=== PATIENT | male | born 1945 | race Caucasian/White ===

== ENCOUNTER → 2016-12-22 | Outpatient (CLI) | payer OTHER ==
[~2016-12-22] MED LIST: CIPR1TAB11 PO; CLB100 PO; DRGTP12; ESZO1TAB16 PO; KFLS250100 PO; LISI-725 PO; MBXC PO; MULT-506 PO; ONDA8TAB6 PO; PROC1TAB5 PO; PSEU60TA80 PO; ondansetron
--- NOTE | 2016-12-22 15:11 | DIAGNOSTIC IMAGING REPORT ---
PET/CT HISTORY: HEAD NECK CANCER TECHNIQUE: PET/CT was performed from the base of the skull through the pelvis following the intravenous administration of 14.1 mCi of F18-FDG. Non-contrast CT imaging was performed over the same range without breath-hold for attenuation correction of PET images and anatomic correlation, but not for primary interpretation as it is not of standard diagnostic quality. CT DOSE: COMPARISON: None. FINDINGS: HEAD AND NECK: Within the right supraglottic soft tissues there is a 2.8 x 1.2 cm intensely FDG avid mucosal/submucosal mass with an SUV max of 17.8. This abuts but does not invade into the adjacent right thyroid cartilage. This results in mild effacement of the airway. However, the majority of the airway remains patent. There are 3 enlarged and FDG avid right level 2/3 cervical lymph nodes. Dominant level 3 lymph node measures 2.6 cm and demonstrates an SUV max of 14. No left cervical lymphadenopathy. Visualized brain parenchyma demonstrates symmetric perfusion. CHEST: There is no FDG-avid disease in the chest. There is no axillary or mediastinal lymphadenopathy. There is no pleural or pericardial effusion. There is no air-space disease or suspicious lung nodule. Mild FDG uptake associated with the bilateral karen is likely due to the normal pulmonary vessels. There are no enlarged hilar lymph nodes. ABDOMEN/PELVIS: Below the diaphragm, tracer is distributed physiologically in the gastrointestinal and genitourinary tracts. There is no significant lymphadenopathy and no FDG-avid disease. A 6 mm hyperdense lesion within the upper pole the right kidney is too small to characterize. This may represent a hyperdense cyst. MUSCULOSKELETAL: There is no FDG-avid or destructive bone lesion. IMPRESSION: A 2.8 x 1.2 cm intensely FDG avid right supraglottic mass with associated FDG avid right cervical lymphadenopathy as described above. Electronically signed by: Charanjit Resendiz M.D. 12/22/2016 3:09 PM Dictated Date/Time: 12/22/2016 2:49 PM
== END | disposition home or self-care (01) ==
LOC: C.PET 11:52
PROVIDERS: ATTEND Otolaryngology Otolaryngology/Facial Plastic Surgery
DX: C32.1 Malignant neoplasm of supraglottis (principal); R59.0 Localized enlarged lymph nodes

== ENCOUNTER → 2017-02-03 | Outpatient (CLI) | payer OTHER ==
--- NOTE | 2017-02-03 12:44 | DIAGNOSTIC IMAGING REPORT ---
BILATERAL CAROTID DOPPLER STUDY HISTORY: Dysphagia HEAD/NECK CA COMPARISON: None. TECHNIQUE: Real-time, grayscale, and color Doppler sonography of the carotid arteries was performed. Imaging reviewed in the transverse and longitudinal planes. All measurements were calculated based on NASCET criteria. FINDINGS: Antegrade flow is seen in the bilateral vertebral arteries. The brachial pressures are hemodynamically similar. Moderate plaque bilaterally The peak systolic velocity within the right ICA is 93. The right systolic ratio is 1.3. The peak systolic velocity within the left ICA is 121. The left systolic ratio is 1.8. IMPRESSION: Moderate plaque formation bilaterally. No significant stenosis. Electronically signed by: John Nunez M.D. 02/03/2017 12:42 PM Dictated Date/Time: 02/03/2017 12:38 PM
== END | disposition home or self-care (01) ==
LOC: C.ULTR 12:01
PROVIDERS: ATTEND Radiology Radiation Oncology
DX: C32.1 Malignant neoplasm of supraglottis (principal); I70.8 Atherosclerosis of other arteries; I65.23 Occlusion and stenosis of bilateral carotid arteries

== ENCOUNTER → 2017-03-09 | Outpatient (CLI) | payer OTHER ==
--- NOTE | 2017-03-09 11:57 | DIAGNOSTIC IMAGING REPORT ---
VIDEO SWALLOW STUDY CLINICAL HISTORY: Supraglottic nasopharyngeal carcinoma. COMPARISON STUDY: No priors. Fluoroscopy time: 2.3 minutes. FINDINGS: Fluoroscopic guidance is provided to the department of speech pathology in performing a video swallow study. The patient consumed barium-impregnated pudding, cracker with paste, nectar-thick liquid, as well as thin barium while the swallowing mechanism was observed in real-time. No aspiration was seen with the pudding or cracker with paste texture. There was aspiration seen with the thin barium and nectar-thick liquid textures. IMPRESSION: 1. Aspiration was seen with the nectar-thick liquid and thin barium textures. 2. See dedicated speech pathology report for detailed findings and recommendations. Dictated: 03/09/2017 11:53 AM Transcribed: 03/09/2017 11:56 AM [facility] Electronically signed by: Maxime Zhang M.D. 03/09/2017 12:11 PM Dictated Date/Time: 03/09/2017 11:53 AM
--- NOTE | 2017-03-09 16:03 | SWALLOWING EVALUATION ---
REFERRING SPEECH PATHOLOGIST: Lisa Bach MS, [facility])-MARKETING/SALES PERSON/L HISTORY: This 71 year-old male was referred for a VFSS at [facility] in order to rule out aspiration and identify safe consistencies for optimal oral intake. 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 He underwent (R) supraglottic hemilaryngectomy with bilateral neck dissection on 01/05/2017. He is currently receiving both chemotherapy and XRT (today was XRT #5). He had a trach for ~3 weeks following surgery and PEG-tube for ~6 weeks following surgery; however both are removed. Pt eating diet as tolerated and states he is maintaining his weight. No pneumonia, pneumonitis or bronchitis diagnosed since resuming oral intake. Pt reports increased difficulty swallowing solid foods that he describes as "dense". He eats no thick pieces of meat, cuts crust from sandwiches, etc. He also has complaints of thick saliva impeding his ability to swallow at times. He denies odynophagia. He has been seen by Outpatient MARKETING/SALES PERSON Services at [facility] and demonstrated s/s possible aspiration. This study was ordered as f/u. PROCEDURE: The patient was seen in the Radiology Department of [facility] for the VFSS. Cursory examination of the oral cavity revealed adequate dentition. Movement of the articulators was WNL. The patient was seated on a stool and was viewed in both the Anterior-Posterior (A-P) and Lateral planes. Volitional phonation exercises completed in the A-P plane revealed bilateral vocal fold movement and vocal intensity within functional limits. In the lateral plane, the patient was given the following boluses: 1 tsp. thin liquid barium x 2, single swallow thin liquid barium self-presented from a straw x 2 (once using supraglottic swallowing maneuver), 1 tsp. nectar-thick liquid barium, single swallow nectar-thick liquid barium self-presented from a cup, 1 tsp. barium pudding, and 1 club cracker with barium pudding. The patient was then repositioned into the A-P plane and given one teaspoon thin liquid barium. RESULTS: Oral Stage: Labial seal complete. Cohesive bolus between tongue and palate during oral bolus hold exercise with thin liquid barium. Slow mastication with complete bolus re-collection. Brisk lingual motion for bolus transport. Residue collections on tongue after initial swallow of bolus. Cleared with an independently-produced second swallow. Latent pharyngeal swallow initiation when the bolus head was in the remaining pyriform sinus. The oral-stage of the swallow was generally WFL, but mastication was slightly prolonged and pharyngeal swallow initiation was delayed. Pharyngeal Stage: No bolus between soft palate and pharyngeal wall. Partial superior movement of the thyroid cartilage with partial approximation of the arytenoids to the epiglottic petiole. Partial anterior hyoid excursion. Epiglottis could not be assessed. Incomplete laryngeal vestibular closure. Diminished pharyngeal stripping wave. Partial distention and duration of PES opening with partial obstruction of bolus flow. Wide column of contrast between tongue base and pharyngeal wall. Collections of bolus in the remaining valleculae and pyriform sinus after swallowing. There was trickle SILENT ASPIRATION of thin liquid from a straw and nectar-thick liquid from a cup (large bolus) as the bolus dripped into the airway in between swallows. No aspiration with teaspoon-sized boluses or thin liquid from a cup (smaller amount taken). Use of a supraglottic swallow maneuver was effective in clearing aspirate from the airway; however the patient did not like using the technique. Also effective was having the patient cough and re-swallow x 2 after initial swallows. The solid boluses required multiple swallows to clear the pharynx and pass through the limited UES opening. Esophageal Stage: No obvious bolus retention when esophagus was scanned. SUMMARY/RECOMMENDATIONS: This patient presents with moderate oral-pharyngeal dysphagia. The following is recommended: 1. Moist, soft diet as tolerated 2. Compensatory Strategies/Aspiration precautions: Limit liquid bolus size to ~ 1 teaspoon, avoid straw use, alternate solids and liquids, swallow twice per bolus, use cough/re-swallow in between swallows 3. Stringent oral hygiene protocol: to minimize oral bacteria aspirated in saliva 4. Continue f/u with referring MARKETING/SALES PERSON for dysphagia management and for learning prophylactic exercises to reduce impact of post XRT fibrosis A summary of the results and recommendations was discussed with the patient immediately following the study. He verbalized understanding and is anticipating f/u with referring MARKETING/SALES PERSON. Thank you for referral of this patient. Please contact me at if any additional information is needed.
== END | disposition home or self-care (01) ==
LOC: C.RAD 10:31
PROVIDERS: ATTEND Physician Assistant Medical
DX: Z51.0 Encounter for antineoplastic radiation therapy (principal); C32.1 Malignant neoplasm of supraglottis; R13.12 Dysphagia, oropharyngeal phase

== ENCOUNTER → 2017-03-23 | Day surgery (SDC) | payer OTHER ==
[~2017-03-23] VITALS: Ht 175.3 cm; Wt 64.0 kg
[~2017-03-23] MED LIST changes: +CEFAZOLIN 2000 MG/60 ML D5W IV SCH; +CEFAZOLIN IV 2,000 MG/60 ML D5W IV ONE; +FENTANYL CITRATE INJ 50 MCG/1 ML 2 ML VIAL ONE; +KETAMINE HCL INJ 50 MG/ML 10 ML VIAL ONE; +LIDOCAINE HCL 2% 2 ML VIAL (20MG/ML) ONE; +MIDAZOLAM HCL 1 MG/ML 2ML VIAL ONE; +PROPOFOL IV EMULSION 10 MG/ML 20 ML VIAL IV ONE; +SODIUM CHLORIDE 0.9% 500ML 500 ML IV ONE
[2017-03-23 12:51] VITALS: Ht 175.3 cm; Wt 64.0 kg
--- NOTE | 2017-03-23 13:21 | Endo History and Physical ---
History & Physical Date of Service: Mar 23, 2017. Chief Complaint: HEAD AND NECK CANCER WEIGHT LOSS Referring Physician: DR PRIDE History of Present Illness 71 yo CM who presents for EGD with PEG tube placement secondary to head and neck cancer with radiation and dysphagia. Past Surgical History Hx Cardiac Surgery: No Hx Internal Defibrillator: No Hx Pacemaker: No Hx Abdominal Surgery: No Hx of Implantable Prosthesis: No Hx Post-Op Nausea and Vomiting: No Hx Cancer Surgery: Yes (PARTIAL LARYNGECTOMY AND LYPH NODESW) Hx Thoracic Surgery: No Hx Orthopedic: Yes (BUNION SURGERY) Hx Urinary Tract Surgery: No Family History None Social History Smoking Status: Former Smoker Hx Substance Use: No Hx Alcohol Use: No (None in past 30 years) Allergies Coded Allergies: No Known Allergies (Unverified , 03/23/17) Current Medications Reported Home Medications Medications Dose Route/Sig Max Daily Dose Days Date Category Mucinex D (Pseudoephedrine-Guaifenesin) 1 Tab Tab 1 Tab PO BID 10 03/23/17 Reported [ondansetron ] 1 Tab Q6H 03/21/17 Reported Compazine (Prochlorperazine Maleate) 10 Mg Tab 1 Tab PO Q6 PRN 7 03/15/17 Reported Multivitamin (Multivitamins) Tab 1 Tab PO DAILY 03/07/17 Reported Zestril (Lisinopril) 20 Mg Tab 20 Mg PO DAILY 02/01/17 Reported Lunesta (Eszopiclone) 3 Mg Tab 3 Mg PO HS PRN 02/01/17 Reported Celebrex (Celecoxib) 100 Mg Cap 1 Cap PO DAILY 30 02/01/17 Reported Vital Signs Weight (Kilograms): 64 Height (Feet): 5 Height (Inches): 9 Date Time Temp Pulse Resp B/P (MAP) Pulse Ox O2 Delivery O2 Flow Rate FiO2 03/23/17 13:02 37 63 16 116/64 99 Room Air Physical Exam General Appearance: WD/WN, no apparent distress Respiratory/Chest: Auscultation: breath sounds normal Cardiovascular: Heart Auscultation: RRR Abdomen: Bowel Sounds: normal Inspection & Palpation: soft, non-distended, no tenderness, guarding & rebound Assessment and Plan Assessment: 71 yo CM who presents for EGD with PEG tube placement secondary to head and neck cancer with radiation and dysphagia. Plan: Proceed with EGD.
--- NOTE | 2017-03-23 13:52 | Discharge Instructions ---
Endoscopy Patient Instructions Date / Procedure(s) Performed Mar 23, 2017. Other Allergy Information Coded Allergies: No Known Allergies (Unverified , 03/23/17) Discharge Date / Findings Mar 23, 2017. Radiation esophagitis Successful PEG tube placement Medication Instructions OK to resume all medications today as prescribed Medications Dose Route/Sig Max Daily Dose Days Date Category Mucinex D (Pseudoephedrine-Guaifenesin) 1 Tab Tab 1 Tab PO BID 10 03/23/17 Reported [ondansetron ] 1 Tab Q6H 03/21/17 Reported Compazine (Prochlorperazine Maleate) 10 Mg Tab 1 Tab PO Q6 PRN 7 03/15/17 Reported Multivitamin (Multivitamins) Tab 1 Tab PO DAILY 03/07/17 Reported Zestril (Lisinopril) 20 Mg Tab 20 Mg PO DAILY 02/01/17 Reported Lunesta (Eszopiclone) 3 Mg Tab 3 Mg PO HS PRN 02/01/17 Reported Celebrex (Celecoxib) 100 Mg Cap 1 Cap PO DAILY 30 02/01/17 Reported Provider Instructions Activity Restrictions - No exercising or heavy lifting for 24 hours. - Do not drink alcohol the day of the procedure. - Do not drive a car or operate machinery until the day after the procedure. - Do not make any important decisions or sign important papers in 24 hours after the procedure. Following Day: - Return to full activity which may include returning to work/school. Diet Start your diet with liquids and light foods (jello, soup, juice, toast). Then eat your usual diet if not nauseated. Treatment For Common After Affects For mild abdominal pain, bloating, or excessive gas: - Rest - Eat lightly - Lie on right side Follow-Up Information Follow-up with DR PRIDE as scheduled Anesthesia Information What You Should Know You have had a procedure that required some medicine to reduce anxiety and discomfort. This treatment is called moderate sedation. After receiving the treatment, you may be sleepy, but you will be able to breathe on your own. The effects of the treatment may last for several hours. Follow these instructions along with Activity/Diet recommendations noted above: * Do NOT do anything where dizziness or clumsiness would be dangerous. * Rest quietly at home today, then you can be up and about tomorrow. * Have a responsible person stay with you the rest of today. * You may have had an I.V. today. If so, you may take the dressing off later today. Recommendations Call your doctor if: * Trouble breathing * Continuous vomiting for more than 24 hours * Temperature above 101 degrees * Severe abdominal pain or bloating * Pain not relieved by pain medicine ordered * There is increased drainage or redness from any incision * A large amount of rectal bleeding greater than 2-3 tablespoons. (If you had a polyp/s removed or have hemorrhoids, a small amount of blood - from the rectum is to be expected.) * You have any unanswered questions or concerns. IN THE EVENT OF A SERIOUS EMERGENCY, GO TO THE NEAREST EMERGENCY ROOM Your discharge instructions were prepared by provider Prosper Bro. Patient Instructions Signature Page Katie Wagoner Patient (or Guardian) Signature/Date: I have read and understand the instructions given to me by my caregivers. Caregiver/RN/Doctor Signature/Date: The above-named patient and/or guardian has received patient instructions on this date. + Original Patient Signature Page (only) stays with chart. Please make copy for patient.
--- NOTE | 2017-03-23 13:54 | Discharge Instructions ---
Endoscopy Patient Instructions Date / Procedure Performed Mar 23, 2017. Percutaneous Endoscopic Gastrotomy (P.E.G) Tube Replacement / Removal Allergy Information Coded Allergies: No Known Allergies (Unverified , 03/23/17) Home Medication List Scheduled Celecoxib (Celebrex), 1 CAP PO DAILY Eszopiclone (Lunesta), 3 MG PO HS prn Lisinopril (Zestril), 20 MG PO DAILY Multivitamin (Multivitamin), 1 TAB PO DAILY Pseudoephedrine-Guaifenesin (Mucinex D), 1 TAB PO BID [ondansetron ], 1 TAB Q6H Scheduled PRN Prochlorperazine Maleate (Compazine), 1 TAB PO Q6 PRN for Nausea or Vomiting Discharge Date / Findings Mar 23, 2017. Successful PEG tube placement Radiation esophagitis Medication Instructions OK to resume all medications today as prescribed Medications Dose Route/Sig Max Daily Dose Days Date Category Mucinex D (Pseudoephedrine-Guaifenesin) 1 Tab Tab 1 Tab PO BID 10 03/23/17 Reported [ondansetron ] 1 Tab Q6H 03/21/17 Reported Compazine (Prochlorperazine Maleate) 10 Mg Tab 1 Tab PO Q6 PRN 7 03/15/17 Reported Multivitamin (Multivitamins) Tab 1 Tab PO DAILY 03/07/17 Reported Zestril (Lisinopril) 20 Mg Tab 20 Mg PO DAILY 02/01/17 Reported Lunesta (Eszopiclone) 3 Mg Tab 3 Mg PO HS PRN 02/01/17 Reported Celebrex (Celecoxib) 100 Mg Cap 1 Cap PO DAILY 30 02/01/17 Reported Provider Instructions Activity Recommendations * Resume regular activity . Diet Recommendations * Resume previous diet. * Advance diet as tolerated. * Before each feeding, aspirate the tube for residual gastric contents. Hold feedings for residual of 50 ml or more. * Elevate the head of the bed during and after feedings for 30-60 minutes . Medication Instructions * Resume usual medications. * Always flush the tube with warm water after administration of medication. Follow-Up Information Follow-up with DR PRIDE as scheduled Anesthesia Information What You Should Know You have had a procedure that required some medicine to reduce anxiety and discomfort. This treatment is called moderate sedation. After receiving the treatment, you may be sleepy, but you will be able to breathe on your own. The effects of the treatment may last for several hours. Follow these instructions along with Activity/Diet recommendations noted above: * Do NOT do anything where dizziness or clumsiness would be dangerous. * Rest quietly at home today, then you can be up and about tomorrow. * Have a responsible person stay with you the rest of today. * You may have had an I.V. today. If so, you may take the dressing off later today. Symptoms Additional Instructions If you experience any of the following symptoms after your procedure seek medical attention at your closest Emergency Room and/or call your primary care physician immediately: * Severe abdominal pain or bloating * Fever greater than 101.1 degrees within 24 hours after the procedure * Uncontrolled nausea and vomiting Avoid all tobacco products. If you need help to stop smoking, call [facility] FREE QUIT LINE at [phone]. Your discharge instructions were prepared by provider Prosper Bro. Patient Instructions Signature Page Katie Wagoner Patient (or Guardian) Signature/Date: I have read and understand the instructions given to me by my caregivers. Caregiver/RN/Doctor Signature/Date: The above-named patient and/or guardian has received patient instructions on this date. + Original Patient Signature Page (only) stays with chart. Please make copy for patient.
--- NOTE | 2017-03-23 14:00 | GI REPORT ---
Procedure Date: 03/23/2017 1:27 PM Procedure: Upper GI endoscopy Indications: Dysphagia, Head and Neck Cancer Medicines: Monitored Anesthesia Care Complications: No immediate complications. Estimated Blood Loss: Estimated blood loss: none. Procedure: Pre-Anesthesia Assessment: - Prior to the procedure, a History and Physical was performed, and patient medications and allergies were reviewed. The patient's tolerance of previous anesthesia was also reviewed. The risks and benefits of the procedure and the sedation options and risks were discussed with the patient. All questions were answered, and informed consent was obtained. Prior Anticoagulants: The patient has taken no previous anticoagulant or antiplatelet agents. ASA Grade Assessment: IV - A patient with severe systemic disease that is a constant threat to life. After reviewing the risks and benefits, the patient was deemed in satisfactory condition to undergo the procedure. After obtaining informed consent, the endoscope was passed under direct vision. Throughout the procedure, the patient's blood pressure, pulse, and oxygen saturations were monitored continuously. The On-site loaner was introduced through the mouth, and advanced to the second part of duodenum. The upper GI endoscopy was accomplished without difficulty. The patient tolerated the procedure well. Findings: Mildly severe esophagitis with no bleeding was found. The entire examined stomach was normal. Placement of an externally removable PEG with no T-fasteners was successfully completed. The external bumper was at the 2.0 cm marking on the tube. The examined duodenum was normal. Impression: - Mildly severe radiation esophagitis. - Normal stomach. - Normal examined duodenum. - An externally removable PEG placement was successfully completed. - No specimens collected. Recommendation: - Resume previous diet. - Continue present medications. - Please follow the post-PEG recommendations including: Nutrition consult for formula and volume, clean site with soap and water daily and dry thoroughly and start using PEG today. Prosper Bro, DO 03/23/2017 1:59:38 PM This report has been signed electronically. Note Initiated On: 03/23/2017 1:27 PM I attest to the content of the Intraoperative Record and orders documented therein, exceptions below
[2017-03-23 14:56] VITALS: BP 119/63; PULSE 72; O2SAT 97
--- NOTE | 2017-03-23 15:03 | Anesthesiology Progress Note ---
Anesthesia Post Op Note Date & Time Mar 23, 2017 at 15:03 Vital Signs Pain Intensity: 0 Vital Signs Past 12 Hours Date Time Temp Pulse Resp B/P (MAP) Pulse Ox O2 Delivery O2 Flow Rate FiO2 03/23/17 14:56 72 20 119/63 97 Room Air 03/23/17 14:30 37 68 20 112/58 97 Room Air 03/23/17 14:13 63 20 101/57 97 Room Air 03/23/17 13:57 68 18 104/66 99 Room Air 03/23/17 13:02 37 63 16 116/64 99 Room Air Notes Mental Status: alert / awake / arousable, participated in evaluation Pt Amnestic to Procedure: Yes Nausea / Vomiting: adequately controlled Pain: adequately controlled Airway Patency, RR, SpO2: stable & adequate BP & HR: stable & adequate Hydration State: stable & adequate Anesthetic Complications: no major complications apparent
== END | disposition home or self-care (01) ==
LOC: C.GI 12:32
PROVIDERS: ATTEND Internal Medicine
DX: C32.1 Malignant neoplasm of supraglottis (principal); K20.8 Other esophagitis; R13.10 Dysphagia, unspecified; T50.995A Adverse effect of other drugs, medicaments and biological substances, initial encounter; C76.0 Malignant neoplasm of head, face and neck; Z87.891 Personal history of nicotine dependence; Z92.3 Personal history of irradiation

== ENCOUNTER → 2017-05-03 | Outpatient (CLI) | payer OTHER ==
--- NOTE | 2017-05-02 17:59 | Radiation Onc End of Treatmnt ---
End of Treatment Documentation Date May 02, 2017. 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 Bowers - stage pT3N2c with extranodal extension Status post completion of combined radiation and chemotherapy. Radiation completed 04/21/2017. He received 6600 cGy. Chemotherapy comprised of weekly cisplatin. Last Edited By: Luh Sosa on May 02, 2017 17:48 History Mr. Wagoner is a 71-year-old gentleman with the previous smoking history who presented with a right neck mass in November 2016. The patient underwent ultrasound on 12/01/2016 which revealed a 2.4 cm complex vascular lesion within the right neck consistent with a palpable mass. The patient underwent an ultrasound- guided biopsy of the right neck mass on which confirmed evidence of malignancy but cannot be confirmed to be squamous cell carcinoma. The patient was referred to Dr. Saad Bowers from ENT who did perform an NPL examination which revealed a 2 cm exophytic lesion involving the right aryepiglottic fold that did not appear to involve the vocal cord or false vocal cord. The patient did undergo a PET/CT scan on 12/22/2016 which revealed: "Within the right supraglottic soft tissues there is a 2.8 x 1.2 cm intensely FDG avid mucosal/submucosal mass with an SUV max of 17.8. This abuts but does not invade into the adjacent right thyroid cartilage. This results in mild effacement of the airway. However, the majority of the airway remains patent. There are 3 enlarged and FDG avid right level 2/3 cervical lymph nodes. Dominant level 3 lymph node measures 2.6 cm and demonstrates an SUV max of 14. No left cervical lymphadenopathy. Visualized brain parenchyma demonstrates symmetric perfusion." The PET/CT do not reveal any evidence of distant metastatic disease. Dr. Bowers took the patient to the operating room on 01/05/2017 for a right supraglottic hemilaryngectomy, right modified radical neck dissection, left selective neck dissection and tracheostomy. 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 The margins were positive and both lymphovascular space invasion and perineural invasion were present. The primary tumor is p16 negative. In total, 39 lymph nodes were removed and 12 were positive for metastatic squamous cell carcinoma. Extracapsular extension was also identified. Specifically, 11 lymph nodes were positive involving right levels 2 and 3 and 1 lymph node was positive involving the left neck. We are now seeing the patient in consultation discussed the role of adjuvant radiation therapy. Currently, the patient is doing relatively okay. 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 Additionally, his temporary tracheostomy has been removed and is healing as well. He states he has had some difficulty getting back his original weight and plans to potentially increase his weight by 10-15 pounds. He did have a temporary feeding tube and that was removed due to patient intolerance. He was referred to medical oncology. The final decision was to treat with combined radiation and chemotherapy. Chemotherapy comprised of weekly cisplatin. Radiation was completed on 2016. He received 6600 cGy. Physics Course Treatment Site [employer] Start Date End Date Elapsed Days # TX Daily Dose (cGy) Total Dose (cGy) C1- H&N VMAT, 2 arcs 6X 03/03/2017 04/21/2017 50 33 200 6600 Do documented final doses agree with prescribed doses? Yes If not, explain: Is patients chart complete and accurate? Yes Additional Notes He completed his combined course of radiation and chemotherapy. He did not require any breaks in treatment. The chemotherapy was given on a weekly basis. He did develop dysphagia. He was given MBXC. With the increasing discomfort a fentanyl patch was prescribed. He was seen by speech therapy and also the dietitian. Prior to treatment there is a carotid evaluation. He also had thyroid function study. Ultimately a feeding tube was required. He steadily increased the amount of nutrition. He did have difficulty with a feeling of fullness. At the end of treatment he was using 3 cartons of nutrition per day. He was flushing before and after each carton. Overall approximate weight loss of 10 pounds. He had issues with a mucocutaneous fistula. There was opening with purulent drainage. This was cultured. He was given a prescription for cephalexin. The opening size and amount of drainage did respond to the antibiotic therapy. He is going to continue regular follow-up with Dr. Granados, Dr. Bowers, and Dr. Hunter. We asked her to return to our office in 2 weeks. He may call if she has any questions or concerns in the interim. Pain Management He had no pain at beginning of treatment. 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 He was started first on MBXC. A sentinel patch was then added 12 g per hour changed every 72 hours. This was increased to 24 g per hour changed every 72 hours. This ultimately was then increased to 50 g per hour at the end of treatment. His pain level at that time was 8. Copies To Shen Bowers; Augusto Granados MD; Yimi Hunter D.O.
[~2017-05-03] MED LIST changes: -CEFAZOLIN 2000 MG/60 ML D5W IV SCH; -CEFAZOLIN IV 2,000 MG/60 ML D5W IV ONE; -CLB100 PO; -ESZO1TAB16 PO; -FENTANYL CITRATE INJ 50 MCG/1 ML 2 ML VIAL ONE; -KETAMINE HCL INJ 50 MG/ML 10 ML VIAL ONE; -LIDOCAINE HCL 2% 2 ML VIAL (20MG/ML) ONE; -LISI-725 PO; -MBXC PO; -MIDAZOLAM HCL 1 MG/ML 2ML VIAL ONE; -MULT-506 PO; -PROPOFOL IV EMULSION 10 MG/ML 20 ML VIAL IV ONE; -PSEU60TA80 PO; -SODIUM CHLORIDE 0.9% 500ML 500 ML IV ONE; -ondansetron
[2017-05-03 13:45] VITALS: BP 111/70; PULSE 67; TEMP 37; O2SAT 96
--- NOTE | 2017-05-03 16:54 | Radiation Oncology Follow-Up ---
Radiation Oncology Follow-Up Date of Visit May 03, 2017. (Luh Sosa PA-C) Reason For Visit Two-week follow-up (Luh Sosa PA-C) Radiation Completion Date finished 04-21-2017 (Luh Sosa PA-C) Diagnosis (1) Cancer of supraglottis Status: Acute Onset Date: 12/10/2016 Histology Subtype: squamous cell carcinoma Stage: IV Permanent Comment: -Self palpated right neck mass - November 2016 -Ultrasound-guided FNA of right neck mass - 12/10/2016 - positive for squamous cell carcinoma -PET/CT scan - 12/22/2016 -Supraglottic hemilaryngectomy, bilateral neck dissection - 01/05/2017 - Dr. Bowers - stage pT3N2c with extranodal extension Status post completion of combined radiation and chemotherapy. Radiation completed 04/21/2017. He received 6600 cGy. Chemotherapy comprised of weekly cisplatin. Last Edited By: Luh Sosa on May 02, 2017 17:48 (Luh Sosa PA-C) History of Present Illness Mr. Wagoner is a 71-year-old gentleman with the previous smoking history who presented with a right neck mass in November 2016. The patient underwent ultrasound on 12/01/2016 which revealed a 2.4 cm complex vascular lesion within the right neck consistent with a palpable mass. The patient underwent an ultrasound- guided biopsy of the right neck mass on which confirmed evidence of malignancy but cannot be confirmed to be squamous cell carcinoma. The patient was referred to Dr. Saad Bowers from ENT who did perform an NPL examination which revealed a 2 cm exophytic lesion involving the right aryepiglottic fold that did not appear to involve the vocal cord or false vocal cord. The patient did undergo a PET/CT scan on 12/22/2016 which revealed: "Within the right supraglottic soft tissues there is a 2.8 x 1.2 cm intensely FDG avid mucosal/submucosal mass with an SUV max of 17.8. This abuts but does not invade into the adjacent right thyroid cartilage. This results in mild effacement of the airway. However, the majority of the airway remains patent. There are 3 enlarged and FDG avid right level 2/3 cervical lymph nodes. Dominant level 3 lymph node measures 2.6 cm and demonstrates an SUV max of 14. No left cervical lymphadenopathy. Visualized brain parenchyma demonstrates symmetric perfusion." The PET/CT do not reveal any evidence of distant metastatic disease. Dr. Bowers took the patient to the operating room on 01/05/2017 for a right supraglottic hemilaryngectomy, right modified radical neck dissection, left selective neck dissection and tracheostomy. 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 The margins were positive and both lymphovascular space invasion and perineural invasion were present. The primary tumor is p16 negative. In total, 39 lymph nodes were removed and 12 were positive for metastatic squamous cell carcinoma. Extracapsular extension was also identified. Specifically, 11 lymph nodes were positive involving right levels 2 and 3 and 1 lymph node was positive involving the left neck. We are now seeing the patient in consultation discussed the role of adjuvant radiation therapy. Currently, the patient is doing relatively okay. 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 Additionally, his temporary tracheostomy has been removed and is healing as well. He states he has had some difficulty getting back his original weight and plans to potentially increase his weight by 10-15 pounds. He did have a temporary feeding tube and that was removed due to patient intolerance. He was referred to medical oncology. The final decision was to treat with combined radiation and chemotherapy. Chemotherapy comprised of weekly cisplatin. Radiation was completed on 2016. He received 6600 cGy. (Luh Sosa PA-C) Interim History He is now taking in 4 containers of nutrition daily. He flushes with water before and after each container. His pain level currently is 3. After completing the radiation therapy he stopped using the fentanyl patches. Does not take any pain medication on a regular basis. He does have dryness of the skin on the sides of the neck. He has been using Aquaphor. 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 There is near complete closure and only a scant amount of range that occurs. He had been on cephalexin and this was completed. He is now on Cipro and is completing that prescription. He is continuing follow-up with speech therapy and has asked that he be followed at [facility] for convenience of travel. (Luh Sosa PA-C) Allergies Coded Allergies: No Known Allergies (Unverified , 03/23/17) Home Medications Scheduled Ciprofloxacin Tab (Cipro), 1 TAB PO BID Review of Systems Gastrointestinal: Symptoms: WNL Oral: Symptoms: Saliva amt. Increased Other Oral Symptoms: sore throat and difficulty swallowing Respiratory: Symptoms: WNL Other Respiratory: "occ coughing fits due to increased saliva " Urinary: Symptoms: Nocturia Comments: times 1 Skin: Other Skin Symptoms: "per the patient the skin below the trach is healing " (Luh Sosa PA-C) Physical Exam Vital Signs Date Time Temp Pulse Resp B/P (MAP) Pulse Ox O2 Delivery O2 Flow Rate FiO2 05/03/17 13:45 37.0 67 18 111/70 96 Pain: Pain Onset: since radiation started Side: Bilateral Patient Pain Scale: 0 - 10 Initial Pain Intensity: 3.0 Pain Description: Dull Additional Comments: constant Fatigue: None General Appearance: no apparent distress Eyes: normal inspection, EOMI ENT: hearing grossly normal, + pertinent finding (thickness of saliva noted in the mouth. There are no areas of erythema or mucositis. No pain with opening the mouth. No trismus.) Neck: + pertinent finding (postoperative changes with resolving radiation dermatitis. There is dry desquamation. The fistula areas have closed. There is slight erythema in the submental area with mild edema.) Respiratory/Chest: lungs clear, no respiratory distress, no accessory muscle use Cardiovascular: regular rate, rhythm, no gallop, no murmur Extremities: no pedal edema Neurologic/Psychiatric: no motor/sensory deficits, alert, + depressed affect Skin: warm/dry (Luh Sosa PA-C) Laboratory Studies Test 02/08/17 11:35 03/10/17 09:41 03/17/17 08:16 03/29/17 12:02 Thyroid Stimulating Hormone (TSH) 3.090 uIu/ml (0.300-4.500) Lactate Dehydrogenase 152 U/L (87-241) 180 U/L (87-241) Magnesium Level 2.4 mg/dl (1.8-2.4) 2.5 mg/dl (1.8-2.4) Test 04/05/17 10:53 04/06/17 10:37 04/13/17 11:00 04/13/17 11:05 Dohle Bodies 1+ 2+ Immature Granulocyte % (Auto) 0.0 % White Blood Count 1.37 K/uL (4.8-10.8) 1.75 K/uL (4.8-10.8) Red Blood Count 3.56 M/uL (4.7-6.1) 3.22 M/uL (4.7-6.1) Hemoglobin 9.9 g/dL (14.0-18.0) 9.1 g/dL (14.0-18.0) Hematocrit 29.5 % (42-52) 26.7 % (42-52) Mean Corpuscular Volume 82.9 fL (80-100) 82.9 fL (80-100) Mean Corpuscular Hemoglobin 27.8 pg (25-34) 28.3 pg (25-34) Mean Corpuscular Hemoglobin Concent 33.6 g/dl (32-36) 34.1 g/dl (32-36) Platelet Count 141 K/uL (130-400) 352 K/uL (130-400) Mean Platelet Volume 7.6 fL (7.4-10.4) 7.8 fL (7.4-10.4) Neutrophils (%) (Auto) 63.5 % Lymphocytes (%) (Auto) 19.0 % Monocytes (%) (Auto) 16.8 % Eosinophils (%) (Auto) 0.0 % Basophils (%) (Auto) 0.7 % Neutrophils # (Auto) 0.87 K/uL (1.4-6.5) Lymphocytes # (Auto) 0.26 K/uL (1.2-3.4) Monocytes # (Auto) 0.23 K/uL (0.11-0.59) Eosinophils # (Auto) 0.00 K/uL (0-0.5) Basophils # (Auto) 0.01 K/uL (0-0.2) Immature Granulocyte # (Auto) 0.00 K/uL (0.00-0.02) Sodium Level 126 mmol/L (136-145) Potassium Level 4.1 mmol/L (3.5-5.1) Chloride Level 90 mmol/L (98-107) Carbon Dioxide Level 29 mmol/L (21-32) Anion Gap 7.0 mmol/L (3-11) Blood Urea Nitrogen 16 mg/dl (7-18) Creatinine 0.85 mg/dl (0.60-1.40) Est Creatinine Clear Calc Drug Dose 71.9 ml/min Estimated GFR () 103.0 Estimated GFR (Non- 88.9 BUN/Creatinine Ratio 18.2 (10-20) Random Glucose 95 mg/dl (70-99) Calcium Level 8.6 mg/dl (8.5-10.1) Total Bilirubin 0.3 mg/dl (0.2-1) Aspartate Amino Transferase (AST) 11 U/L (15-37) Alanine Aminotransferase (ALT) 19 U/L (12-78) Alkaline Phosphatase 60 U/L (45-117) Total Protein 6.2 gm/dl (6.4-8.2) Albumin 2.8 gm/dl (3.4-5.0) Globulin 3.4 gm/dl (2.5-4.0) Albumin/Globulin Ratio 0.8 (0.9-2) RDW Standard Deviation 44.6 fL (36.4-46.3) RDW Coefficient of Variation 14.8 % (11.5-14.5) Neutrophils % (Manual) 61.5 % Lymphocytes % (Manual) 16.5 % Monocytes % (Manual) 21.1 % Metamyelocytes % 0.9 % Neutrophils # (Manual) 1.08 K/uL (1.4-6.5) Total Absolute Neutrophils 1.08 K/uL (1.4-6.5) Lymphocytes # (Manual) 0.29 K/uL (1.2-3.4) Total Absolute Lymphocytes 0.29 K/uL (1.2-3.4) Monocytes # (Manual) 0.37 K/uL (0.11-0.59) Metamyelocytes # 0.02 K/uL (0-0) Toxic Granulation 2+ Giant Platelets 1+ Test 04/20/17 10:53 White Blood Count 3.89 K/uL (4.8-10.8) Red Blood Count 3.36 M/uL (4.7-6.1) Hemoglobin 9.8 g/dL (14.0-18.0) Hematocrit 28.6 % (42-52) Mean Corpuscular Volume 85.1 fL (80-100) Mean Corpuscular Hemoglobin 29.2 pg (25-34) Mean Corpuscular Hemoglobin Concent 34.3 g/dl (32-36) Platelet Count 428 K/uL (130-400) Mean Platelet Volume 7.3 fL (7.4-10.4) Neutrophils (%) (Auto) 57.3 % Lymphocytes (%) (Auto) 22.4 % Monocytes (%) (Auto) 12.3 % Eosinophils (%) (Auto) 0.0 % Basophils (%) (Auto) 0.8 % Neutrophils # (Auto) 2.23 K/uL (1.4-6.5) Lymphocytes # (Auto) 0.87 K/uL (1.2-3.4) Monocytes # (Auto) 0.48 K/uL (0.11-0.59) Eosinophils # (Auto) 0.00 K/uL (0-0.5) Basophils # (Auto) 0.03 K/uL (0-0.2) RDW Standard Deviation 45.3 fL (36.4-46.3) RDW Coefficient of Variation 14.8 % (11.5-14.5) Immature Granulocyte % (Auto) 7.2 % Immature Granulocyte # (Auto) 0.28 K/uL (0.00-0.02) Toxic Granulation 2+ Sodium Level 129 mmol/L (136-145) Potassium Level 4.5 mmol/L (3.5-5.1) Chloride Level 90 mmol/L (98-107) Carbon Dioxide Level 33 mmol/L (21-32) Anion Gap 6.0 mmol/L (3-11) Blood Urea Nitrogen 16 mg/dl (7-18) Creatinine 0.89 mg/dl (0.60-1.40) Est Creatinine Clear Calc Drug Dose 68.5 ml/min Estimated GFR () 101.1 Estimated GFR (Non- 87.2 BUN/Creatinine Ratio 17.8 (10-20) Random Glucose 97 mg/dl (70-99) Calcium Level 8.9 mg/dl (8.5-10.1) Total Bilirubin 0.2 mg/dl (0.2-1) Aspartate Amino Transferase (AST) 15 U/L (15-37) Alanine Aminotransferase (ALT) 20 U/L (12-78) Alkaline Phosphatase 74 U/L (45-117) Total Protein 6.2 gm/dl (6.4-8.2) Albumin 2.9 gm/dl (3.4-5.0) Globulin 3.3 gm/dl (2.5-4.0) Albumin/Globulin Ratio 0.9 (0.9-2) (Luh Sosa PA-C) Assessment & Plan Plan: He was also seen and examined by Dr. Thompson. He is instructed to use Aquaphor regularly to the areas of dry desquamation. Continue with the PEG tube feedings. Prescription was given for speech therapy to be done at [facility]. Continue follow-up with ENT and medical oncology. We asked him to return to our office in one month. He may call if he has any questions or concerns in the interim. (Luh Sosa PA-C) I agree with note created by Luh Sosa PA-C. I reviewed the patient's chart and information with her. I have examined and evaluated the patient. I reviewed relevant clinical information and answered the patient's and/or family' s questions. (Veeral. Thompson MD) Total Time In Follow-Up I spent 20 minutes speaking to the patient and performing examination. I spent 15 minutes reviewing information and completing this note. (Luh Sosa PA-C) I spent 15 minutes examining and counseling the patient. (Veeral. Thompson MD) Copy To Shen Bowers; Augusto Granados MD; Yimi Hunter D.O.
== END | disposition home or self-care (01) ==
LOC: C.ONC 13:07
PROVIDERS: ATTEND Physician Assistant Medical
DX: Z08 Encounter for follow-up examination after completed treatment for malignant neoplasm (principal); Z92.3 Personal history of irradiation; Z85.89 Personal history of malignant neoplasm of other organs and systems

== ENCOUNTER → 2017-10-25 | Outpatient (CLI) | payer OTHER ==
[~2017-10-25] MED LIST changes: -DRGTP12; -KFLS250100 PO; -ONDA8TAB6 PO; -PROC1TAB5 PO
--- NOTE | 2017-10-25 14:48 | DIAGNOSTIC IMAGING REPORT ---
BILATERAL LOWER EXTREMITY ARTERIAL DOPPLER ULTRASOUND CLINICAL HISTORY: PAIN IN TOES, BILATERAL COMPARISON STUDY: No previous studies for comparison. TECHNIQUE: Grayscale and color and duplex Doppler sonography of the arterial systems of both lower extremities was performed. FINDINGS: The right ankle to brachial index measured 1.03 when using the posterior tibial artery and 1.14 when using the dorsalis pedis. The left ankle to brachial index measured 1.02 using the posterior tibial artery and 1.09 when using the dorsalis pedis. Note was made of a 1.3 x 1.2 x 1.1 cm round hypoechoic abnormality within the left popliteal fossa. This contained no color flow. This has low level internal echoes. There was moderate plaque within the bilateral common femoral arteries. No elevated velocities were identified within either lower extremity triphasic flow was noted throughout each lower extremity. No vessel occlusion was identified by sonography. IMPRESSION: 1. No evidence of a hemodynamically significant stenosis within either lower extremity. Normal bilateral ankle to brachial indices. 2. Moderate atherosclerotic plaque within the bilateral common femoral arteries without evidence for stenosis. 3. 1.3 cm round hypoechoic abnormality within the left popliteal fossa. No color flow identified within this finding. The appearance is not typical for a popliteal cyst. This could reflect a complex cyst or pathologic lymph node. A follow-up popliteal ultrasound in one month is recommended. Electronically signed by: Kota Sevilla M.D. 10/25/2017 2:46 PM Dictated Date/Time: 10/25/2017 2:41 PM
== END | disposition home or self-care (01) ==
LOC: C.ULTR 13:12
PROVIDERS: ATTEND Family Medicine
DX: I73.00 Raynaud's syndrome without gangrene (principal); M79.674 Pain in right toe(s); M79.675 Pain in left toe(s); L97.501 Non-pressure chronic ulcer of other part of unspecified foot limited to breakdown of skin; I70.203 Unspecified atherosclerosis of native arteries of extremities, bilateral legs

== ENCOUNTER → 2018-02-28 | Outpatient (CLI) | payer OTHER | END | disposition home or self-care (01) | LOC: C.LABBC 10:09 | PROVIDERS: ATTEND Family Medicine | DX: R94.6 Abnormal results of thyroid function studies (principal) ==

== ENCOUNTER 2023-10-21 19:45 | Observation (INO) ==
[2023-10-21] MEDS ORDERED: RACEPINEPHRINE 2.25% NEBU SOLN 0.5 ML VIAL NEB STA ×2 (20:04→22:10)
[2023-10-21] MEDS ORDERED: RACEPINEPHRINE 2.25% NEBU SOLN 0.5 ML VIAL ONE (20:04)
--- NOTE | 2023-10-21 20:06 | Emergency Department Note ---
Impression & Plan Shortness of breath, Non-ST elevation [place] (NSTEMI), Elevated brain natriuretic peptide (BNP) level, Complication of tracheostomy ED Provider Note HISTORY OF PRESENT ILLNESS: Patient is a 78-year-old male presenting with shortness of breath. 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 He also reportedly was just diagnosed with tongue cancer and had a biopsy done at [facility] with ear nose and throat 2 days ago. Daughter reports that the patient has been having increased work of breathing since his biopsy, but significantly worsened this evening. They tried suctioning his trach at home but he has still been very short of breath. His trach secretions were slightly bloody. No chest pain. Denies any abdominal pain. ROS: as above PHYSICAL EXAM: Constitutional: Patient appears in no acute distress. HENT: Head: Normocephalic and atraumatic. Eyes: EOMI, PERRL Mouth/Throat: Mucous membranes moist. Neck: Trachea midline. Neck supple. Tracheostomy in place. Patient has supraclavicular retractions Cardiovascular: RRR, No murmurs, rubs or gallops. Intact distal pulses. Pulmonary/Chest: No respiratory distress. Breath sounds clear and equal bilaterally. Coarse breath sounds bilaterally. Abdominal: Abdomen soft, no tenderness, rebound or guarding. Musculoskeletal: No edema, tenderness or deformity noted. Skin: Warm and dry. No rash, erythema, pallor or cyanosis Psychiatric: Appropriate mood and affect for situation. Neurological: Alert and keenly responsive. CN II-XII grossly intact, moving all extremities equally and fully. MDM: - Vitals signs stable. - History obtained via patient and patient's family. 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 Reportedly was just diagnosed with tongue cancer and had biopsy done at [facility] with ENT 2 days ago. Daughter reports the patient has been having increased work of breathing since his biopsy, but significantly worse this evening. They tried suctioning him at home but did not have much success. His trach secretions were slightly bloody today. Denies any chest pain or abdominal pain. - Chronic conditions affecting care: supraglottic cancer - Differential diagnoses include, but are not limited to: obstruction; pneumonia; ACS - Order placed for continuous cardiac monitoring. At this time, monitor showed rate of 74 bpm with normal sinus rhythm, per my interpretation. - External medical records reviewed. - EKG interpreted by myself showed normal sinus rhythm. Rate 84 bpm. QTc 425. No acute ischemic changes. Poor baseline secondary to artifact. - Laboratory workup interpreted by myself showed normal WBC; stable electrolytes; elevated troponin (47.5); elevated BNP (221) - CXR shows appropriate tracheostomy placement and no evidence of pneumonia, per my read. - Viral respiratory panel negative - VBG showed slight acidosis (pH 7.33; PCO2 55) - ABG WNL - Patient given 2 racemic epi treatments with only slight improvement in his work of breathing. He was given 0.5 mg of Ativan. On reassessment, he still works like he is working to breathe and was given a DuoNeb treatment. He was given further suctioning and a small piece of clotted blood was suctioned out. On reassessment, the patient appears much more comfortable and no significant work of breathing - ENT, Dr. Morales, consulted. She did come to bedside to do a flexible scope which showed the patient's airway was stable and open. - Patient given 10 mg IV decadron. - Saline neb treatments ordered for Q1H. - Discussion was had with care technician about patient's case and need for admission - Hospitalist, Dr. Miner, consulted for admission - [facility]. I have personally spent 43 minutes of critical care time in the direct management of this patient. This includes bedside care, interpretation of diagnostic studies, and testing, discussion with consultants, patient, and family members, and other required patient management activities. This 43 minutes is in excess of all separately billable procedures. 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 Bowers - stage pT3N2c with extranodal extension Status post completion of combined radiation and chemotherapy. Radiation completed 04/21/2017. He received 6600 cGy. Chemotherapy comprised of weekly cisplatin." On 02/01/17 18:09 Gideon Thompson wrote "-Self palpated right neck mass - November 2016 -Ultrasound-guided FNA of right neck mass - 12/10/2016 - positive for squamous cell carcinoma -PET/CT scan - 12/22/2016 -Supraglottic hemilaryngectomy, bilateral neck dissection - 01/05/2017 - Dr. Bowers - stage pT3N2c with extranodal extension" Social History Smoking Status: Former smoker Preferred Language: Turkish Feels Safe at Home: Yes Allergies Allergies Allergy/AdvReac Type Severity Reaction Status Date / Time No Known Allergies Allergy Verified 10/21/23 21:11 Home Meds Home Medications Medication Instructions Recorded Confirmed gabapentin 250 mg/5 mL oral 250 mg feeding tube TID 10/21/23 10/21/23 solution levothyroxine 137 mcg tablet 137 mcg PO QAM 10/21/23 10/21/23 nystatin 100,000 unit/mL oral 5 ml PO BID 10/21/23 10/21/23 suspension oxycodone 5 mg/5 mL oral solution 5 mg PO Q6H PRN Pain 10/21/23 10/21/23 sodium chloride 0.9 % for 3 ml inhalation DIRECTED 10/21/23 10/21/23 nebulization trazodone 50 mg tablet 37.5 mg PO HS 10/21/23 10/21/23 Results & Data (ED) Vital Signs Vital Signs - 24 hr 10/21/23 20:14 10/21/23 20:16 10/21/23 20:16 Temperature 36.8 C Temperature Source Oral Pulse Rate 82 Pulse Rate [Finger] 88 Pulse Rate from SpO2 Sensor Pulse Rhythm Regular Pulse Strength Normal Respiratory Rate 24 25 H Respiratory Effort / Characteristics Spontaneous Labored Short of Breath Short of Breath Non-Labored Spontaneous Respiratory Depth Shallow Normal Respiratory Pattern Rapid/Shallow Regular Blood Pressure 163/102 H Blood Pressure [Right Arm] Blood Pressure Mean 122 Blood Pressure Mean [Right Arm] Blood Pressure Position Semi-fowlers Pulse Oximetry 95 97 Oxygen Delivery Method Nebulizer Room Air Trach Collar Trach Collar Oxygen Flow Rate 8 Sepsis Recent Fever Within 48 Hours No Sepsis New/Unexplained Change in Mental Status N/A Sepsis Action Taken by Nursing No Action Required 10/21/23 20:16 10/21/23 20:24 10/21/23 22:06 Temperature Temperature Source Pulse Rate 81 Pulse Rate [Finger] 81 Pulse Rate from SpO2 Sensor Pulse Rhythm Regular Pulse Strength Respiratory Rate 26 H 18 Respiratory Effort / Characteristics Respiratory Depth Respiratory Pattern Blood Pressure Blood Pressure [Right Arm] 105/65 Blood Pressure Mean Blood Pressure Mean [Right Arm] 78 Blood Pressure Position Pulse Oximetry 96 99 Oxygen Delivery Method Trach Collar Trach Collar Non-rebreather Trach Collar Oxygen Flow Rate 15 Sepsis Recent Fever Within 48 Hours Sepsis New/Unexplained Change in Mental Status Sepsis Action Taken by Nursing 10/21/23 22:12 10/21/23 22:30 Temperature Temperature Source Pulse Rate 80 74 Pulse Rate [Finger] Pulse Rate from SpO2 Sensor 75 Pulse Rhythm Pulse Strength Respiratory Rate 17 Respiratory Effort / Characteristics Respiratory Depth Respiratory Pattern Blood Pressure 99/63 L Blood Pressure [Right Arm] Blood Pressure Mean 75 Blood Pressure Mean [Right Arm] Blood Pressure Position Pulse Oximetry 100 Oxygen Delivery Method Non-rebreather Trach Collar Oxygen Flow Rate Sepsis Recent Fever Within 48 Hours Sepsis New/Unexplained Change in Mental Status Sepsis Action Taken by Nursing Laboratory Data 10/21/23 20:00 10/21/23 20:00 Lab Results 10/21/23 10/21/23 10/21/23 Range/Units 20:00 20:28 20:59 WBC 10.49 (4.8-10.8) K/ul RBC 4.23 L (4.70-6.10) M/uL Hgb 12.7 L (14.0-18.0) g/dl Hct 37.8 L (42.0-52.0) % MCV 89.4 (80.0-100.0) fL MCH 30.0 (25.0-34.0) pg MCHC 33.6 (32.0-36.0) g/dL RDW Std Deviation 40.8 (36.4-46.3) fL RDW Coeff of Margarito 12.5 (11.5-14.5) % Plt Count 201 (130-400) K/uL MPV 10.6 (9.4-12.4) fL Immature Gran % (Auto) 0.4 % Neut % (Auto) 82.8 % Lymph % (Auto) 5.8 % Kaufman % (Auto) 10.3 % Eos % (Auto) 0.4 % Baso % (Auto) 0.3 % Neut # (Auto) 8.69 H (1.40-6.50) K/uL Lymph # (Auto) 0.61 L (1.20-3.40) K/uL Kaufman # (Auto) 1.08 H (0.11-0.59) K/uL Eos # (Auto) 0.04 (0.00-0.50) K/uL Baso # (Auto) 0.03 (0.00-0.20) K/uL Immature Gran # (Auto) 0.04 (0.01-0.20) K/uL PT 11.7 (9.0-12.0) Seconds INR 1.1 (0.9-1.1) ABG pH (7.35-7.45) ABG pCO2 (35-46) mmHg ABG pO2 (80-95) mmHg ABG HCO3 (19-24) mmol/L ABG O2 Saturation (90-95) % ABG Base Excess (-9-1.8) mEq/L Meir Test (Pos) VBG pH 7.33 L (7.36-7.41) VBG pCO2 55 H (38-50) mmHg VBG pO2 79 mmHg VBG HCO3 29 mmol/L VBG O2 Saturation 96.5 % VBG Base Excess 1.9 mEq/L Oxygen Given Sodium 131 L (136-145) mmol/L Potassium 3.9 (3.5-5.1) mmol/L Chloride 96 L (98-107) mmol/L Carbon Dioxide 27 (21-32) mmol/L Anion Gap 8 (3-11) BUN 25 H (6-23) mg/dl Creatinine 0.79 (0.6-1.4) mg/dl Est Cr Clr Drug Dosing 74.4 ml/min Est GFR ( Amer) 101.1 ml/min Est GFR (Non-Af Amer) 87.2 ml/min BUN/Creatinine Ratio 31.6 H (10-20) Glucose 122 H (70-99(Fasting)) mg/dl Calcium 8.9 (8.6-10.3) mg/dl Magnesium 2.1 (1.7-2.4) mg/dl Total Bilirubin 0.5 (0.2-1.0) mg/dl AST 20 (13-39) U/L ALT 12 (7-52) U/L Alkaline Phosphatase 72 (34-104) U/L Troponin I High Sens 47.5 H (0-20) pg/ml B-Natriuretic Peptide 221 H (0-100) pg/ml Total Protein 6.8 (6.0-8.3) gm/dl Albumin 3.8 (3.4-5.0) gm/dl Globulin 3.0 (2.5-4.0) gm/dl Albumin/Globulin Ratio 1.3 (0.9-2) Adenovirus (PCR) Not Detected (NotDetected) B. pertussis DNA (PCR) Not Detected (NotDetected) B.parapertussis DNA PCR Not Detected (NotDetected) C. pneumoniae DNA (PCR) Not Detected (NotDetected) Coronavirus OC43 (PCR) Not Detected (NotDetected) Coronavirus HKU1 (PCR) Not Detected (NotDetected) Coronavirus 229E (PCR) Not Detected (NotDetected) SARS-CoV-2 (PCR) Not Detected (NotDetected) Coronavirus NL63 (PCR) Not Detected (NotDetected) Human Metapneumovir PCR Not Detected (NotDetected) Influenza Type A (PCR) Not Detected (NotDetected) Influenza Type B (PCR) Not Detected (NotDetected) M. pneumoniae (PCR) Not Detected (NotDetected) Parainfluenza 1 (PCR) Not Detected (NotDetected) Parainfluenza 2 (PCR) Not Detected (NotDetected) Parainfluenza 3 (PCR) Not Detected (NotDetected) Parainfluenza 4 (PCR) Not Detected (NotDetected) RSV (PCR) Not Detected (NotDetected) Entero/Rhino (PCR) Not Detected (NotDetected) 10/21/23 Range/Units 21:40 WBC (4.8-10.8) K/ul RBC (4.70-6.10) M/uL Hgb (14.0-18.0) g/dl Hct (42.0-52.0) % MCV (80.0-100.0) fL MCH (25.0-34.0) pg MCHC (32.0-36.0) g/dL RDW Std Deviation (36.4-46.3) fL RDW Coeff of Margarito (11.5-14.5) % Plt Count (130-400) K/uL MPV (9.4-12.4) fL Immature Gran % (Auto) % Neut % (Auto) % Lymph % (Auto) % Kaufman % (Auto) % Eos % (Auto) % Baso % (Auto) % Neut # (Auto) (1.40-6.50) K/uL Lymph # (Auto) (1.20-3.40) K/uL Kaufman # (Auto) (0.11-0.59) K/uL Eos # (Auto) (0.00-0.50) K/uL Baso # (Auto) (0.00-0.20) K/uL Immature Gran # (Auto) (0.01-0.20) K/uL PT (9.0-12.0) Seconds INR (0.9-1.1) ABG pH 7.42 (7.35-7.45) ABG pCO2 42 (35-46) mmHg ABG pO2 93 (80-95) mmHg ABG HCO3 27 H (19-24) mmol/L ABG O2 Saturation 98.1 H (90-95) % ABG Base Excess 2.4 H (-9-1.8) mEq/L Meir Test Pos (Pos) VBG pH (7.36-7.41) VBG pCO2 (38-50) mmHg VBG pO2 mmHg VBG HCO3 mmol/L VBG O2 Saturation % VBG Base Excess mEq/L Oxygen Given 12 LITERS Sodium (136-145) mmol/L Potassium (3.5-5.1) mmol/L Chloride (98-107) mmol/L Carbon Dioxide (21-32) mmol/L Anion Gap (3-11) BUN (6-23) mg/dl Creatinine (0.6-1.4) mg/dl Est Cr Clr Drug Dosing ml/min Est GFR ( Amer) ml/min Est GFR (Non-Af Amer) ml/min BUN/Creatinine Ratio (10-20) Glucose (70-99(Fasting)) mg/dl Calcium (8.6-10.3) mg/dl Magnesium (1.7-2.4) mg/dl Total Bilirubin (0.2-1.0) mg/dl AST (13-39) U/L ALT (7-52) U/L Alkaline Phosphatase (34-104) U/L Troponin I High Sens (0-20) pg/ml B-Natriuretic Peptide (0-100) pg/ml Total Protein (6.0-8.3) gm/dl Albumin (3.4-5.0) gm/dl Globulin (2.5-4.0) gm/dl Albumin/Globulin Ratio (0.9-2) Adenovirus (PCR) (NotDetected) B. pertussis DNA (PCR) (NotDetected) B.parapertussis DNA PCR (NotDetected) C. pneumoniae DNA (PCR) (NotDetected) Coronavirus OC43 (PCR) (NotDetected) Coronavirus HKU1 (PCR) (NotDetected) Coronavirus 229E (PCR) (NotDetected) SARS-CoV-2 (PCR) (NotDetected) Coronavirus NL63 (PCR) (NotDetected) Human Metapneumovir PCR (NotDetected) Influenza Type A (PCR) (NotDetected) Influenza Type B (PCR) (NotDetected) M. pneumoniae (PCR) (NotDetected) Parainfluenza 1 (PCR) (NotDetected) Parainfluenza 2 (PCR) (NotDetected) Parainfluenza 3 (PCR) (NotDetected) Parainfluenza 4 (PCR) (NotDetected) RSV (PCR) (NotDetected) Entero/Rhino (PCR) (NotDetected) Administered Medications Discontinued Medications Dexamethasone Sodium Phosphate (DexamethasonePf 10 Mg/Ml Vial) 10 mg IV NOW ONE Stop: 10/21/23 22:01 Last Admin: 10/21/23 22:23 Dose: 10 mg Documented By: TONY Epinephrine (Racepinephrine 2.25% Nebu Soln 0.5 Ml Vial) 0.5 ml NEB NOW STA Stop: 10/21/23 20:05 Last Admin: 10/21/23 20:12 Dose: 0.5 ml Documented By: JAKY Epinephrine (Racepinephrine 2.25% Nebu Soln 0.5 Ml Vial) Confirm Administered Dose 0.5 ml .ROUTE .STK-MED ONE Stop: 10/21/23 20:05 Last Admin: 10/21/23 20:34 Dose: Not Given Documented By: JAKY Epinephrine (Racepinephrine 2.25% Nebu Soln 0.5 Ml Vial) 0.5 ml NEB NOW STA Stop: 10/21/23 22:11 Last Admin: 10/21/23 21:00 Dose: 0.5 ml Documented By: JAKY Lorazepam (Lorazepam 1 Mg/1 Ml Syr Ed Inj Use) 0.5 mg IV ONE STA Stop: 10/21/23 20:30 Last Admin: 10/21/23 20:34 Dose: 0.5 mg Documented By: JAKY Imaging Data Radiologist's Impression: Chest X-Ray 10/21/23 19:53 SINGLE VIEW CHEST CLINICAL HISTORY: Dyspnea FINDINGS: An AP, portable, upright chest radiograph is correlated with PET/CT dated 12/22/2016. A tracheostomy is in place. The heart is mildly enlarged noting atherosclerotic calcification of the thoracic aorta. The pulmonary vasculature is noncongested. Nonspecific interstitial thickening is likely chronic. There is minimal bibasilar scarring/atelectasis. The lungs and pleural spaces are otherwise clear. No pneumothorax is seen. The skeletal structures are osteopenic. Bony thorax is grossly intact. IMPRESSION: Cardiomegaly with no active disease in the chest. ACT 112: Negative or not required by law. Electronically signed by: Maxime Zhang M.D. 10/21/2023 10:08 PM Discharge Plan Visit Data Chief Complaint: Shortness of Breath/Dyspnea Stated Complaint: SHORTNESS OF BREATH, TRACH ED Provider: Jerri Schaeffer Discharge Problem: Shortness of breath, Non-ST elevation [place] (NSTEMI), Elevated brain natriuretic peptide (BNP) level, Complication of tracheostomy Forms Stand Alone Forms: My OB10 Prescriptions Prescriptions: No Action levothyroxine 137 mcg tablet 137 mcg PO QAM nystatin 100,000 unit/mL suspension 5 ml PO BID trazodone 50 mg tablet 37.5 mg PO HS oxycodone 5 mg/5 mL solution 5 mg PO Q6H PRN (Reason: Pain) gabapentin 250 mg/5 mL solution 250 mg feeding tube TID sodium chloride 0.9 % solution for nebulization 3 ml INHALATION DIRECTED Referrals Referrals: Tyron Keita MD [Primary Care Provider] -
[2023-10-21 20:27] LABS: Basophils # (auto) 0.03 K/uL (0.00-0.20); Basophils % (auto) 0.3 %; Eosinophils # (auto) 0.04 K/uL (0.00-0.50); Eosinophils % (auto) 0.4 %; Hematocrit (blood only) 37.8 % (42.0-52.0); Hemoglobin 12.7 g/dl (14.0-18.0); Immature Granulocytes # (auto) 0.04 K/uL (0.01-0.20); Immature Granulocytes % (auto) 0.4 %; Lymphocytes # (auto) 0.61 K/uL (1.20-3.40); Lymphocytes % (auto) 5.8 %; Mean Corpuscular Hgb Conc 33.6 g/dL (32.0-36.0); Mean Corpuscular Volume 89.4 fL (80.0-100.0); Mean Platelet Volume 10.6 fL (9.4-12.4); Monocytes # (auto) 1.08 K/uL (0.11-0.59); Monocytes % (auto) 10.3 %; Neutrophils # (auto) 8.69 K/uL (1.40-6.50); Neutrophils % (auto) 82.8 %; Platelet Count 201 K/uL (130-400); RDW Coefficient of Variation 12.5 % (11.5-14.5); RDW Standard Deviation 40.8 fL (36.4-46.3); Red Blood Count 4.23 M/uL (4.70-6.10); White Blood Count 10.49 K/ul (4.8-10.8)
[2023-10-21] MEDS ORDERED: LORazepam 1 MG/1 ML SYR ED Inj Use IV STA (20:29)
[2023-10-21 20:51] LABS: Albumin Globulin Ratio 1.3 (0.9-2); Albumin Level 3.8 gm/dl (3.4-5.0); BUN Creatinine Ratio 31.6 (10-20); Bilirubin,Total 0.5 mg/dl (0.2-1.0); Calcium 8.9 mg/dl (8.6-10.3); Creatinine Clr Calc Pharmacy 74.4 ml/min; Est GFR (African American) 101.1 ml/min; Est GFR (Non-African American) 87.2 ml/min; Magnesium 2.1 mg/dl (1.7-2.4); Potassium 3.9 mmol/L (3.5-5.1); Total Protein 6.8 gm/dl (6.0-8.3)
[2023-10-21 20:57] LABS: Troponin I High Sensitivity 47.5 pg/ml (0-20)
[2023-10-21 21:05] LABS: INR 1.1 (0.9-1.1); Prothrombin Time 11.7 Seconds (9.0-12.0)
[2023-10-21 21:09] LABS: Base Excess VBG 1.9 mEq/L; HCO3 VBG 29 mmol/L; Oxygen Saturation VBG 96.5 %; PCO2 VBG 55 mmHg (38-50); PO2 VBG 79 mmHg; pH VBG 7.33 (7.36-7.41)
[2023-10-21 21:36] LABS: Adenovirus PCR Not Detected (NotDetected); Bordetella parapertussis PCR Not Detected (NotDetected); Bordetella pertussis PCR Not Detected (NotDetected); Chlamydia pneumoniae PCR Not Detected (NotDetected); Coronavirus 229E PCR Not Detected (NotDetected); Coronavirus CoV-2 (COVID19)PCR Not Detected (NotDetected); Coronavirus HKU1 PCR Not Detected (NotDetected); Coronavirus NL63 PCR Not Detected (NotDetected); Coronavirus OC43PCR Not Detected (NotDetected); Human Metapneumovirus PCR Not Detected (NotDetected); Influenza A PCR Not Detected (NotDetected); Influenza B PCR Not Detected (NotDetected); Mycoplasma pneumoniae PCR Not Detected (NotDetected); Parainfluenza Virus 1 PCR Not Detected (NotDetected); Parainfluenza Virus 2 PCR Not Detected (NotDetected); Parainfluenza Virus 3 PCR Not Detected (NotDetected); Parainfluenza Virus 4 PCR Not Detected (NotDetected); Respiratory Syncytial VirusPCR Not Detected (NotDetected); Rhinovirus/Enterovirus PCR Not Detected (NotDetected)
[2023-10-21 21:49] LABS: Base Excess ABG 2.4 mEq/L (-9-1.8); HCO3 ABG 27 mmol/L (19-24); Oxygen Saturation ABG 98.1 % (90-95); PCO2 ABG 42 mmHg (35-46); PO2 ABG 93 mmHg (80-95); pH ABG 7.42 (7.35-7.45)
[2023-10-21 21:53] LABS: Allen Test Pos (Pos)
[2023-10-21] MEDS ORDERED: dexAMETHasone**PF** 10 MG/ML VIAL IV ONE (22:00)
--- NOTE | 2023-10-21 22:09 | XRay Report ---
SINGLE VIEW CHEST CLINICAL HISTORY: Dyspnea FINDINGS: An AP, portable, upright chest radiograph is correlated with PET/CT dated 12/22/2016. A trach eostomy is in place. The heart is mildly enlarged noting atherosclerotic calcification of the thoraci c aorta. The pulmonary vasculature is noncongested. Nonspecific interstitial thickening is likely chr onic. There is minimal bibasilar scarring/atelectasis. The lungs and pleural spaces are otherwise varinder ar. No pneumothorax is seen. The skeletal structures are osteopenic. Bony thorax is grossly intact. IMPRESSION: Cardiomegaly with no active disease in the chest. ACT 112: Negative or not required by law. Electronically signed by: Maxime Zhang M.D. 10/21/2023 10:08 PM
--- NOTE | 2023-10-21 22:32 | ENT Consultation ---
Date of Consultation October 21, 2023 Assessment & Plan (1) Cancer of supraglottis: Plan Patient appears to be doing ok now so hopefully will not need positive pressure ventilation. If so, anesthesia can place bougie through tracheostomy tube as stylet and then remove trach and run 4.5 or 5 cuffed ETT over small bougie. Once stable patient should be transferred to [facility] for any further ENT care as Dr. Lanza placed his trach and performed the biopsy of his BOT. Any outpatient follow-up should also be with Dr. Lanza. History of Present Illness Reason for Consultation: s/p BOT biopsy 2 days ago with hx of tracheostomy x6 years placed by Dr. Lanza at [facility] [place] History of Present Illness see above Allergies Allergy/AdvReac Type Severity Reaction Status Date / Time No Known Allergies Allergy Verified 10/21/23 21:11 Home Medications Medication Instructions Recorded Confirmed Type gabapentin 250 mg/5 mL oral 250 mg feeding tube TID 10/21/23 10/21/23 History solution levothyroxine 137 mcg tablet 137 mcg PO QAM 10/21/23 10/21/23 History nystatin 100,000 unit/mL oral 5 ml PO BID 10/21/23 10/21/23 History suspension oxycodone 5 mg/5 mL oral solution 5 mg PO Q6H PRN Pain 10/21/23 10/21/23 History sodium chloride 0.9 % for 3 ml inhalation DIRECTED 10/21/23 10/21/23 History nebulization trazodone 50 mg tablet 37.5 mg PO HS 10/21/23 10/21/23 History Patient History Medical History (Updated 10/21/23 @ 22:32 by Ansley Morales MD) 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 Bowers - stage pT3N2c with extranodal extension Status post completion of combined radiation and chemotherapy. Radiation completed 04/21/2017. He received 6600 cGy. Chemotherapy comprised of weekly cisplatin." On 02/01/17 18:09 Gideon Thompson wrote "-Self palpated right neck mass - November 2016 -Ultrasound-guided FNA of right neck mass - 12/10/2016 - positive for squamous cell carcinoma -PET/CT scan - 12/22/2016 -Supraglottic hemilaryngectomy, bilateral neck dissection - 01/05/2017 - Dr. Bowers - stage pT3N2c with extranodal extension" Social History Smoking Status: Former smoker Preferred Language: Uruguayan Feels Safe at Home: Yes Review of Systems Review of Systems: negative except per HPI Physical Exam Physical Exam: aaox3 breathing through tracheostomy on humidified air. no retractions ENMT: Flexible tracheoscopy was performed which revealed patent tracheostomy that was somewhat backwalled, able to visualize trachea fully with no obstructions, just some bloody secretions. Patient is unable to straighten his neck which may be contributing to trach position Results & Data Vital Signs (Past 12 Hours) Vital Signs Temp Pulse Pulse Resp BP BP Pulse Ox 10/21/23 22:12 80 10/21/23 22:06 81 18 105/65 99 10/21/23 20:24 81 26 H 96 10/21/23 20:16 10/21/23 20:16 36.8 C 82 25 H 163/102 H 97 10/21/23 20:16 10/21/23 20:14 88 24 95 O2 Del Method O2 Flow Rate 10/21/23 22:12 10/21/23 22:06 Non-rebreather, Trach Collar 15 10/21/23 20:24 Trach Collar 10/21/23 20:16 Trach Collar 10/21/23 20:16 Trach Collar 10/21/23 20:16 Room Air, Trach Collar 10/21/23 20:14 Nebulizer 8
[2023-10-21] MEDS: SODIUM CHLORIDE 0.9% NEBU SOLN 3 ML NEB SCH (23:10)
[2023-10-21 23:30] LABS: Appearance Urine Clear (Clear); Bacteria Urine Automated Negative (Negative); Bilirubin Urine Negative (Negative); Blood Urine Negative (Negative); Color Urine Yellow; Epithelial Cell Urine Auto 20-30 /lpf (0-5); Glucose Urine UA Negative (Negative); Ketones Urine Trace (Negative); Leukocyte Esterase Urine Trace (Negative); Nitrite Urine Negative (Negative); Protein Urine 1+ (Negative); RBC Urine Automated 0-4 /hpf (0-4); Specific Gravity Urine 1.019 (1.000-1.030); Urobilinogen Urine Negative (Negative); pH Urine 5.5 (4.5-7.5)
[2023-10-22] MEDS: SODIUM CHLORIDE 0.9% NEBU SOLN 3 ML NEB SCH (03:25)
--- NOTE | 2023-10-22 04:19 | History & Physical Report ---
Date of Service October 22, 2023 Assessment & Plan (1) Shortness of breath: Plan: 78-year-old male with past med history significant for hypothyroidism, history of laryngeal cancer, tracheostomy status, PEG tube status, diastolic dysfunction, history of hypertension, depression who lives with his family was brought in because of shortness of breath. Seems he was recently diagnosed with tongue cancer and had a biopsy done at [facility] with ENT 2 days ago. Since biopsy seems to have increased work of breathing but got significantly worse last evening. Also his secretions where slightly bloody. Family suctioned at home but was not helping. Patient was given 2 racemic epi treatments and nebs and Ativan with only slight improvement in the ER. In the ER with further suctioning a small piece of clotted blood was suctioned out. After that the patient seemed more comfortable. ENT was also consulted and has seen the patient in the ER. ENT did bedside flexible scope which showed patient's airway was stable and open. He was also given a dose of Decadron and saline neb treatment. Currently resting comfortably. Able to ambulate to the bathroom. Patient answers only with nodding the head yes or no. Family currently not in the room. Patient denies any headache. Denies runny nose. Has some soreness in the throat. Denies any chest pain. Currently denies any shortness of breath. No nausea. No abdominal pain. Normal bowel and bladder movements. Afebrile. All his medications are via feeding tube. Shortness of breath Complication of tracheostomy Improved after blood clot suctioned out Was evaluated by ENT and appreciate inputs Will do hypertonic saline nebs And monitor closely Elevated troponin 47 TO 326 Denies any chest pain EKG looks okay We will follow serial enzymes and repeat EKG and echo Consult cardiology History of laryngeal cancer S/p surgery and chemo S/p tracheostomy S/p PEG tube History of hypertension Seems not on medications Monitor Depression On trazodone Hypothyroidism On Synthyroid Nutrition Currently n.p.o. On tube feeds DVT prophylaxis Lovenox Disposition Telemetry Full code History of Present Illness Chief Complaint: Shortness of breath Primary Care Provider: Tyron Keita MD 78-year-old male with past med history significant for hypothyroidism, history of laryngeal cancer, tracheostomy status, PEG tube status, diastolic dysfunction, history of hypertension, depression who lives with his family was brought in because of shortness of breath. Seems he was recently diagnosed with tongue cancer and had a biopsy done at [facility] with ENT 2 days ago. Since biopsy seems to have increased work of breathing but got significantly worse last evening. Also his secretions where slightly bloody. Family suctioned at home but was not helping. Patient was given 2 racemic epi treatments and nebs and Ativan with only slight improvement in the ER. In the ER with further suctioning a small piece of clotted blood was suctioned out. After that the patient seemed more comfortable. ENT was also consulted and has seen the patient in the ER. ENT did bedside flexible scope which showed patient's airway was stable and open. He was also given a dose of Decadron and saline neb treatment. Currently resting comfortably. Able to ambulate to the bathroom. Patient answers only with nodding the head yes or no. Family currently not in the room. Patient denies any headache. Denies runny nose. Has some soreness in the throat. Denies any chest pain. Currently denies any shortness of breath. No nausea. No abdominal pain. Normal bowel and bladder movements. Afebrile. All his medications are via feeding tube. Past medical history. As mentioned above Past surgical history. Right bunion correction. Colonoscopy. Right serial laryngal tumor removed. PEG tube placement. Sigmoidoscopy.right supraglottic hemilaryngectomy, right modified radical neck dissection, left selective neck dissection, tracheostomy (12/2016) , RXT/Chemo with RXT necrosis requiring HBO and wide surgical debridement. (05/2017) Also with slough right hyoid bone intraorally. Family history. . Quit smoking 1995. No alcohol use. No drug use. Social history. Mother had Alzheimer disease. Father had stroke. Allergies Allergy/AdvReac Type Severity Reaction Status Date / Time No Known Allergies Allergy Verified 10/21/23 21:11 Home Medications Medication Instructions Recorded Confirmed Type gabapentin 250 mg/5 mL oral 250 mg feeding tube TID 10/21/23 10/21/23 History solution levothyroxine 137 mcg tablet 137 mcg PO QAM 10/21/23 10/21/23 History nystatin 100,000 unit/mL oral 5 ml PO BID 10/21/23 10/21/23 History suspension oxycodone 5 mg/5 mL oral solution 5 mg PO Q6H PRN Pain 10/21/23 10/21/23 History sodium chloride 0.9 % for 3 ml inhalation DIRECTED 10/21/23 10/21/23 History nebulization trazodone 50 mg tablet 37.5 mg PO HS 10/21/23 10/21/23 History Past Med/Surg History Medical History (Updated 10/21/23 @ 22:57 by Jerri Schaeffer MD) 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 Bowers - stage pT3N2c with extranodal extension Status post completion of combined radiation and chemotherapy. Radiation completed 04/21/2017. He received 6600 cGy. Chemotherapy comprised of weekly cisplatin." On 02/01/17 18:09 Janessaangi Thompson wrote "-Self palpated right neck mass - November 2016 -Ultrasound-guided FNA of right neck mass - 12/10/2016 - positive for squamous cell carcinoma -PET/CT scan - 12/22/2016 -Supraglottic hemilaryngectomy, bilateral neck dissection - 01/05/2017 - Dr. Bowers - stage pT3N2c with extranodal extension" Social History Smoking Status: Former smoker Second Hand Exposure: No; Do You Dip or Chew Tobacco: No; Tobacco Cessation Education Requested by Patient: No Hx Alcohol Use: No Hx Substance Use: No Preferred Language: [place]orese Communication Ability: Impaired Box Toe Maker Required: No Beliefs That Will Affect Care: None Current Living Situation: Spouse Other Information That Helps Us Care for You: No Feels Safe at Home: Yes Safety Concerns: Feels Safe At This Time Assistive Devices: None Review of Systems Review of Systems: All systems reviewed & are unremarkable except as noted in HPI & below Physical Exam Physical Exam: General-Not in distress. Head- atraumatic Eyes- PERRL. Neck- s/p trach Lungs- clear to auscultation no wheezing or crackles. Heart- regular rhythm; no murmur, no gallop. Abdomen- normal bowel sounds, soft, nontender, no distension. Extremities- no pretibial edema, no erythema seen. Neuro- alert, oriented ; PERRL no facial palsy; moves extremities. Skin- warm & dry Results & Data Results & Data Vital Signs (Past 12 Hours) Vital Signs Temp Pulse Pulse Resp BP BP Pulse Ox 10/22/23 00:00 79 19 99/63 L 98 10/21/23 23:30 64 16 100/63 95 10/21/23 23:10 85 20 95 10/21/23 23:00 74 21 103/67 93 10/21/23 22:30 74 17 99/63 L 100 10/21/23 22:12 80 10/21/23 22:06 81 18 105/65 99 10/21/23 20:24 81 26 H 96 10/21/23 20:16 10/21/23 20:16 36.8 C 82 25 H 163/102 H 97 10/21/23 20:16 10/21/23 20:14 88 24 95 O2 Del Method O2 Flow Rate FiO2 10/22/23 00:00 Nebulizer, Trach Collar 10/21/23 23:30 Nebulizer, Trach Collar 10 10/21/23 23:10 Trach Collar 10 40 10/21/23 23:00 Nebulizer, Trach Collar 10 10/21/23 22:30 Non-rebreather, Trach Collar 10/21/23 22:12 10/21/23 22:06 Non-rebreather, Trach Collar 15 10/21/23 20:24 Trach Collar 10/21/23 20:16 Trach Collar 10/21/23 20:16 Trach Collar 10/21/23 20:16 Room Air, Trach Collar 10/21/23 20:14 Nebulizer 8 Diagnostic Findings Laboratory Results WBC 10.49 K/ul (4.8-10.8) 10/21/23 20:00 RBC 4.23 M/uL (4.70-6.10) L 10/21/23 20:00 Hgb 12.7 g/dl (14.0-18.0) L 10/21/23 20:00 Hct 37.8 % (42.0-52.0) L 10/21/23 20:00 MCV 89.4 fL (80.0-100.0) 10/21/23 20:00 MCH 30.0 pg (25.0-34.0) 10/21/23 20:00 MCHC 33.6 g/dL (32.0-36.0) 10/21/23 20:00 RDW Std Deviation 40.8 fL (36.4-46.3) 10/21/23 20:00 RDW Coeff of Margarito 12.5 % (11.5-14.5) 10/21/23 20:00 Plt Count 201 K/uL (130-400) 10/21/23 20:00 MPV 10.6 fL (9.4-12.4) 10/21/23 20:00 Immature Gran % (Auto) 0.4 % 10/21/23 20:00 Neut % (Auto) 82.8 % 10/21/23 20:00 Lymph % (Auto) 5.8 % 10/21/23 20:00 Gibson % (Auto) 10.3 % 10/21/23 20:00 Eos % (Auto) 0.4 % 10/21/23 20:00 Baso % (Auto) 0.3 % 10/21/23 20:00 Neut # (Auto) 8.69 K/uL (1.40-6.50) H 10/21/23 20:00 Lymph # (Auto) 0.61 K/uL (1.20-3.40) L 10/21/23 20:00 Gibson # (Auto) 1.08 K/uL (0.11-0.59) H 10/21/23 20:00 Eos # (Auto) 0.04 K/uL (0.00-0.50) 10/21/23 20:00 Baso # (Auto) 0.03 K/uL (0.00-0.20) 10/21/23 20:00 Immature Gran # (Auto) 0.04 K/uL (0.01-0.20) 10/21/23 20:00 PT 11.7 Seconds (9.0-12.0) 10/21/23 20:00 INR 1.1 (0.9-1.1) 10/21/23 20:00 ABG pH 7.42 (7.35-7.45) 10/21/23 21:40 ABG pCO2 42 mmHg (35-46) 10/21/23 21:40 ABG pO2 93 mmHg (80-95) 10/21/23 21:40 ABG HCO3 27 mmol/L (19-24) H 10/21/23 21:40 ABG O2 Saturation 98.1 % (90-95) H 10/21/23 21:40 ABG Base Excess 2.4 mEq/L (-9-1.8) H 10/21/23 21:40 Meir Test Pos (Pos) 10/21/23 21:40 VBG pH 7.33 (7.36-7.41) L 10/21/23 20:59 VBG pCO2 55 mmHg (38-50) H 10/21/23 20:59 VBG pO2 79 mmHg 10/21/23 20:59 VBG HCO3 29 mmol/L 10/21/23 20:59 VBG O2 Saturation 96.5 % 10/21/23 20:59 VBG Base Excess 1.9 mEq/L 10/21/23 20:59 Oxygen Given 12 LITERS 10/21/23 21:40 Sodium 131 mmol/L (136-145) L 10/21/23 20:00 Potassium 3.9 mmol/L (3.5-5.1) 10/21/23 20:00 Chloride 96 mmol/L (98-107) L 10/21/23 20:00 Carbon Dioxide 27 mmol/L (21-32) 10/21/23 20:00 Anion Gap 8 (3-11) 10/21/23 20:00 BUN 25 mg/dl (6-23) H 10/21/23 20:00 Creatinine 0.79 mg/dl (0.6-1.4) 10/21/23 20:00 Est Cr Clr Drug Dosing 74.4 ml/min 10/21/23 20:00 Est GFR ( Amer) 101.1 ml/min 10/21/23 20:00 Est GFR (Non-Af Amer) 87.2 ml/min 10/21/23 20:00 BUN/Creatinine Ratio 31.6 (10-20) H 10/21/23 20:00 Glucose 122 mg/dl (70-99(Fasting)) H 10/21/23 20:00 Calcium 8.9 mg/dl (8.6-10.3) 10/21/23 20:00 Magnesium 2.1 mg/dl (1.7-2.4) 10/21/23 20:00 Total Bilirubin 0.5 mg/dl (0.2-1.0) 10/21/23 20:00 AST 20 U/L (13-39) 10/21/23 20:00 ALT 12 U/L (7-52) 10/21/23 20:00 Alkaline Phosphatase 72 U/L (34-104) 10/21/23 20:00 Troponin I High Sens 326.6 pg/ml (0-20) H* D 10/21/23 22:23 B-Natriuretic Peptide 221 pg/ml (0-100) H 10/21/23 20:00 Total Protein 6.8 gm/dl (6.0-8.3) 10/21/23 20:00 Albumin 3.8 gm/dl (3.4-5.0) 10/21/23 20:00 Globulin 3.0 gm/dl (2.5-4.0) 10/21/23 20:00 Albumin/Globulin Ratio 1.3 (0.9-2) 10/21/23 20:00 Urine Color Yellow 10/21/23 23:11 Urine Appearance Clear (Clear) 10/21/23 23:11 Urine pH 5.5 (4.5-7.5) 10/21/23 23:11 Ur Specific Adams 1.019 (1.000-1.030) 10/21/23 23:11 Urine Protein 1+ (Negative) H 10/21/23 23:11 Urine Glucose (UA) Negative (Negative) 10/21/23 23:11 Urine Ketones Trace (Negative) H 10/21/23 23:11 Urine Blood Negative (Negative) 10/21/23 23:11 Urine Nitrite Negative (Negative) 10/21/23 23:11 Urine Bilirubin Negative (Negative) 10/21/23 23:11 Urine Urobilinogen Negative (Negative) 10/21/23 23:11 Ur Leukocyte Esterase Trace (Negative) H 10/21/23 23:11 Urine WBC (Auto) 1-5 /hpf (0-5) 10/21/23 23:11 Urine RBC (Auto) 0-4 /hpf (0-4) 10/21/23 23:11 U Hyaline Cast (Auto) 1-5 /lpf (0-5) 10/21/23 23:11 U Epithel Cells (Auto) 20-30 /lpf (0-5) H 10/21/23 23:11 Urine Bacteria (Auto) Negative (Negative) 10/21/23 23:11 Adenovirus (PCR) Not Detected (NotDetected) 10/21/23 20:28 B. pertussis DNA (PCR) Not Detected (NotDetected) 10/21/23 20:28 B.parapertussis DNA PCR Not Detected (NotDetected) 10/21/23 20:28 C. pneumoniae DNA (PCR) Not Detected (NotDetected) 10/21/23 20:28 Coronavirus OC43 (PCR) Not Detected (NotDetected) 10/21/23 20:28 Coronavirus HKU1 (PCR) Not Detected (NotDetected) 10/21/23 20:28 Coronavirus 229E (PCR) Not Detected (NotDetected) 10/21/23 20:28 SARS-CoV-2 (PCR) Not Detected (NotDetected) 10/21/23 20:28 Coronavirus NL63 (PCR) Not Detected (NotDetected) 10/21/23 20:28 Human Metapneumovir PCR Not Detected (NotDetected) 10/21/23 20:28 Influenza Type A (PCR) Not Detected (NotDetected) 10/21/23 20:28 Influenza Type B (PCR) Not Detected (NotDetected) 10/21/23 20:28 M. pneumoniae (PCR) Not Detected (NotDetected) 10/21/23 20:28 Parainfluenza 1 (PCR) Not Detected (NotDetected) 10/21/23 20:28 Parainfluenza 2 (PCR) Not Detected (NotDetected) 10/21/23 20:28 Parainfluenza 3 (PCR) Not Detected (NotDetected) 10/21/23 20:28 Parainfluenza 4 (PCR) Not Detected (NotDetected) 10/21/23 20:28 RSV (PCR) Not Detected (NotDetected) 10/21/23 20:28 Entero/Rhino (PCR) Not Detected (NotDetected) 10/21/23 20:28 Impressions Chest X-Ray 10/21/23 19:53 SINGLE VIEW CHEST CLINICAL HISTORY: Dyspnea FINDINGS: An AP, portable, upright chest radiograph is correlated with PET/CT dated 12/22/2016. A tracheostomy is in place. The heart is mildly enlarged noting atherosclerotic calcification of the thoracic aorta. The pulmonary vasculature is noncongested. Nonspecific interstitial thickening is likely chronic. There is minimal bibasilar scarring/atelectasis. The lungs and pleural spaces are otherwise clear. No pneumothorax is seen. The skeletal structures are osteopenic. Bony thorax is grossly intact. IMPRESSION: Cardiomegaly with no active disease in the chest. ACT 112: Negative or not required by law. Electronically signed by: Maxime Zhang M.D. 10/21/2023 10:08 PM ECG Additional Comments: EKG. Sinus rhythm with PACs with aberrant conduction at a rate of 84. Nonspecific ST wave abnormalities Code Status & VTE Plan VTE Prophylaxis Plan VTE Prophylaxis will be ordered: Yes
[2023-10-22] MEDS ORDERED: ACETAMINOPHEN 325 MG TAB PO PRN (05:25)
[2023-10-22] MEDS ORDERED: SODIUM CHLORIDE 0.9% NEBU SOLN 3 ML NEB PRN (05:25)
[2023-10-22] MEDS ORDERED: NITROGLYCERIN SL 0.4 MG/TAB TAB SL PRN (05:25)
[2023-10-22] MEDS ORDERED: SODIUM CHLORIDE 0.9% 1,000 ML IV SCH (05:25)
[2023-10-22] MEDS: LEVOTHYROXINE SODIUM 137 MCG TABLET PO SCH (06:36)
[2023-10-22] MEDS ORDERED: SODIUM CHLOR 7% 4 ML NEB NEB SCH (07:00)
[2023-10-22] MEDS: ALBUT/IPRATROP 3MG/0.5MG NEB 3 ML VIAL NEB SCH ×4 (07:01→20:22)
[2023-10-22] MEDS: ENOXAPARIN INJ 40 MG/0.4 ML SYR SQ SCH (08:19)
[2023-10-22] MEDS: GABAPENTIN 250 MG/5 ML 470 ML BTL GT SCH ×3 (08:19→20:01)
[2023-10-22] MEDS: NYSTATIN SUSP 500,000 U/5 ML UDC PO SCH ×2 (08:20→20:01)
[2023-10-22 08:52] LABS: Hematocrit (blood only) 37.9 % (42.0-52.0); Hemoglobin 12.6 g/dl (14.0-18.0); Mean Corpuscular Hgb Conc 33.2 g/dL (32.0-36.0); Mean Corpuscular Volume 90.2 fL (80.0-100.0); Mean Platelet Volume 10.1 fL (9.4-12.4); Platelet Count 200 K/uL (130-400); RDW Coefficient of Variation 12.2 % (11.5-14.5); RDW Standard Deviation 40.4 fL (36.4-46.3); White Blood Count 5.63 K/ul (4.8-10.8)
[2023-10-22 09:01] LABS: BUN Creatinine Ratio 26.3 (10-20); Calcium 8.7 mg/dl (8.6-10.3); Creatinine Clr Calc Pharmacy 73.4 ml/min; Est GFR (African American) 100.6 ml/min; Est GFR (Non-African American) 86.8 ml/min; Magnesium 2.3 mg/dl (1.7-2.4); Potassium 4.5 mmol/L (3.5-5.1)
[2023-10-22 09:12] LABS: Troponin I High Sensitivity 237.9 pg/ml (0-20)
[2023-10-22 09:31] LABS: Immature Granulocytes # (auto) 0.01 K/uL (0.01-0.20); Immature Granulocytes % (auto) 0.2 %; Lymphocytes # (auto) 0.26 K/uL (1.20-3.40); Lymphocytes % (auto) 4.6 %; Monocytes % (auto) 1.8 %; Neutrophils # (auto) 5.26 K/uL (1.40-6.50); Neutrophils % (auto) 93.4 %; RBC Morphology Unremarkable
--- OUTSIDE RECORDS SUMMARY | 2023-10-22 10:34 | External Medical Summary | Summary of Care ---
Author Name Unknown Organization [facility] Address [address] [place] [address] Phone [phone] Care Team Providers Care District Manager In Training Name Role Phone Tyron Keita MD Primary Care Provider + Reason for Visit * Reason Comments Outpatient Testing Encounter Details Date Type Department Care Team Description 06/10/2023 Laboratory Laboratory, [facility] [address] [place] [address] [facility] [address] [facility] [place] [address] Acquired hypothyroidism; Pain around PEG tube site Allergies No known active allergiesdocumented as of this encounter (statuses as of 06/10/2023) Medications Medication Sig Dispensed Refills Start Date End Date Status gabapentin (NEURONTIN) 250 MG/5ML solution Administer 5 mL into PEG tube in the morning and 5 mL at noon and 5 mL before bedtime. 1 05/21/2018 Active nystatin 924220 UNIT/ML suspension Take 5 mL by mouth in the morning and 5 mL before bedtime. 0 05/21/2018 Active guaifenesin ER (HUMIBID LA) 600 MG TB12 Administer 1 Tablet into PEG tube 4 times a day as needed for Congestion. Crush into powder and mix with liquid. 0 Active Neosporin 500-53699 UNIT/GM External OintmentIndications :Skin lesion Apply topically to affected area. 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, in full remission 05/02/2020 Chronic neck pain 05/02/2020 Diastolic dysfunction 10/05/2019 Tracheostomy status 06/13/2018 PEG (percutaneous endoscopic gastrostomy ) status 06/13/2018 History of hypertension 06/13/2018 documented as of this encounter (statuses as of 06/10/2023) Resolved Problems Problem Noted Date Resolved Date ZARCO (dyspnea on exertion) 11/03/20202022 Laryngeal cancer 10/17/2015 11/03/2020 documented as of this encounter (statuses as of 06/10/2023) Immunizations Name Administration Dates Next Due COVID-19 mRNA, LNP-s, No Pre serve, 2-Dose Series (Moderna) 01/14/2022,08/11/2021,12/17/2020,11/19 Covid-19, Mrna, Lnp-s, Pf, B ivalent, 50 Mcg, IM, 12 yrs and above (Moderna) 07/21/2022 H1N1 2009 Influenza, IM 10/25/2009 Pneumococcal Conjugate Vacc, 13 Valent (Prevnar) 05/13/2015 Pneumococcal Polysaccharide PPV23 (Pneumovax) 01/04/2013 Seasonal Influenza, Quadriva lent Hd (Fluzone Hd) 08/03/2021 Seasonal Influenza, Quadriva lent Hd, 65+ Yrs 08/27/2020 Seasonal Influenza, Split, I IV3, With Preserve, Inj 08/01/2017,08/06/2016,08/18/2015,07/18,07/31/2013,07/24/2010 Seasonal Influenza, Trivalen t, Adjuvanted, 65+ yrs 07/21/2022,07/24/2019,07/31/2018 TDAP (age 10 and older)(Boostrix) 12/29/2022, Varicella Vaccine (Chicken Pox) 10/17/2006 Zoster Vaccine Recombinant (Shingrix) 07/08/2020 ,04/29/2020,02/22/2018 documented as of this encounter Social History Tobacco Use Types Packs/Day Years Used Date Smoking Tobacco: Former Cigarettes 0 30 Q uit: 10/17/1995 Smokeless Tobacco: Never Alcohol Use Standard Drinks/Week Comments No 0 (1 standard drink = 0.6 oz pur e alcohol) Food Insecurity Answer Date Recorded Within the past 12 months, y ou worried that your food would run out before you got money to buy more. Never true 12/28/2022 Within the past 12 months, t he food you bought just didn't last and you didn't have money to get more. Never true 09/20/2019 Sex Assigned at Date Recorded Male 08/20/2019 1:[address] Job Start Date Occupation Industry Not on file Not on file Not on file documented as of this encounter Plan of Treatment Upcoming Encounters Date Type Specialty Care Team Description 06/15/2023 Imaging Radiology 07/21/2023 Office Visit Internal Medicine Tyron Keita MD [address] [place] [address] Pending Results Name Type Priority Associated Diagnoses Date /Time TSH Lab Routine Acquired hypothyroidism 06/10/2023 12:42 PM EDT CBC WITH WBC DIFFERENTIAL Lab Routine Pain around PEG tube site 06/10/2023 12:42 PM EDT BASIC METABOLIC PANEL Lab Routine Pain around PEG tube site 06/10/2023 12:42 PM EDT CBC Lab Routine Pain around PEG tube site 06/10/2023 12:42 PM EDT DIFFERENTIAL, AUTOMATED Lab Routine Pain around PEG tube site 06/10/2023 12:42 PM EDT Health Maintenance Due Date Last Done Comments Depression Screening, Annual for Pts 12 and Over 05/02/2021 05/02/2020 Influenza Vaccine (FLU shot) (#1) 2023 07/21/2022, 08/03/2021, 08/27/2020, Additional history exists TSH 01/06/2024 01/05/2023, 07/17, 06/28/2022, Additional history exists DTaP,Tdap,and Td Vaccines (3 - Td or Tdap) 12/29/2032 12/29/2022, 06/01/2012 Pneumococcal Vaccine: 65+ Years Completed 05/13/2015, 01/04/2013 Zoster Vaccines Completed 07/08/2020, 04/16, 02/22/2018 Cologuard Discontinued 03/05/2022, 02/25/2022 Colorectal Cancer Screening Discontinued COVID-19 Vaccine Completed 07/21/2022, , 08/11/2021, Additional history exists Colonoscopy Discontinued Fecal Occult Blood Test Discontinued GARDASIL-HPV IMMUNIZATION SERIES Aged Out No longer eligible based on patient's age to complete this topic Hepatitis B Aged Out No longer eligi ble based on patient's age to complete this topic MENINGOCOCCAL (MENACTRA/MENVEO) Aged Out No longer eligible based on patient's age to complete this topic Sigmoidoscopy Discontinued documented as of this encounter Medical Devices Not on filedocumented as of this encounter Visit Diagnoses Diagnosis Acquired hypothyroidism Unspecified hypothyroidism Pain around PEG tube site Other complications due to other internal prosthetic device, implant, and graft documented in this encounter Care Teams District Manager In Training Relationship Specialty Start Date End Date Tyron Keita MD [address] [facility] [place] [address] PCP - General Internal Medicine 06/13/18 documented as of this encounter
--- OUTSIDE RECORDS SUMMARY | 2023-10-22 10:34 | External Medical Summary ---
Author Name Unknown Address Unknown Organization [id number] [address] [place] [id number] Laboratory Report Ordering Provider Test Date Status BHARTI HERNANDEZ 06/10/2023 12:42:43 Final Observation Date Value Abnormality Reference (Units ) Status WBC, Total 06/10/2023 12:42:43 4.93 4.00-10.8 0 (K/uL) Final RBC 06/10/2023 12:42:43 4.60 4.50-5.25 (M/uL) Final Hemoglobin 06/10/2023 12:42:43 14.6 14.0-16.8 (g/dL) Final HCT 06/10/2023 12:42:43 43.0 40.0-48.4 (%) Final MCV 06/10/2023 12:42:43 93.5 82.0-99.5 (fL) Final MCH 06/10/2023 12:42:43 31.7 27.0-34.0 (pg) Final MCHC 06/10/2023 12:42:43 34.0 32.0-36.0 (g/dL) Final RDW 06/10/2023 12:42:43 12.6 11.5-15.5 (%) Final Platelets 06/10/2023 12:42:43 151 140-400 (K /uL) Final MPV 06/10/2023 12:42:43 10.8 6.6-11.1 ( fL) Final Performing Location [facility] [address] [place] [id number]
--- OUTSIDE RECORDS SUMMARY | 2023-10-22 10:34 | External Medical Summary | Summary of Care ---
Author Name Unknown Organization [facility] Address [address] [place] [place] [address] Phone [phone] Care Team Providers Care Attorney Lawyer Name Role Phone Tyron Ruano MD Primary Care Provider + Reason for Visit * Reason Onset Date Comments Medication Refill 07/27/2023 Encounter Details Date Type Department Care Team Description 07/27/2023 Refill General Internal Medicine [facility] [place] [address] [facility] [place] [address] Amber Murillo MD 200 [facility] [place] [address] Allergies No known active allergiesdocumented as of this encounter (statuses as of 07/28/2023) Medications Medication Sig Dispensed Refills Start Date End Date Status gabapentin (NEURONTIN) 250 MG/5ML solution Administer 5 mL into PEG tube in the morning and 5 mL at noon and 5 mL before bedtime. 1 05/21/2018 Active nystatin 162046 UNIT/ML suspension Take 5 mL by mouth in the morning and 5 mL before bedtime. 0 05/21/2018 Active guaifenesin ER (HUMIBID LA) 600 MG TB12 Administer 1 Tablet into PEG tube 4 times a day as needed for Congestion. Crush into powder and mix with liquid. 0 Active Neosporin 500-31042 UNIT/GM External OintmentIndicati ons:Skin lesion Apply topically to affected area. 0 11/03/2020 Active TwoCal HN Oral LiquidIndication s:Laryngeal cancer (HCC),PEG (percutaneous endoscopic gastrostomy) status (HCC),Tracheosto my status (HCC) Take 5 cans via feeding tube daily 73187 mL 6 04/16/2021 Active traZODone HCl 50 MG Oral Tablet (Desyrel)Indicat ions:Chronic insomnia Take 0.5 Tablets by mouth at bedtime. 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, in full remission 05/02/2020 Chronic neck pain 05/02/2020 Diastolic dysfunction 10/05/2019 Tracheostomy status 06/13/2018 PEG (percutaneous endoscopic gastrostomy ) status 06/13/2018 History of hypertension 06/13/2018 documented as of this encounter (statuses as of 07/28/2023) Resolved Problems Problem Noted Date Resolved Date ZARCO (dyspnea on exertion) 11/03/20202022 Laryngeal cancer 10/17/2015 11/03/2020 documented as of this encounter (statuses as of 07/28/2023) Immunizations Name Administration Dates Next Due COVID-19 mRNA, LNP-s, No Pre serve, 2-Dose Series (Moderna) 01/14/2022,08/11/2021,12/17/2020,11/19 COVID-19, MRNA-LNP, 23-24, P F, 30 MCG/0.3 mL, 12 YRS AND ABOVE, IM (PFIZER-Comirnat) 07/14/2023 Covid-19, Mrna, Lnp-s, Pf, B ivalent, 50 Mcg, IM, 12 yrs and above (Moderna) 07/21/2022 H1N1 2009 Influenza, IM 10/25/2009 Pneumococcal Conjugate Vacc, 13 Valent (Prevnar) 05/13/2015 Pneumococcal Polysaccharide PPV23 (Pneumovax) 01/04/2013 Rsv Vac., Recomb, Adjuvant, Pf,0.5 Ml (Arexvy) 07/14/2023 Seasonal Influenza, Quadriva lent Hd (Fluzone Hd) 07/21/2023,08/03/2021 Seasonal Influenza, Quadriva lent Hd, 65+ Yrs [...] on file documented as of this encounter Miscellaneous Notes * Telephone Encounter - Clara Jasmeet [facility] - 07/28/2023 4:21 PM EDTSigned Prescriptions: Disp Refills Levothyroxine Sodium 137 MCG Oral Tablet 90 Tab*2 Sig: take 1 tablet by mouth once daily AT LEAST 30 MINUTES PRIOR TO BREAKFAST/OTHER MEDSAuthorizing Provider: TYRON RUANO User: JASMEET CLARA documented in this encounter Plan of Treatment Upcoming Encounters Date Type Specialty Care Team Description 01/27/2024 Office Visit Internal Medicine Tyron Ruano MD [address] [place] [address] Health Maintenance Due Date Last Done Comments Depression Screening 05/02/2021 05/02/2020 TSH 06/10/2024 06/10/2023, 12/16, 08/04/2022, Additional history exists DTaP,Tdap,and Td Vaccines (3 - Td or Tdap) 12/29/2032 12/29/2022, 06/01/2012 Pneumococcal Vaccine: 65+ Years Completed 05/13/2015, 01/04/2013 Zoster Vaccines Completed 07/08/2020, 04/16, 02/22/2018 Cologuard Discontinued 03/05/2022, 02/25/2022 Colorectal Cancer Screening Discontinued COVID-19 Vaccine Completed 07/14/2023, 02/2022, 01/14/2022, Additional history exists Influenza Vaccine (FLU shot) Completed 07/21/2023, 07/21/2022, 08/03/2021, Additional history exists Colonoscopy Discontinued Fecal Occult [...] Not on filedocumented as of this encounter Care Teams Attorney Lawyer Relationship Specialty Start Date End Date Tyron Ruano MD [address] [place] [address] PCP - General Internal Medicine 06/13/18 documented as of this encounter
--- OUTSIDE RECORDS SUMMARY | 2023-10-22 10:34 | External Medical Summary | Summary of Care ---
Author Name Unknown Organization [facility] Address [address] [place] [address] Phone [phone] Care Team Providers Care Sample Collector Name Role Phone Tyron Keita MD Primary Care Provider + Reason for Referral * Precert (Within 10 days (routine)) - Pending Review Specialty Diagnoses / Procedures Referred By Jj mills Referred To Contact Radiology Diagnoses Pain around PEG tube site Procedures CT ABD/PELVIS W IV CONTRAST - WO ORAL CONTRAST Makenzie Downey PA-C [address] [place] [id number] Referral ID Status Reason Start Date Expiration Date V isits Requested Visits Authorized [id number] Pending Review 06/10/2023 999 999 Encounter Details Date Type Department Care Team Description 06/10/2023 Orders Only Radiology, [address] [id number] Requisition, External Radiology [address] [place] [address] Pain around PEG tube site*; Erythema Allergies No known active allergiesdocumented as of this encounter (statuses as of 06/10/2023) Medications Medication Sig Dispensed Refills Start Date End Date Status gabapentin (NEURONTIN) 250 MG/5ML solution Administer 5 mL into PEG tube in the morning and 5 mL at noon and 5 mL before bedtime. 1 05/21/2018 Active nystatin 460636 UNIT/ML suspension Take 5 mL by mouth in the morning and 5 mL before bedtime. 0 05/21/2018 Active guaifenesin ER (HUMIBID LA) 600 MG TB12 Administer 1 Tablet into PEG tube 4 times a day as needed for Congestion. Crush into powder and mix with liquid. 0 Active Neosporin 500-33706 UNIT/GM External OintmentIndications :Skin lesion Apply topically to affected area. 0 11/03/2020 Active TwoCal HN Oral LiquidIndications:L aryngeal cancer (HCC),PEG (percutaneous endoscopic gastrostomy) status (HCC),Tracheostomy status (HCC) Take 5 cans via feeding tube daily 04628 mL 6 04/16/2021 Active Levothyroxine Sodium 137 [...] Visit Internal Medicine Tyron Keita MD [address] [place] [address] Scheduled Orders Name Type Priority Associated Diagnoses Orde r Schedule CT ABD/PELVIS W IV CONTRAST - WO ORAL CONTRAST Medical Imaging Routine Pain around PEG tube site Expected: 06/10/2023, Expires: 07/11/2024 Health Maintenance Due Date Last Done Comments [...] as of this encounter Visit Diagnoses Diagnosis Pain around PEG tube site- Primary Other complications due to other internal prosthetic device, implant, and graft Erythema Unspecified erythematous condition documented in this encounter Care Teams Sample Collector Relationship Specialty Start Date End Date Tyron Keita MD [address] [place] [address], [place] [address] PCP - General Internal Medicine 06/13/18 documented as of this encounter
--- OUTSIDE RECORDS SUMMARY | 2023-10-22 10:34 | External Medical Summary ---
Author Name Unknown Address Unknown Organization [facility] [address] [place] [address] Laboratory Report Ordering Provider Test Date Status BHARTI HERNANDEZ 06/10/2023 12:42:43 Final Observation Date Value Abnormality Reference (Units ) Status SYNC LEUKOCYTES IN BLOOD BY AUTOMATED COUNT 06/10/2023 12:42:43 4.93 4.00-10.80 (K/uL) Final Segs 06/10/2023 12:42:43 65.9 40.0-75.0 (%) Final Lymphs % 06/10/2023 12:42:43 21.1 18.0-42.0 (%) Final Monos 06/10/2023 12:42:43 11.0 1.0-11.0 (%) Final Eosinophils 06/10/2023 12:42:43 1.6 0.0-6.0 (%) Final Basos 06/10/2023 12:42:43 0.4 0.0-2.0 (%) Final Absolute Segs 06/10/2023 12:42:43 3.25 1.80-7.70 (K/uL) Final Lymphs, absolute 06/10/2023 12:42:43 1.04 1.00-4.80 (K/ul) Final Monos, Abs 06/10/2023 12:42:43 0.54 0.00-1.10 (K/uL) Final Eos, Abs 06/10/2023 12:42:43 0.08 0.00-0.70 (K/uL) Final Basos, Abs 06/10/2023 12:42:43 0.02 0.00-0.20 (K/uL) Final [facility] [place] [address]
--- OUTSIDE RECORDS SUMMARY | 2023-10-22 10:34 | External Medical Summary ---
Author Name Unknown Address Unknown Organization [facility] [address] [place] [address] Laboratory Report Ordering Provider Test Date Status BHARTI HERNANDEZ 06/10/2023 12:42:43 Final Observation Date Value Abnormality Reference (Units ) Status BUN 06/10/2023 12:42:43 28 Above high normal 6-20 (mg/dL) Final Creatinine 06/10/2023 12:42:43 1.0 0.6-1.2 (mg/dL) Final Glomerular filtration rate/1.73 sq M.predicted [Volume Rate/Area] in Serum, Plasma or Blood by Creatinine-based formula (CKD-EPI) 06/10/2023 12:42:43 83 >=60 (mL/min) Final eGFR is calculated based on the CKD-EPI 2020 equation SODIUM 06/10/2023 12:42:43 140 135-146 (m mol/L) Final Potassium 06/10/2023 12:42:43 4.4 3.5-5.1 (m mol/L) Final Cl 06/10/2023 12:42:43 102 98-107 (mm ol/L) Final CO2 06/10/2023 12:42:43 27 22-32 (mmo l/L) Final Anion gap 06/10/2023 12:42:43 11 7-15 (mmol /L) Final Glucose 06/10/2023 12:42:43 85 70-120 (mg /dL) Final Calcium 06/10/2023 12:42:43 9.6 8.4-10.2 ( mg/dL) Final Performing Location [facility] [address] [place] [address]
--- OUTSIDE RECORDS SUMMARY | 2023-10-22 10:34 | External Medical Summary | Summary of Care ---
Author Name Unknown Organization [facility] Address [address] [place] [facility] [place] [place] [address] Phone [phone] Care Team Providers Care Youth Support Worker Name Role Phone Tyron Keita MD Primary Care Provider + Reason for Visit * Reason Onset Date Comments Medication Refill 07/28/2023 Encounter Details Date Type Department Care Team Description 07/28/2023 Refill General Internal Medicine [facility] [place] [address] [facility] [place] [address] Amber Murillo MD [address] [facility] [place] [address] Allergies No known active allergiesdocumented as of this encounter (statuses as of 07/28/2023) Medications Medication Sig Dispensed Refills Start Date End Date Status gabapentin (NEURONTIN) 250 MG/5ML solution Administer 5 mL into PEG tube in the morning and 5 mL at noon and 5 mL before bedtime. 1 05/21/2018 Active nystatin 410362 UNIT/ML suspension Take 5 mL by mouth in the morning and 5 mL before bedtime. 0 05/21/2018 Active guaifenesin ER (HUMIBID LA) 600 MG TB12 Administer 1 Tablet into PEG tube 4 times a day as needed for Congestion. Crush into powder and mix with liquid. 0 Active Neosporin 500-52323 UNIT/GM External OintmentIndicati ons:Skin lesion Apply topically to affected area. 0 11/03/2020 Active TwoCal HN Oral LiquidIndication s:Laryngeal cancer (HCC),PEG (percutaneous endoscopic gastrostomy) status (HCC),Tracheosto my status (HCC) Take 5 cans via feeding tube daily 66133 mL 6 04/16/2021 Active traZODone HCl 50 [...] MCG/0.3 mL, 12 YRS AND ABOVE, IM (PFIZER-Comirnaty) 07/14/2023 Covid-19, Mrna, Lnp-s, Pf, B ivalent, [...] Description 01/27/2024 Office Visit Internal Medicine Tyron Keita MD [address] [place] [address] Health Maintenance Due Date Last Done Comments [...] filedocumented as of this encounter Care Teams Youth Support Worker Relationship Specialty Start Date End Date Tyron Keita MD [address] [place] [address] [phone] PCP - General Internal Medicine 06/13/18 documented as of this encounter
--- OUTSIDE RECORDS SUMMARY | 2023-10-22 10:34 | External Medical Summary | Summary of Care ---
Author Name Unknown Organization [facility] Address [address] [place] [address] Phone [phone] Care Team Providers Care Warehouse And Receiving Supervisor Name Role Phone Tyron Keita MD Primary Care Provider + Reason for Visit * Reason Onset Date Comments Follow Up 6 month follow u p. Patient denied any new concerns. Medication Administration 07/21/2023 Flu an d/or Pneumo Inj Encounter Details Date Type Department Care Team Description 07/21/2023 Office Visit General Internal Medicine [facility] [place] [address] [facility] [place] [id number] Tyron Keita MD [address] [place] [address] Acquired hypothyroidism*; Stress due to illness of family member; Major depressive disorder with single episode, in full remission (HCC); History of hypertension; Chronic insomnia; Need for prophylactic vaccination and inoculation against influenza; PEG (percutaneous endoscopic gastrostomy) status (HCC) Allergies No known active allergiesdocumented as of this encounter (statuses as of 07/21/2023) Medications Medication Sig Dispensed Refills Start Date End Date Status gabapentin (NEURONTIN) 250 MG/5ML solution Administer 5 mL into PEG tube in the morning and 5 mL at noon and 5 mL before bedtime. 1 05/21/2018 Active nystatin 477831 UNIT/ML suspension Take 5 mL by mouth in the morning and 5 mL before bedtime. 0 05/21/2018 Active guaifenesin ER (HUMIBID LA) 600 MG TB12 Administer 1 Tablet into PEG tube 4 times a day as needed for Congestion. Crush into powder and mix with liquid. 0 Active Neosporin [id number] UNIT/GM External OintmentIndications :Skin lesion Apply topically to affected area. 0 11/03/2020 Active TwoCal HN Oral LiquidIndications:L aryngeal cancer (HCC),PEG (percutaneous endoscopic gastrostomy) status (HCC),Tracheostomy status (HCC) Take 5 cans via feeding tube daily 78361 mL 6 04/16/2021 Active Levothyroxine Sodium 137 MCG Oral Tablet take 1 tablet by mouth once daily AT LEAST 30 MINUTES PRIOR TO BREAKFAST/OTHER MEDS 90 Tablet 2 11/15/2022 Active documented as of this encounter (statuses as of 07/21/2023) Active Problems Problem Noted Date History of laryngeal cancer 11/03/2020 Acquired hypothyroidism 06/20/2020 Major depressive disorder with single ep isode, in full remission 05/02/2020 Chronic neck pain 05/02/2020 Diastolic dysfunction 10/05/2019 Tracheostomy status 06/13/2018 PEG (percutaneous endoscopic gastrostomy ) status 06/13/2018 History of hypertension 06/13/2018 documented as of this encounter (statuses as of 07/21/2023) Resolved Problems Problem Noted Date Resolved Date FOX (dyspnea on exertion) 11/03/20202022 Laryngeal cancer 10/17/2015 11/03/2020 documented as of this encounter (statuses as of 07/21/2023) Immunizations Name Administration Dates Next Due COVID-19 mRNA, LNP-s, No Pre serve, 2-Dose Series (Moderna) 01/14/2022,08/11/2021,12/17/2020,11/19 COVID-19, MRNA-LNP, PF, 30 M CG/0.3 mL, 12 yrs and above, IM (Pfizer) 07/14/2023 Covid-19, Mrna, Lnp-s, Pf, B ivalent, [...] 30 Q uit: 10/17/1995 Smokeless Tobacco: Never Tobacco Cessation:Counseling Given: Not Answered Alcohol Use Standard Drinks/Week Comments No 0 [...] on file documented as of this encounter Last Filed Vital Signs Vital Sign Reading Time Taken Comments Blood Pressure 100/60 07/21/2023 10:44 AM EDT Pulse 62 07/21/2023 10:44 AM EDT Temperature 36.3 C (97.3 F) 07/21/2023 1 0:44 AM EDT Respiratory Rate - - Oxygen Saturation 100% 07/21/2023 10: 44 AM EDT Inhaled Oxygen Concentration - - Weight 65.6 kg (144 lb 11.2 oz) 023 10:44 AM EDT Height 172.7 cm (5' 8") 07/21/2023 10:4 4 AM EDT Body Mass Index 22 07/21/2023 10:44 AM EDT documented in this encounter Progress Notes * Tyron Keita MD - 07/21/2023 11:06 AM EDT Chief Complaint Patient presents with Follow Up 6 month follow up. Patient denied any new concerns. Medication Administration Flu and/or Pneumo Inj SUBJECTIVE: Katie Wagoner is a 77 year old male with PMH as below who presents for follow up hypothyroidism, s/p peg, trach. No cp, sob, fox. Tube feeds going ok. Sees ent for trach and h/o cancer. He notes still trouble staying asleep, tried trazodone prior, made him feel off. Melatonin working a little, still awakens after hours. Does watch tv in bed. Mood holding ok with now in memory care. She doeshave covid so can't see her until next week which has been hard. Occasional bruising when bumps arm, no unexplained bruising Patient Active Problem List Diagnosis Code Tracheostomy status ([facility]) Z93.0 PEG (percutaneous endoscopic gastrostomy) status ([facility]) Z93.1 History of hypertension Z86.79 Diastolic dysfunction I51.89 Major depressive disorder with single episode, in full remission ([facility]) F32.5 Chronic neck pain M54.2, G89.29 Acquired hypothyroidism E03.9 History of laryngeal cancer Z85.21 Current Outpatient Medications Medication Sig Dispense Refill gabapentin (NEURONTIN) 250 MG/5ML solution Administer 5 mL into PEG tube in the morning and 5 mL atnoon and 5 mL before bedtime. 1 nystatin [id number] UNIT/ML suspension Take 5 mL by mouth in the morning and 5 mL before bedtime. 0 guaifenesin ER (HUMIBID LA) 600 MG TB12 Administer 1 Tablet into PEG tube 4 times a day as needed for Congestion. Crush into powder and mix with liquid. TwoCal HN Oral Liquid Take 5 cans via feeding tube daily 61001 mL 6 Levothyroxine Sodium 137 MCG Oral Tablet take 1 tablet by mouth once daily AT LEAST 30 MINUTES PRIOR TO BREAKFAST/OTHER MEDS 90 Tablet 2 Neosporin 500-45411 UNIT/GM External Ointment Apply topically to affected area. (Patient not taking: Reported on 07/21/2023) No current facility-administered medications for this visit. Review of patient's allergies indicates: No Known Allergies Health Maintenance Due Topic Date Due Depression Screening 05/02/2021 ROS: CONSTITUTIONAL: No change in weight, No weakness, and No fevers, sweats, or chills EYE: No recent significant change in vision, No eye pain, redness, discharge, and No diplopia EARS: No ear pain, No drainage, No tinnitus or vertigo, and No recent change in hearing PULMONARY: No cough, sputum, or hemoptysis, No wheezing, No rales, No shortness of breath, and No recent change in breathing CARDIOVASCULAR: No chest pain, No shortness of breath, No dyspnea on exertion, No orthopnea, No paroxysmal nocturnal dyspnea, No edema, No palpitations, and No syncope GASTROINTESTINAL: No abdominal pain, No change in bowel habits, No significant heartburn, No significant change in appetite, No nausea, vomiting, diarrhea, or constipation, No hematemesis, No blood in stools or black tarry stools, No abdominal bloating or early satiety, and No dysphagia ALL OTHER SYSTEMS NEGATIVE I reviewed social, PMH, PSH, and family history and updated where needed. Social History Socioeconomic History Marital status: Spouse name: Not on file Number of children: 2 Years of education: Not on file Highest education level: Not on file Occupational History Occupation: retired - corrections Tobacco Use Smoking status: Former Packs/day: 0.00 Years: 30.00 Pack years: 0.00 Types: Cigarettes Quit date: 10/17/1995 Years since quittin.7 Smokeless tobacco: Never Vaping Use Vaping Use: Never used Substance and Sexual Activity Alcohol use: No Drug use: No Sexual activity: Not on file Other Topics Concern Not on file Social History Narrative Not on file Social Determinants of Health Financial Resource Strain: Not on file Food Insecurity: Unknown Worried About Running Out of Food in the Last Year: Never true Ran Out of Food in the Last Year: Not on file Transportation Needs: Not on file Physical Activity: Not on file Stress: Not on file Social Connections: Not on file Intimate Partner Violence: Not on file Housing Stability: Not on file Past Medical History: Diagnosis Date Acquired hypothyroidism 06/20/2020 Arthritis 2003 Cancer (HCC) Diastolic dysfunction 10/05/2019 Esophageal varices (HCC) History of hypertension 06/13/2018 History of laryngeal cancer 11/03/2020 HTN (hypertension) 2015 Hypertension Laryngeal cancer (HCC) 2016 PEG (percutaneous endoscopic gastrostomy) status (HCC) 06/13/2018 Tracheostomy status (HCC) 06/13/2018 Past Surgical History: Procedure Laterality Date BUNION CORRECTED WITH METARSAL OSTEOTOMY Right 2005 COLONOSCOPY NECK/CHEST SURGERY PROCEDURE NEC Right 2016 right sided laryngeal tumor removed PEG TUBE EDU 2017 aspiration SIGMOIDOSCOPY, DIAGNOSTIC TRACHEOTOMY TUBE CHANGE 2016 for air edema after surgery Family History Problem Relation Age of Onset Alzheimer's disease Mother Stroke Father 78 OBJECTIVE: PHYSICAL EXAM: BP 100/60 | Pulse 62 | Temp 36.3 C (97.3 F) | Ht 1.727 m (5' 8") | Wt 65.6 kg (144 lb 11.2 oz) | SpO2 100% | BMI 22.00 kg/m | BSA 1.77 m General: alert, healthy, and no distress Head: Normocephalic, No masses, lesions, or abnormalities Eye Exam: conjunctiva are pink and non-injected, sclera clear Ears: External ears normal, Canals clear, TM's Normal Neck: supple, trach seems clean Heart: regular rate & rhythm, no murmur, no gallops, PMI non-displaced, S-1 normal, and S-2 normal Lungs: normal respiratory rate and rhythm, lungs clear to auscultation Abdomen: abdomen soft, peg in place Psych: normal affect, no flight of ideas or tangential thought, good eye contact, no pressured speech I reviewed last tsh, cbc, gfr, lft ASSESSMENT: E03.9 Acquired hypothyroidism (primary encounter diagnosis) Z63.79 Stress due to illness of family member F32.5 Major depressive disorder with single episode, in full remission (HCC) Z86.79 History of hypertension F51.04 Chronic insomnia Z23 Need for prophylactic vaccination and inoculation against influenza Z93.1 PEG (percutaneous endoscopic gastrostomy) status ([facility]) PLAN: Acquired hypothyroidism (Primary) - TSH; Future; Expected date: 01/20/2024 Cont levothyroxine Stress due to illness of family member Discussed, he feels handling ok Will reach to me if wants counseling or other treatment Major depressive disorder with single episode, in full remission (HCC) Stable History of hypertension - COMPREHENSIVE METABOLIC PANEL; Future; Expected date: 01/20/2024 - LIPID PANEL WITH DIRECT LDL IF TG IS HIGH; Future; Expected date: 01/20/2024 Controlled Chronic insomnia Discussed good sleep hygiene, melatonin another 1-2 weeks Will let me know how it goes Need for prophylactic vaccination and inoculation against influenza - INFLUENZA VACC, QUAD, HIGH DOSE (FLUZONE HD) PEG (percutaneous endoscopic gastrostomy) status (HCC) Cont tube feeds Follow Up: Return in about 6 months (around 01/20/2024), or if symptoms worsen or fail to improve, for Fasting Labs 2-5 Days Before Next Visit. | For: Fasting Labs 2-5 Days Before Next Visit Tyron Keita MD * Zahra Whitfield CMA - 07/21/2023 10:47 AM EDT PRE - ADMINISTRATION DOCUMENTATION Are you experiencing any cold symptoms or fever? No Have you had Guillain-[place] Syndrome (an illness that causes paralysis) within the last 6 weeks? No Have you had the flu shot in the past? YES Have you ever had a reaction to the flu shot? No Zahra Whitfield CMA, 07/21/2023 10:47 AM Immunization Administration Documentation Time Out Procedure Performed: Yes Patient Identified (Ask Name/Date of ): Yes Does the patient have a fever greater than 101 degrees today? No Patient allergic to latex? No VFC Stock: Yes, Does this patient qualify for immunization through the VF program because he/she (check only one): No-this child does not qualify for [facility] program; refer patient to a [facility] Immunization(s) verified: Yes, Immunization Name: Flu, VIS Sheet(s) given: Yes Verified Side and Site: Yes Verified Shot(s) with Parent(s)/Patient: Yes documented in this encounter Nursing Notes * Zahra Whitfield CMA - 07/21/2023 10:42 AM EDT Chief Complaint Patient presents with Follow Up 6 month follow up. Patient denied any new concerns. documented in this encounter Plan of Treatment Upcoming Encounters Date Type Specialty Care Team Description 01/27/2024 Office Visit Internal Medicine Tyron Keita MD [address] [place] [address], [place] [id number] Scheduled Orders Name Type Priority Associated Diagnoses Orde r Schedule COMPREHENSIVE METABOLIC PANEL Lab Routine History of hypertension Expected: 01/20/2024 (Approximate), Expires: 07/20/2024 LIPID PANEL WITH DIRECT LDL IF TG IS HIGH Lab Routine History of hypertension Expected: 01/20/2024, Expires: 07/21/2024 TSH Lab Routine Acquired hypothyroidism Expected: 01/20/2024 (Approximate), Expires: 07/20/2024 Health Maintenance Due Date Last Done Comments [...] of this encounter Visit Diagnoses Diagnosis Acquired hypothyroidism- Primary Unspecified hypothyroidism Stress due to illness of family member Other health problem within the family Major depressive disorder with single episode, in full remission (HCC) History of hypertension Personal history of other diseases of circulatory system Chronic insomnia Insomnia, unspecified Need for prophylactic vaccination and inoculation against influenza PEG (percutaneous endoscopic gastrostomy) status (HCC) documented in this encounter Care Teams Warehouse And Receiving Supervisor Relationship Specialty Start Date End Date Tyron Keita MD [address] [place] [address] PCP - General Internal Medicine 06/13/18 documented as of this encounter
[2023-10-22] MEDS: oxyCODONE HCL SOLN 5 MG/5 ML UDC PO PRN ×2 (13:03→20:01)
--- NOTE | 2023-10-22 13:39 | Cardiology Consultation ---
Date of Consultation October 22, 2023 Assessment & Plan (1) Shortness of breath: (2) Complication of tracheostomy: Plan Patient with noted difficulty with shortness of breath since recent tongue biopsy. Patient denies any recent chest discomfort. He states he is feeling much better compared to when he initially presented to the hospital. His initial troponin was mildly elevated at 47.5 and did up to 326 and then back down to 237.9 PG per mL. EKG without acute ischemic change. Echocardiogram reassuring with no regional wall motion abnormalities. Patient with very minimal elevation in his proBNP screen. Clinically he does not appear to be volume overloaded. Question if the troponin is reflective of myocardial strain in the setting of noncardiac illness. The symptoms that prompted him come to the emergency room have resolved. Recommend ongoing observation from a cardiac perspective. A repeat troponin is currently pending. History of Present Illness Attending Physician: Paige Bradford MD History of Present Illness Katie Wagoner is a 78-year-old male seen in cardiology consultation per the request of Dr. Marcos for evaluation of shortness of breath and mild elevation in troponin. The patient is accompanied by his son and [id number]. Patient has a longstanding history of carcinoma diagnosed initially treated in 2017 with tracheostomy and PEG tube placement. The majority of his care has been at [facility]. 3 days ago the patient had undergone a biopsy for tongue carcinoma at [facility] and her since he has been having increased work of breathing and has felt generalized illness. He came to the emergency room for further assessment. He had been seen by ENT and his airway status has been deemed to be stable. At the time of my assessment in emergency room bay C5 he was comfortable and stated that his breathing was without difficulty and denied chest pain or shortness of breath per my questioning. Allergies Allergy/AdvReac Type Severity Reaction Status Date / Time No Known Allergies Allergy Verified 10/21/23 21:11 Home Medications Medication Instructions Recorded Confirmed Type gabapentin 250 mg/5 mL oral 250 mg feeding tube TID 10/21/23 10/21/23 History solution levothyroxine 137 mcg tablet 137 mcg PO QAM 10/21/23 10/21/23 History nystatin 100,000 unit/mL oral 5 ml PO BID 10/21/23 10/21/23 History suspension oxycodone 5 mg/5 mL oral solution 5 mg PO Q6H PRN Pain 10/21/23 10/21/23 History sodium chloride 0.9 % for 3 ml inhalation DIRECTED 10/21/23 10/21/23 History nebulization trazodone 50 mg tablet 37.5 mg PO HS 10/21/23 10/21/23 History Patient History Medical History 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 Bowers - stage pT3N2c with extranodal extension Status post completion of combined radiation and chemotherapy. Radiation completed 04/21/2017. He received 6600 cGy. Chemotherapy comprised of weekly cisplatin." On 02/01/17 18:09 Janessaangi Thompson wrote "-Self palpated right neck mass - November 2016 -Ultrasound-guided FNA of right neck mass - 12/10/2016 - positive for squamous cell carcinoma -PET/CT scan - 12/22/2016 -Supraglottic hemilaryngectomy, bilateral neck dissection - 01/05/2017 - Dr. Bowers - stage pT3N2c with extranodal extension" Social History Smoking Status: Former smoker Second Hand Exposure: No; Do You Dip or Chew Tobacco: No; Tobacco Cessation Education Requested by Patient: No Hx Alcohol Use: No Hx Substance Use: No Preferred Language: Citizen Of [place] Communication Ability: Impaired Fiber Artist Required: No Beliefs That Will Affect Care: None Current Living Situation: Spouse Other Information That Helps Us Care for You: No Feels Safe at Home: Yes Safety Concerns: Feels Safe At This Time Assistive Devices: None Review of Systems Review of Systems: Other (due to tracheostomy ) Physical Exam Constitutional: WD/WN, vitals as above + thin Neck: tracheostomy in place Respiratory: normal respiratory effort, lungs clear to auscultation Cardiovascular: RRR, no murmur, no edema Gastrointestinal (Abdomen): normal bowel sounds, soft, nontender, no hepatosplenomegaly PEG tube in place without erythema around site Neurologic: PERRL, EOMI, accommodation nl, no face palsy, no dysarthria Results & Data Vital Signs (Past 12 Hours) Vital Signs Temp Pulse Pulse Resp BP BP Pulse Ox 10/22/23 12:45 67 17 123/80 95 10/22/23 11:47 68 20 93 10/22/23 08:43 65 10/22/23 08:32 10/22/23 08:32 10/22/23 08:32 10/22/23 08:31 56 L 17 107/64 96 10/22/23 07:29 36.6 C 61 18 94/63 L 95 10/22/23 07:04 62 18 96 10/22/23 05:30 59 L 18 95 10/22/23 05:00 55 L 20 97 10/22/23 04:30 55 L 17 98 10/22/23 04:08 55 L 17 97 10/22/23 04:08 94/63 L 10/22/23 04:00 60 15 98 10/22/23 03:30 99 H 26 H 88 L 10/22/23 03:00 56 L 20 97 10/22/23 02:30 58 L 17 97 10/22/23 02:25 98/61 L 10/22/23 02:25 58 L 18 97 10/22/23 02:00 56 L 15 97 10/22/23 02:00 57 L 10/22/23 01:52 56 L 16 98 Pulse Ox O2 Del Method O2 Del Method 10/22/23 12:45 Room Air 10/22/23 11:47 Room Air 10/22/23 08:43 10/22/23 08:32 Room Air 10/22/23 08:32 Room Air 10/22/23 08:32 97 Room Air 10/22/23 08:31 Room Air 10/22/23 07:29 Room Air 10/22/23 07:04 Room Air 10/22/23 05:30 10/22/23 05:00 10/22/23 04:30 10/22/23 04:08 10/22/23 04:08 10/22/23 04:00 10/22/23 03:30 10/22/23 03:00 10/22/23 02:30 10/22/23 02:25 10/22/23 02:25 10/22/23 02:00 10/22/23 02:00 10/22/23 01:52 Laboratory Results Cardiac Enzymes 10/21/23 10/21/23 10/22/23 Range/Units 20:00 22:23 08:31 AST 20 (13-39) U/L Troponin I High Sens 47.5 H 326.6 H* D 237.9 H* D (0-20) pg/ml B-Natriuretic Peptide 221 H (0-100) pg/ml Coagulation 10/21/23 Range/Units 20:00 PT 11.7 (9.0-12.0) Seconds B-Natriuretic Peptide 221 H (0-100) pg/ml CBC 10/21/23 10/22/23 Range/Units 20:00 08:31 WBC 10.49 5.63 (4.8-10.8) K/ul RBC 4.23 L 4.20 L (4.70-6.10) M/uL Hgb 12.7 L 12.6 L (14.0-18.0) g/dl Hct 37.8 L 37.9 L (42.0-52.0) % Plt Count 201 200 (130-400) K/uL Neut # (Auto) 8.69 H 5.26 (1.40-6.50) K/uL Lymph # (Auto) 0.61 L 0.26 L (1.20-3.40) K/uL Brooks # (Auto) 1.08 H 0.10 L (0.11-0.59) K/uL Eos # (Auto) 0.04 0.00 (0.00-0.50) K/uL Baso # (Auto) 0.03 0.00 (0.00-0.20) K/uL Comprehensive Metabolic Panel 10/21/23 10/22/23 Range/Units 20:00 08:31 Sodium 131 L 135 L (136-145) mmol/L Potassium 3.9 4.5 (3.5-5.1) mmol/L Chloride 96 L 100 (98-107) mmol/L Carbon Dioxide 27 29 (21-32) mmol/L BUN 25 H 21 (6-23) mg/dl Creatinine 0.79 0.80 (0.6-1.4) mg/dl Glucose 122 H 127 H (70-99(Fasting)) mg/dl Calcium 8.9 8.7 (8.6-10.3) mg/dl AST 20 (13-39) U/L ALT 12 (7-52) U/L Alkaline Phosphatase 72 (34-104) U/L Total Protein 6.8 (6.0-8.3) gm/dl Albumin 3.8 (3.4-5.0) gm/dl Intake and Output 10/21/23 10/22/23 10/22/23 22:59 06:59 14:59 Other: Weight 69 kg 69 kg Weight Measurement Method Built in Bedscale Standing Scale Patient Weight 10/23/23 06:59 Weight 69 kg Diagnostic Findings Chest x-ray without active disease EKG performed 10/21/2023 at 1955 and interpret independently: Baseline artifact noted, sinus rhythm 84 bpm, with occasional PACs, limited tracing due to artifact, but no definite repolarization abnormalities. Repeat tracing performed 10/22/2023 8040 a.m.: This tracing was of excellent technical quality. Sinus bradycardia 58 bpm, QT interval noted to be prolonged at 449 ms, otherwise normal EKG. Cardiogram performed 10/22/2023 and interpreted independently: Ventricular ventricular hypertrophy No regional wall motion abnormalities LVEF in the range of 55 to 60% Trace aortic regurgitation Grade 1 diastolic dysfunction Findings do not suggest pulmonary hypertension
--- NOTE | 2023-10-22 16:54 | Hospitalist Progress Note ---
Date of Service October 22, 2023 Assessment & Plan (1) Shortness of breath: Plan: 78-year-old male with past med history significant for hypothyroidism, history of laryngeal cancer, tracheostomy status, PEG tube status, diastolic dysfunction, history of hypertension, depression who lives with his family was brought in because of shortness of breath. Seems he was recently diagnosed with tongue cancer and had a biopsy done at [facility] with ENT 2 days ago. Since biopsy seems to have increased work of breathing but got significantly worse last evening. Also his secretions where slightly bloody. Family suctioned at home but was not helping. Patient was given 2 racemic epi treatments and nebs and Ativan with only slight improvement in the ER. In the ER with further suctioning a small piece of clotted blood was suctioned out. After that the patient seemed more comfortable. ENT was also consulted and has seen the patient in the ER. ENT did bedside flexible scope which showed patient's airway was stable and open. He was also given a dose of Decadron and saline neb treatment. Currently resting comfortably. Able to ambulate to the bathroom. Patient answers only with nodding the head yes or no. Family currently not in the room. Patient denies any headache. Denies runny nose. Has some soreness in the throat. Denies any chest pain. Currently denies any shortness of breath. No nausea. No abdominal pain. Normal bowel and bladder movements. Afebrile. All his medications are via feeding tube. Shortness of breath Likely secondary to bloody secretions with partial obstruction of the tracheostomy tube Appreciate ENT input and recommendation Status post flexible tracheoscopy and noted to have patent tracheostomy tube with some bloody secretions may be the cause for shortness of breath Improved after blood clot suctioned out No immediate need for mechanical ventilation Will need to be monitored closely And saturating normally on room air and no more episodes of shortness of breath Tracheostomy to be checked periodically and no signs and or symptoms of obstruction Discussed with the ENT physician and was advised to have dressed the site of tracheostomy as advised by his ENT specialist as an outpatient History of laryngeal cancer Status post tracheostomy [address] Lantigua at [facility] If any further complication and required intubation he will likely be transferred to [facility]/advised from Dr. Lanza Will discuss with Dr. Lanza tomorrow Likely discharge tomorrow Elevated troponin 47 TO 326 Denies any chest pain EKG looks okay We will follow serial enzymes and repeat EKG and echo Consult cardiology-appreciate input and recommendation Doubt any ACS Discussed with the project surveyor and is not having any ACS and the patient can be discharged History of laryngeal cancer S/p surgery and chemo S/p tracheostomy S/p PEG tube-will start PEG tube feeding from today Will start PEG tube feeding from today History of hypertension Seems not on medications Monitor Depression On trazodone Hypothyroidism On Synthyroid Nutrition Currently n.p.o. On tube feeds DVT prophylaxis Lovenox Disposition Telemetry Full code Admission and Anticipated Discharge Date Admission Date: October 22, 2023 Subjective 10/22/2023 The patient was seen and examined in emergency room He has been feeling much better and denies any increasing shortness of breath or pain Denies any chest pain, palpitation or shortness of breath Wants to have PEG feeding started 10/23/2023 The patient was seen and examined in emergency room in presence of the significant other He has been complaining of tracheostomy dressing but denies any shortness of breath at rest He has not had any feeding yet Denies any chest pain or palpitation, no abdominal pain nausea and or vomiting Review of Systems Review of Systems: All systems reviewed and are unremarkable except as noted below Physical Exam Physical Exam: Lying in bed without any acute distress Constitutional: + ill appearing and average body habitus Eyes: PERRL, conjunctivae normal, anicteric sclerae ENMT: Status post tracheostomy tube placement following BOT procedure about 2 days ago Neck: Has tracheostomy tube in place Respiratory: + respiratory distress (Minimal distress ) Auscultation: + dimi nished lung sounds and + crackles (Occasional crackles at the bases) Cardiovascular: Rate/Rhythm: regular rate and regular rhythm; not tachycardic Heart Sounds: normal S1 and normal S2; no murmur Gastrointestinal (Abdomen): Inspection/Auscultation: normal bowel sounds; abdomen not distended Percussion/Palpation: abdomen soft; abdomen nontender PEG tube in place without any infection Musculoskeletal: No acute arthritis involving any of the joint Neurologic: normal touch/pain/proprioception and moves all extremities; no focal motor deficits Lymphatic: no cervical or axillary lymphadenopathy Results & Data Results & Data Vital Signs (Past 12 Hours) Vital Signs Temp Pulse Pulse Resp BP Pulse Ox Pulse Ox 10/22/23 16:37 70 18 106/68 97 10/22/23 15:36 92 H 18 95 10/22/23 12:45 67 17 123/80 95 10/22/23 11:47 68 20 93 10/22/23 08:43 65 10/22/23 08:32 10/22/23 08:32 10/22/23 08:32 97 10/22/23 08:31 56 L 17 107/64 96 10/22/23 07:29 36.6 C 61 18 94/63 L 95 10/22/23 07:04 62 18 96 10/22/23 05:30 59 L 18 95 10/22/23 05:00 55 L 20 97 O2 Del Method O2 Del Method 10/22/23 16:37 Room Air 10/22/23 15:36 Room Air 10/22/23 12:45 Room Air 10/22/23 11:47 Room Air 10/22/23 08:43 10/22/23 08:32 Room Air 10/22/23 08:32 Room Air 10/22/23 08:32 Room Air 10/22/23 08:31 Room Air 10/22/23 07:29 Room Air 10/22/23 07:04 Room Air 10/22/23 05:30 10/22/23 05:00 Laboratory Results Short CBC 10/21/23 10/22/23 Range/Units 20:00 08:31 WBC 10.49 5.63 (4.8-10.8) K/ul Hgb 12.7 L 12.6 L (14.0-18.0) g/dl Hct 37.8 L 37.9 L (42.0-52.0) % Plt Count 201 200 (130-400) K/uL BMP 10/21/23 10/22/23 20:00 08:31 Sodium 131 L 135 L Potassium 3.9 4.5 Chloride 96 L 100 Carbon Dioxide 27 29 BUN 25 H 21 Creatinine 0.79 0.80 Glucose 122 H 127 H Calcium 8.9 8.7 Liver Function 10/21/23 Range/Units 20:00 Total Bilirubin 0.5 (0.2-1.0) mg/dl AST 20 (13-39) U/L ALT 12 (7-52) U/L Alkaline Phosphatase 72 (34-104) U/L Albumin 3.8 (3.4-5.0) gm/dl Urine 10/21/23 Range/Units 23:11 Urine Color Yellow Urine Appearance Clear (Clear) Urine pH 5.5 (4.5-7.5) Ur Specific [place] 1.019 (1.000-1.030) Urine Protein 1+ H (Negative) Urine Glucose (UA) Negative (Negative) Short CBC 10/23/23 Range/Units 03:41 WBC 8.47 (4.8-10.8) K/ul Hgb 11.5 L (14.0-18.0) g/dl Hct 35.8 L (42.0-52.0) % Plt Count 192 (130-400) K/uL BMP 10/23/23 03:41 Sodium 137 Potassium 3.8 Chloride 103 Carbon Dioxide 28 BUN 20 Creatinine 0.84 Glucose 92 Calcium 8.6 Medications Administered Current Inpatient Medications Acetaminophen (Acetaminophen 325 Mg Tab) 650 mg PO Q4H PRN PRN Reason: Pain or Fever Stop: 11/21/23 05:24 Albuterol (Albut/Ipratrop 3mg/0.5mg Neb 3 Ml Vial) 3 ml NEB QIDR [facility]; Protocol Stop: 11/21/23 06:59 Last Admin: 10/22/23 15:36 Dose: 3 ml Enoxaparin Sodium (Enoxaparin Inj 40 Mg/0.4 Ml Syr) 40 mg SQ Q24H [facility] Stop: 11/21/23 07:59 Last Admin: 10/22/23 08:19 Dose: 40 mg Gabapentin (Gabapentin 250 Mg/5 Ml 470 Ml Btl) 250 mg GT TID [facility] Stop: 11/21/23 08:59 Last Admin: 10/22/23 13:03 Dose: 250 mg Sodium Chloride (Nss) 1,000 mls @ 80 mls/hr IV .[id number] [facility] Stop: 10/22/23 17:54 Last Admin: 10/22/23 06:37 Dose: 80 mls/hr Levothyroxine Sodium (Levothyroxine Sodium 137 Mcg Tablet) 137 mcg PO DAILYBB [facility] Stop: 11/21/23 06:29 Last Admin: 10/22/23 06:36 Dose: 137 mcg Nitroglycerin (Nitroglycerin Sl 0.4 Mg/Tab Tab) 0.4 mg SL Q5M PRN PRN Reason: Chest Pain Stop: 11/21/23 05:24 Nystatin (Nystatin Susp 500,000 U/5 Ml Udc) 5 ml PO BID [facility] Stop: 11/01/23 08:59 Last Admin: 10/22/23 08:20 Dose: 5 ml Oxycodone HCl (Oxycodone Hcl Soln 5 Mg/5 Ml Udc) 5 mg PO Q6H PRN PRN Reason: Pain Stop: 11/05/23 05:24 Last Admin: 10/22/23 13:03 Dose: 5 mg Sodium Chloride (Sodium Chloride 0.9% Nebu Soln 3 Ml) 3 ml NEB UD PRN PRN Reason: PRN Stop: 11/21/23 05:24 Trazodone HCl (Trazodone Hcl 50 Mg Tab) 37.5 mg PO HS [facility] Stop: 11/21/23 20:59 Current Inpatient Medications Acetaminophen (Acetaminophen 325 Mg Tab) 650 mg PO Q4H PRN PRN Reason: Pain or Fever Stop: 11/21/23 05:24 Albuterol (Albut/Ipratrop 3mg/0.5mg Neb 3 Ml Vial) 3 ml NEB QIDR [facility]; Protocol Stop: 11/21/23 06:59 Last Admin: 10/23/23 11:00 Dose: 3 ml Enoxaparin Sodium (Enoxaparin Inj 40 Mg/0.4 Ml Syr) 40 mg SQ Q24H [facility] Stop: 11/21/23 07:59 Last Admin: 10/23/23 08:09 Dose: 40 mg Gabapentin (Gabapentin 250 Mg/5 Ml 470 Ml Btl) 250 mg GT TID [facility] Stop: 11/21/23 08:59 Last Admin: 10/23/23 08:09 Dose: 250 mg Levothyroxine Sodium (Levothyroxine Sodium 137 Mcg Tablet) 137 mcg PO DAILYBB [facility] Stop: 11/21/23 06:29 Last Admin: 10/23/23 06:00 Dose: 137 mcg Nitroglycerin (Nitroglycerin Sl 0.4 Mg/Tab Tab) 0.4 mg SL Q5M PRN PRN Reason: Chest Pain Stop: 11/21/23 05:24 Nutritional Formula (Nutren Liqd 2.0 1,000 Ml Bag) 240 ml PEG 0700,1000,1300,1600 [facility]; Protocol Stop: 11/22/23 11:59 Last Admin: 10/23/23 12:22 Dose: 240 ml Nystatin (Nystatin Susp 500,000 U/5 Ml Udc) 5 ml PO BID [facility] Stop: 11/01/23 08:59 Last Admin: 10/23/23 08:09 Dose: 5 ml Oxycodone HCl (Oxycodone Hcl Soln 5 Mg/5 Ml Udc) 5 mg PO Q6H PRN PRN Reason: Pain Stop: 11/05/23 05:24 Last Admin: 10/22/23 20:01 Dose: 5 mg Sodium Chloride (Sodium Chloride 0.9% Nebu Soln 3 Ml) 3 ml NEB UD PRN PRN Reason: PRN Stop: 11/21/23 05:24 Sterile Water (Tube Feeding Water Flush) 100 ml GT 0700,1000,1300,1600 [facility] Stop: 11/22/23 11:59 Last Admin: 10/23/23 12:22 Dose: 100 ml
[2023-10-22] MEDS ORDERED: DEXTROSE 5% 1,000 ML IV SCH (18:45)
[2023-10-22] MEDS ORDERED: traZODone HCL 50 MG TAB PO SCH (21:00)
[2023-10-23 04:29] LABS: Eosinophils # (auto) 0.04 K/uL (0.00-0.50); Eosinophils % (auto) 0.5 %; Hematocrit (blood only) 35.8 % (42.0-52.0); Hemoglobin 11.5 g/dl (14.0-18.0); Immature Granulocytes # (auto) 0.04 K/uL (0.01-0.20); Immature Granulocytes % (auto) 0.5 %; Lymphocytes # (auto) 0.87 K/uL (1.20-3.40); Lymphocytes % (auto) 10.3 %; Mean Corpuscular Hemoglobin 29.2 pg (25.0-34.0); Mean Corpuscular Hgb Conc 32.1 g/dL (32.0-36.0); Mean Corpuscular Volume 90.9 fL (80.0-100.0); Mean Platelet Volume 10.7 fL (9.4-12.4); Monocytes # (auto) 0.84 K/uL (0.11-0.59); Monocytes % (auto) 9.9 %; Neutrophils # (auto) 6.68 K/uL (1.40-6.50); Neutrophils % (auto) 78.8 %; Platelet Count 192 K/uL (130-400); RDW Coefficient of Variation 12.1 % (11.5-14.5); RDW Standard Deviation 40.8 fL (36.4-46.3); Red Blood Count 3.94 M/uL (4.70-6.10); White Blood Count 8.47 K/ul (4.8-10.8)
[2023-10-23 04:40] LABS: BUN Creatinine Ratio 23.8 (10-20); Calcium 8.6 mg/dl (8.6-10.3); Creatinine Clr Calc Pharmacy 69.9 ml/min; Est GFR (African American) 98.6 ml/min; Est GFR (Non-African American) 85.1 ml/min; Magnesium 2.3 mg/dl (1.7-2.4); Phosphorus 3.7 mg/dl (2.5-4.9); Potassium 3.8 mmol/L (3.5-5.1)
[2023-10-23] MEDS: LEVOTHYROXINE SODIUM 137 MCG TABLET PO SCH (06:00)
[2023-10-23] MEDS: ALBUT/IPRATROP 3MG/0.5MG NEB 3 ML VIAL NEB SCH ×4 (07:35→19:57)
[2023-10-23] MEDS: GABAPENTIN 250 MG/5 ML 470 ML BTL GT SCH ×3 (08:09→20:19)
[2023-10-23] MEDS: ENOXAPARIN INJ 40 MG/0.4 ML SYR SQ SCH (08:09)
[2023-10-23] MEDS: NYSTATIN SUSP 500,000 U/5 ML UDC PO SCH (08:09)
--- NOTE | 2023-10-23 10:11 | Cardiology Progress Note ---
Date of Service October 23, 2023 Assessment & Plan (1) Shortness of breath: (2) Complication of tracheostomy: (3) QT prolongation: Plan More troponin elevation likely due to myocardial strain in the setting of non cardiac illness. EKG without changes to suggest ischemia. Echo with normal LV function and no wall motion abnormalities. Pt's presenting symptoms improved after scope / suctioning by ENT on hospital day 1. Recommend stopping outpatient medication trazodone due to findings of QT interval prolongation. Pt states it does not help him sleep much . Perhaps an alternative such as melatonin could be considered. No further cardiac testing recommended at this point. Admission and Anticipated Discharge Date Admission Date: October 22, 2023 Subjective Mr Wagoner is seen in follow up. He remains in the ED, room C5 as a telemetry overflow patient. Denies chest pain or shortness of breath. Telemetry reveals SR with rates ranging from 50-60s. Physical Exam Constitutional: WD/WN, vitals as above + thin Respiratory: normal respiratory effort, lungs clear to auscultation Cardiovascular: RRR, no murmur, no edema Gastrointestinal (Abdomen): normal bowel sounds, soft, nontender, no hepatosplenomegaly Neurologic: PERRL, EOMI, accommodation nl, no face palsy, no dysarthria Results & Data Vital Signs (Past 12 Hours) Vital Signs Pulse Pulse Resp BP Pulse Ox Pulse Ox O2 Del Method 10/23/23 08:14 62 22 140/81 97 Room Air 10/23/23 08:00 97 10/23/23 07:50 56 L 10/23/23 07:36 56 L 18 96 Room Air 10/23/23 03:11 92 H 20 113/73 93 Room Air 10/22/23 23:40 53 L 10/22/23 23:13 56 L 20 113/67 96 Room Air 10/22/23 23:10 Room Air O2 Del Method 10/23/23 08:14 10/23/23 08:00 Room Air 10/23/23 07:50 10/23/23 07:36 10/23/23 03:11 10/22/23 23:40 10/22/23 23:13 10/22/23 23:10 Laboratory Results Cardiac Enzymes 10/22/23 10/22/23 Range/Units 13:09 19:17 Troponin I High Sens 269.6 H* 305.1 H* (0-20) pg/ml CBC 10/23/23 Range/Units 03:41 WBC 8.47 (4.8-10.8) K/ul RBC 3.94 L (4.70-6.10) M/uL Hgb 11.5 L (14.0-18.0) g/dl Hct 35.8 L (42.0-52.0) % Plt Count 192 (130-400) K/uL Neut # (Auto) 6.68 H (1.40-6.50) K/uL Lymph # (Auto) 0.87 L (1.20-3.40) K/uL [place] # (Auto) 0.84 H (0.11-0.59) K/uL Eos # (Auto) 0.04 (0.00-0.50) K/uL Baso # (Auto) 0.00 (0.00-0.20) K/uL Comprehensive Metabolic Panel 10/23/23 Range/Units 03:41 Sodium 137 (136-145) mmol/L Potassium 3.8 (3.5-5.1) mmol/L Chloride 103 (98-107) mmol/L Carbon Dioxide 28 (21-32) mmol/L BUN 20 (6-23) mg/dl Creatinine 0.84 (0.6-1.4) mg/dl Glucose 92 (70-99(Fasting)) mg/dl Calcium 8.6 (8.6-10.3) mg/dl Diagnostic Findings EKG performed 10/23/23: SR with PACs. QTc remains prolonged at 599 ms.
[2023-10-23] MEDS: NUTREN LIQD 2.0 1,000 ML BAG PEG SCH ×2 (12:22→15:58)
[2023-10-23] MEDS: TUBE FEEDING WATER FLUSH GT SCH ×2 (12:22→15:58)
[2023-10-23] MEDS ORDERED: oxyCODONE HCL SOLN 5 MG/5 ML UDC GT PRN (19:09)
[2023-10-23] MEDS: NYSTATIN SUSP 500,000 U/5 ML UDC PEG SCH (20:19)
--- NOTE | 2023-10-23 21:31 | Electrocardiogram Report ---
Test Reason : Blood Pressure : / mmHG Vent. Rate : 084 BPM Atrial Rate : 084 BPM P-R Int : 154 ms QRS Dur : 078 ms QT Int : 360 ms P-R-T Axes : 081 019 083 degrees QTc Int : 425 ms Poor data quality, interpretation may be adversely affected Sinus rhythm Nonspecific T wave abnormality Abnormal ECG No previous ECGs available Confirmed by Roel Cornell ([id number]) on 10/23/2023 9:30:55 PM Referred By: REFERRED SELF Confirmed By:Roel Cornell
--- NOTE | 2023-10-23 22:33 | Electrocardiogram Report ---
Test Reason : Blood Pressure : / mmHG Vent. Rate : 058 BPM Atrial Rate : 058 BPM P-R Int : 144 ms QRS Dur : 078 ms QT Int : 560 ms P-R-T Axes : 075 013 070 degrees QTc Int : 549 ms Sinus bradycardia Prolonged QT Abnormal ECG When compared with ECG of 21-OCT-2023 19:55, QT has lengthened Confirmed by Roel Cornell ([id number]) on 10/23/2023 10:33:04 PM Referred By: REFERRED SELF Confirmed By:Roel Cornell
--- NOTE | 2023-10-24 00:22 | Electrocardiogram Report ---
Test Reason : Blood Pressure : / mmHG Vent. Rate : 061 BPM Atrial Rate : 061 BPM P-R Int : 142 ms QRS Dur : 084 ms QT Int : 596 ms P-R-T Axes : 077 025 064 degrees QTc Int : 599 ms Sinus rhythm with Premature atrial complexes Prolonged QT Abnormal ECG When compared with ECG of 22-OCT-2023 08:40, Premature atrial complexes are now Present QT has lengthened Confirmed by Roel Cornell ([id number]) on 10/24/2023 12:22:15 AM Referred By: REFERRED SELF Confirmed By:Roel Cornell
[2023-10-24 04:49] LABS: Eosinophils # (auto) 0.01 K/uL (0.00-0.50); Eosinophils % (auto) 0.1 %; Hematocrit (blood only) 36.7 % (42.0-52.0); Hemoglobin 12.6 g/dl (14.0-18.0); Immature Granulocytes # (auto) 0.02 K/uL (0.01-0.20); Immature Granulocytes % (auto) 0.3 %; Lymphocytes % (auto) 7.9 %; Mean Corpuscular Hemoglobin 30.1 pg (25.0-34.0); Mean Corpuscular Hgb Conc 34.3 g/dL (32.0-36.0); Mean Corpuscular Volume 87.8 fL (80.0-100.0); Mean Platelet Volume 10.5 fL (9.4-12.4); Monocytes # (auto) 0.97 K/uL (0.11-0.59); Monocytes % (auto) 12.8 %; Neutrophils # (auto) 5.99 K/uL (1.40-6.50); Neutrophils % (auto) 78.9 %; Platelet Count 212 K/uL (130-400); RDW Coefficient of Variation 12.2 % (11.5-14.5); RDW Standard Deviation 39.8 fL (36.4-46.3); Red Blood Count 4.18 M/uL (4.70-6.10); White Blood Count 7.59 K/ul (4.8-10.8)
[2023-10-24 05:25] LABS: BUN Creatinine Ratio 23.8 (10-20); Calcium 8.8 mg/dl (8.6-10.3); Creatinine Clr Calc Pharmacy 73.4 ml/min; Est GFR (African American) 100.6 ml/min; Est GFR (Non-African American) 86.8 ml/min; Magnesium 2.2 mg/dl (1.7-2.4); Phosphorus 2.7 mg/dl (2.5-4.9); Potassium 3.6 mmol/L (3.5-5.1)
[2023-10-24] MEDS: LEVOTHYROXINE SODIUM 137 MCG TABLET PO SCH (05:45)
[2023-10-24] MEDS: ALBUT/IPRATROP 3MG/0.5MG NEB 3 ML VIAL NEB SCH ×2 (07:31→11:58)
[2023-10-24] MEDS: NYSTATIN SUSP 500,000 U/5 ML UDC PEG SCH (08:46)
[2023-10-24] MEDS: ENOXAPARIN INJ 40 MG/0.4 ML SYR SQ SCH (08:46)
[2023-10-24] MEDS: TUBE FEEDING WATER FLUSH GT SCH ×3 (08:52→12:03)
[2023-10-24] MEDS: NUTREN LIQD 2.0 1,000 ML BAG PEG SCH ×3 (08:52→12:01)
[2023-10-24] MEDS: GABAPENTIN 250 MG/5 ML 470 ML BTL GT SCH (09:56)
--- NOTE | 2023-10-24 12:51 | Hospitalist Progress Note ---
Date of Service October 24, 2023 Assessment & Plan (1) Shortness of breath: Plan: 78-year-old male with past med history significant for hypothyroidism, history of laryngeal cancer, tracheostomy status, PEG tube status, diastolic dysfunction, history of hypertension, depression who lives with his family was brought in because of shortness of breath. Seems he was recently diagnosed with tongue cancer and had a biopsy done at [facility] with ENT 2 days ago. Since biopsy seems to have increased work of breathing but got significantly worse last evening. Also his secretions where slightly bloody. Family suctioned at home but was not helping. Patient was given 2 racemic epi treatments and nebs and Ativan with only slight improvement in the ER. In the ER with further suctioning a small piece of clotted blood was suctioned out. After that the patient seemed more comfortable. ENT was also consulted and has seen the patient in the ER. ENT did bedside flexible scope which showed patient's airway was stable and open. He was also given a dose of Decadron and saline neb treatment. Currently resting comfortably. Able to ambulate to the bathroom. Patient answers only with nodding the head yes or no. Family currently not in the room. Patient denies any headache. Denies runny nose. Has some soreness in the throat. Denies any chest pain. Currently denies any shortness of breath. No nausea. No abdominal pain. Normal bowel and bladder movements. Afebrile. All his medications are via feeding tube. Shortness of breath Likely secondary to bloody secretions with partial obstruction of the tracheostomy tube Appreciate ENT input and recommendation Status post flexible tracheoscopy and noted to have patent tracheostomy tube with some bloody secretions may be the cause for shortness of breath Improved after blood clot suctioned out No immediate need for mechanical ventilation Will need to be monitored closely And saturating normally on room air and no more episodes of shortness of breath Tracheostomy to be checked periodically and no signs and or symptoms of obstruction Discussed with the ENT physician and was advised to have dressed the site of tracheostomy as advised by his ENT specialist as an outpatient Case discussed with the PA of Dr. Velazquez and his office will make arrangement to see the patient as soon as possible given tomorrow In fact they have been calling the patient daily since hospitalization and trying to make the appointment to see him as an outpatient Discussed with the patient in detail that it is important for him to keep the appointment sooner and not wait for 1 week or so He is agreeable and will be discharged home this afternoon History of laryngeal cancer Status post tracheostomy [address] Lantigua at [facility] If any further complication and required intubation he will likely be transferred to [facility]/advised from Dr. Lanza Will discuss with Dr. Lanza tomorrow Likely discharge today Elevated troponin 47 TO 326 Denies any chest pain EKG looks okay We will follow serial enzymes and repeat EKG and echo Consult cardiology-appreciate input and recommendation Doubt any ACS Discussed with the faculty member and is not having any ACS and the patient can be discharged No chest pain or any cardiac symptoms and EKG remains unremarkable History of laryngeal cancer S/p surgery and chemo S/p tracheostomy S/p PEG tube-will start PEG tube feeding from today Will start PEG tube feeding from today Has been having PEG tube feeding in the hospital and to resume his PEG tube feeding at home as he was doing it before History of hypertension Seems not on medications Monitor Depression On trazodone Hypothyroidism On Synthyroid Nutrition Currently n.p.o. On tube feeds DVT prophylaxis Lovenox Disposition Telemetry Full code Discussed about making appointment with the primary care doctor He will take care of that Admission and Anticipated Discharge Date Admission Date: October 22, 2023 Subjective 10/22/2023 The patient was seen and examined in emergency room He has been feeling much better and denies any increasing shortness of breath or pain Denies any chest pain, palpitation or shortness of breath Wants to have PEG feeding started 10/23/2023 The patient was seen and examined in emergency room in presence of the significant other He has been complaining of tracheostomy dressing but denies any shortness of breath at rest He has not had any feeding yet Denies any chest pain or palpitation, no abdominal pain nausea and or vomiting 10/24/2023 The patient was seen and examined in emergency room in presence of the He has been feeling a lot better and does not have any symptoms No more shortness of breath and denies any chest pain, no fever and or chills Has been getting PEG tube feeding without any symptom He was strongly advised to keep appointment with the ENT specialist tomorrow or day after as advised Review of Systems Review of Systems: All systems reviewed and are unremarkable except as noted below Physical Exam Physical Exam: Lying in bed without any acute distress Constitutional: + ill appearing and average body habitus Eyes: PERRL, conjunctivae normal, anicteric sclerae ENMT: Tracheostomy tube in situ without any surrounding inflammation Neck: As above Respiratory: + respiratory distress (Minimal distress ) Auscultation: + diminished lung sounds and + crackles (Occasional crackles at the bases) Cardiovascular: Rate/Rhythm: regular rate and regular rhythm; not tachycardic Heart Sounds: normal S1 and normal S2; no murmur Gastrointestinal (Abdomen): Inspection/Auscultation: normal bowel sounds; abdomen not distended Percussion/Palpation: abdomen soft; abdomen nontender Neurologic: normal touch/pain/proprioception and moves all extremities; no focal motor deficits Lymphatic: no cervical or axillary lymphadenopathy Results & Data Results & Data Vital Signs (Past 12 Hours) Vital Signs Pulse Pulse Resp BP Pulse Ox Pulse Ox O2 Del Method 10/24/23 11:59 77 17 94 Room Air 10/24/23 10:01 88 24 115/69 98 Trach Collar 10/24/23 08:30 99 H 10/24/23 07:58 99 10/24/23 07:44 68 22 99 Room Air 10/24/23 06:00 68 20 144/88 H 97 Room Air 10/24/23 05:15 64 20 127/70 95 Room Air 10/24/23 03:30 74 20 129/79 94 Room Air 10/24/23 01:00 69 18 116/75 94 Room Air O2 Del Method FiO2 10/24/23 11:59 21 10/24/23 10:01 10/24/23 08:30 10/24/23 07:58 Room Air 10/24/23 07:44 21 10/24/23 06:00 10/24/23 05:15 10/24/23 03:30 10/24/23 01:00 Laboratory Results Short CBC 10/24/23 Range/Units 03:55 WBC 7.59 (4.8-10.8) K/ul Hgb 12.6 L (14.0-18.0) g/dl Hct 36.7 L (42.0-52.0) % Plt Count 212 (130-400) K/uL BMP 10/24/23 03:55 Sodium 137 Potassium 3.6 Chloride 103 Carbon Dioxide 26 BUN 19 Creatinine 0.80 Glucose 93 Calcium 8.8 Medications Administered Current Inpatient Medications Acetaminophen (Acetaminophen 325 Mg Tab) 650 mg PO Q4H PRN PRN Reason: Pain or Fever Stop: 11/21/23 05:24 Albuterol (Albut/Ipratrop 3mg/0.5mg Neb 3 Ml Vial) 3 ml NEB QIDR [facility]; Protocol Stop: 11/21/23 06:59 Last Admin: 10/24/23 11:58 Dose: 3 ml Enoxaparin Sodium (Enoxaparin Inj 40 Mg/0.4 Ml Syr) 40 mg SQ Q24H [facility] Stop: 11/21/23 07:59 Last Admin: 10/24/23 08:46 Dose: 40 mg Gabapentin (Gabapentin 250 Mg/5 Ml 470 Ml Btl) 250 mg GT TID [facility] Stop: 11/21/23 08:59 Last Admin: 10/24/23 09:56 Dose: 250 mg Levothyroxine Sodium (Levothyroxine Sodium 137 Mcg Tablet) 137 mcg PO DAILYBB [facility] Stop: 11/21/23 06:29 Last Admin: 10/24/23 05:45 Dose: 137 mcg Nitroglycerin (Nitroglycerin Sl 0.4 Mg/Tab Tab) 0.4 mg SL Q5M PRN PRN Reason: Chest Pain Stop: 11/21/23 05:24 Nutritional Formula (Nutren Liqd 2.0 1,000 Ml Bag) 240 ml PEG 0700,1000,1300,1600 [facility]; Protocol Stop: 11/22/23 11:59 Last Admin: 10/24/23 12:01 Dose: 240 ml Nystatin (Nystatin Susp 500,000 U/5 Ml Udc) 5 ml PEG BID [facility] Stop: 11/01/23 08:59 Last Admin: 10/24/23 08:46 Dose: 5 ml Oxycodone HCl (Oxycodone Hcl Soln 5 Mg/5 Ml Udc) 5 mg GT Q6H PRN PRN Reason: Pain Stop: 11/05/23 05:24 Last Admin: 10/23/23 19:11 Dose: 5 mg Sodium Chloride (Sodium Chloride 0.9% Nebu Soln 3 Ml) 3 ml NEB UD PRN PRN Reason: PRN Stop: 11/21/23 05:24 Sterile Water (Tube Feeding Water Flush) 100 ml GT 0700,1000,1300,1600 [facility] Stop: 11/22/23 11:59 Last Admin: 10/24/23 12:03 Dose: 100 ml
--- NOTE | 2023-10-24 13:55 | Electrocardiogram Report ---
Test Reason : Blood Pressure : / mmHG Vent. Rate : 076 BPM Atrial Rate : 076 BPM P-R Int : 132 ms QRS Dur : 082 ms QT Int : 386 ms P-R-T Axes : 079 039 076 degrees QTc Int : 434 ms Normal sinus rhythm Incomplete right bundle branch block Normal ECG When compared with ECG of 23-OCT-2023 08:07, Premature atrial complexes are no longer Present Confirmed by Jose Enrique Benavidez ([id number]) on 10/24/2023 1:55:16 PM Referred By: REFERRED SELF Confirmed By:Jose Enrique Benavidez
--- NOTE | 2023-10-25 10:15 | Discharge Summary ---
Date of Service October 24, 2023 Admission HPI Per Admitting Provider 78-year-old male with past med history significant for hypothyroidism, history of laryngeal cancer, tracheostomy status, PEG tube status, diastolic dysfunction, history of hypertension, depression who lives with his family was brought in because of shortness of breath. Seems he was recently diagnosed with tongue cancer and had a biopsy done at [facility] with ENT 2 days ago. Since biopsy seems to have increased work of breathing but got significantly worse last evening. Also his secretions where slightly bloody. Family suctioned at home but was not helping. Patient was given 2 racemic epi treatments and nebs and Ativan with only slight improvement in the ER. In the ER with further suctioning a small piece of clotted blood was suctioned out. After that the patient seemed more comfortable. ENT was also consulted and has seen the patient in the ER. ENT did bedside flexible scope which showed patient's airway was stable and open. He was also given a dose of Decadron and saline neb treatment. Currently resting comfortably. Able to ambulate to the bathroom. Patient answers only with nodding the head yes or no. Family currently not in the room. Patient denies any headache. Denies runny nose. Has some soreness in the throat. Denies any chest pain. Currently denies any shortness of breath. No nausea. No abdominal pain. Normal bowel and bladder movements. Afebrile. All his medications are via feeding tube. Past medical history. As mentioned above Past surgical history. Right bunion correction. Colonoscopy. Right serial laryngal tumor removed. PEG tube placement. Sigmoidoscopy.right supraglottic hemilaryngectomy, right modified radical neck dissection, left selective neck dissection, tracheostomy (12/2016) , RXT/Chemo with RXT necrosis requiring HBO and wide surgical debridement. (05/2017) Also with slough right hyoid bone intraorally. Family history. . Quit smoking 1995. No alcohol use. No drug use. Social history. Mother had Alzheimer disease. Father had stroke. Admission Exam Per Admitting Provider Physical Exam: General-Not in distress. Head- atraumatic Eyes- PERRL. Neck- s/p trach Lungs- clear to auscultation no wheezing or crackles. Heart- regular rhythm; no murmur, no gallop. Abdomen- normal bowel sounds, soft, nontender, no distension. Extremities- no pretibial edema, no erythema seen. Neuro- alert, oriented ; PERRL no facial palsy; moves extremities. Skin- warm & dry Principal Diagnosis Shortness of breath-resolved following tracheoscopy, recent tongue biopsy, tracheostomy status, PEG tube status Discharge Exam Lying in bed without any acute distress Constitutional + ill appearing and average body habitus Eyes PERRL, conjunctivae normal, anicteric sclerae Respiratory + respiratory distress (Minimal distress) Auscultation: + diminished lung sounds and + crackles (Occasional crackles at the bases) Cardiovascular Rate/Rhythm: regular rate and regular rhythm; not tachycardic Heart Sounds: normal S1 and normal S2; no murmur Gastrointestinal (Abdomen) Inspection/Auscultation: normal bowel sounds; abdomen not distended Percussion/Palpation: abdomen soft; abdomen nontender Neurologic normal touch/pain/proprioception and moves all extremities; no focal motor deficits Lymphatic no cervical or axillary lymphadenopathy Discharge Data Allergies Allergy/AdvReac Type Severity Reaction Status Date / Time No Known Allergies Allergy Verified 10/21/23 21:11 Consultations 10/21/23 22:25 Consult Otolaryngology (Head and Neck) Stat 10/21/23 22:34 ED Decision to Admit Stat 10/22/23 08:00 Consult Cardiology Routine Hospital Course (1) Shortness of breath: 78-year-old male with past med history significant for hypothyroidism, history of laryngeal cancer, tracheostomy status, PEG tube status, diastolic dysfunction, history of hypertension, depression who lives with his family was brought in because of shortness of breath. Seems he was recently diagnosed with tongue cancer and had a biopsy done at [facility] with ENT 2 days ago. Since biopsy seems to have increased work of breathing but got significantly worse last evening. Also his secretions where slightly bloody. Family suctioned at home but was not helping. Patient was given 2 racemic epi treatments and nebs and Ativan with only slight improvement in the ER. In the ER with further suctioning a small piece of clotted blood was suctioned out. After that the patient seemed more comfortable. ENT was also consulted and has seen the p atient in the ER. ENT did bedside flexible scope which showed patient's airway was stable and open. He was also given a dose of Decadron and saline neb treatment. Currently resting comfortably. Able to ambulate to the bathroom. Patient answers only with nodding the head yes or no. Family currently not in the room. Patient denies any headache. Denies runny nose. Has some soreness in the throat. Denies any chest pain. Currently denies any shortness of breath. No nausea. No abdominal pain. Normal bowel and bladder movements. Afebrile. All his medications are via feeding tube. Shortness of breath Likely secondary to bloody secretions with partial obstruction of the tracheostomy tube Appreciate ENT input and recommendation Status post flexible tracheoscopy and noted to have patent tracheostomy tube with some bloody secretions may be the cause for shortness of breath Improved after blood clot suctioned out No immediate need for mechanical ventilation Will need to be monitored closely And saturating normally on room air and no more episodes of shortness of breath Tracheostomy to be checked periodically and no signs and or symptoms of obstruction Discussed with the ENT physician and was advised to have dressed the site of tracheostomy as advised by his ENT specialist as an outpatient Case discussed with the PA of Dr. Velazquez and his office will make arrangement to see the patient as soon as possible given tomorrow In fact they have been calling the patient daily since hospitalization and trying to make the appointment to see him as an outpatient Discussed with the patient in detail that it is important for him to keep the appointment sooner and not wait for 1 week or so He is agreeable and will be discharged home this afternoon History of laryngeal cancer Status post tracheostomy [address] Lantigua at [facility] If any further complication and required intubation he will likely be transferred to [facility]/advised from Dr. Lanza Will discuss with Dr. Lanza tomorrow Likely discharge today Elevated troponin 47 TO 326 Denies any chest pain EKG looks okay We will follow serial enzymes and repeat EKG and echo Consult cardiology-appreciate input and recommendation Doubt any ACS Discussed with the locator and is not having any ACS and the patient can be discharged No chest pain or any cardiac symptoms and EKG remains unremarkable History of laryngeal cancer S/p surgery and chemo S/p tracheostomy S/p PEG tube-will start PEG tube feeding from today Will start PEG tube feeding from today Has been having PEG tube feeding in the hospital and to resume his PEG tube feeding at home as he was doing it before History of hypertension Seems not on medications Monitor Depression On trazodone Hypothyroidism On Synthyroid Nutrition Currently n.p.o. On tube feeds DVT prophylaxis Lovenox Disposition Telemetry Full code Discussed about making appointment with the primary care doctor He will take care of that Total Time Total Time Spent Total Time Spent (In Minutes): 40 minutes Discharge Plan Discharge Items Patient Disposition: Home - Self-Care Reason For Visit: SOB, ELEVATED TROPONIN Discharge Diagnosis: Shortness of breath-resolved following tracheoscopy, recent tongue biopsy, tracheostomy status, PEG tube status Condition on Discharge: Good Activity: Resume your previous activity Non-emergency contact: Primary Care Provider Call non-emergency contact if: you have any medication questions and your symptoms worsen Follow-up/Referrals: Tyron Keita MD [Primary Care Provider] - (Date & Time 10/28/2023 12:00 PM Provider Tyron Keita MD Department General Internal Medicine [facility] ) Diet: Other - See Diet Comment Diet Comment: Continue PEG tube feeding Addtl Attending Provider Instructions: Please take precautions to avoid falls No change in your current medications No change in your current PEG feeding Please keep appointment with your ENT specialist as advised Pending Studies at Discharge: No Stand-Alone Forms: My [employer], Smoking Cessation Medications and DC Order Prescriptions: Continued levothyroxine 137 mcg tablet 137 mcg PO QAM nystatin 100,000 unit/mL suspension 5 ml PO BID trazodone 50 mg tablet 37.5 mg PO HS oxycodone 5 mg/5 mL solution 5 mg PO Q6H PRN (Reason: Pain) gabapentin 250 mg/5 mL solution 250 mg feeding tube TID sodium chloride 0.9 % solution for nebulization 3 ml INHALATION DIRECTED guaifenesin 1,200 mg Tablet Extended Release 12 Hr 1,200 mg PO BID Discharge Orders: Discharge Order (Routine); Ordered 10/24/23 Ordered By: Paige Bradford Admission Data Admit Date/Time: 10/22/23 04:11 Attending Provider: Paige Bradford Admit Provider: Constantin Miner Primary Care Provider: Tyron Keita Other Providers: Ansley Morales; Constantin Miner; Giuseppe Lomeli Other Interventions: Discharge Summary Assessment (RN) Last Done: 10/24/23 13:22
== END 2023-10-24 13:23 | disposition home or self-care (01) ==
LOC: ED 19:45 → EDINP 10-22 04:11 → INTOOBSV 10-22 04:11 → EDINP 10-22 05:25

== ENCOUNTER 2023-11-04 21:11 | Inpatient (IN) ==
[2023-11-04] MEDS ORDERED: ALBUT/IPRATROP 3MG/0.5MG NEB 3 ML VIAL NEB STA (21:35)
[2023-11-04] MEDS ORDERED: PIPERACILLIN/TAZOBACTAM 4.5 GM/120 ML BAG IV ONE (21:35)
[2023-11-04] MEDS ORDERED: SODIUM CHLORIDE 0.9% 1,000 ML IV ONE (21:43)
[2023-11-04 21:45] LABS: Hematocrit (blood only) 35.7 % (42.0-52.0); Hemoglobin 11.7 g/dl (14.0-18.0); Mean Corpuscular Hemoglobin 28.9 pg (25.0-34.0); Mean Corpuscular Hgb Conc 32.8 g/dL (32.0-36.0); Mean Corpuscular Volume 88.1 fL (80.0-100.0); Mean Platelet Volume 9.7 fL (9.4-12.4); Platelet Count 371 K/uL (130-400); RDW Coefficient of Variation 12.4 % (11.5-14.5); RDW Standard Deviation 39.8 fL (36.4-46.3); Red Blood Count 4.05 M/uL (4.70-6.10); White Blood Count 15.33 K/ul (4.8-10.8)
[2023-11-04 21:59] LABS: INR 1.1 (0.9-1.1); Partial Thromboplastin Ratio 0.9; Partial Thromboplastin Time 24 Seconds (21-31); Prothrombin Time 11.9 Seconds (9.0-12.0)
[2023-11-04 22:03] LABS: Albumin Level 3.6 gm/dl (3.4-5.0); Bilirubin,Total 0.5 mg/dl (0.2-1.0); Calcium 8.9 mg/dl (8.6-10.3); Magnesium 2.1 mg/dl (1.7-2.4); Potassium 4.3 mmol/L (3.5-5.1)
[2023-11-04 22:09] LABS: BUN Creatinine Ratio 25.3 (10-20); Creatinine Clr Calc Pharmacy 54.3 ml/min; Est GFR (African American) 89.8 ml/min; Est GFR (Non-African American) 77.4 ml/min; Globulin 3.7 gm/dl (2.5-4.0); Total Protein 7.3 gm/dl (6.0-8.3)
[2023-11-04 22:14] LABS: Troponin I High Sensitivity 65.2 pg/ml (0-20)
[2023-11-04 22:19] LABS: Basophils # (auto) 0.03 K/uL (0.00-0.20); Basophils % (auto) 0.2 %; Immature Granulocytes # (auto) 0.08 K/uL (0.01-0.20); Immature Granulocytes % (auto) 0.5 %; Lymphocytes # (auto) 0.32 K/uL (1.20-3.40); Lymphocytes % (auto) 2.1 %; Monocytes # (auto) 0.97 K/uL (0.11-0.59); Monocytes % (auto) 6.3 %; Neutrophils # (auto) 13.93 K/uL (1.40-6.50); Neutrophils % (auto) 90.9 %; Polychromasia 1+
--- NOTE | 2023-11-04 22:28 | Emergency Department Note ---
Impression & Plan Dyspnea, Hypoxia, Wheezing, Tachypnea, Leukocytosis, Vomiting ED Provider Note NAME: KOREY CAMPA AGE: 78 SEX: M : 1945 ARRIVES VIA: Walk-In INFORMANT: [Patient][family. ems] ED PROVIDER(S): [Maxime Aguilera MD] CHIEF COMPLAINT: Shortness of breath HISTORY OF PRESENT ILLNESS: The patient is a 78-year-old male with a tracheostomy. He was recently diagnosed with a lesion on the back of his tongue. This was found to be bleeding and was giving him difficulty with his tracheostomy. The patient was in our hospital and discharged about 10 days ago for issues with the tracheostomy. The patient presents today with a low oxygen saturation and some struggling to breathe. The patient was suctioned today by family and afterwards vomited. Since the vomiting spell, he has had a hard time breathing and just has not been himself. There is concern for aspiration. There has been no fever, no real increased cough. Family is concerned about debilitation as well as dehydration though as the patient seems quite weak lately. PMHx/PSHx/Social Hx: See Below PHYSICAL EXAM: GENERAL: Patient is in mild respiratory distress. HEENT: No acute trauma, normocephalic atraumatic, mucous membranes moist, no nasal congestion. NECK: No stridor, no adenopathy, no meningismus, tracheostomy noted. LUNGS: Decreased breath sounds with wheezing bilaterally, breath sounds are equal bilaterally. HEART: Mildly tachycardic, no obvious murmur, regular rhythm. ABDOMEN: Soft, nontender, no peritonitis. EXTREMITIES: No cyanosis, full range of motion of all the joints without pain or difficulty. NEUROLOGIC: Awake and alert, no acute motor or sensory deficits, no focal weakness. SKIN: No jaundice, no diaphoresis. DIFFERENTIAL DIAGNOSIS: Mucous plugging, aspiration, bronchitis or pneumonia, viral illness, cardiac ischemia, anemia, dehydration, among others. EMERGENCY DEPARTMENT PROCEDURES: MEDICAL DECISION MAKING: There is a moderate leukocytosis which could be consistent with infection. A mild anemia was noted. The anemia is baseline looking back at previous testing. There was a normal platelet count. No coagulopathy. VBG did not show significant acidosis or CO2 retention. Renal panel testing shows a lower sodium at 131, no renal failure. Lactic acid level was not elevated making severe sepsis less likely. No concerning liver enzyme elevation. ECG showed a sinus tachycardia, no obvious ST elevation. Cardiac enzyme testing x 1 was slightly elevated. This troponin elevation could be secondary to cardiac injury or potentially mismatch given his hypoxia/dyspnea. Chest film did not show pneumonia, pneumothorax or CHF. Respiratory bio fire was completely negative. On exam, the patient was tachypneic and initially hypoxic. He was wheezing. The patient was suctioned and this did seem to improve his O2 saturation. He then received a DuoNeb. Patient has done better since administration of the DuoNeb. Patient was given a 1 L IV saline bolus, he was given 4.5 g of IV Zosyn for presumed aspiration. The patient presented hypoxic and in some mild respiratory distress. He has done well with suctioning and a DuoNeb and O2 supplementation while here in the ED. I am concerned for aspiration as the cause for his respiratory difficulty. I spoke with the patient and family, the on-call hospitalist has been consulted. I did speak with case management. Prior/Outside records/notes reviewed: Discharge note from 10/25/2023 discussing his admission for issues with the tracheostomy. ECG per my interpretation: Indication was shortness of breath. The ECG shows a sinus tachycardia with a rate of 108. There is some subtle ST depression in the anterior lateral leads. No ST elevation, no PVCs. The QTc is 506. Continuous Cardiac Monitoring per my interpretation: An order was placed for continuous cardiac monitoring. The monitor shows a rate of 90 with sinus tachycardia. Imaging/x-ray results per my interpretation: Chest x-ray does not show mediastinal widening, pneumonia or pneumothorax. Chronic Medical/Social conditions affecting care: Tracheostomy, advanced age. Care/Management discussed with: Case management, the on-call hospitalist Level of care consideration(s): After review of the information above and other included data: --I believe the patient requires escalation of care to admission Critical Care Note: I have personally spent 43 minutes of critical care time in the direct management of this patient. This includes bedside care, interpretation of diagnostic studies, and testing, discussion with consultants, patient, and family members, and other required patient management activities. This 43 minutes is in excess of all separately billable procedures. 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 Bowers - stage pT3N2c with extranodal extension Status post completion of combined radiation and chemotherapy. Radiation completed 04/21/2017. He received 6600 cGy. Chemotherapy comprised of weekly cisplatin." On 02/01/17 18:09 Gideon Thompson wrote "-Self palpated right neck mass - November 2016 -Ultrasound-guided FNA of right neck mass - 12/10/2016 - positive for squamous cell carcinoma -PET/CT scan - 12/22/2016 -Supraglottic hemilaryngectomy, bilateral neck dissection - 01/05/2017 - Dr. Bowers - stage pT3N2c with extranodal extension" Social History Smoking Status: Former smoker Second Hand Exposure: No; Do You Dip or Chew Tobacco: No; Hx Alcohol Use: No Hx Substance Use: No Preferred Language: Serbian Communication Ability: Impaired Scientific Informatics Analyst Required: No Beliefs That Will Affect Care: None Current Living Situation: Spouse Feels Safe at Home: Yes Assistive Devices: None Allergies Allergies Allergy/AdvReac Type Severity Reaction Status Date / Time No Known Allergies Allergy Verified 11/04/23 22:31 Home Meds Home Medications Medication Instructions Recorded Confirmed gabapentin 250 mg/5 mL oral 250 mg feeding tube TID 10/21/23 11/04/23 solution levothyroxine 137 mcg tablet 137 mcg PO QAM 10/21/23 11/04/23 nystatin 100,000 unit/mL oral 5 ml PO BID 10/21/23 11/04/23 suspension sodium chloride 0.9 % for 3 ml inhalation DIRECTED 10/21/23 11/04/23 nebulization atropine 1 % eye drops 2 drp PO BID 11/04/23 11/04/23 guaifenesin 1,200 mg tablet, 1,200 mg PO BID 11/04/23 11/04/23 extended release 12 hr (Mucinex) ipratropium 0.5 mg-albuterol 3 mg 3 ml inhalation QID 11/04/23 11/04/23 (2.5 mg base)/3 mL nebulization soln oxycodone-acetaminophen 7.5 mg-325 1 tab feeding tube Q4H PRN Pain 11/04/23 11/04/23 mg tablet Results & Data (ED) Vital Signs Vital Signs - 24 hr 11/04/23 21:13 11/04/23 21:19 11/04/23 21:26 Temperature 37 C Temperature Source Temporal Artery Scan Pulse Rate 121 H 111 H Pulse Rate [Apical] 104 H Pulse Rhythm [Apical] Regular Pulse Strength [Apical] Normal Respiratory Rate 40 H 22 Respiratory Effort / Characteristics Short of Breath Respiratory Depth Normal Blood Pressure 112/66 Blood Pressure [Right Arm] 128/75 Blood Pressure Mean 81 Blood Pressure Mean [Right Arm] 92 Pulse Oximetry 82 L 90 Oxygen Delivery Method Room Air Oxymask Trach Collar Oxygen Flow Rate Fraction of Inspired Oxygen SaO2/FiO2 Ratio Sepsis Recent Fever Within 48 Hours No Sepsis New/Unexplained Change in Mental Status Yes Sepsis Action Taken by Nursing Physician Notified Oxygen Flow Rate - Titration Pulse Oximetry Post Tiitration 11/04/23 21:43 11/04/23 21:44 11/04/23 21:46 Temperature Temperature Source Pulse Rate Pulse Rate [Apical] Pulse Rhythm [Apical] Pulse Strength [Apical] Respiratory Rate Respiratory Effort / Characteristics Respiratory Depth Blood Pressure Blood Pressure [Right Arm] Blood Pressure Mean Blood Pressure Mean [Right Arm] Pulse Oximetry 88 L Oxygen Delivery Method Oxymask Trach Collar Oxymask Trach Collar Oxymask Trach Collar Oxygen Flow Rate 10 Fraction of Inspired Oxygen SaO2/FiO2 Ratio Sepsis Recent Fever Within 48 Hours Sepsis New/Unexplained Change in Mental Status Sepsis Action Taken by Nursing Oxygen Flow Rate - Titration 10 Pulse Oximetry Post Tiitration 92 11/04/23 22:00 11/04/23 22:16 11/05/23 00:00 Temperature Temperature Source Pulse Rate Pulse Rate [Apical] 80 90 95 H Pulse Rhythm [Apical] Regular Pulse Strength [Apical] Normal Respiratory Rate 22 19 18 Respiratory Effort / Characteristics Spontaneous Respiratory Depth Blood Pressure Blood Pressure [Right Arm] 130/75 99/67 L Blood Pressure Mean Blood Pressure Mean [Right Arm] 93 77 Pulse Oximetry 92 92 95 Oxygen Delivery Method Trach Collar Oxymask Trach Collar Oxymask Trach Collar Oxygen Flow Rate 8 8 Fraction of Inspired Oxygen 50 50 SaO2/FiO2 Ratio 190 Sepsis Recent Fever Within 48 Hours Sepsis New/Unexplained Change in Mental Status Sepsis Action Taken by Nursing Oxygen Flow Rate - Titration Pulse Oximetry Post Tiitration Home Medications Current Medication List: was personally reviewed by me Laboratory Data Attestation: I reviewed the patient's lab results. 11/04/23 21:19 11/04/23 21:19 Lab Results 11/04/23 11/04/23 11/04/23 Range/Units 21:19 22:53 23:22 WBC 15.33 H (4.8-10.8) K/ul RBC 4.05 L (4.70-6.10) M/uL Hgb 11.7 L (14.0-18.0) g/dl Hct 35.7 L (42.0-52.0) % MCV 88.1 (80.0-100.0) fL MCH 28.9 (25.0-34.0) pg MCHC 32.8 (32.0-36.0) g/dL RDW Std Deviation 39.8 (36.4-46.3) fL RDW Coeff of Margarito 12.4 (11.5-14.5) % Plt Count 371 (130-400) K/uL MPV 9.7 (9.4-12.4) fL Immature Gran % (Auto) 0.5 % Neut % (Auto) 90.9 % Lymph % (Auto) 2.1 % Hitchcock % (Auto) 6.3 % Eos % (Auto) 0.0 % Baso % (Auto) 0.2 % Neut # (Auto) 13.93 H (1.40-6.50) K/uL Lymph # (Auto) 0.32 L (1.20-3.40) K/uL Hitchcock # (Auto) 0.97 H (0.11-0.59) K/uL Eos # (Auto) 0.00 (0.00-0.50) K/uL Baso # (Auto) 0.03 (0.00-0.20) K/uL Immature Gran # (Auto) 0.08 (0.01-0.20) K/uL Polychromasia 1+ PT 11.9 (9.0-12.0) Seconds INR 1.1 (0.9-1.1) APTT 24 (21-31) Seconds PTT Ratio 0.9 VBG pH 7.34 L (7.36-7.41) VBG pCO2 47 (38-50) mmHg VBG pO2 32 mmHg VBG HCO3 25 mmol/L VBG O2 Saturation < 60.0 % VBG Base Excess -0.8 mEq/L Sodium 131 L (136-145) mmol/L Potassium 4.3 (3.5-5.1) mmol/L Chloride 96 L (98-107) mmol/L Carbon Dioxide 26 (21-32) mmol/L Anion Gap 9 (3-11) BUN 24 H (6-23) mg/dl Creatinine 0.95 (0.6-1.4) mg/dl Est Cr Clr Drug Dosing 54.3 ml/min Est GFR ( Amer) 89.8 ml/min Est GFR (Non-Af Amer) 77.4 ml/min BUN/Creatinine Ratio 25.3 H (10-20) Glucose 154 H (70-99(Fasting)) mg/dl Lactate (0.4-2.0) mmol/L Calcium 8.9 (8.6-10.3) mg/dl Magnesium 2.1 (1.7-2.4) mg/dl Total Bilirubin 0.5 (0.2-1.0) mg/dl AST 24 (13-39) U/L ALT 23 (7-52) U/L Alkaline Phosphatase 76 (34-104) U/L Troponin I High Sens 65.2 H* 68.0 H* (0-20) pg/ml B-Natriuretic Peptide 197 H (0-100) pg/ml Total Protein 7.3 (6.0-8.3) gm/dl Albumin 3.6 (3.4-5.0) gm/dl Globulin 3.7 (2.5-4.0) gm/dl Albumin/Globulin Ratio 1.0 (0.9-2) Procalcitonin 0.94 H (0-0.5) ng/ml Adenovirus (PCR) Not Detected (NotDetected) B. pertussis DNA (PCR) Not Detected (NotDetected) B.parapertussis DNA PCR Not Detected (NotDetected) C. pneumoniae DNA (PCR) Not Detected (NotDetected) Coronavirus OC43 (PCR) Not Detected (NotDetected) Coronavirus HKU1 (PCR) Not Detected (NotDetected) Coronavirus 229E (PCR) Not Detected (NotDetected) SARS-CoV-2 (PCR) Not Detected (NotDetected) Coronavirus NL63 (PCR) Not Detected (NotDetected) Human Metapneumovir PCR Not Detected (NotDetected) Influenza Type A (PCR) Not Detected (NotDetected) Influenza Type B (PCR) Not Detected (NotDetected) M. pneumoniae (PCR) Not Detected (NotDetected) Parainfluenza 1 (PCR) Not Detected (NotDetected) Parainfluenza 2 (PCR) Not Detected (NotDetected) Parainfluenza 3 (PCR) Not Detected (NotDetected) Parainfluenza 4 (PCR) Not Detected (NotDetected) RSV (PCR) Not Detected (NotDetected) Entero/Rhino (PCR) Not Detected (NotDetected) 11/04/23 Range/Units Unknown WBC (4.8-10.8) K/ul RBC (4.70-6.10) M/uL Hgb (14.0-18.0) g/dl Hct (42.0-52.0) % MCV (80.0-100.0) fL MCH (25.0-34.0) pg MCHC (32.0-36.0) g/dL RDW Std Deviation (36.4-46.3) fL RDW Coeff of Margarito (11.5-14.5) % Plt Count (130-400) K/uL MPV (9.4-12.4) fL Immature Gran % (Auto) % Neut % (Auto) % Lymph % (Auto) % Hitchcock % (Auto) % Eos % (Auto) % Baso % (Auto) % Neut # (Auto) (1.40-6.50) K/uL Lymph # (Auto) (1.20-3.40) K/uL Hitchcock # (Auto) (0.11-0.59) K/uL Eos # (Auto) (0.00-0.50) K/uL Baso # (Auto) (0.00-0.20) K/uL Immature Gran # (Auto) (0.01-0.20) K/uL Polychromasia PT (9.0-12.0) Seconds INR (0.9-1.1) APTT (21-31) Seconds PTT Ratio VBG pH (7.36-7.41) VBG pCO2 (38-50) mmHg VBG pO2 mmHg VBG HCO3 mmol/L VBG O2 Saturation % VBG Base Excess mEq/L Sodium (136-145) mmol/L Potassium (3.5-5.1) mmol/L Chloride (98-107) mmol/L Carbon Dioxide (21-32) mmol/L Anion Gap (3-11) BUN (6-23) mg/dl Creatinine (0.6-1.4) mg/dl Est Cr Clr Drug Dosing ml/min Est GFR ( Amer) ml/min Est GFR (Non-Af Amer) ml/min BUN/Creatinine Ratio (10-20) Glucose (70-99(Fasting)) mg/dl Lactate 1.8 (0.4-2.0) mmol/L Calcium (8.6-10.3) mg/dl Magnesium (1.7-2.4) mg/dl Total Bilirubin (0.2-1.0) mg/dl AST (13-39) U/L ALT (7-52) U/L Alkaline Phosphatase (34-104) U/L Troponin I High Sens (0-20) pg/ml B-Natriuretic Peptide (0-100) pg/ml Total Protein (6.0-8.3) gm/dl Albumin (3.4-5.0) gm/dl Globulin (2.5-4.0) gm/dl Albumin/Globulin Ratio (0.9-2) Procalcitonin (0-0.5) ng/ml Adenovirus (PCR) (NotDetected) B. pertussis DNA (PCR) (NotDetected) B.parapertussis DNA PCR (NotDetected) C. pneumoniae DNA (PCR) (NotDetected) Coronavirus OC43 (PCR) (NotDetected) Coronavirus HKU1 (PCR) (NotDetected) Coronavirus 229E (PCR) (NotDetected) SARS-CoV-2 (PCR) (NotDetected) Coronavirus NL63 (PCR) (NotDetected) Human Metapneumovir PCR (NotDetected) Influenza Type A (PCR) (NotDetected) Influenza Type B (PCR) (NotDetected) M. pneumoniae (PCR) (NotDetected) Parainfluenza 1 (PCR) (NotDetected) Parainfluenza 2 (PCR) (NotDetected) Parainfluenza 3 (PCR) (NotDetected) Parainfluenza 4 (PCR) (NotDetected) RSV (PCR) (NotDetected) Entero/Rhino (PCR) (NotDetected) Administered Medications Discontinued Medications Albuterol (Albut/Ipratrop 3mg/0.5mg Neb 3 Ml Vial) 3 ml NEB NOW STA; Protocol Stop: 11/04/23 21:36 Last Admin: 11/04/23 21:58 Dose: 3 ml Documented By: LYN Hydromorphone HCl (Hydromorphone Inj 0.5 Mg/0.5 Ml Syr) 0.25 mg IV NOW STA Stop: 11/04/23 22:57 Last Admin: 11/04/23 23:16 Dose: 0.25 mg Documented By: CLAUDIA Piperacillin Sod/Tazobactam Sod (Zosyn) 4.5 gm in 120 mls @ 240 mls/hr IV NOW ONE Stop: 11/04/23 22:04 Last Infusion: 11/05/23 00:02 Dose: Infused Documented By: Admin: 11/04/23 22:54 Dose: 240 mls/hr Documented By: LYN Sodium Chloride (Nss) 1,000 mls @ 999 mls/hr IV .Q1H1M ONE Stop: 11/04/23 22:43 Last Infusion: 11/04/23 22:55 Dose: Infused Documented By: Admin: 11/04/23 22:03 Dose: 999 mls/hr Documented By: LYN Discharge Plan Visit Data Chief Complaint: Shortness of Breath/Dyspnea Stated Complaint: LABORED BREATHING, FEVER, SHAKES, LOW OX ED Provider: Maxime Aguilera Discharge Problem: Dyspnea, Hypoxia, Wheezing, Tachypnea, Leukocytosis, Vomiting Patient Disposition: Admitted As Inpatient Condition: Fair Forms Stand Alone Forms: My [facility] [employer] Prescriptions Prescriptions: No Action levothyroxine 137 mcg tablet 137 mcg PO QAM nystatin 100,000 unit/mL suspension 5 ml PO BID gabapentin 250 mg/5 mL solution 250 mg feeding tube TID sodium chloride 0.9 % solution for nebulization 3 ml INHALATION DIRECTED ipratropium-albuterol 0.5 mg-3 mg(2.5 mg base)/3 mL solution for nebulization 3 ml INHALATION QID oxycodone-acetaminophen 7.5-325 mg tablet 1 tab feeding tube Q4H PRN (Reason: Pain) atropine 1 % drops 2 drp PO BID guaifenesin [Mucinex] 1,200 mg Tablet Extended Release 12hr 1,200 mg PO BID Referrals Referrals: Tyron Keita MD [Primary Care Provider] - Discharge Problem: Dyspnea Qualifiers: Dyspnea type: shortness of breath Qualified Code(s): R06.02 - Shortness of breath Leukocytosis Qualifiers: Leukocytosis type: unspecified Qualified Code(s): D72.829 - Elevated white blood cell count, unspecified Vomiting Qualifiers: Vomiting type: unspecified Nausea presence: unspecified Qualified Code(s): R 11.10 - Vomiting, unspecified
[2023-11-04] MEDS ORDERED: HYDROmorphone INJ 0.5 MG/0.5 ML SYR IV STA (22:56)
[2023-11-04 23:02] LABS: Base Excess VBG -0.8 mEq/L; HCO3 VBG 25 mmol/L; Oxygen Saturation VBG < 60.0 %; PCO2 VBG 47 mmHg (38-50); PO2 VBG 32 mmHg; pH VBG 7.34 (7.36-7.41)
--- NOTE | 2023-11-04 23:21 | History & Physical Report ---
Date of Service November 04, 2023 Assessment & Plan (1) Shortness of breath: Plan: 78-year-old male with past med history significant for hypothyroidism, history of laryngeal cancer, tracheostomy status, PEG tube status, diastolic dysfunction, history of hypertension, depression who lives with his daughter was brought in because of shortness of breath. Patient had an episode of vomiting today after that he was short of breath. Family tried to suction him but he was not improving. When EMS arrived he was saturating low 80s. Currently with oxygen supplementation saturating okay. Resting comfortably. Patient only nods his head yes or no. Denies headache. Has some throat pain. Denies chest pain , says breathing is okay. No nausea. No abdominal pain. Using stool softeners. General ambulates without support. But today was weak and not ambulating as per daughter. Patient was recently in the [facility] after Biopsy done of tongue at [facility] [place] with ENT. At that time in the ER a small piece of clotted blood was suctioned out and he felt better. As per daughter after he got discharged last admitted he followed with ENT at [facility] and was s/p cauterization procedure done to throat. Biopsy came back as throat cancer. He has appointment in November with heme-onc at [facility]. Shortness of breath Hypoxia S/p vomiting Leukocytosis, elevated procalcitonin Possible aspiration pneumonitis Continue oxygen supplementation through trach Continue home nebs Continue home hypertonic saline nebs Continue Zosyn and IV fluids Pulmonary consult in a.m. Close monitor History of laryngeal cancer S/p trach S/p PEG Will hold tube feeds for now as he vomited and aspirated Recent diagnosis of throat cancer Follow-up with ENT and heme-onc Hypothyroidism Continue home Synthroid Prolonged QTc Avoid QT prolonging drugs Follow repeat EKG Elevated troponin Was elevated last recent admission too Will follow serial enzymes Diastolic dysfunction Monitor for volume overload Nutrition On tube feeds via PEG tube Currently on hold Dietitian consult DVT prophylaxis Lovenox Disposition Telemetry floor Full code History of Present Illness Chief Complaint: Shortness of breath Primary Care Provider: Tyron Keita MD 78-year-old male with past med history significant for hypothyroidism, history of laryngeal cancer, tracheostomy status, PEG tube status, diastolic dysfunction, history of hypertension, depression who lives with his daughter was brought in because of shortness of breath. Patient had an episode of vomiting today after that he was short of breath. Family tried to suction him but he was not improving. When EMS arrived he was saturating low 80s. Currently with oxygen supplementation saturating okay. Resting comfortably. Patient only nods his head yes or no. Denies headache. Has some throat pain. Denies chest pain , says breathing is okay. No nausea. No abdominal pain. Using stool softeners. General ambulates without support. But today was weak and not ambulating as per daughter. Patient was recently in the [facility] after Biopsy done of tongue at [facility] with ENT. At that time in the ER a small piece of clotted blood was suctioned out and he felt better. As per daughter after he got discharged last admitted he followed with ENT at [facility] and was s/p cauterization procedure done to throat. Biopsy came back as throat cancer. He has appointment in November with heme-onc at [facility]. Allergies Allergy/AdvReac Type Severity Reaction Status Date / Time No Known Allergies Allergy Verified 11/04/23 22:31 Home Medications Medication Instructions Recorded Confirmed Type gabapentin 250 mg/5 mL oral 250 mg feeding tube TID 10/21/23 11/04/23 History solution levothyroxine 137 mcg tablet 137 mcg PO QAM 10/21/23 11/04/23 History nystatin 100,000 unit/mL oral 5 ml PO BID 10/21/23 11/04/23 History suspension sodium chloride 0.9 % for 3 ml inhalation DIRECTED 10/21/23 11/04/23 History nebulization atropine 1 % eye drops 2 drp PO BID 11/04/23 11/04/23 History guaifenesin 1,200 mg tablet, 1,200 mg PO BID 11/04/23 11/04/23 History extended release 12 hr (Mucinex) ipratropium 0.5 mg-albuterol 3 mg 3 ml inhalation QID 11/04/23 11/04/23 History (2.5 mg base)/3 mL nebulization soln oxycodone-acetaminophen 7.5 mg-325 1 tab feeding tube Q4H PRN Pain 11/04/23 11/04/23 History mg tablet Past Med/Surg History Medical History 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 Bowers - stage pT3N2c with extranodal extension Status post completion of combined radiation and chemotherapy. Radiation completed 04/21/2017. He received 6600 cGy. Chemotherapy comprised of weekly cisplatin." On 02/01/17 18:09 Gideon Thompson wrote "-Self palpated right neck mass - November 2016 -Ultrasound-guided FNA of right neck mass - 12/10/2016 - positive for squamous cell carcinoma -PET/CT scan - 12/22/2016 -Supraglottic hemilaryngectomy, bilateral neck dissection - 01/05/2017 - Dr. Bowers - stage pT3N2c with extranodal extension" Social History Smoking Status: Former smoker Tobacco Type: Cigarettes Smoking End Date: 1995; Second Hand Exposure: No; Do You Dip or Chew Tobacco: No; Hx Alcohol Use: No Hx Substance Use: No Preferred Language: Malian Communication Ability: Effective Pool Hall Inspector Required: No Beliefs That Will Affect Care: None Current Living Situation: Family Current Living Situation Comment: Lives with daughter Other Information That Helps Us Care for You: No Feels Safe at Home: Yes Safety Concerns: Feels Safe At This Time Assistive Devices: None Review of Systems Review of Systems: All systems reviewed & are unremarkable except as noted in HPI & below Physical Exam Physical Exam: General-Not in distress. Head- atraumatic Eyes- PERRL. Neck- s/p trach Lungs- clear to auscultation mild b/l ronchi. Heart- regular rhythm; no murmur, no gallop. Abdomen- normal bowel sounds, soft, nontender, no distension.s/p peg tube. no erythema seen at peg tube site Extremities- no pretibial edema, no erythema seen. Neuro- alert, and awake PERRL no facial palsy; moves extremities. Skin- warm & dry Results & Data Results & Data Vital Signs (Past 12 Hours) Vital Signs Temp Pulse Pulse Resp BP BP Pulse Ox 11/04/23 22:16 90 19 130/75 92 11/04/23 22:00 80 22 92 11/04/23 21:46 11/04/23 21:44 11/04/23 21:43 88 L 11/04/23 21:26 104 H 22 128/75 90 11/04/23 21:19 111 H 11/04/23 21:13 37 C 121 H 40 H 112/66 82 L O2 Del Method O2 Flow Rate FiO2 11/04/23 22:16 Oxymask, Trach Collar 11/04/23 22:00 Trach Collar 8 50 11/04/23 21:46 Oxymask, Trach Collar 10 11/04/23 21:44 Oxymask, Trach Collar 11/04/23 21:43 Oxymask, Trach Collar 11/04/23 21:26 Oxymask, Trach Collar 11/04/23 21:19 11/04/23 21:13 Room Air Diagnostic Findings Laboratory Results WBC 15.33 K/ul (4.8-10.8) H 11/04/23 21:19 RBC 4.05 M/uL (4.70-6.10) L 11/04/23 21:19 Hgb 11.7 g/dl (14.0-18.0) L 11/04/23 21:19 Hct 35.7 % (42.0-52.0) L 11/04/23 21:19 MCV 88.1 fL (80.0-100.0) 11/04/23 21:19 MCH 28.9 pg (25.0-34.0) 11/04/23 21:19 MCHC 32.8 g/dL (32.0-36.0) 11/04/23 21:19 RDW Std Deviation 39.8 fL (36.4-46.3) 11/04/23 21:19 RDW Coeff of Margarito 12.4 % (11.5-14.5) 11/04/23 21:19 Plt Count 371 K/uL (130-400) 11/04/23 21:19 MPV 9.7 fL (9.4-12.4) 11/04/23 21:19 Immature Gran % (Auto) 0.5 % 11/04/23 21:19 Neut % (Auto) 90.9 % 11/04/23 21:19 Lymph % (Auto) 2.1 % 11/04/23 21:19 [place] % (Auto) 6.3 % 11/04/23 21:19 Eos % (Auto) 0.0 % 11/04/23 21:19 Baso % (Auto) 0.2 % 11/04/23 21:19 Neut # (Auto) 13.93 K/uL (1.40-6.50) H 11/04/23 21:19 Lymph # (Auto) 0.32 K/uL (1.20-3.40) L 11/04/23 21:19 [place] # (Auto) 0.97 K/uL (0.11-0.59) H 11/04/23 21:19 Eos # (Auto) 0.00 K/uL (0.00-0.50) 11/04/23 21:19 Baso # (Auto) 0.03 K/uL (0.00-0.20) 11/04/23 21:19 Immature Gran # (Auto) 0.08 K/uL (0.01-0.20) 11/04/23 21:19 Polychromasia 1+ 11/04/23 21:19 PT 11.9 Seconds (9.0-12.0) 11/04/23 21:19 INR 1.1 (0.9-1.1) 11/04/23 21:19 APTT 24 Seconds (21-31) 11/04/23 21:19 PTT Ratio 0.9 11/04/23 21:19 VBG pH 7.34 (7.36-7.41) L 11/04/23 22:53 VBG pCO2 47 mmHg (38-50) 11/04/23 22:53 VBG pO2 32 mmHg 11/04/23 22:53 VBG HCO3 25 mmol/L 11/04/23 22:53 VBG O2 Saturation < 60.0 % 11/04/23 22:53 VBG Base Excess -0.8 mEq/L 11/04/23 22:53 Sodium 131 mmol/L (136-145) L 11/04/23 21:19 Potassium 4.3 mmol/L (3.5-5.1) 11/04/23 21:19 Chloride 96 mmol/L (98-107) L 11/04/23 21:19 Carbon Dioxide 26 mmol/L (21-32) 11/04/23 21:19 Anion Gap 9 (3-11) 11/04/23 21:19 BUN 24 mg/dl (6-23) H 11/04/23 21:19 Creatinine 0.95 mg/dl (0.6-1.4) 11/04/23 21:19 Est Cr Clr Drug Dosing 54.3 ml/min 11/04/23 21:19 Est GFR ( Amer) 89.8 ml/min 11/04/23 21:19 Est GFR (Non-Af Amer) 77.4 ml/min 11/04/23 21:19 BUN/Creatinine Ratio 25.3 (10-20) H 11/04/23 21:19 Glucose 154 mg/dl (70-99(Fasting)) H 11/04/23 21:19 Lactate 1.8 mmol/L (0.4-2.0) 11/04/23 Unknown Calcium 8.9 mg/dl (8.6-10.3) 11/04/23 21:19 Magnesium 2.1 mg/dl (1.7-2.4) 11/04/23 21:19 Total Bilirubin 0.5 mg/dl (0.2-1.0) 11/04/23 21:19 AST 24 U/L (13-39) 11/04/23 21:19 ALT 23 U/L (7-52) 11/04/23 21:19 Alkaline Phosphatase 76 U/L (34-104) 11/04/23 21:19 Troponin I High Sens 65.2 pg/ml (0-20) H* 11/04/23 21:19 B-Natriuretic Peptide 197 pg/ml (0-100) H 11/04/23 21:19 Total Protein 7.3 gm/dl (6.0-8.3) 11/04/23 21:19 Albumin 3.6 gm/dl (3.4-5.0) 11/04/23 21:19 Globulin 3.7 gm/dl (2.5-4.0) 11/04/23 21:19 Albumin/Globulin Ratio 1.0 (0.9-2) 11/04/23 21:19 Procalcitonin 0.94 ng/ml (0-0.5) H 11/04/23 21:19 ECG Additional Comments: ECG. Sinus tachycardia rate 108. Right atrial enlargement. QTc 506 Code Status & VTE Plan VTE Prophylaxis Plan VTE Prophylaxis will be ordered: Yes
[2023-11-05 00:25] LABS: Adenovirus PCR Not Detected (NotDetected); Bordetella parapertussis PCR Not Detected (NotDetected); Bordetella pertussis PCR Not Detected (NotDetected); Chlamydia pneumoniae PCR Not Detected (NotDetected); Coronavirus 229E PCR Not Detected (NotDetected); Coronavirus CoV-2 (COVID19)PCR Not Detected (NotDetected); Coronavirus HKU1 PCR Not Detected (NotDetected); Coronavirus NL63 PCR Not Detected (NotDetected); Coronavirus OC43PCR Not Detected (NotDetected); Human Metapneumovirus PCR Not Detected (NotDetected); Influenza A PCR Not Detected (NotDetected); Influenza B PCR Not Detected (NotDetected); Mycoplasma pneumoniae PCR Not Detected (NotDetected); Parainfluenza Virus 1 PCR Not Detected (NotDetected); Parainfluenza Virus 2 PCR Not Detected (NotDetected); Parainfluenza Virus 3 PCR Not Detected (NotDetected); Parainfluenza Virus 4 PCR Not Detected (NotDetected); Respiratory Syncytial VirusPCR Not Detected (NotDetected); Rhinovirus/Enterovirus PCR Not Detected (NotDetected)
[2023-11-05] MEDS ORDERED: HYDROmorphone INJ 0.5 MG/0.5 ML SYR IV PRN (03:20)
[2023-11-05] MEDS ORDERED: NITROGLYCERIN SL 0.4 MG/TAB TAB SL PRN (03:20)
[2023-11-05] MEDS ORDERED: PROMETHAZINE HCL 12.5 MG in SODIUM CHLORIDE 0.9% 50 ML IV PRN (03:20)
[2023-11-05] MEDS ORDERED: methylPREDNISolone 125 MG/2 ML VIAL IV STA (03:20)
[2023-11-05] MEDS: D5W AND NSS 1,000 ML IV SCH ×2 (03:36→15:00)
[2023-11-05] MEDS: oxyCODONE/APAP 7.5/325MG TAB PO PRN ×3 (04:09→19:45)
[2023-11-05] MEDS: LEVOTHYROXINE SODIUM 137 MCG TABLET PO SCH (06:16)
[2023-11-05] MEDS: PIPERACILLIN/TAZOBACTAM 4.5 GM in DEXTROSE 5% MINI-B 100 ML IV SCH ×3 (06:16→22:37)
[2023-11-05 06:21] LABS: Hematocrit (blood only) 31.8 % (42.0-52.0); Hemoglobin 10.6 g/dl (14.0-18.0); Mean Corpuscular Hemoglobin 29.3 pg (25.0-34.0); Mean Corpuscular Hgb Conc 33.3 g/dL (32.0-36.0); Mean Corpuscular Volume 87.8 fL (80.0-100.0); Mean Platelet Volume 9.7 fL (9.4-12.4); Platelet Count 295 K/uL (130-400); RDW Coefficient of Variation 12.5 % (11.5-14.5); RDW Standard Deviation 40.2 fL (36.4-46.3); Red Blood Count 3.62 M/uL (4.70-6.10); White Blood Count 9.55 K/ul (4.8-10.8)
[2023-11-05 06:28] LABS: BUN Creatinine Ratio 21.8 (10-20); Calcium 8.9 mg/dl (8.6-10.3); Creatinine Clr Calc Pharmacy 67.3 ml/min; Est GFR (African American) 97.2 ml/min; Est GFR (Non-African American) 83.8 ml/min; Magnesium 2.3 mg/dl (1.7-2.4); Potassium 4.5 mmol/L (3.5-5.1)
[2023-11-05 06:37] LABS: Troponin I High Sensitivity 61.7 pg/ml (0-20)
[2023-11-05 06:44] LABS: Basophils # (auto) 0.02 K/uL (0.00-0.20); Basophils % (auto) 0.2 %; Immature Granulocytes # (auto) 0.05 K/uL (0.01-0.20); Immature Granulocytes % (auto) 0.5 %; Lymphocytes % (auto) 3.1 %; Monocytes # (auto) 0.35 K/uL (0.11-0.59); Monocytes % (auto) 3.7 %; Neutrophils # (auto) 8.83 K/uL (1.40-6.50); Neutrophils % (auto) 92.5 %; RBC Morphology Unremarkable
[2023-11-05 06:59] LABS: Appearance Urine Clear (Clear); Bacteria Urine Automated Negative (Negative); Bilirubin Urine Negative (Negative); Blood Urine Negative (Negative); Color Urine Yellow; Epithelial Cell Urine Auto 20-30 /lpf (0-5); Glucose Urine UA Negative (Negative); Ketones Urine Negative (Negative); Leukocyte Esterase Urine 1+ (Negative); Nitrite Urine Negative (Negative); Protein Urine Negative (Negative); RBC Urine Automated 0-4 /hpf (0-4); Specific Gravity Urine 1.018 (1.000-1.030); Urobilinogen Urine Negative (Negative); pH Urine 5.5 (4.5-7.5)
--- NOTE | 2023-11-05 07:09 | Electrocardiogram Report ---
Test Reason : Blood Pressure : / mmHG Vent. Rate : 108 BPM Atrial Rate : 108 BPM P-R Int : 126 ms QRS Dur : 072 ms QT Int : 378 ms P-R-T Axes : 085 043 071 degrees QTc Int : 506 ms Sinus tachycardia Right atrial enlargement Borderline ECG When compared with ECG of 24-OCT-2023 10:58, Nonspecific T wave abnormality no longer evident in Anterior leads QT has lengthened Confirmed by Leonid Saini ([id number]) on 11/05/2023 7:08:56 AM Referred By: REFERRED SELF Confirmed By:Flavio Saini
--- NOTE | 2023-11-05 07:14 | Electrocardiogram Report ---
Test Reason : Blood Pressure : / mmHG Vent. Rate : 078 BPM Atrial Rate : 078 BPM P-R Int : 128 ms QRS Dur : 076 ms QT Int : 472 ms P-R-T Axes : 031 050 089 degrees QTc Int : 538 ms Normal sinus rhythm Prolonged QT Abnormal ECG When compared with ECG of 04-NOV-2023 21:40, (unconfirmed) No significant change was found Confirmed by Leonid Saini ([id number]) on 11/05/2023 7:13:53 AM Referred By: REFERRED SELF Confirmed By:Flavio Saini
[2023-11-05] MEDS: SODIUM CHLORIDE 0.9% NEBU SOLN 3 ML NEB SCH ×2 (07:33→20:27)
[2023-11-05] MEDS: ALBUT/IPRATROP 3MG/0.5MG NEB 3 ML VIAL INH SCH ×4 (07:33→20:08)
--- NOTE | 2023-11-05 08:10 | XRay Report ---
XR chest 1V portable HISTORY: Sepsis COMPARISON: Chest 10/21/2023. FINDINGS: The tracheostomy tube appears in good position. No pneumothorax. No pleural effusions. No n ew focal lung consolidations to suggest a pneumonia. No evidence for pulmonary edema. The heart is no rmal in size. There are calcifications within the aortic knob. No acute fractures. IMPRESSION: No significant change compared to the prior study. No acute process. ACT 112: Negative or not required by law. Electronically signed by: Charanjit Resendiz M.D. 11/05/2023 8:08 AM
--- NOTE | 2023-11-05 11:48 | Hospitalist Progress Note ---
Date of Service November 05, 2023 Assessment & Plan (1) Shortness of breath: Plan: 78-year-old male with past med history significant for hypothyroidism, history of laryngeal cancer, tracheostomy status, PEG tube status, diastolic dysfunction, history of hypertension, depression who lives with his daughter was brought in because of shortness of breath. Patient had an episode of vomiting today after that he was short of breath. Family tried to suction him but he was not improving. When EMS arrived he was saturating low 80s. Currently with oxygen supplementation saturating okay. Resting comfortably. Patient only nods his head yes or no. Denies headache. Has some throat pain. Denies chest pain , says breathing is okay. No nausea. No abdominal pain. Using stool softeners. General ambulates without support. But today was weak and not ambulating as per daughter. Patient was recently in the [facility] after Biopsy done of tongue at [facility] with ENT. At that time in the ER a small piece of clotted blood was suctioned out and he felt better. As per daughter after he got discharged last admitted he followed with ENT at [facility] and was s/p cauterization procedure done to throat. Biopsy came back as throat cancer. He has appointment in November with heme-onc at [facility]. Shortness of breath Noted to be hypoxic hypoxic Likely secondary to aspiration pneumonitis Presented with vomiting too without any abdominal distention and or pain Leukocytosis, elevated procalcitonin Intravenous Zosyn has been started and will continue for now Chest x-ray remains unremarkable without any consolidation Continue oxygen supplementation through trach Continue home nebs Continue home hypertonic saline nebs Pulmonary consult in a.m.-awaiting input and recommendation Clinically not any better but remains stable PEG tube placement status Dietitian consult & Will continue with his PEG tube feeding as he has been getting at home Has been complaining of constipation Will give laxatives through the PEG History of laryngeal cancer Status post tracheostomy [address] Lantigua at [facility] Status post PEG tube placement Has had issues with tracheostomy site with bleeding during his recent admission Following discharge he was advised to follow-up with his outpatient ENT physician This was communicated with Dr. Lanza No significant issues now Recent diagnosis of throat cancer Follow-up with ENT and heme-onc Hypothyroidism Continue home Synthroid Prolonged QTc Avoid QT prolonging drugs Follow repeat EKG Elevated troponin Was elevated last recent admission too Will follow serial enzymes Troponin has been elevated chronically but minimal Has had elevation during last admission and was evaluated by scribing machine operator Diastolic dysfunction Monitor for volume overload DVT prophylaxis Lovenox Disposition Telemetry floor Full code Admission and Anticipated Discharge Date Admission Date: November 04, 2023 Subjective 11/05/2023 Patient was seen and examined in telemetry unit He was admitted with increasing shortness of breath likely secondary to aspiration pneumonitis Has not been feeling any better since admission Denies any chest pain and her palpitation Denies any abdominal pain, nausea or vomiting Review of Systems Review of Systems: All systems reviewed and are unremarkable except as noted below Physical Exam Physical Exam: Lying in bed with minimal respiratory distress Constitutional: + ill appearing and average body habitus Eyes: PERRL, conjunctivae normal, anicteric sclerae ENMT: external ear and nose normal, oropharynx normal Neck: trachea midline, no thyromegaly Tracheostomy site does not show any infection with the tracheostomy tube inside Respiratory: + respiratory distress (Minimal respirat ory distress at rest) Auscultation: + diminished lung sounds and + crackles (Minimal crackles bilaterally) Cardiovascular: Rate/Rhythm: regular rate and regular rhythm; not tachycardic Heart Sounds: normal S1 and normal S2; no murmur Extremities: no edema Gastrointestinal (Abdomen): Inspection/Auscultation: normal bowel sounds; abdomen not distended Percussion/Palpation: + abdomen tender and abdomen soft BX site remains intact without any infection and/or inflammation Musculoskeletal: No acute arthritis involving any of the joint Neurologic: normal touch/pain/proprioception and moves all extremities; no focal motor deficits Lymphatic: no cervical or axillary lymphadenopathy Results & Data Results & Data Vital Signs (Past 12 Hours) Vital Signs Temp Pulse Pulse Resp BP Pulse Ox Pulse Ox 11/05/23 08:29 36.5 C 80 20 118/67 98 11/05/23 07:33 67 20 94 11/05/23 03:20 96 11/05/23 03:20 37.2 C 78 21 129/71 100 11/05/23 03:00 11/05/23 03:00 37.2 C 78 21 129/71 100 11/05/23 02:30 81 11/05/23 01:29 73 11/05/23 00:00 95 H 18 99/67 L 95 O2 Del Method O2 Del Method O2 Flow Rate FiO2 11/05/23 08:29 Trach Collar 11/05/23 07:33 Trach Collar 8 40 11/05/23 03:20 Trach Collar 11/05/23 03:20 Trach Collar 11/05/23 03:00 Trach Collar 11/05/23 03:00 Trach Collar 11/05/23 02:30 11/05/23 01:29 11/05/23 00:00 Oxymask, Trach Collar 8 50 Laboratory Results Short CBC 11/04/23 11/05/23 Range/Units 21:19 05:59 WBC 15.33 H 9.55 (4.8-10.8) K/ul Hgb 11.7 L 10.6 L (14.0-18.0) g/dl Hct 35.7 L 31.8 L (42.0-52.0) % Plt Count 371 295 (130-400) K/uL BMP 11/04/23 11/05/23 21:19 05:59 Sodium 131 L 133 L Potassium 4.3 4.5 Chloride 96 L 99 Carbon Dioxide 26 26 BUN 24 H 19 Creatinine 0.95 0.87 Glucose 154 H 131 H Calcium 8.9 8.9 Liver Function 11/04/23 Range/Units 21:19 Total Bilirubin 0.5 (0.2-1.0) mg/dl AST 24 (13-39) U/L ALT 23 (7-52) U/L Alkaline Phosphatase 76 (34-104) U/L Albumin 3.6 (3.4-5.0) gm/dl Urine 11/05/23 Range/Units 05:30 Urine Color Yellow Urine Appearance Clear (Clear) Urine pH 5.5 (4.5-7.5) Ur Specific [place] 1.018 (1.000-1.030) Urine Protein Negative (Negative) Urine Glucose (UA) Negative (Negative) Medications Administered Current Inpatient Medications Albuterol (Albut/Ipratrop 3mg/0.5mg Neb 3 Ml Vial) 3 ml INH QIDR [facility]UR[facility]INDER; Protocol Stop: 12/05/23 06:59 Last Admin: 11/05/23 07:33 Dose: 3 ml Atropine Sulfate (Atropine Sulfate 1% Op Soln 5 Ml Btl) 2 drops PO BID [facility] Stop: 12/05/23 08:59 Enoxaparin Sodium (Enoxaparin Inj 40 Mg/0.4 Ml Syr) 40 mg SQ Q24H [facility] Stop: 12/05/23 08:59 Gabapentin (Gabapentin 250 Mg/5 Ml 470 Ml Btl) 250 mg GT TID [facility] Stop: 12/05/23 08:59 Guaifenesin (Guaifenesin 600 Mg Tabcr) 1,200 mg PO BID [facility] Stop: 12/05/23 08:59 Hydromorphone HCl (Hydromorphone Inj 0.5 Mg/0.5 Ml Syr) 0.5 mg IV Q4H PRN PRN Reason: Severe Pain (Scale 7, 8, 9,10) Stop: 11/19/23 03:19 Piperacillin Sod/Tazobactam (Sod 4.5 gm/ Dextrose) 100 mls @ 25 mls/hr IV Q8H [facility]; Protocol Stop: 11/12/23 05:59 Last Admin: 11/05/23 06:16 Dose: 25 mls/hr Dextrose/Sodium Chloride (D5w And Nss) 1,000 mls @ 100 mls/hr IV .Q10H [facility] Stop: 11/05/23 23:19 Last Admin: 11/05/23 03:36 Dose: 100 mls/hr Promethazine HCl 12.5 mg/ (Sodium Chloride) 50.5 mls @ 202 mls/hr IV Q6H PRN PRN Reason: Nausea And Vomiting Stop: 12/05/23 03:19 Levothyroxine Sodium (Levothyroxine Sodium 137 Mcg Tablet) 137 mcg PO DAILYBB [facility] Stop: 12/05/23 06:29 Last Admin: 11/05/23 06:16 Dose: 137 mcg Nitroglycerin (Nitroglycerin Sl 0.4 Mg/Tab Tab) 0.4 mg SL Q5M PRN PRN Reason: Chest Pain Stop: 12/05/23 03:19 Nystatin (Nystatin Susp 500,000 U/5 Ml Udc) 5 ml PO BID [facility] Stop: 11/15/23 08:59 Oxycodone/Acetaminophen (Oxycodone/Apap 7.5/325mg Tab) 1 tab PO Q4H PRN PRN Reason: Pain Stop: 11/19/23 03:19 Last Admin: 11/05/23 04:09 Dose: 1 tab Sodium Chloride (Sodium Chloride 0.9% Nebu Soln 3 Ml) 3 ml NEB BIDR [facility] Stop: 12/05/23 06:59 Last Admin: 11/05/23 07:33 Dose: 3 ml
[2023-11-05] MEDS: POLYETHYLENE (MIRALAX) 17 GM PACK PEG SCH (12:23)
[2023-11-05] MEDS: guaiFENesin 600 MG TABCR PO SCH ×2 (12:23→20:29)
[2023-11-05] MEDS: ENOXAPARIN INJ 40 MG/0.4 ML SYR SQ SCH (12:24)
[2023-11-05] MEDS: GABAPENTIN 250 MG/5 ML 470 ML BTL GT SCH ×3 (12:29→20:31)
[2023-11-05] MEDS: ATROPINE SULFATE 1% OP SOLN 5 ML BTL PO SCH ×2 (13:16→20:27)
--- NOTE | 2023-11-05 14:38 | Pulmonary Consultation ---
Date of Consultation November 05, 2023 Assessment & Plan (1) Aspiration pneumonia: His symptoms are back to baseline. His procalcitonin is mildly elevated. His chest x-ray was largely unremarkable. Unclear whether this was a true aspiration pneumonia versus mild aspiration pneumonitis. Would recommend a james rt course of Augmentin for 5 days. His hypoxemia has resolved. Patient stable for discharge home at this time. Pulmonary to sign off. 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 At that time he had a tracheostomy and PEG tube placement. 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 His care is mostly at [facility].. He does not take anything orally. He notes that he gets feeds through his PEG tube. Yesterday he had an event where he began coughing and choking. His oxygen saturations dropped to the low 80s and he became dizzy. His family brought him to the ER. He was started on broad-spectrum antibiotics and supplemental oxygen. His saturations improved. Chest x-ray was obtained. There was no evidence of pneumonia on the chest x-ray. His procalcitonin was mildly elevated. Today he is feeling fine and denies any significant shortness of breath or cough. There is oxygen flowing via trach collar, but it is not over his tracheostomy site. He is saturating at 100%. Allergies Allergy/AdvReac Type Severity Reaction Status Date / Time No Known Allergies Allergy Verified 11/04/23 22:31 Home Medications Medication Instructions Recorded Confirmed Type gabapentin 250 mg/5 mL oral 250 mg feeding tube TID 10/21/23 11/04/23 History solution levothyroxine 137 mcg tablet 137 mcg PO QAM 10/21/23 11/04/23 History nystatin 100,000 unit/mL oral 5 ml PO BID 10/21/23 11/04/23 History suspension sodium chloride 0.9 % for 3 ml inhalation DIRECTED 10/21/23 11/04/23 History nebulization atropine 1 % eye drops 2 drp PO BID 11/04/23 11/04/23 History guaifenesin 1,200 mg tablet, 1,200 mg PO BID 11/04/23 11/04/23 History extended release 12 hr (Mucinex) ipratropium 0.5 mg-albuterol 3 mg 3 ml inhalation QID 11/04/23 11/04/23 History (2.5 mg base)/3 mL nebulization soln oxycodone-acetaminophen 7.5 mg-325 1 tab feeding tube Q4H PRN Pain 11/04/23 11/04/23 History mg tablet Patient History Medical History (Updated 11/05/23 @ 14:36 by Channing Rascon MD) Aspiration pneumonia 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 Bowers - stage pT3N2c with extranodal extension Status post completion of combined radiation and chemotherapy. Radiation completed 04/21/2017. He received 6600 cGy. Chemotherapy comprised of weekly cisplatin." On 02/01/17 18:09 Gideon Thompson wrote "-Self palpated right neck mass - November 2016 -Ultrasound-guided FNA of right neck mass - 12/10/2016 - positive for squamous cell carcinoma -PET/CT scan - 12/22/2016 -Supraglottic hemilaryngectomy, bilateral neck dissection - 01/05/2017 - Dr. Bowers - stage pT3N2c with extranodal extension" Social History Smoking Status: Former smoker Tobacco Type: Cigarettes Smoking End Date: 1995; Second Hand Exposure: No; Do You Dip or Chew Tobacco: No; Hx Alcohol Use: No Hx Substance Use: No Preferred Language: Azeri Communication Ability: Impaired Validation Leader Required: No Beliefs That Will Affect Care: None Current Living Situation: Family Current Living Situation Comment: Lives with daughter Other Information That Helps Us Care for You: No Feels Safe at Home: Yes Safety Concerns: Feels Safe At This Time Assistive Devices: Other Review of Systems Review of Systems: All systems reviewed & are unremarkable except as noted in HPI & below Physical Exam Physical Exam: Constitutional: Patient appears to be of their stated age. Patient is in no apparent distress. Patient is well-developed. Eyes: Pupils are equal round and reactive to light. Conjunctivae are normal. Anicteric sclera. Ears nose, mouth and throat: Tracheostomy noted Neck: Trachea is midline. Visual inspection is normal. Respiratory: Clear to auscultation bilaterally. No use of accessory muscles. No significant clubbing noted. Cardiovascular: Regular rate and rhythm. No murmurs. No edema. Gastrointestinal: Normal bowel sounds, soft, nontender and nondistended. No hepatosplenomegaly noted. Musculoskeletal: No cyanosis. Patient is able to move all extremities. Strength is 5 out of 5 in the upper and lower extremities. Skin: No rashes, warm dry and intact. Neurologic: No obvious focal neurological deficits seen. Psychiatric: Alert and oriented x3 with a euthymic affect. Results & Data Results & Data Vital Signs (Past 12 Hours) Vital Signs Temp Pulse Resp BP Pulse Ox Pulse Ox O2 Del Method 11/05/23 12:49 36.7 C 73 21 137/72 100 Trach Collar 11/05/23 11:45 78 20 96 Trach Collar 11/05/23 08:29 36.5 C 80 20 118/67 98 Trach Collar 11/05/23 07:33 67 20 94 Trach Collar 11/05/23 03:20 96 11/05/23 03:20 37.2 C 78 21 129/71 100 Trach Collar 11/05/23 03:00 Trach Collar 11/05/23 03:00 37.2 C 78 21 129/71 100 Trach Collar O2 Del Method O2 Flow Rate FiO2 11/05/23 12:49 11/05/23 11:45 12 40 11/05/23 08:29 11/05/23 07:33 8 40 11/05/23 03:20 Trach Collar 11/05/23 03:20 11/05/23 03:00 11/05/23 03:00 PG Care Time/CCT Total # of Minutes Spent Total Time Spent with Patient: Total time spent is greater than 50% in coordination of care (as documented) at patient's floor/unit and/or counseling patient: Coding Level of Care Code 87795 INT INP/OBS CARE 1/40MIN Diagnoses Aspiration pneumonia J69.0
[2023-11-05] MEDS: NYSTATIN SUSP 500,000 U/5 ML UDC PO SCH ×2 (15:42→20:29)
[2023-11-05] MEDS: FAMOTIDINE 20 MG TAB JT SCH (15:43)
[2023-11-05] MEDS: NUTREN LIQD 2.0 1,000 ML BAG PEG SCH (15:43)
[2023-11-05] MEDS: TUBE FEEDING WATER FLUSH PEG SCH ×3 (15:51→20:40)
[2023-11-06] MEDS: TUBE FEEDING WATER FLUSH PEG SCH ×6 (01:21→19:59)
[2023-11-06] MEDS: PIPERACILLIN/TAZOBACTAM 4.5 GM in DEXTROSE 5% MINI-B 100 ML IV SCH (05:09)
[2023-11-06] MEDS: LEVOTHYROXINE SODIUM 137 MCG TABLET PO SCH (05:54)
[2023-11-06 06:25] LABS: Basophils # (auto) 0.01 K/uL (0.00-0.20); Basophils % (auto) 0.1 %; Eosinophils # (auto) 0.01 K/uL (0.00-0.50); Eosinophils % (auto) 0.1 %; Hematocrit (blood only) 31.2 % (42.0-52.0); Hemoglobin 10.4 g/dl (14.0-18.0); Immature Granulocytes # (auto) 0.03 K/uL (0.01-0.20); Immature Granulocytes % (auto) 0.4 %; Lymphocytes % (auto) 9.7 %; Mean Corpuscular Hemoglobin 29.5 pg (25.0-34.0); Mean Corpuscular Hgb Conc 33.3 g/dL (32.0-36.0); Mean Corpuscular Volume 88.4 fL (80.0-100.0); Monocytes # (auto) 0.53 K/uL (0.11-0.59); Monocytes % (auto) 7.4 %; Neutrophils # (auto) 5.91 K/uL (1.40-6.50); Neutrophils % (auto) 82.3 %; Platelet Count 257 K/uL (130-400); RDW Coefficient of Variation 12.5 % (11.5-14.5); RDW Standard Deviation 40.2 fL (36.4-46.3); Red Blood Count 3.53 M/uL (4.70-6.10); White Blood Count 7.19 K/ul (4.8-10.8)
[2023-11-06 06:44] LABS: Calcium 9.1 mg/dl (8.6-10.3); Magnesium 2.4 mg/dl (1.7-2.4)
[2023-11-06 06:49] LABS: BUN Creatinine Ratio 23.5 (10-20); Creatinine Clr Calc Pharmacy 69.1 ml/min; Est GFR (African American) 98.1 ml/min; Est GFR (Non-African American) 84.6 ml/min
[2023-11-06] MEDS: SODIUM CHLORIDE 0.9% NEBU SOLN 3 ML NEB SCH ×2 (07:16→19:44)
[2023-11-06] MEDS: ALBUT/IPRATROP 3MG/0.5MG NEB 3 ML VIAL INH SCH ×4 (07:16→19:56)
[2023-11-06] MEDS: NUTREN LIQD 2.0 1,000 ML BAG PEG SCH ×2 (10:00→17:59)
[2023-11-06] MEDS: oxyCODONE/APAP 7.5/325MG TAB PO PRN ×3 (11:02→20:06)
[2023-11-06] MEDS: POLYETHYLENE (MIRALAX) 17 GM PACK PEG SCH (11:04)
[2023-11-06] MEDS: FAMOTIDINE 20 MG TAB JT SCH (11:05)
[2023-11-06] MEDS: ENOXAPARIN INJ 40 MG/0.4 ML SYR SQ SCH (11:05)
[2023-11-06] MEDS: NYSTATIN SUSP 500,000 U/5 ML UDC PO SCH ×2 (11:05→19:44)
[2023-11-06] MEDS: guaiFENesin 600 MG TABCR PO SCH (11:05)
[2023-11-06] MEDS: GABAPENTIN 250 MG/5 ML 470 ML BTL GT SCH ×3 (11:08→19:53)
--- NOTE | 2023-11-06 11:12 | Hospitalist Progress Note ---
Date of Service November 06, 2023 Assessment & Plan (1) Shortness of breath: Plan: 78-year-old male with past med history significant for hypothyroidism, history of laryngeal cancer, tracheostomy status, PEG tube status, diastolic dysfunction, history of hypertension, depression who lives with his daughter was brought in because of shortness of breath. Patient had an episode of vomiting today after that he was short of breath. Family tried to suction him but he was not improving. When EMS arrived he was saturating low 80s. Currently with oxygen supplementation saturating okay. Resting comfortably. Patient only nods his head yes or no. Denies headache. Has some throat pain. Denies chest pain , says breathing is okay. No nausea. No abdominal pain. Using stool softeners. General ambulates without support. But today was weak and not ambulating as per daughter. Patient was recently in the [facility] after Biopsy done of tongue at [facility] with ENT. At that time in the ER a small piece of clotted blood was suctioned out and he felt better. As per daughter after he got discharged last admitted he followed with ENT at [facility] and was s/p cauterization procedure done to throat. Biopsy came back as throat cancer. He has appointment in November with heme-onc at [facility]. Shortness of breath Noted to be hypoxic hypoxic Likely secondary to aspiration pneumonitis Presented with vomiting too without any abdominal distention and or pain Leukocytosis, elevated procalcitonin Intravenous Zosyn has been started and will continue for now Chest x-ray remains unremarkable without any consolidation Continue oxygen supplementation through trach Continue home nebs Continue home hypertonic saline nebs Pulmonary consult in a.m.-awaiting input and recommendation Appreciate pulmonary input and recommendation-Will need of Augmentin for a total of 5 days Clinically much better today and denies any shortness of breath at rest Seems to be at his baseline Likely discharge tomorrow PEG tube placement status Dietitian consult & Will continue with his PEG tube feeding as he has been getting at home Has been complaining of constipation Will give laxatives through the PEG Bowel more History of laryngeal cancer Status post tracheostomy [address] Lantigua at [facility] Status post PEG tube placement Has had issues with tracheostomy site with bleeding during his recent admission Following discharge he was advised to follow-up with his outpatient ENT physician This was communicated with Dr. Lanza No significant issues now Strongly advised to keep appointment with his ENT as an outpatient following jerry choi Recent diagnosis of throat cancer Follow-up with ENT and heme-onc Hypothyroidism Continue home Synthroid Prolonged QTc Avoid QT prolonging drugs Follow repeat EKG Elevated troponin Was elevated last recent admission too Will follow serial enzymes Troponin has been elevated chronically but minimal Has had elevation during last admission and was evaluated by paper reeler Diastolic dysfunction Monitor for volume overload DVT prophylaxis Lovenox Disposition Telemetry floor Full code Admission and Anticipated Discharge Date Admission Date: November 04, 2023 Subjective 11/05/2023 Patient was seen and examined in telemetry unit He was admitted with increasing shortness of breath likely secondary to aspiration pneumonitis Has not been feeling any better since admission Denies any chest pain and her palpitation Denies any abdominal pain, nausea or vomiting 11/06/2023 The patient was seen and examined in telemetry unit He has been feeling much better and denies any significant symptoms No chest pain, palpitation or shortness of breath at rest Seems to be at his baseline Review of Systems Review of Systems: All systems reviewed and are unremarkable except as noted below Physical Exam Physical Exam: Lying in bed with minimal respiratory distress Constitutional: + ill appearing and average body habitus Eyes: PERRL, conjunctivae normal, anicteric sclerae ENMT: external ear and nose normal, oropharynx normal Neck: trachea midline, no thyromegaly Respiratory: + respiratory distress (Minimal respirat ory distress at rest) Auscultation: + diminished lung sounds and + crackles (Minimal crackles bilaterally) Cardiovascular: Rate/Rhythm: regular rate and regular rhythm; not tachycardic Heart Sounds: normal S1 and normal S2; no murmur Extremities: no edema Gastrointestinal (Abdomen): Inspection/Auscultation: normal bowel sounds; abdomen not distended Percussion/Palpation: + abdomen tender and abdomen soft Musculoskeletal: No acute arthritis involving any of the joint Neurologic: normal touch/pain/proprioception and moves all extremities; no focal motor deficits Lymphatic: no cervical or axillary lymphadenopathy Results & Data Results & Data Vital Signs (Past 12 Hours) Vital Signs Temp Pulse Resp BP Pulse Ox Pulse Ox O2 Del Method 11/06/23 11:02 69 21 92 Room Air 11/06/23 08:30 36.8 C 84 18 115/64 94 Trach Collar 11/06/23 07:16 61 17 100 Trach Collar 11/06/23 03:47 36.6 C 64 134/67 100 Trach Collar 11/06/23 03:18 99 11/05/23 23:37 36.9 C 63 20 121/68 99 Trach Collar O2 Del Method O2 Flow Rate FiO2 11/06/23 11:02 11/06/23 08:30 11/06/23 07:16 8 40 11/06/23 03:47 11/06/23 03:18 Trach Collar 11/05/23 23:37 Laboratory Results Short CBC 11/06/23 Range/Units 06:04 WBC 7.19 (4.8-10.8) K/ul Hgb 10.4 L (14.0-18.0) g/dl Hct 31.2 L (42.0-52.0) % Plt Count 257 (130-400) K/uL BMP 11/06/23 06:04 Sodium 138 Potassium 4.0 Chloride 105 Carbon Dioxide 27 BUN 20 Creatinine 0.85 Glucose 94 Calcium 9.1 Medications Administered Current Inpatient Medications Albuterol (Albut/Ipratrop 3mg/0.5mg Neb 3 Ml Vial) 3 ml INH QIDR [facility]; Protocol Stop: 12/05/23 06:59 Last Admin: 11/06/23 11:00 Dose: 3 ml Atropine Sulfate (Atropine Sulfate 1% Op Soln 5 Ml Btl) 2 drops PO BID [facility] Stop: 12/05/23 08:59 Last Admin: 11/05/23 20:27 Dose: 2 drops Enoxaparin Sodium (Enoxaparin Inj 40 Mg/0.4 Ml Syr) 40 mg SQ Q24H [facility] Stop: 12/05/23 08:59 Last Admin: 11/06/23 11:05 Dose: 40 mg Famotidine (Famotidine 20 Mg Tab) 20 mg JT QAM [facility] Stop: 12/05/23 12:29 Last Admin: 11/06/23 11:05 Dose: 20 mg Gabapentin (Gabapentin 250 Mg/5 Ml 470 Ml Btl) 250 mg GT TID [facility] Stop: 12/05/23 08:59 Last Admin: 11/06/23 11:08 Dose: 250 mg Guaifenesin (Guaifenesin 600 Mg Tabcr) 1,200 mg PO BID [facility] Stop: 12/05/23 08:59 Last Admin: 11/06/23 11:05 Dose: 1,200 mg Hydromorphone HCl (Hydromorphone Inj 0.5 Mg/0.5 Ml Syr) 0.5 mg IV Q4H PRN PRN Reason: Severe Pain (Scale 7, 8, 9,10) Stop: 11/19/23 03:19 Piperacillin Sod/Tazobactam (Sod 4.5 gm/ Dextrose) 100 mls @ 25 mls/hr IV Q8H [facility]; Protocol Stop: 11/12/23 05:59 Last Infusion: 11/06/23 09:15 Dose: Infused Promethazine HCl 12.5 mg/ (Sodium Chloride) 50.5 mls @ 202 mls/hr IV Q6H PRN PRN Reason: Nausea And Vomiting Stop: 12/05/23 03:19 Levothyroxine Sodium (Levothyroxine Sodium 137 Mcg Tablet) 137 mcg PO DAILYBB [facility] Stop: 12/05/23 06:29 Last Admin: 11/06/23 05:54 Dose: 137 mcg Nitroglycerin (Nitroglycerin Sl 0.4 Mg/Tab Tab) 0.4 mg SL Q5M PRN PRN Reason: Chest Pain Stop: 12/05/23 03:19 Nutritional Formula (Nutren Liqd 2.0 1,000 Ml Bag) 1,000 ml PEG .See Protocol [facility]; Protocol Stop: 12/05/23 13:44 Last Admin: 11/06/23 10:00 Dose: 240 ml Nystatin (Nystatin Susp 500,000 U/5 Ml Udc) 5 ml PO BID [facility] Stop: 11/15/23 08:59 Last Admin: 11/06/23 11:05 Dose: 5 ml Oxycodone/Acetaminophen (Oxycodone/Apap 7.5/325mg Tab) 1 tab PO Q4H PRN PRN Reason: Pain Stop: 11/19/23 03:19 Last Admin: 11/06/23 11:02 Dose: 1 tab Polyethylene Glycol (Polyethylene (Miralax) 17 Gm Pack) 17 gm PEG DAILY [facility] Stop: 12/05/23 11:59 Last Admin: 11/06/23 11:04 Dose: Not Given Sodium Chloride (Sodium Chloride 0.9% Nebu Soln 3 Ml) 3 ml NEB BIDR [facility] Stop: 12/05/23 06:59 Last Admin: 11/06/23 07:16 Dose: 3 ml Sterile Water (Tube Feeding Water Flush) 100 ml PEG Q4H [facility] Stop: 12/05/23 13:44 Last Admin: 11/06/23 11:00 Dose: 100 ml
[2023-11-06] MEDS: ATROPINE SULFATE 1% OP SOLN 5 ML BTL PO SCH ×2 (15:11→19:44)
[2023-11-06] MEDS ORDERED: guaiFENesin SUGAR FREE 100 MG/5 ML UDC GT PRN (15:48)
[2023-11-06] MEDS: AMOXICILLIN/CLAVULANATE SUSP 400/57 MG 5 ML BTL PO SCH (18:09)
[2023-11-07] MEDS: TUBE FEEDING WATER FLUSH PEG SCH ×3 (03:13→08:37)
[2023-11-07] MEDS: LEVOTHYROXINE SODIUM 137 MCG TABLET PO SCH (06:08)
[2023-11-07] MEDS: ALBUT/IPRATROP 3MG/0.5MG NEB 3 ML VIAL INH SCH ×2 (06:22→11:30)
[2023-11-07] MEDS: ATROPINE SULFATE 1% OP SOLN 5 ML BTL PO SCH (06:25)
[2023-11-07] MEDS: SODIUM CHLORIDE 0.9% NEBU SOLN 3 ML NEB SCH (06:25)
[2023-11-07] MEDS: POLYETHYLENE (MIRALAX) 17 GM PACK PEG SCH (08:35)
[2023-11-07] MEDS: AMOXICILLIN/CLAVULANATE SUSP 400/57 MG 5 ML BTL PO SCH (08:37)
[2023-11-07] MEDS: FAMOTIDINE 20 MG TAB JT SCH (08:37)
[2023-11-07] MEDS: ENOXAPARIN INJ 40 MG/0.4 ML SYR SQ SCH (08:37)
[2023-11-07] MEDS: GABAPENTIN 250 MG/5 ML 470 ML BTL GT SCH (08:37)
[2023-11-07] MEDS: NYSTATIN SUSP 500,000 U/5 ML UDC PO SCH (08:37)
--- NOTE | 2023-11-07 10:50 | Hospitalist Progress Note ---
Date of Service November 07, 2023 Assessment & Plan (1) Shortness of breath: Plan: 78-year-old male with past med history significant for hypothyroidism, history of laryngeal cancer, tracheostomy status, PEG tube status, diastolic dysfunction, history of hypertension, depression who lives with his daughter was brought in because of shortness of breath. Patient had an episode of vomiting today after that he was short of breath. Family tried to suction him but he was not improving. When EMS arrived he was saturating low 80s. Currently with oxygen supplementation saturating okay. Resting comfortably. Patient only nods his head yes or no. Denies headache. Has some throat pain. Denies chest pain , says breathing is okay. No nausea. No abdominal pain. Using stool softeners. General ambulates without support. But today was weak and not ambulating as per daughter. Patient was recently in the [facility] after Biopsy done of tongue at [facility] with ENT. At that time in the ER a small piece of clotted blood was suctioned out and he felt better. As per daughter after he got discharged last admitted he followed with ENT at [facility] and was s/p cauterization procedure done to throat. Biopsy came back as throat cancer. He has appointment in November with heme-onc at [facility]. Acute hypoxic respiratory failure due to aspiration pneumonitis Presented with shortness of breath Presented with vomiting too without any abdominal distention and or pain Leukocytosis, elevated procalcitonin Intravenous Zosyn has been started and will continue for now Chest x-ray remains unremarkable without any consolidation Continue oxygen supplementation through trach Continue home nebs Continue home hypertonic saline nebs Pulmonary consult in a.m.-awaiting input and recommendation Appreciate pulmonary input and recommendation-Will need of Augmentin for a total of 5 days Clinically much better today and denies any shortness of breath at rest Seems to be at his baseline Remains stable and will be discharged home this afternoon PEG tube placement status Dietitian consult & Will continue with his PEG tube feeding as he has been getting at home Has been complaining of constipation Will give laxatives through the PEG Bowel moved Will resume tube feeding as he was getting it before following discharge History of laryngeal cancer Status post tracheostomy [address] Lantigua at [facility] Status post PEG tube placement Has had issues with tracheostomy site with bleeding during his recent admission Following discharge he was advised to follow-up with his outpatient ENT physician This was communicated with Dr. Lanza No significant issues now Strongly advised to keep appointment with his ENT as an outpatient following discharge Recent diagnosis of throat cancer Follow-up with ENT and heme-onc Hypothyroidism Continue home Synthroid Prolonged QTc Avoid QT prolonging drugs Follow repeat EKG Elevated troponin Was elevated last recent admission too Will follow serial enzymes Troponin has been elevated chronically but minimal Has had elevation during last admission and was evaluated by slab stripper Diastolic dysfunction Monitor for volume overload DVT prophylaxis Lovenox Disposition Telemetry floor Full code Discussed with the patient and the family member He will be discharged home this afternoon He does have appointment with PCP and is strongly advised to get appointment with the ENT specialist Admission and Anticipated Discharge Date Admission Date: November 04, 2023 Subjective 11/05/2023 Patient was seen and examined in telemetry unit He was admitted with increasing shortness of breath likely secondary to aspiration pneumonitis Has not been feeling any better since admission Denies any chest pain and her palpitation Denies any abdominal pain, nausea or vomiting 11/06/2023 The patient was seen and examined in telemetry unit He has been feeling much better and denies any significant symptoms No chest pain, palpitation or shortness of breath at rest Seems to be at his baseline 11/07/2023 The patient was seen and examined in telemetry unit He has been feeling much better and denies any symptoms whatsoever He seems to back to his baseline and will be discharged home this afternoon Review of Systems Review of Systems: All systems reviewed and are unremarkable except as noted below Physical Exam Physical Exam: Lying in bed with minimal respiratory distress Constitutional: + ill appearing and average body habitus Eyes: PERRL, conjunctivae normal, anicteric sclerae ENMT: external ear and nose normal, oropharynx normal Neck: trachea midline, no thyromegaly (Tracheostomy site remains intact without any infection and no drainage) Respiratory: + respiratory distress (Minimal respirat ory distress at rest) Auscultation: + diminished lung sounds and + crackles (Minimal crackles bilaterally) Cardiovascular: Rate/Rhythm: regular rate and regular rhythm; not tachycardic Heart Sounds: normal S1 and normal S2; no murmur Extremities: no edema Gastrointestinal (Abdomen): Inspection/Auscultation: normal bowel sounds; abdomen not distended Percussion/Palpation: + abdomen tender and abdomen soft Musculoskeletal: No acute arthritis involving any of the joint Neurologic: normal touch/pain/proprioception and moves all extremities; no focal motor deficits Lymphatic: no cervical or axillary lymphadenopathy Results & Data Results & Data Vital Signs (Past 12 Hours) Vital Signs Temp Pulse Pulse Resp BP Pulse Ox Pulse Ox 11/07/23 09:15 11/07/23 08:00 37.2 C 80 21 145/84 H 96 11/07/23 07:46 79 11/07/23 06:28 71 20 96 11/07/23 03:09 37.3 C 84 20 128/79 92 11/07/23 03:00 92 11/06/23 23:59 37.0 C 77 20 127/79 91 O2 Del Method O2 Del Method O2 Flow Rate FiO2 11/07/23 09:15 Trach Collar 11/07/23 08:00 Room Air 11/07/23 07:46 11/07/23 06:28 Trach Collar 8 40 11/07/23 03:09 Trach Collar 11/07/23 03:00 Trach Collar 11/06/23 23:59 Trach Collar Medications Administered Current Inpatient Medications Albuterol (Albut/Ipratrop 3mg/0.5mg Neb 3 Ml Vial) 3 ml INH QIDR [facility]; Protocol Stop: 12/05/23 06:59 Last Admin: 11/07/23 06:22 Dose: 3 ml Amoxicillin/Clavulanate Potassium (Amoxicillin/Clavulanate Susp 400/57 Mg 5 Ml Btl) 880 mg PO BIDM [facility] Stop: 11/09/23 16:59 Last Admin: 11/07/23 08:37 Dose: 880 mg Atropine Sulfate (Atropine Sulfate 1% Op Soln 5 Ml Btl) 2 drops PO BID [facility] Stop: 12/05/23 08:59 Last Admin: 11/07/23 06:25 Dose: 2 drops Enoxaparin Sodium (Enoxaparin Inj 40 Mg/0.4 Ml Syr) 40 mg SQ Q24H [facility] Stop: 12/05/23 08:59 Last Admin: 11/07/23 08:37 Dose: 40 mg Famotidine (Famotidine 20 Mg Tab) 20 mg JT QAM [facility] Stop: 12/05/23 12:29 Last Admin: 11/07/23 08:37 Dose: 20 mg Gabapentin (Gabapentin 250 Mg/5 Ml 470 Ml Btl) 250 mg GT TID [facility] Stop: 12/05/23 08:59 Last Admin: 11/07/23 08:37 Dose: 250 mg Guaifenesin (Guaifenesin Sugar Free 100 Mg/5 Ml Udc) 100 mg GT Q6H PRN PRN Reason: Cough Stop: 12/06/23 15:47 Hydromorphone HCl (Hydromorphone Inj 0.5 Mg/0.5 Ml Syr) 0.5 mg IV Q4H PRN PRN Reason: Severe Pain (Scale 7, 8, 9,10) Stop: 11/19/23 03:19 Promethazine HCl 12.5 mg/ (Sodium Chloride) 50.5 mls @ 202 mls/hr IV Q6H PRN PRN Reason: Nausea And Vomiting Stop: 12/05/23 03:19 Levothyroxine Sodium (Levothyroxine Sodium 137 Mcg Tablet) 137 mcg PO DAILYBB [facility] Stop: 12/05/23 06:29 Last Admin: 11/07/23 06:08 Dose: 137 mcg Nitroglycerin (Nitroglycerin Sl 0.4 Mg/Tab Tab) 0.4 mg SL Q5M PRN PRN Reason: Chest Pain Stop: 12/05/23 03:19 Nutritional Formula (Nutren Liqd 2.0 1,000 Ml Bag) 1,000 ml PEG .See Protocol [facility]; Protocol Stop: 12/05/23 13:44 Last Admin: 11/06/23 17:59 Dose: 1,000 ml Nystatin (Nystatin Susp 500,000 U/5 Ml Udc) 5 ml PO BID [facility] Stop: 11/15/23 08:59 Last Admin: 11/07/23 08:37 Dose: 5 ml Oxycodone/Acetaminophen (Oxycodone/Apap 7.5/325mg Tab) 1 tab PO Q4H PRN PRN Reason: Pain Stop: 11/19/23 03:19 Last Admin: 11/06/23 20:06 Dose: 1 tab Polyethylene Glycol (Polyethylene (Miralax) 17 Gm Pack) 17 gm PEG DAILY [facility] Stop: 12/05/23 11:59 Last Admin: 11/07/23 08:35 Dose: Not Given Sodium Chloride (Sodium Chloride 0.9% Nebu Soln 3 Ml) 3 ml NEB BIDR [facility] Stop: 12/05/23 06:59 Last Admin: 11/07/23 06:25 Dose: 3 ml Sterile Water (Tube Feeding Water Flush) 100 ml PEG Q4H [facility] Stop: 12/05/23 13:44 Last Admin: 11/07/23 08:37 Dose: 100 ml
--- NOTE | 2023-11-08 08:50 | Discharge Summary ---
Date of Service November 07, 2023 Admission HPI Per Admitting Provider 78-year-old male with past med history significant for hypothyroidism, history of laryngeal cancer, tracheostomy status, PEG tube status, diastolic dysfunction, history of hypertension, depression who lives with his daughter was brought in because of shortness of breath. Patient had an episode of vomiting today after that he was short of breath. Family tried to suction him but he was not improving. When EMS arrived he was saturating low 80s. Currently with oxygen supplementation saturating okay. Resting comfortably. Patient only nods his head yes or no. Denies headache. Has some throat pain. Denies chest pain , says breathing is okay. No nausea. No abdominal pain. Using stool softeners. General ambulates without support. But today was weak and not ambulating as per daughter. Patient was recently in the [facility] after [facility]. At that time in the ER a small piece of clotted blood was suctioned out and he felt better. As per daughter after he got discharged last admitted he followed with ENT at [facility] and was s/p cauterization procedure done to throat. Biopsy came back as throat cancer. He has appointment in November with heme-onc at [facility]. Admission Exam Per Admitting Provider Physical Exam: General-Not in distress. Head- atraumatic Eyes- PERRL. Neck- s/p trach Lungs- clear to auscultation mild b/l ronchi. Heart- regular rhythm; no murmur, no gallop. Abdomen- normal bowel sounds, soft, nontender, no distension.s/p peg tube. no erythema seen at peg tube site Extremities- no pretibial edema, no erythema seen. Neuro- alert, and awake PERRL no facial palsy; moves extremities. Skin- warm & dry Principal Diagnosis Acute hypoxic respiratory failure, aspiration pneumonitis, tracheostomy status with history of laryngeal cancer Discharge Exam Lying in bed with minimal respiratory distress Constitutional + ill appearing and average body habitus Eyes PERRL, conjunctivae normal, anicteric sclerae ENMT external ear and nose normal, oropharynx normal Neck trachea midline, no thyromegaly (Tracheostomy site remains intact without any infection and no drainage) Respiratory + respiratory distress (Minimal respiratory distress at rest) Auscultation: + diminished lung sounds and + crackles (Minimal crackles bilaterally) Cardiovascular Rate/Rhythm: regular rate and regular rhythm; not tachycardic Heart Sounds: normal S1 and normal S2; no murmur Extremities: no edema Gastrointestinal (Abdomen) Inspection/Auscultation: normal bowel sounds; abdomen not distended Percussion/Palpation: + abdomen tender and abdomen soft Neurologic normal touch/pain/proprioception and moves all extremities; no focal motor deficits Lymphatic no cervical or axillary lymphadenopathy Discharge Data Allergies Allergy/AdvReac Type Severity Reaction Status Date / Time No Known Allergies Allergy Verified 11/04/23 22:31 Consultations 11/04/23 22:30 ED Decision to Admit Stat 11/05/23 08:00 Consult Pulmonology Routine Hospital Course (1) Shortness of breath: 78-year-old male with past med history significant for hypothyroidism, history of laryngeal cancer, tracheostomy status, PEG tube status, diastolic dysfunction, history of hypertension, depression who lives with his daughter was brought in because of shortness of breath. Patient had an episode of vomiting today after that he was short of breath. Family tried to suction him but he was not improving. When EMS arrived he was saturating low 80s. Currently with oxygen supplementation saturating okay. Resting comfortably. Patient only nods his head yes or no. Denies headache. Has some throat pain. Denies chest pain , says breathing is okay. No nausea. No abdominal pain. Using stool softeners. General ambulates without support. But today was weak and not ambulating as per daughter. Patient was recently in the [facility] after Biopsy done of tongue at [facility] with ENT. At that time in the ER a small piece of clotted blood was suctioned out and he felt better. As per daughter after he got discharged last admitted he followed with ENT at [facility] and was s/p cauterization procedure done to throat. Biopsy came back as throat cancer. He has appointment in November with heme-onc at [facility]. Acute hypoxic respiratory failure due to aspiration pneumonitis Presented with shortness of breath Presented with vomiting too without any abdominal distention and or pain Leukocytosis, elevated procalcitonin Intravenous Zosyn has been started and will continue for now Chest x-ray remains unremarkable without any consolidation Continue oxygen supplementation through trach Continue home nebs Continue home hypertonic saline nebs Pulmonary consult in a.m.-awaiting input and recommendation Appreciate pulmonary input and recommendation-Will need of Augmentin for a total of 5 days Clinically much better today and denies any shortness of breath at rest Seems to be at his baseline Remains stable and will be discharged home this afternoon PEG tube placement status Dietitian consult & Will continue with his PEG tube feeding as he has been getting at home Has been complaining of constipation Will give laxatives through the PEG Bowel moved Will resume tube feeding as he was getting it before following discharge History of laryngeal cancer Status post tracheostomy [address] Lantigua at [facility] Status post PEG tube placement Has had issues with tracheostomy site with bleeding during his recent admission Following discharge he was advised to follow-up with his outpatient ENT physician This was communicated with Dr. Lanza No significant issues now Strongly advised to keep appointment with his ENT as an outpatient following discharge Recent diagnosis of throat cancer Follow-up with ENT and heme-onc Hypothyroidism Continue home Synthroid Prolonged QTc Avoid QT prolonging drugs Follow repeat EKG Elevated troponin Was elevated last recent admission too Will follow serial enzymes Troponin has been elevated chronically but minimal Has had elevation during last admission and was evaluated by container maker Diastolic dysfunction Monitor for volume overload DVT prophylaxis Lovenox Disposition Telemetry floor Full code Discussed with the patient and the family member He will be discharged home this afternoon He does have appointment with PCP and is strongly advised to get appointment with the ENT specialist Total Time Total Time Spent Total Time Spent (In Minutes): 40 minutes Discharge Plan Discharge Items Patient Disposition: Home - Self-Care Reason For Visit: SOB, ASPIRATION Discharge Diagnosis: Acute hypoxic respiratory failure, aspiration pneumonitis, tracheostomy status with history of laryngeal cancer Condition on Discharge: Fair Activity: Resume your previous activity Non-emergency contact: Primary Care Provider Call non-emergency contact if: you have any medication questions and your symptoms worsen Follow-up/Referrals: Tyron Keita MD [Primary Care Provider] - (Please keep appointment with your PCP) Diet: Other - See Diet Comment Diet Comment: Continue with the PEG feeding as before Addtl Attending Provider Instructions: Please take precautions to avoid falls Finish the course of an antibiotic as advised Please keep appointments with the healthcare providers Pending Studies at Discharge: No Stand-Alone Forms: My [employer], Smoking Cessation Medications and DC Order Prescriptions: New amoxicillin-pot clavulanate 400-57 mg/5 mL Suspension For Reconstitution 10 ml PO BIDM Qty: 60 0RF Continued levothyroxine 137 mcg tablet 137 mcg PO QAM nystatin 100,000 unit/mL suspension 5 ml PO BID gabapentin 250 mg/5 mL solution 250 mg feeding tube TID sodium chloride 0.9 % solution for nebulization 3 ml INHALATION DIRECTED ipratropium-albuterol 0.5 mg-3 mg(2.5 mg base)/3 mL solution for nebulization 3 ml INHALATION QID oxycodone-acetaminophen 7.5-325 mg tablet 1 tab feeding tube Q4H PRN (Reason: Pain) atropine 1 % drops 2 drp PO BID guaifenesin [Mucinex] 1,200 mg Tablet Extended Release 12hr 1,200 mg PO BID Discharge Orders: Discharge Order (Routine); Ordered 11/07/23 Ordered By: Paige Bradford Admission Data Admit Date/Time: 11/04/23 23:11 Attending Provider: Paige Bradford Admit Provider: Constantin Miner Primary Care Provider: Tyron Keita Other Providers: Constantin Miner; Channing Rascon; Roshan,Fax Other Interventions: Discharge Summary Assessment (RN) Last Done: 11/07/23 12:50
== END 2023-11-07 13:14 | disposition home or self-care (01) | DRG 177 ==
LOC: ED 21:11 → 2E 23:11

== ENCOUNTER 2023-11-18 12:00 | Observation (INO) ==
[2023-11-18] MEDS: TXA 10% Non-IV Routes 100 MG/ML VIAL NEB ONE (12:24)
[2023-11-18] MEDS: TXA 10% Non-IV Routes 100 MG/ML VIAL ONE (12:24)
[2023-11-18 12:55] LABS: Basophils # (auto) 0.04 K/uL (0.00-0.20); Basophils % (auto) 0.5 %; Eosinophils # (auto) 0.03 K/uL (0.00-0.50); Eosinophils % (auto) 0.4 %; Hematocrit (blood only) 37.2 % (42.0-52.0); Hemoglobin 12.1 g/dl (14.0-18.0); Immature Granulocytes # (auto) 0.07 K/uL (0.01-0.20); Immature Granulocytes % (auto) 0.9 %; Lymphocytes # (auto) 0.74 K/uL (1.20-3.40); Lymphocytes % (auto) 9.2 %; Mean Corpuscular Hemoglobin 28.4 pg (25.0-34.0); Mean Corpuscular Hgb Conc 32.5 g/dL (32.0-36.0); Mean Corpuscular Volume 87.3 fL (80.0-100.0); Mean Platelet Volume 9.1 fL (9.4-12.4); Monocytes # (auto) 0.87 K/uL (0.11-0.59); Monocytes % (auto) 10.8 %; Neutrophils # (auto) 6.28 K/uL (1.40-6.50); Neutrophils % (auto) 78.2 %; Platelet Count 327 K/uL (130-400); RDW Coefficient of Variation 13.2 % (11.5-14.5); RDW Standard Deviation 41.7 fL (36.4-46.3); Red Blood Count 4.26 M/uL (4.70-6.10); White Blood Count 8.03 K/ul (4.8-10.8)
--- NOTE | 2023-11-18 13:05 | XRay Report ---
XR chest 1V portable HISTORY: Dyspnea COMPARISON: Chest 11/04/2023. FINDINGS: No pneumothorax. No pleural effusions. The heart is normal in size. There are calcification s within the aortic knob. A tracheostomy tube is in good position. The left lung is clear. There are few linear densities within the right medial lung base. No evidence for pulmonary edema. IMPRESSION: 1. Small linear densities within the right medial lung base. This is nonspecific and could represent subsegmental atelectasis or a pneumonitis. 2. The tracheostomy tube is in good position. ACT 112: Negative or not required by law. Electronically signed by: Charanjit Resendiz M.D. 11/18/2023 1:03 PM
[2023-11-18 13:10] LABS: Albumin Level 3.5 gm/dl (3.4-5.0); BUN Creatinine Ratio 31.2 (10-20); Bilirubin,Total 0.4 mg/dl (0.2-1.0); Creatinine Clr Calc Pharmacy 76.3 ml/min; Est GFR (African American) 102.2 ml/min; Est GFR (Non-African American) 88.1 ml/min; Globulin 3.4 gm/dl (2.5-4.0); Magnesium 2.3 mg/dl (1.7-2.4); Potassium 4.3 mmol/L (3.5-5.1); Total Protein 6.9 gm/dl (6.0-8.3)
[2023-11-18 13:17] LABS: Adenovirus PCR Not Detected (NotDetected); Bordetella parapertussis PCR Not Detected (NotDetected); Bordetella pertussis PCR Not Detected (NotDetected); Chlamydia pneumoniae PCR Not Detected (NotDetected); Coronavirus 229E PCR Not Detected (NotDetected); Coronavirus CoV-2 (COVID19)PCR Not Detected (NotDetected); Coronavirus HKU1 PCR Not Detected (NotDetected); Coronavirus NL63 PCR Not Detected (NotDetected); Coronavirus OC43PCR Not Detected (NotDetected); Human Metapneumovirus PCR Not Detected (NotDetected); Influenza A PCR Not Detected (NotDetected); Influenza B PCR Not Detected (NotDetected); Mycoplasma pneumoniae PCR Not Detected (NotDetected); Parainfluenza Virus 1 PCR Not Detected (NotDetected); Parainfluenza Virus 2 PCR Not Detected (NotDetected); Parainfluenza Virus 3 PCR Not Detected (NotDetected); Parainfluenza Virus 4 PCR Not Detected (NotDetected); Respiratory Syncytial VirusPCR Not Detected (NotDetected); Rhinovirus/Enterovirus PCR Not Detected (NotDetected)
[2023-11-18 13:23] LABS: Partial Thromboplastin Time 27 Seconds (21-31); Prothrombin Time 11.2 Seconds (9.0-12.0)
[2023-11-18] MEDS: DEXAMETHASONE SOD INJ 4 MG/ML VIAL IV STA (14:10)
[2023-11-18] MEDS: levETIRAcetam 500 MG/5 ML VIAL IV STA (15:54)
[2023-11-18] MEDS: LORazepam 1 MG/1 ML SYR ED Inj Use IV STA (16:05)
--- NOTE | 2023-11-18 16:39 | CT Scan Report ---
CT SCAN OF THE BRAIN WITHOUT IV CONTRAST CLINICAL HISTORY: Seizure. COMPARISON STUDY: CT of the neck dated 05/28/2020. PET/CT dated 11/09/2023. TECHNIQUE: Unenhanced axial CT scan of the brain is performed from the vertex to the skull base. A do se lowering technique was utilized adhering to the principles of ALARA. CT DOSE: 625.8 mGy.cm FINDINGS: Brain parenchyma: There is age-related involutional change noting mild subcortical and periventricula r microangiopathic disease. There is no hemorrhage, mass effect, or evidence of acute territorial isc hemia by CT criteria. Graff-white matter differentiation is preserved. No extra-axial fluid collection is seen. Ventricles, sulci, cisterns: Hydrocephalus is again noted. Intracranial vasculature: There is atherosclerotic calcification of the cavernous carotid arteries. Calvarium: Sclerotic change in the clivus is again noted. The calvarium appears intact. Sinuses and mastoids: The visualized paranasal sinuses are clear. There is a large left mastoid effus ion. The right mastoid air cells are well pneumatized. Orbits: The bony orbits are grossly intact. IMPRESSION: 1. There is no hemorrhage, mass effect, or evidence of acute territorial ischemia by CT criteria. 2. Hydrocephalus is unchanged. ACT 112: Negative or not required by law. Electronically signed by: Maxime Zhang M.D. 11/18/2023 4:37 PM
--- NOTE | 2023-11-18 16:58 | Emergency Department Note ---
Impression & Plan Acute tracheostomy management, Cancer of supraglottis, Seizure ED Provider Note CHIEF COMPLAINT: Trach issues, feels like he cannot breathe HISTORY OF PRESENT ILLNESS: This 78-year-old male patient with past medical history of active oropharyngeal cancer, non-STEMI, presents to the emergency department with complaints of difficulty breathing. The patient has supraglottic cancer and a new trach in place. He follows with ENT and Stephanie. Patient's daughter states the tumor was bleeding a bit, ENT increased the cuff pressure to keep the patient from aspirating. Patient has not had significant blood by mouth. He does have a small amount of blood around the trach site. Daughter has not change the inner cannula but did suction. REVIEW OF SYSTEMS: A review of systems was performed with positives and pertinent negatives listed in the history of present illness. 10 systems were reviewed and are otherwise negative. ALLERGIES: see below MEDICATIONS: see below PMH: see below SOCIAL HISTORY: see below DDx: Mucous plugging, hemorrhagic tumor,infectious etiology, aspiration, among others. PHYSICAL EXAM: Vital signs reviewed. General: Chronically ill-appearing 78-year-old male, tracheostomy in place, increased work of breathing. HEENT: No scleral icterus, PERRLA, neck supple. Atraumatic. Cardiovascular: Regular rate and rhythm, no extra sounds. Pulmonary: Clear to auscultation bilaterally, using accessory muscles, increased work of breathing. Upper airway increase sounds. Abdomen: Soft, nontender, nondistended, positive bowel sounds. Musculoskeletal: Atraumatic, no peripheral edema. Neurologic: Patient awake alert, nonverbal due to tracheostomy but expressing himself appropriately. Skin: Warm, dry, no rash EMERGENCY DEPARTMENT COURSE/MDM: This patient was evaluated and appeared to be in no significant distress. IV access was obtained and laboratory work was drawn. Patient was placed on the fringe knotter and noted to be in a normal sinus rhythm. Patient did have significant work of breathing initially. Respiratory therapy was called to the bedside and replaced the patient's inner trach cannula and suctioned the airway. Patient had improvement immediately. He was given TXA neb for any active bleeding that may be occurring on the tumor. I did discuss the possibility of discharge with the patient. He was given IV dexamethasone in case of any airway swelling that may be giving him difficulty at this time. A ABEL FABIAN was called to the patient's room by nursing staff however it seems as though the patient had a seizure witnessed by family and staff. There was no cardiac arrest. They describe it as a tonic-clonic event. Per patient's daughter, she had suctioned his airway just prior to the event. Patient was loaded with 2 g of IV Keppra given 1 mg of Ativan, but the seizure activity was short-lived, stopping prior to any medication. CT imaging of the head was performed and is negative for acute intracranial process. Patient will be evaluated by the hospitalist service to observe the patient for stability prior to discharge. Patient and family are aware of the plan and agreed. MONITORING: An order for cardiac monitoring was placed and the patient is noted to be in a normal sinus rhythm at 68 beats per minute. RADIOLOGY: Chest x-ray to my interpretation reveals no evidence of acute intracranial abnormality, acute process. Per radiology there are linear densities consistent with atelectasis or less likely pneumonia. Please see final read below. Head CT per radiology reveals stable hydrocephalus, no evidence of acute process otherwise. EKG: To my interpretation reveals a sinus rhythm with PACs at [address] segments are normal. No PVC, no PAC. 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 Bowers - stage pT3N2c with extranodal extension Status post completion of combined radiation and chemotherapy. Radiation completed 04/21/2017. He received 6600 cGy. Chemotherapy comprised of weekly cisplatin." On 02/01/17 18:09 Janessaangi Thompson wrote "-Self palpated right neck mass - November 2016 -Ultrasound-guided FNA of right neck mass - 12/10/2016 - positive for squamous cell carcinoma -PET/CT scan - 12/22/2016 -Supraglottic hemilaryngectomy, bilateral neck dissection - 01/05/2017 - Dr. Bowers - stage pT3N2c with extranodal extension" Social History Smoking Status: Former smoker Tobacco Type: Cigarettes Smoking End Date: 1993; Second Hand Exposure: No; Do You Dip or Chew Tobacco: No; Tobacco Cessation Education Requested by Patient: No Hx Alcohol Use: Yes Hx Substance Use: No Preferred Language: Swedish Communication Ability: Effective [place] Required: No Beliefs That Will Affect Care: None Current Living Situation: Family Current Living Situation Comment: home with daughter Other Information That Helps Us Care for You: No Feels Safe at Home: Yes Safety Concerns: Feels Safe At This Time Assistive Devices: Other Allergies Allergies Allergy/AdvReac Type Severity Reaction Status Date / Time No Known Allergies Allergy Verified 11/04/23 22:31 Home Meds Home Medications Medication Instructions Recorded Confirmed gabapentin 250 mg/5 mL oral 250 mg feeding tube TID 10/21/23 11/18/23 solution levothyroxine 137 mcg tablet 137 mcg PO QAM 10/21/23 11/18/23 nystatin 100,000 unit/mL oral 5 ml PO BID 10/21/23 11/18/23 suspension sodium chloride 0.9 % for 3 ml inhalation DIRECTED 10/21/23 11/18/23 nebulization atropine 1 % eye drops 2 drp PO BID 11/04/23 11/18/23 guaifenesin 1,200 mg tablet, 1,200 mg PO BID 11/04/23 11/18/23 extended release 12 hr (Mucinex) ipratropium 0.5 mg-albuterol 3 mg 3 ml inhalation QID 11/04/23 11/18/23 (2.5 mg base)/3 mL nebulization soln oxycodone-acetaminophen 7.5 mg-325 1 tab feeding tube Q4H PRN Pain 11/04/23 11/18/23 mg tablet dexamethasone 4 mg tablet 4 mg PO UD 11/18/23 11/18/23 olanzapine 2.5 mg tablet 2.5 mg PO UD 11/18/23 11/18/23 ondansetron 8 mg disintegrating 8 mg PO UD PRN n/v 11/18/23 11/18/23 tablet prochlorperazine maleate 10 mg 10 mg PO UD 11/18/23 11/18/23 tablet trazodone 50 mg tablet 50 mg PO UD 11/18/23 11/18/23 Results & Data (ED) Vital Signs Vital Signs - 24 hr 11/18/23 12:02 11/18/23 12:13 11/18/23 12:25 Temperature 36.9 C Temperature Source Temporal Artery Scan Pulse Rate 94 H 89 Pulse Rate [Apical] Pulse Rate from SpO2 Sensor Respiratory Rate 42 H Respiratory Effort / Characteristics Non-Labored Respiratory Depth Normal Blood Pressure 193/97 H Blood Pressure [Left Arm] Blood Pressure Mean 129 Blood Pressure Mean [Left Arm] Blood Pressure Position Sitting Pulse Oximetry 91 90 Oxygen Delivery Method Room Air Room Air Oxygen Flow Rate Sepsis Recent Fever Within 48 Hours No Sepsis New/Unexplained Change in Mental Status No Sepsis Action Taken by Nursing No Action Required 11/18/23 12:26 11/18/23 12:30 11/18/23 13:00 Temperature Temperature Source Pulse Rate 92 H 101 H Pulse Rate [Apical] Pulse Rate from SpO2 Sensor 92 H 93 H Respiratory Rate 23 24 Respiratory Effort / Characteristics Respiratory Depth Blood Pressure 124/79 145/97 H Blood Pressure [Left Arm] Blood Pressure Mean 94 113 Blood Pressure Mean [Left Arm] Blood Pressure Position Pulse Oximetry 94 93 Oxygen Delivery Method Room Air Room Air Room Air Oxygen Flow Rate Sepsis Recent Fever Within 48 Hours Sepsis New/Unexplained Change in Mental Status Sepsis Action Taken by Nursing 11/18/23 13:30 11/18/23 14:00 11/18/23 16:00 Temperature Temperature Source Pulse Rate 79 83 Pulse Rate [Apical] 66 Pulse Rate from SpO2 Sensor 80 83 Respiratory Rate 23 24 22 Respiratory Effort / Characteristics Respiratory Depth Blood Pressure 121/83 133/72 Blood Pressure [Left Arm] 120/77 Blood Pressure Mean 95 92 Blood Pressure Mean [Left Arm] 91 Blood Pressure Position Pulse Oximetry 92 92 91 Oxygen Delivery Method Room Air Room Air Trach Collar Oxygen Flow Rate 6 Sepsis Recent Fever Within 48 Hours Sepsis New/Unexplained Change in Mental Status Sepsis Action Taken by Nursing 11/18/23 16:38 Temperature Temperature Source Pulse Rate 68 Pulse Rate [Apical] Pulse Rate from SpO2 Sensor Respiratory Rate Respiratory Effort / Characteristics Respiratory Depth Blood Pressure Blood Pressure [Left Arm] Blood Pressure Mean Blood Pressure Mean [Left Arm] Blood Pressure Position Pulse Oximetry Oxygen Delivery Method Oxygen Flow Rate Sepsis Recent Fever Within 48 Hours Sepsis New/Unexplained Change in Mental Status Sepsis Action Taken by Shelter Medications Current Medication List: was personally reviewed by me Laboratory Data Attestation: I reviewed the patient's lab results. 11/19/23 07:11 11/19/23 07:11 Lab Results 11/18/23 11/18/23 Range/Units 12:14 12:32 WBC 8.03 (4.8-10.8) K/ul RBC 4.26 L (4.70-6.10) M/uL Hgb 12.1 L (14.0-18.0) g/dl Hct 37.2 L (42.0-52.0) % MCV 87.3 (80.0-100.0) fL MCH 28.4 (25.0-34.0) pg MCHC 32.5 (32.0-36.0) g/dL RDW Std Deviation 41.7 (36.4-46.3) fL RDW Coeff of Margarito 13.2 (11.5-14.5) % Plt Count 327 (130-400) K/uL MPV 9.1 L (9.4-12.4) fL Immature Gran % (Auto) 0.9 % Neut % (Auto) 78.2 % Lymph % (Auto) 9.2 % Bartholomew % (Auto) 10.8 % Eos % (Auto) 0.4 % Baso % (Auto) 0.5 % Neut # (Auto) 6.28 (1.40-6.50) K/uL Lymph # (Auto) 0.74 L (1.20-3.40) K/uL Bartholomew # (Auto) 0.87 H (0.11-0.59) K/uL Eos # (Auto) 0.03 (0.00-0.50) K/uL Baso # (Auto) 0.04 (0.00-0.20) K/uL Immature Gran # (Auto) 0.07 (0.01-0.20) K/uL PT 11.2 (9.0-12.0) Seconds INR 1.0 (0.9-1.1) APTT 27 (21-31) Seconds PTT Ratio 1.0 Sodium 131 L (136-145) mmol/L Potassium 4.3 (3.5-5.1) mmol/L Chloride 94 L (98-107) mmol/L Carbon Dioxide 30 (21-32) mmol/L Anion Gap 7 (3-11) BUN 24 H (6-23) mg/dl Creatinine 0.77 (0.6-1.4) mg/dl Est Cr Clr Drug Dosing 76.3 ml/min Est GFR ( Amer) 102.2 ml/min Est GFR (Non-Af Amer) 88.1 ml/min BUN/Creatinine Ratio 31.2 H (10-20) Glucose 156 H (70-99(Fasting)) mg/dl Calcium 9.0 (8.6-10.3) mg/dl Magnesium 2.3 (1.7-2.4) mg/dl Total Bilirubin 0.4 (0.2-1.0) mg/dl AST 25 (13-39) U/L ALT 26 (7-52) U/L Alkaline Phosphatase 77 (34-104) U/L Total Protein 6.9 (6.0-8.3) gm/dl Albumin 3.5 (3.4-5.0) gm/dl Globulin 3.4 (2.5-4.0) gm/dl Albumin/Globulin Ratio 1.0 (0.9-2) Adenovirus (PCR) Not Detected (NotDetected) B. pertussis DNA (PCR) Not Detected (NotDetected) B.parapertussis DNA PCR Not Detected (NotDetected) C. pneumoniae DNA (PCR) Not Detected (NotDetected) Coronavirus OC43 (PCR) Not Detected (NotDetected) Coronavirus HKU1 (PCR) Not Detected (NotDetected) Coronavirus 229E (PCR) Not Detected (NotDetected) SARS-CoV-2 (PCR) Not Detected (NotDetected) Coronavirus NL63 (PCR) Not Detected (NotDetected) Human Metapneumovir PCR Not Detected (NotDetected) Influenza Type A (PCR) Not Detected (NotDetected) Influenza Type B (PCR) Not Detected (NotDetected) M. pneumoniae (PCR) Not Detected (NotDetected) Parainfluenza 1 (PCR) Not Detected (NotDetected) Parainfluenza 2 (PCR) Not Detected (NotDetected) Parainfluenza 3 (PCR) Not Detected (NotDetected) Parainfluenza 4 (PCR) Not Detected (NotDetected) RSV (PCR) Not Detected (NotDetected) Entero/Rhino (PCR) Not Detected (NotDetected) Administered Medications Albuterol (Albut/Ipratrop 3mg/0.5mg Neb 3 Ml Vial) 3 ml INH QIDR [facility]; Protocol Stop: 12/20/23 10:59 Last Admin: 11/20/23 11:28 Dose: 3 ml Documented By: TAYLOR Atropine Sulfate (Atropine Sulfate 1% Op Soln 5 Ml Btl) 2 drops PO BID [facility] Stop: 12/19/23 10:44 Last Admin: 11/19/23 21:08 Dose: 2 drops Documented By: Admin: 11/19/23 12:00 Dose: 2 drops Documented By: ALEJANDRINA Enoxaparin Sodium (Enoxaparin Inj 40 Mg/0.4 Ml Syr) 40 mg SQ Q24H [facility] Stop: 12/18/23 19:29 Last Admin: 11/19/23 22:38 Dose: 40 mg Documented By: Admin: 11/18/23 20:49 Dose: 40 mg Documented By: CHEN Gabapentin (Gabapentin 250 Mg/5 Ml 470 Ml Btl) 250 mg GT TID [facility] Stop: 12/18/23 20:59 Last Admin: 11/20/23 13:30 Dose: 250 mg Documented By: Admin: 11/20/23 09:05 Dose: 250 mg Documented By: Admin: 11/19/23 21:09 Dose: 250 mg Documented By: Admin: 11/19/23 15:30 Dose: 250 mg Documented By: Admin: 11/19/23 10:43 Dose: 250 mg Documented By: Admin: 11/18/23 20:50 Dose: 250 mg Documented By: CHEN Guaifenesin (Guaifenesin Sugar Free 200 Mg/10 Ml Udc) 200 mg PO BID [facility] Stop: 12/18/23 20:59 Last Admin: 11/20/23 09:05 Dose: 200 mg Documented By: Admin: 11/19/23 21:08 Dose: 200 mg Documented By: Admin: 11/19/23 08:46 Dose: 200 mg Documented By: Admin: 11/18/23 20:49 Dose: 200 mg Documented By: CHEN Hydromorphone HCl (Hydromorphone Inj 0.5 Mg/0.5 Ml Syr) 0.25 mg IV Q6H PRN PRN Reason: Pain Stop: 12/03/23 11:09 Last Admin: 11/20/23 09:02 Dose: 0.25 mg Documented By: Admin: 11/19/23 11:47 Dose: 0.25 mg Documented By: ALEJANDRINA Levetiracetam (Levetiracetam Soln 500 Mg/5 Ml Udp) 500 mg PEG Q12H [facility] Stop: 12/19/23 08:59 Last Admin: 11/20/23 09:05 Dose: 500 mg Documented By: Admin: 11/19/23 21:08 Dose: 500 mg Documented By: Admin: 11/19/23 08:46 Dose: 500 mg Documented By: ALEJANDRINA Levothyroxine Sodium (Levothyroxine Sodium 137 Mcg Tablet) 137 mcg PO DAILYBB [facility] Stop: 12/19/23 06:29 Last Admin: 11/20/23 09:05 Dose: 137 mcg Documented By: Admin: 11/19/23 05:35 Dose: 137 mcg Documented By: CHEN Nutritional Formula (Nutren Liqd 2.0 1,000 Ml Bag) 240 ml PEG 0700,1000,1300,1600 [facility]; Protocol Stop: 12/18/23 19:59 Last Admin: 11/20/23 13:00 Dose: 240 ml Documented By: Admin: 11/20/23 10:07 Dose: 240 ml Documented By: Admin: 11/20/23 06:21 Dose: 240 ml Documented By: Admin: 11/19/23 15:31 Dose: 240 ml Documented By: Admin: 11/19/23 14:10 Dose: 240 ml Documented By: Admin: 11/19/23 10:44 Dose: 240 ml Documented By: Admin: 11/19/23 06:49 Dose: 240 ml Documented By: Admin: 11/18/23 20:49 Dose: 240 ml Documented By: CHEN Oxycodone/Acetaminophen (Oxycodone/Apap 7.5/325mg Tab) 1 tab PO Q4H PRN PRN Reason: Pain Stop: 12/02/23 20:07 Last Admin: 11/20/23 13:30 Dose: 1 tab Documented By: Admin: 11/19/23 20:14 Dose: 1 tab Documented By: Admin: 11/19/23 08:46 Dose: 1 tab Documented By: ALEJANDRINA Trazodone HCl (Trazodone Hcl 50 Mg Tab) 37.5 mg PO HS [facility] Stop: 12/19/23 20:59 Last Admin: 11/19/23 21:09 Dose: 37.5 mg Documented By: CHEN Discontinued Medications Albuterol (Albuterol 0.083% Nebu Soln 3 Ml Vial) 2.5 mg NEB Q6H PRN; Protocol PRN Reason: Shortness Of Breath Or Wheezing Stop: 12/19/23 18:09 Last Admin: 11/20/23 02:07 Dose: 2.5 mg Documented By: Admin: 11/19/23 18:30 Dose: 2.5 mg Documented By: TAYLOR Dexamethasone (Dexamethasone Sod Inj 4 Mg/Ml Vial) 10 mg IV NOW STA Stop: 11/18/23 13:43 Last Admin: 11/18/23 14:10 Dose: 10 mg Documented By: STEPHEN Gadobutrol (Gadobutrol 65ml Vial) 6.4 ml IV ONCE ONE Stop: 11/19/23 15:11 Last Admin: 11/19/23 15:10 Dose: 6.4 ml Documented By: ROLAND Iron Sucrose 200 mg/ Sodium (Chloride) 110 mls @ 220 mls/hr IV TODAY@2029 ONE Stop: 11/18/23 20:59 Last Infusion: 11/18/23 21:20 Dose: Infused Documented By: Admin: 11/18/23 20:50 Dose: 220 mls/hr Documented By: CHEN Ioversol (Optiray 320 125ml) 116 ml IV ONCE ONE Stop: 11/18/23 23:07 Last Admin: 11/18/23 23:07 Dose: 116 ml Documented By: JUDITH Levetiracetam (Levetiracetam 500 Mg/5 Ml Vial) 2,000 mg IV NOW STA Stop: 11/18/23 15:47 Last Admin: 11/18/23 15:54 Dose: 2,000 mg Documented By: QASIM Lorazepam (Lorazepam 1 Mg/1 Ml Syr Ed Inj Use) 1 mg IV ONE STA Stop: 11/18/23 15:47 Last Admin: 11/18/23 16:05 Dose: 1 mg Documented By: CEK Tranexamic Acid (Txa 10% Non-Iv Routes 100 Mg/Ml Vial) 250 mg NEB ONE ONE Stop: 11/18/23 12:22 Last Admin: 11/18/23 12:24 Dose: 250 mg Documented By: STEPHEN Tranexamic Acid (Txa 10% Non-Iv Routes 100 Mg/Ml Vial) Confirm Administered Dose 1,000 mg .ROUTE .STK-MED ONE Stop: 11/18/23 12:23 Last Admin: 11/18/23 12:24 Dose: Not Given Documented By: STEPHEN Imaging Data Radiologist's Impression: Chest X-Ray 11/18/23 12:17 XR chest 1V portable HISTORY: Dyspnea COMPARISON: Chest 11/04/2023. FINDINGS: No pneumothorax. No pleural effusions. The heart is normal in size. There are calcifications within the aortic knob. A tracheostomy tube is in good position. The left lung is clear. There are few linear densities within the right medial lung base. No evidence for pulmonary edema. IMPRESSION: 1. Small linear densities within the right medial lung base. This is nonspecific and could represent subsegmental atelectasis or a pneumonitis. 2. The tracheostomy tube is in good position. ACT 112: Negative or not required by law. Electronically signed by: Charanjit Resendiz M.D. 11/18/2023 1:[address] 11/18/23 15:46 CT SCAN OF THE BRAIN WITHOUT IV CONTRAST CLINICAL HISTORY: Seizure. COMPARISON STUDY: CT of the neck dated 05/28/2020. PET/CT dated 11/09/2023. TECHNIQUE: Unenhanced axial CT scan of the brain is performed from the vertex to the skull base. A dose lowering technique was utilized adhering to the principles of ALARA. CT DOSE: 625.8 mGy.cm FINDINGS: Brain parenchyma: There is age-related involutional change noting mild subcortical and periventricular microangiopathic disease. There is no hemorrhage, mass effect, or evidence of acute territorial ischemia by CT criteria. Graff-white matter differentiation is preserved. No extra-axial fluid collection is seen. Ventricles, sulci, cisterns: Hydrocephalus is again noted. Intracranial vasculature: There is atherosclerotic calcification of the cavernous carotid arteries. Calvarium: Sclerotic change in the clivus is again noted. The calvarium appears intact. Sinuses and mastoids: The visualized paranasal sinuses are clear. There is a large left mastoid effusion. The right mastoid air cells are well pneumatized. Orbits: The bony orbits are grossly intact. IMPRESSION: 1. There is no hemorrhage, mass effect, or evidence of acute territorial ischemia by CT criteria. 2. Hydrocephalus is unchanged. ACT 112: Negative or not required by law. Electronically signed by: Maxime Zhang M.D. 11/18/2023 4:37 PM Discharge Plan Visit Data Chief Complaint: Respiratory Problems Stated Complaint: DIFFICULTY BREATHING/HAS A TRACH ED Provider: Jill Sauer Discharge Problem: Acute tracheostomy management, Cancer of supraglottis, Seizure Patient Disposition: Admitted As Inpatient Discharge Instructions Interventions: ED Discharge Assessment Last Done: 11/18/23 17:56
--- NOTE | 2023-11-18 19:48 | History & Physical Report ---
Date of Service November 18, 2023 Assessment & Plan (1) S/P percutaneous endoscopic gastrostomy (PEG) tube placement: (2) Complication of tracheostomy: (3) New onset seizure: (4) Laryngeal cancer: (5) Cancer of supraglottis: Plan Pt is a 78yoM with PMHx significant for history of laryngeal cancer s/p tracheostomy placement, s/p PEG tube placement, diastolic dysfunction, history of hypertension, depression who presented for difficulty breathing at home in the setting of a recently adjusted trach. Pt was admitted after having a new onset seizure in the ED as he was about to be discharged home. Seizure New onset, occurring in the ED Received Keppra 2000mg IV load in the ED Continue with Keppra 500mg BID via PEG Head CT unremarkable, no noted metastatic lesions as a possible cause MRI brain pending EEG Neurology consult- appreciate recs Hx of laryngeal cancer s/p trach placement, follows with ENT in [place], Dr Bowers per daughter Trach collar recently adjusted/changed, concern for bleeding supraglottic mass Daughter usually suctions as she has experience with trachs Per daughter, pt with extreme anxiety about the trach and not being able to breathe at times Feels like he might have had a panic attack before the seizure while she was suctioning him in the ED Due to start chemotherapy next week Daughter states he is not happy with quality of life, no longer finding pleasure in interests Family agreeable to Palliative Care consult, consult placed, appreciate recs Continue other home meds as ordered Diet: Pt with PEG tube, takes TwoCal at home. Was on Nutren 2.0 QID, 240ml run over 1 hour during last admission. Will continue. CODE STATUS: DNR/DNI DVT prophylaxis: Lovenox SQ Dispo: PCU/tele History of Present Illness Primary Care Provider: Tyron Keita MD Allergies Allergy/AdvReac Type Severity Reaction Status Date / Time No Known Allergies Allergy Verified 11/04/23 22:31 Home Medications Medication Instructions Recorded Confirmed Type gabapentin 250 mg/5 mL oral 250 mg feeding tube TID 10/21/23 11/18/23 History solution levothyroxine 137 mcg tablet 137 mcg PO QAM 10/21/23 11/18/23 History nystatin 100,000 unit/mL oral 5 ml PO BID 10/21/23 11/18/23 History suspension sodium chloride 0.9 % for 3 ml inhalation DIRECTED 10/21/23 11/18/23 History nebulization atropine 1 % eye drops 2 drp PO BID 11/04/23 11/18/23 History guaifenesin 1,200 mg tablet, 1,200 mg PO BID 11/04/23 11/18/23 History extended release 12 hr (Mucinex) ipratropium 0.5 mg-albuterol 3 mg 3 ml inhalation QID 11/04/23 11/18/23 History (2.5 mg base)/3 mL nebulization soln oxycodone-acetaminophen 7.5 mg-325 1 tab feeding tube Q4H PRN Pain 11/04/23 11/18/23 History mg tablet amoxicillin 400 mg-potassium 10 ml PO BIDM #60 mL 11/07/23 11/18/23 Rx clavulanate 57 mg/5 mL oral suspension dexamethasone 4 mg tablet 4 mg PO UD 11/18/23 11/18/23 History olanzapine 2.5 mg tablet 2.5 mg PO UD 11/18/23 11/18/23 History ondansetron 8 mg disintegrating 8 mg PO UD PRN n/v 11/18/23 11/18/23 History tablet prochlorperazine maleate 10 mg 10 mg PO UD 11/18/23 11/18/23 History tablet trazodone 50 mg tablet 50 mg PO UD 11/18/23 11/18/23 History Past Med/Surg History Medical History (Updated 11/18/23 @ 20:30 by Tanisha Hankins MD) Aspiration pneumonia 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 Bowers - stage pT3N2c with extranodal extension Status post completion of combined radiation and chemotherapy. Radiation completed 04/21/2017. He received 6600 cGy. Chemotherapy comprised of weekly cisplatin." On 02/01/17 18:09 Gideon Thompson wrote "-Self palpated right neck mass - November 2016 -Ultrasound-guided FNA of right neck mass - 12/10/2016 - positive for squamous cell carcinoma -PET/CT scan - 12/22/2016 -Supraglottic hemilaryngectomy, bilateral neck dissection - 01/05/2017 - Dr. 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 Beliefs That Will Affect Care: None Current Living Situation: Family Current Living Situation Comment: home with daughter Other Information That Helps Us Care for You: No Feels Safe at Home: Yes Safety Concerns: Feels Safe At This Time Assistive Devices: Glasses Results & Data Results & Data Vital Signs (Past 12 Hours) Vital Signs Temp Pulse Pulse Resp BP BP Pulse Ox 11/18/23 17:00 68 22 112/73 94 11/18/23 16:38 68 11/18/23 16:00 66 22 120/77 91 11/18/23 14:00 83 24 133/72 92 11/18/23 13:30 79 23 121/83 92 11/18/23 13:00 101 H 24 145/97 H 93 11/18/23 12:30 92 H 23 124/79 94 11/18/23 12:26 11/18/23 12:25 90 11/18/23 12:13 89 11/18/23 12:02 36.9 C 94 H 42 H 193/97 H 91 O2 Del Method O2 Flow Rate 11/18/23 17:00 Trach Collar 6 11/18/23 16:38 11/18/23 16:00 Trach Collar 6 11/18/23 14:00 Room Air 11/18/23 13:30 Room Air 11/18/23 13:00 Room Air 11/18/23 12:30 Room Air 11/18/23 12:26 Room Air 11/18/23 12:25 Room Air 11/18/23 12:13 11/18/23 12:02 Room Air Code Status & VTE Plan VTE Prophylaxis Plan VTE Prophylaxis will be ordered: Yes
[2023-11-18] MEDS ORDERED: LORazepam 2 MG/1 ML VIAL IV PRN (20:02)
[2023-11-18] MEDS ORDERED: PROCHLORPERAZINE 10 MG in SYRINGE 8 ML IV PRN (20:12)
[2023-11-18] MEDS: guaiFENesin SUGAR FREE 200 MG/10 ML UDC PO SCH (20:49)
[2023-11-18] MEDS: NUTREN LIQD 2.0 1,000 ML BAG PEG SCH (20:49)
[2023-11-18] MEDS: ENOXAPARIN INJ 40 MG/0.4 ML SYR SQ SCH (20:49)
[2023-11-18] MEDS: IRON SUCROSE 200 MG in 0.9 % SODIUM CHLORIDE 100 ML IV ONE (20:50)
[2023-11-18] MEDS: GABAPENTIN 250 MG/5 ML 470 ML BTL GT SCH (20:50)
[2023-11-18] MEDS ORDERED: guaiFENesin 600 MG TABCR PO SCH (21:00)
[2023-11-18] MEDS: OPTIRAY 320 125ml IV ONE (23:07)
--- NOTE | 2023-11-19 00:50 | CT Scan Report ---
Exam(s): CTA CHEST With Contrast IV Amt: 116 cc's optiray 320 EXAM: CT Angiography Chest With Intravenous Contrast CLINICAL HISTORY: Reason for exam: bleeding from trach. TECHNIQUE: Axial computed tomographic angiography images of the chest with intravenous contrast. CTDI is 27.07 mGy and DLP is 677.1 mGy-cm. Automated exposure control was utilized for the study. A dose lowering technique was utilized adhering to the principles of ALARA. MIP reconstructed images were created and reviewed. CONTRAST: Patient received 116 cc's optiray 320 of IV contrast COMPARISON: None FINDINGS: Pulmonary arteries: Unremarkable. No definite pulmonary embolus identified, but evaluation of the distal pulmonary arterial branches is limited by motion artifact. Aorta: Mild atherosclerotic changes of the aorta. No aortic aneurysm or dissection. Lungs: Mucous impactions in some of the lower lobe bronchi. No mass. No consolidation. Pleural space: Unremarkable. No significant effusion. No pneumothorax. Heart: Unremarkable. No cardiomegaly. No significant pericardial effusion. No evidence of RV dysfunction. Mediastinum: Mild prominence of the wall of the esophagus may represent esophagitis. Bones/joints: Mild degenerative changes of the spine. No acute fracture. No dislocation. Soft tissues: Unremarkable. Lymph nodes: Unremarkable. No enlarged lymph nodes. Spleen: Small splenule. Adrenals: Nonspecific mild thickening of the adrenal glands. Tubes, lines and devices: Tracheostomy tube terminates in the mid thoracic trachea. The trachea appears to be mildly thick walled. Question tracheitis. G-tube in place. Other findings: Scattered reticulonodular densities, concerning for infectious/inflammatory process. IMPRESSION: 1. No definite pulmonary embolus identified, but evaluation of the distal pulmonary arterial branches is limited by motion artifact. 2. Tracheostomy tube terminates in the mid thoracic trachea. The trachea appears to be mildly thick walled. Question tracheitis. 3. Mild prominence of the wall of the esophagus may represent esophagitis. 4. Mild atherosclerotic changes of the aorta. No aortic aneurysm or dissection. 5. Scattered reticulonodular densities, concerning for infectious/inflammatory process. Electronically signed by: Bijan Denney M.D. 11/19/23 00:49 AM
--- NOTE | 2023-11-19 00:53 | CT Scan Report ---
Exam(s): CTA NECK With Contrast IV Amt: 116 cc's optiray 320 EXAM: CT Angiography Neck With Intravenous Contrast CLINICAL HISTORY: Reason for exam: bleeding from trach. TECHNIQUE: Routine carotid CT angiography protocol was performed with intravenous contrast. NASCET criteria using the distal ICAs for comparison were used for evaluation of stenoses. CTDI is 13.46 mGy and DLP is 677.1 mGy-cm. Automated exposure control was utilized for the study. A dose lowering technique was utilized adhering to the principles of ALARA. MIP reconstructed images were created and reviewed. CONTRAST: Patient received 116 cc's optiray 320 of IV contrast COMPARISON: CT neck on 05/28/2020 FINDINGS: VASCULATURE: Right common carotid artery: Unremarkable. No occlusion or significant stenosis. No dissection. Right internal carotid artery: Mild atherosclerotic calcification in the right carotid bulb and proximal right ICA. No significant stenosis. Mild atherosclerotic calcifications in the distal right ICA. No dissection. Right external carotid artery: Unremarkable. No occlusion. Right vertebral artery: Unremarkable. No occlusion or significant stenosis. No dissection. Left common carotid artery: Unremarkable. No occlusion or significant stenosis. No dissection. Left internal carotid artery: Atherosclerotic calcifications in the left carotid bulb and proximal left ICA. No significant stenosis. Mild atherosclerotic calcifications in the distal left ICA. No dissection. Left external carotid artery: Unremarkable. No occlusion. Left vertebral artery: Unremarkable. No occlusion or significant stenosis. No dissection. NECK: Bones/joints: Degenerative changes of the spine. Mild reversal of the normal cervical lordosis. No acute fracture. Soft tissues: Unremarkable. Trachea: Secretions in the upper trachea above the thoracic inlet. Prominence of the wall of the trachea is concerning for tracheitis. Lung apices: Clear. Tubes, lines and devices: Tracheostomy tube terminates in the mid thoracic trachea. Other findings: No evidence of active bleeding. Please see accompanying CT chest for further details. CAROTID STENOSIS REFERENCE USING NASCET CRITERIA: % ICA stenosis = (1 - narrowest ICA diameter/diameter of distal cervical ICA) x 100. Mild - <50% stenosis. Moderate - 50-69% stenosis. Severe - 70-94% stenosis. Near occlusion - 95-99% stenosis. Occluded - 100% stenosis. IMPRESSION: 1. Secretions in the upper trachea above the thoracic inlet. Prominence of the wall of the trachea is concerning for tracheitis. 2. No evidence of active bleeding. Electronically signed by: Bijan Denney M.D. 11/19/23 00:52 AM
--- NOTE | 2023-11-19 01:08 | Magnetic Resonance Report ---
Exam(s): MRI HEAD Without Contrast EXAM: MR Head Without Intravenous Contrast CLINICAL HISTORY: Reason for exam: new onset seizure. TECHNIQUE: Magnetic resonance images of the head/brain without intravenous contrast in multiple planes. COMPARISON: Comparison made to prior noncontrast head CT from September 17, 2024. FINDINGS: Brain: Mild nonspecific white matter changes. No mass. No hemorrhage. No acute infarct. Ventricles: Motor function lately. Bones/joints: Unremarkable. No acute fracture. Sinuses: Unremarkable as visualized. No acute sinusitis. Mastoid air cells: Unremarkable as visualized. No mastoid effusion. Orbits: Unremarkable as visualized. IMPRESSION: No evidence of acute intracranial pathology. Electronically signed by: Coni Christine MD 11/19/23 01:08 AM
--- OUTSIDE RECORDS SUMMARY | 2023-11-19 01:56 | External Medical Summary | Summary of Care ---
Author Name Unknown Organization [facility] Address [address] [facility] [place] [address] Phone [phone] Care Team Providers Care Meter Readers Supervisor Name Role Phone Tyron Keita MD Primary Care Provider + Reason for Visit * Reason Onset Date Comments Hospital Follow-Up 11/08/2023 NELLY Encounter Details Date Type Department Care Team (Late st Contact Info) Description 11/08/2023 Telephone General Internal Medicine [facility]randa [place] [address] [facility] [place] [id number] Ginger Giron, JAMARI Hospital Follow-Up (NELLY) Allergies No known active allergiesdocumented as of this encounter (statuses as of 11/09/2023) Medications Medication Sig Dispensed Refills Start Date End Date Status gabapentin (NEURONTIN) 250 MG/5ML solution Administer 5 mL into PEG tube in the morning and 5 mL at noon and 5 mL before bedtime. 1 05/21/2018 Active nystatin 444230 UNIT/ML suspension Take 5 mL by mouth in the morning and 5 mL before bedtime. 0 05/21/2018 Active guaifenesin ER (HUMIBID LA) 600 MG TB12 Administer 1 Tablet into PEG tube 4 times a day as needed for Congestion. Crush into powder and mix with liquid. 0 Active Neosporin 500-56285 UNIT/GM External OintmentIndications :Skin lesion Apply topically to affected area. 0 11/03/2020 Active TwoCal HN Oral LiquidIndications:L aryngeal cancer (HCC),PEG (percutaneous endoscopic gastrostomy) status (HCC),Tracheostomy status (HCC) Take 5 cans via feeding tube daily 83067 mL 6 04/16/2021 Active Levothyroxine Sodium 137 MCG Oral Tablet take 1 tablet by mouth once daily AT LEAST 30 MINUTES PRIOR TO BREAKFAST/OTHER MEDS 90 Tablet 2 07/28/2023 Active traZODone HCl 50 MG Oral Tablet (Desyrel)Indication s:Chronic insomnia Take 1 Tablet by mouth at bedtime. 0 10/06/2023 Active documented as of this encounter (statuses as of 11/09/2023) Active Problems Problem Noted Date Diagnosed Date History of laryngeal cancer 11/03/2020 Acquired hypothyroidism 06/20/2020 Major depressive disorder wi th single episode, in full remission 05/02/2020 Chronic neck pain 05/02/2020 Diastolic dysfunction 10/05/2019 Tracheostomy status 06/13/2018 PEG (percutaneous endoscopic gastrostomy) status 06/13/2018 History of hypertension 06/13/2018 documented as of this encounter (statuses as of 11/09/2023) Resolved Problems Problem Noted Date Diagnosed Date Resolved Date ZARCO (dyspnea on exertion) 11/03/2020 Laryngeal cancer 10/17/2015 11/03/2020 documented as of this encounter (statuses as of 11/09/2023) Immunizations Name Administration Dates Next Due COVID-19 mRNA, LNP-s, No Pre serve, 2-Dose Series (Moderna) 01/14/2022,08/11/2021,12/17/2020,11/19 COVID-19, MRNA-LNP, 23-24, P F, 30 MCG/0.3 mL, 12 YRS AND ABOVE, IM (PFIZER-Comirnaty) 07/14/2023 Covid-19, Mrna, Lnp-s, Pf, B ivalent, 50 Mcg, IM, 12 yrs and above (Moderna) 07/21/2022 H1N1 2009 Influenza, IM 10/25/2009 Pneumococcal Conjugate Vacc, 13 Valent (Prevnar) 05/13/2015 Pneumococcal Polysaccharide PPV23 (Pneumovax) 01/04/2013 RSV Vac., Recomb, Adjuvant, PF,0.5 Ml (Arexvy) 07/14/2023 Seasonal Influenza, Quadriva lent [...] drink = 0.6 oz pur e alcohol) PHQ-2 Answer Date Recorded PHQ-2 Score 2 05/02/2020 Hunger Vital Sign Answer Date Recorded Within the past 12 months, y ou worried that your food would run out before you got the money to buy more. Never true 12/29/19 23 Ran Out of Food in the Last Year Not on file 12/28/2022 Sex and Gender Information Value Date Recorded Sex Assigned at Male 08/20/2019 1:08 PM EST Gender Identity Male 08/20/2019 1:08 PM EST Sexual Orientation Straight 08/20/2019 1: 08 PM EST Job Start Date Occupation Industry Not on file Not on file Not on file documented as of this encounter Miscellaneous Notes * Telephone Encounter - Ginger Giron RN - 11/09/2023 12:12 PM EST Transitions of Care Note Reason for Referral:Recent Admission Phone visit for follow up: NELLY # 2 Left message asking patients to call back to discuss recenthospitalization, medications and follow up appointments. Admitted to: [facility], Date: 11/04/2023 Discharged to: Home with self care, Date: 11/07/23 Diagnosis driving hospitalization: Acute hypoxic respiratory failure, aspiration pneumonitis, tracheostomy status with history of laryngeal cancer S * Telephone Encounter - Ginger Giron RN - 11/08/2023 8:58 AM EST Transitions of Care Note Reason for Referral:Recent Admission Phone visit for follow up: NELLY # 1 left message asking for a call back to discuss hospitalization, medications and to set up follow up appointment with Dr. Keita. Will attempt to call again tomorrow 11/08 Admitted to: [facility], Date: 11/04 Discharged to: Home with Self Care, Date: 11/07 Diagnosis driving hospitalization: Acute hypoxic respiratory failure, aspiration pneumonitis, tracheostomy status with history of laryngeal cancer documented in this encounter Plan of Treatment Upcoming Encounters Date Type Department Care Team (Late st Contact Info) Description 01/27/2024 9:20 AM EDT Office Visit General Internal Medicine [facility] [address] [place] [address] Tyron [facility] MD [address] [facility] [address] Health Maintenance Due Date Last Done Comments Depression Screening 05/02/2021 05/02/2020 TSH 06/10/2024 06/10/2023, 12/16, 08/04/2022, Additional history exists DTaP,Tdap,and Td Vaccines (3 - Td or Tdap) 12/29/2032 12/29/2022, 06/01/2012 Zoster Vaccines Completed 07/08/2020, 04/16, 02/22/2018 Cologuard Discontinued 03/05/2022, 02/14, 02/25/2022, Additional history exists Colorectal Cancer Screening Discontinued COVID-19 Vaccine Completed 07/14/2023, 02/2022, 01/14/2022, Additional history exists Influenza Vaccine (FLU shot) Completed 07/21/2023, 07/21/2022, 08/03/2021, Additional history exists Pneumococcal Vaccine: 65+ Years Completed 08/04/2023, 05/13/2015, 01/04/2013 Colonoscopy Discontinued Fecal Occult Blood Test Discontinued [...] filedocumented as of this encounter Care Teams Meter Readers Supervisor Relationship Specialty Start Date End Date Tyron Keita MD [address] [place] [address] PCP - General Internal Medicine 06/13/18 documented as of this encounter
--- OUTSIDE RECORDS SUMMARY | 2023-11-19 01:56 | External Medical Summary | Summary of Care ---
Author Name Unknown Organization [facility] Address [address] [facility] [place] [address] Phone [phone] Care Team Providers Care Phlebotomist Medical Lab Assistant Name Role Phone Tyron Keita MD Primary Care Provider + Reason for Visit * Reason Onset Date Comments Hospital Follow-Up 10/25/2023 NELLY Encounter Details Date Type Department Care Team (Late st Contact Info) Description 10/25/2023 Telephone Ancillary [facility] Damien Kaplan [address] [place], [place] [phone] Ginger Giron RN Hospital Follow-Up (NELLY) Allergies No known active allergiesdocumented as of this encounter (statuses as of 11/15/2023) Medications Medication Sig Dispensed Refills Start Date End Date Status gabapentin (NEURONTIN) 250 MG/5ML solution Administer 5 mL into PEG tube in the morning and 5 mL at noon and 5 mL before bedtime. 1 05/21/2018 Active nystatin 494941 UNIT/ML suspension Take 5 mL by mouth in the morning and 5 mL before bedtime. 0 05/21/2018 Active guaifenesin ER (HUMIBID LA) 600 MG TB12 Administer 1 Tablet into PEG tube 4 times a day as needed for Congestion. Crush into powder and mix with liquid. 0 Active Neosporin 500-51536 UNIT/GM External OintmentIndications :Skin lesion Apply topically to affected area. 0 11/03/2020 Active TwoCal HN Oral LiquidIndications:L aryngeal cancer (HCC),PEG (percutaneous endoscopic gastrostomy) status (HCC),Tracheostomy status (HCC) Take 5 cans via feeding tube daily 92440 mL 6 04/16/2021 Active Levothyroxine Sodium 137 MCG Oral Tablet take 1 tablet by mouth once daily AT LEAST 30 MINUTES PRIOR TO BREAKFAST/OTHER MEDS 90 Tablet 2 07/28/2023 Active traZODone HCl 50 MG Oral Tablet (Desyrel)Indication s:Chronic insomnia Take 1 Tablet by mouth at bedtime. 0 10/06/2023 Active documented as of this encounter (statuses as of 11/15/2023) Active Problems Problem Noted Date Diagnosed Date History of laryngeal cancer 11/03/2020 Acquired hypothyroidism 06/20/2020 Major depressive disorder wi th single episode, in full remission 05/02/2020 Chronic neck pain 05/02/2020 Diastolic dysfunction 10/05/2019 Tracheostomy status 06/13/2018 PEG (percutaneous endoscopic gastrostomy) status 06/13/2018 History of hypertension 06/13/2018 documented as of this encounter (statuses as of 11/15/2023) Resolved Problems Problem Noted Date Diagnosed Date Resolved Date ZARCO (dyspnea on exertion) 11/03/2020 Laryngeal cancer 10/17/2015 11/03/2020 documented as of this encounter (statuses as of 11/15/2023) Immunizations Name Administration Dates Next Due COVID-19 [...] Telephone Encounter - Ginger Giron RN - 10/25/2023 9:45 AM EST Transitions of Care Note Reason for Referral:Recent Admission Phone visit for follow up: NELLY #1 Left message asking patient to call me back to discuss recent hospitalization, medications and follow up appointments. Said if I did not hear from them today I wouldtry again tomorrow. 10/26. Admitted to: [facility], Date: 10/22/2023 Discharged to: Home with self care, Date: 10/24/2023 Diagnosis driving hospitalization: Shortness of breath-resolved following tracheoscopy, recent tony biopsy, tracheostomy status, PEG tube status documented in this encounter Plan of Treatment Upcoming Encounters Date Type Department Care Team (Late st Contact Info) Description 11/23/2023 11:20 AM EST Office Visit General Internal Medicine [facility] [place] [address] [facility] [place] [address] Tyron Keita MD [address] [facility] [address] [facility] [id number] 01/27/2024 9:20 AM EDT Office Visit General Internal Medicine [facility] [place] [address] [facility] [place] [address] Tyron Keita MD [address] [facility] [place] [address] Health Maintenance Due Date Last Done Comments [...] filedocumented as of this encounter Care Teams Phlebotomist Medical Lab Assistant Relationship Specialty Start Date End Date Tyron Keita MD [address] [place] [address] PCP - General Internal Medicine 06/13/18 documented as of this encounter
[2023-11-19] MEDS: LEVOTHYROXINE SODIUM 137 MCG TABLET PO SCH (05:35)
--- NOTE | 2023-11-19 07:38 | Communication Note ---
Date of Service: November 19, 2023 Last night code viviana was called as patient became unresponsive. Seems after MRI patient complained of sob coughing dark secretions/blood. Saturations d ropped into 40% despite multiple attempts to suction, patient was bagged via tracheostomy. Then patient became unresponsive with Heart rates dropping into 40's. Inner cannula was changed and large mucous plug noted obstructing tip.Patient soon became responsive and HR changed to SVT.Oxygen sats increased to 99% and then all vitals stabilized. Patient became alert and communicative. Daughter at that time called to see how her dad was doing and notified the episode to her. CTA chest and neck ordered which mostly showing secretions in upper trachea and possible tracheitis. Will consult pulmonary/ent.
[2023-11-19 07:43] LABS: Hematocrit (blood only) 34.8 % (42.0-52.0); Hemoglobin 11.2 g/dl (14.0-18.0); Mean Corpuscular Hemoglobin 28.1 pg (25.0-34.0); Mean Corpuscular Hgb Conc 32.2 g/dL (32.0-36.0); Mean Corpuscular Volume 87.2 fL (80.0-100.0); Mean Platelet Volume 9.1 fL (9.4-12.4); Platelet Count 308 K/uL (130-400); Red Blood Count 3.99 M/uL (4.70-6.10); White Blood Count 9.74 K/ul (4.8-10.8)
[2023-11-19 08:04] LABS: BUN Creatinine Ratio 28.9 (10-20); Calcium 8.9 mg/dl (8.6-10.3); Creatinine Clr Calc Pharmacy 74.7 ml/min; Est GFR (African American) 102.7 ml/min; Est GFR (Non-African American) 88.6 ml/min; Magnesium 2.2 mg/dl (1.7-2.4); Phosphorus 3.6 mg/dl (2.5-4.9); Potassium 4.3 mmol/L (3.5-5.1)
--- NOTE | 2023-11-19 08:16 | Pulmonary Consultation ---
Date of Consultation November 19, 2023 Assessment & Plan (1) Mucus plug in respiratory tract: Plan Impression: 78-year-old male with recent head and neck cancer and tracheostomy and PEG tube now with 2 events of what sounds like mucous plugging of his inner cannula. ENT has been consulted as well. He is currently doing fine. Recommendations: 1. Mucous plugging: Continue routine trach care. If there is difficulty oxygenating or ventilating the patient, would recommend initially removing the inner cannula to ensure that it is not clogged. Recommend using humidified oxygen to thin secretions. A trial of hypertonic saline nebs may also be beneficial if mucus production continues to be problematic. Would defer any changes to his trach to the otolaryngology team who placed the trach. Unclear if upsizing it might be beneficial. Continue humidified trach collar. Routine trach care per respiratory therapy 2. Questionable seizure: Management per primary service and neurology. Patient appears to be back at his baseline. Pulmonary will sign off at this point in time. Feel free to contact us with pulmonary questions or concerns History of Present Illness Attending Physician: Paige Bradford MD History of Present Illness Asked by hospitalist to assist in evaluation and management of tracheostomy issues. History is obtained from review of electronic medical record, discussion with the bedside nurse, and interviewed the patient. 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 He is followed in [place] by ENT. There apparently been some recent manipulation of the tracheostomy by the ENT although we do not have those notes available to review. The patient has had some shortness of breath issues since the change was made. Unclear if it was downsized. Patient was brought to the emergency room yesterday with shortness of breath. He apparently had some sort of an event in the emergency room resulting in what appeared to be tonic-clonic seizures. He was administered antiepileptic medications and admitted to the hospital. Earlier this morning the patient had another respiratory event which resolved with removing of the inner cannula. There was a plug attached to the inner cannula which was removed and the patient returned back to normal. He states he is breathing okay currently. He does report increasing shortness of breath since his prior trach manipulation. He is not wheezing or coughing. No fevers chills or night sweats. Palliative care consultation has been entered. He did complete CT scan with results noted below Allergies Allergy/AdvReac Type Severity Reaction Status Date / Time No Known Allergies Allergy Verified 11/04/23 22:31 Home Medications Medication Instructions Recorded Confirmed Type gabapentin 250 mg/5 mL oral 250 mg feeding tube TID 10/21/23 11/18/23 History solution levothyroxine 137 mcg tablet 137 mcg PO QAM 10/21/23 11/18/23 History nystatin 100,000 unit/mL oral 5 ml PO BID 10/21/23 11/18/23 History suspension sodium chloride 0.9 % for 3 ml inhalation DIRECTED 10/21/23 11/18/23 History nebulization atropine 1 % eye drops 2 drp PO BID 11/04/23 11/18/23 History guaifenesin 1,200 mg tablet, 1,200 mg PO BID 11/04/23 11/18/23 History extended release 12 hr (Mucinex) ipratropium 0.5 mg-albuterol 3 mg 3 ml inhalation QID 11/04/23 11/18/23 History (2.5 mg base)/3 mL nebulization soln oxycodone-acetaminophen 7.5 mg-325 1 tab feeding tube Q4H PRN Pain 11/04/23 11/18/23 History mg tablet dexamethasone 4 mg tablet 4 mg PO UD 11/18/23 11/18/23 History olanzapine 2.5 mg tablet 2.5 mg PO UD 11/18/23 11/18/23 History ondansetron 8 mg disintegrating 8 mg PO UD PRN n/v 11/18/23 11/18/23 History tablet prochlorperazine maleate 10 mg 10 mg PO UD 11/18/23 11/18/23 History tablet trazodone 50 mg tablet 50 mg PO UD 11/18/23 11/18/23 History Patient History Medical History (Updated 11/19/23 @ 08:33 by Shant Sexton MD) Aspiration pneumonia 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 Bowers - stage pT3N2c with extranodal extension Status post completion of combined radiation and chemotherapy. Radiation completed 04/21/2017. He received 6600 cGy. Chemotherapy comprised of weekly cisplatin." On 02/01/17 18:09 Gideon Thompson wrote "-Self palpated right neck mass - November 2016 -Ultrasound-guided FNA of right neck mass - 12/10/2016 - positive for squamous cell carcinoma -PET/CT scan - 12/22/2016 -Supraglottic hemilaryngectomy, bilateral neck dissection - 01/05/2017 - Dr. Bowers - stage pT3N2c with extranodal extension" Social History Smoking Status: Former smoker Tobacco Type: Cigarettes Smoking End Date: 1993; Second Hand Exposure: No; Do You Dip or Chew Tobacco: No; Tobacco Cessation Education Requested by Patient: No Hx Alcohol Use: Yes Hx Substance Use: No Preferred Language: Latvian Communication Ability: Effective Field Care Manager Required: No Beliefs That Will Affect Care: None Current Living Situation: Family Current Living Situation Comment: home with daughter Other Information That Helps Us Care for You: No Feels Safe at Home: Yes Safety Concerns: Feels Safe At This Time Assistive Devices: Glasses Review of Systems Review of Systems: Please refer to admission H&P. No additions or deletions Physical Exam Physical Exam: Lying in bed with minimal respiratory distress Constitutional: average body habitus Eyes: PERRL, conjunctivae normal, anicteric sclerae ENMT: external ear and nose normal, oropharynx normal Neck: trachea midline, no thyromegaly (Tracheostomy site remains intact without any infection and no drainage) Respiratory: no respiratory distress (Minimal respiratory distress at rest), no labored breathing, no cough and not tachypneic Auscultation: + diminished lung sounds and + crackles (Minimal crackles bilaterally) Cardiovascular: Rate/Rhythm: regular rate and regular rhythm; not tachycardic Heart Sounds: normal S1 and normal S2; no murmur Extremities: no edema Gastrointestinal (Abdomen): Inspection/Auscultation: normal bowel sounds; abdomen not distended Percussion/Palpation: + abdomen tender and abdomen soft Musculoskeletal: No acute arthritis involving any of the joint Neurologic: normal touch/pain/proprioception and moves all extremities; no focal motor deficits Lymphatic: no cervical or axillary lymphadenopathy Results & Data Results & Data Vital Signs (Past 12 Hours) Vital Signs Temp Pulse Pulse Resp BP BP Pulse Ox 11/19/23 07:25 36.1 C L 70 15 115/75 97 11/19/23 03:36 36.4 C L 76 18 110/66 93 11/19/23 01:21 107/66 94 11/19/23 00:18 97/65 L 11/18/23 23:33 36.4 C L 80 17 90/62 L 94 11/18/23 22:20 101 H O2 Del Method O2 Flow Rate 11/19/23 07:25 Trach Collar 8 11/19/23 03:36 Trach Collar 6 11/19/23 01:21 Trach Collar 6 11/19/23 00:18 11/18/23 23:33 Trach Collar 6 11/18/23 22:20 Critical Care Results & Data Vital Signs (Past 12 Hours) Vital Signs Temp Pulse Pulse Resp BP BP Pulse Ox 11/19/23 07:25 36.1 C L 70 15 115/75 97 11/19/23 03:36 36.4 C L 76 18 110/66 93 11/19/23 01:21 107/66 94 11/19/23 00:18 97/65 L 11/18/23 23:33 36.4 C L 80 17 90/62 L 94 11/18/23 22:20 101 H O2 Del Method O2 Flow Rate 11/19/23 07:25 Trach Collar 8 11/19/23 03:36 Trach Collar 6 11/19/23 01:21 Trach Collar 6 11/19/23 00:18 11/18/23 23:33 Trach Collar 6 11/18/23 22:20 Lab & Micro Results (Past 24 Hours) RBC 3.99 M/uL (4.70-6.10) L 11/19/23 WBC 9.74 K/ul (4.8-10.8) 11/19/23 Hgb 11.2 g/dl (14.0-18.0) L 11/19/23 Hct 34.8 % (42.0-52.0) L 11/19/23 MCV 87.2 fL (80.0-100.0) 11/19/23 MCH 28.1 pg (25.0-34.0) 11/19/23 MCHC 32.2 g/dL (32.0-36.0) 11/19/23 RDW Standard Deviation 41.0 fL (36.4-46.3) 11/19/23 RDW Coefficient of Variation 13.0 % (11.5-14.5) 11/19/23 Plt Count 308 K/uL (130-400) 11/19/23 MPV 9.1 fL (9.4-12.4) L 11/19/23 Neutrophils (%) (Auto) 78.2 % 11/18/23 Lymphocytes (%) (Auto) 9.2 % 11/18/23 Monocytes # (Auto) 0.87 K/uL (0.11-0.59) H 11/18/23 Eosinophils # (Auto) 0.03 K/uL (0.00-0.50) 11/18/23 Immature Granulocyte % (Auto) 0.9 % 11/18/23 Neutrophils # (Auto) 6.28 K/uL (1.40-6.50) 11/18/23 Lymphocytes # (Auto) 0.74 K/uL (1.20-3.40) L 11/18/23 Monocytes # (Auto) 0.87 K/uL (0.11-0.59) H 11/18/23 Eosinophils # (Auto) 0.03 K/uL (0.00-0.50) 11/18/23 Basophils # (Auto) 0.04 K/uL (0.00-0.20) 11/18/23 Immature Granulocyte # (Auto) 0.07 K/uL (0.01-0.20) 4 Na 134 mmol/L (136-145) L 11/19/23 K 4.3 mmol/L (3.5-5.1) 11/19/23 Cl 96 mmol/L (98-107) L 11/19/23 CO2 30 mmol/L (21-32) 11/19/23 Anion Gap 8 (3-11) 11/19/23 BUN 22 mg/dl (6-23) 11/19/23 Creatinine 0.76 mg/dl (0.6-1.4) 11/19/23 Estimated GFR ( Amer) 102.7 ml/min 11/19/23 Estimated GFR (Non-Af Amer) 88.6 ml/min 11/19/23 BUN/Creatinine Ratio 28.9 (10-20) H 11/19/23 Glu 100 mg/dl (70-99(Fasting)) H 11/19/23 Ca 8.9 mg/dl (8.6-10.3) 11/19/23 Phosphorus Level 3.6 mg/dl (2.5-4.9) 11/19/23 Total Bilirubin 0.4 mg/dl (0.2-1.0) 11/18/23 AST 25 U/L (13-39) 11/18/23 ALT 26 U/L (7-52) 11/18/23 Alkaline Phosphatase 77 U/L (34-104) 11/18/23 TP 6.9 gm/dl (6.0-8.3) 11/18/23 Albumin 3.5 gm/dl (3.4-5.0) 11/18/23 Globulin 3.4 gm/dl (2.5-4.0) 11/18/23 Albumin/Globulin Ratio 1.0 (0.9-2) 11/18/23 Mg 2.2 mg/dl (1.7-2.4) 11/19/23 07:11 Calcium Level 8.9 mg/dl (8.6-10.3) 11/19/23 07:11 Prothromb Time International Ratio 1.0 (0.9-1.1) 11/18/23 12:3 2 Diagnostic Findings (Past 24 Hours) Chest X-Ray 11/18/23 12:17 XR chest 1V portable HISTORY: Dyspnea COMPARISON: Chest 11/04/2023. FINDINGS: No pneumothorax. No pleural effusions. The heart is normal in size. There are calcifications within the aortic knob. A tracheostomy tube is in good position. The left lung is clear. There are few linear densities within the right medial lung base. No evidence for pulmonary edema. IMPRESSION: 1. Small linear densities within the right medial lung base. This is nonspecific and could represent subsegmental atelectasis or a pneumonitis. 2. The tracheostomy tube is in good position. ACT 112: Negative or not required by law. Electronically signed by: Chaarnjit Resendiz M.D. 11/18/2023 1:[address] 11/18/23 15:46 CT SCAN OF THE BRAIN WITHOUT IV CONTRAST CLINICAL HISTORY: Seizure. COMPARISON STUDY: CT of the neck dated 05/28/2020. PET/CT dated 11/09/2023. TECHNIQUE: Unenhanced axial CT scan of the brain is performed from the vertex to the skull base. A dose lowering technique was utilized adhering to the principles of ALARA. CT DOSE: 625.8 mGy.cm FINDINGS: Brain parenchyma: There is age-related involutional change noting mild subcortical and periventricular microangiopathic disease. There is no hemorrhage, mass effect, or evidence of acute territorial ischemia by CT criteria. Graff-white matter differentiation is preserved. No extra-axial fluid collection is seen. Ventricles, sulci, cisterns: Hydrocephalus is again noted. Intracranial vasculature: There is atherosclerotic calcification of the cavernous carotid arteries. Calvarium: Sclerotic change in the clivus is again noted. The calvarium appears intact. Sinuses and mastoids: The visualized paranasal sinuses are clear. There is a large left mastoid effusion. The right mastoid air cells are well pneumatized. Orbits: The bony orbits are grossly intact. IMPRESSION: 1. There is no hemorrhage, mass effect, or evidence of acute territorial ischemia by CT criteria. 2. Hydrocephalus is unchanged. ACT 112: Negative or not required by law. Electronically signed by: Maxime Zhang M.D. 11/18/2023 4:37 PM Brain MRI 11/18/23 19:04 Exam(s): MRI HEAD Without Contrast EXAM: MR Head Without Intravenous Contrast CLINICAL HISTORY: Reason for exam: new onset seizure. TECHNIQUE: Magnetic resonance images of the head/brain without intravenous contrast in multiple planes. COMPARISON: Comparison made to prior noncontrast head CT from September 17, 2024. FINDINGS: Brain: Mild nonspecific white matter changes. No mass. No hemorrhage. No acute infarct. Ventricles: Motor function lately. Bones/joints: Unremarkable. No acute fracture. Sinuses: Unremarkable as visualized. No acute sinusitis. Mastoid air cells: Unremarkable as visualized. No mastoid effusion. Orbits: Unremarkable as visualized. IMPRESSION: No evidence of acute intracranial pathology. Electronically signed by: Coni Christine MD 11/19/23 01:08 AM Neck CTA 11/18/23 22:36 Exam(s): CTA NECK With Contrast IV Amt: 116 cc's optiray 320 EXAM: CT Angiography Neck With Intravenous Contrast CLINICAL HISTORY: Reason for exam: bleeding from trach. TECHNIQUE: Routine carotid CT angiography protocol was performed with intravenous contrast. NASCET criteria using the distal ICAs for comparison were used for evaluation of stenoses. CTDI is 13.46 mGy and DLP is 677.1 mGy-cm. Automated exposure control was utilized for the study. A dose lowering technique was utilized adhering to the principles of ALARA. MIP reconstructed images were created and reviewed. CONTRAST: Patient received 116 cc's optiray 320 of IV contrast COMPARISON: CT neck on 05/28/2020 FINDINGS: VASCULATURE: Right common carotid artery: Unremarkable. No occlusion or significant stenosis. No dissection. Right internal carotid artery: Mild atherosclerotic calcification in the right carotid bulb and proximal right ICA. No significant stenosis. Mild atherosclerotic calcifications in the distal right ICA. No dissection. Right external carotid artery: Unremarkable. No occlusion. Right vertebral artery: Unremarkable. No occlusion or significant stenosis. No dissection. Left common carotid artery: Unremarkable. No occlusion or significant stenosis. No dissection. Left internal carotid artery: Atherosclerotic calcifications in the left carotid bulb and proximal left ICA. No significant stenosis. Mild atherosclerotic calcifications in the distal left ICA. No dissection. Left external carotid artery: Unremarkable. No occlusion. Left vertebral artery: Unremarkable. No occlusion or significant stenosis. No dissection. NECK: Bones/joints: Degenerative changes of the spine. Mild reversal of the normal cervical lordosis. No acute fracture. Soft tissues: Unremarkable. Trachea: Secretions in the upper trachea above the thoracic inlet. Prominence of the wall of the trachea is concerning for tracheitis. Lung apices: Clear. Tubes, lines and devices: Tracheostomy tube terminates in the mid thoracic trachea. Other findings: No evidence of active bleeding. Please see accompanying CT chest for further details. CAROTID STENOSIS REFERENCE USING NASCET CRITERIA: % ICA stenosis = (1 - narrowest ICA diameter/diameter of distal cervical ICA) x 100. Mild - <50% stenosis. Moderate - 50-69% stenosis. Severe - 70-94% stenosis. Near occlusion - 95-99% stenosis. Occluded - 100% stenosis. IMPRESSION: 1. Secretions in the upper trachea above the thoracic inlet. Prominence of the wall of the trachea is concerning for tracheitis. 2. No evidence of active bleeding. Electronically signed by: Bijan Denney M.D. 11/19/23 00:52 AM Chest CTA 11/18/23 22:38 Exam(s): CTA CHEST With Contrast IV Amt: 116 cc's optiray 320 EXAM: CT Angiography Chest With Intravenous Contrast CLINICAL HISTORY: Reason for exam: bleeding from trach. TECHNIQUE: Axial computed tomographic angiography images of the chest with intravenous contrast. CTDI is 27.07 mGy and DLP is 677.1 mGy-cm. Automated exposure control was utilized for the study. A dose lowering technique was utilized adhering to the principles of ALARA. MIP reconstructed images were created and reviewed. CONTRAST: Patient received 116 cc's optiray 320 of IV contrast COMPARISON: None FINDINGS: Pulmonary arteries: Unremarkable. No definite pulmonary embolus identified, but evaluation of the distal pulmonary arterial branches is limited by motion artifact. Aorta: Mild atherosclerotic changes of the aorta. No aortic aneurysm or dissection. Lungs: Mucous impactions in some of the lower lobe bronchi. No mass. No consolidation. Pleural space: Unremarkable. No significant effusion. No pneumothorax. Heart: Unremarkable. No cardiomegaly. No significant pericardial effusion. No evidence of RV dysfunction. Mediastinum: Mild prominence of the wall of the esophagus may represent esophagitis. Bones/joints: Mild degenerative changes of the spine. No acute fracture. No dislocation. Soft tissues: Unremarkable. Lymph nodes: Unremarkable. No enlarged lymph nodes. Spleen: Small splenule. Adrenals: Nonspecific mild thickening of the adrenal glands. Tubes, lines and devices: Tracheostomy tube terminates in the mid thoracic trachea. The trachea appears to be mildly thick walled. Question tracheitis. G-tube in place. Other findings: Scattered reticulonodular densities, concerning for infectious/inflammatory process. IMPRESSION: 1. No definite pulmonary embolus identified, but evaluation of the distal pulmonary arterial branches is limited by motion artifact. 2. Tracheostomy tube terminates in the mid thoracic trachea. The trachea appears to be mildly thick walled. Question tracheitis. 3. Mild prominence of the wall of the esophagus may represent esophagitis. 4. Mild atherosclerotic changes of the aorta. No aortic aneurysm or dissection. 5. Scattered reticulonodular densities, concerning for infectious/inflammatory process. Electronically signed by: Bijan Denney M.D. 11/19/23 00:49 AM I & O Totals 24 Hours 11/18/23 11/19/23 11/20/23 06:59 06:59 06:59 Intake Total 110 / 110 Output Total 400 / 400 Balance -290 / -290 Cumulative 11/18/23 12:00 thru 11/19/23 03:37 Intake Total 110 Output Total 400 Balance -290 RT Ventilator Mngmt (Last Documented) Ventilator Ordered Settings Respiratory Rate 15 11/19/23 07:25 Fraction of Inspired Oxygen 28 11/18/23 18:38 Ventilator - PT Measurements Respiratory Rate 15 PG Care Time/CCT Total # of Minutes Spent Total Time Spent with Patient: Total time spent is greater than 50% in coordination of care (as documented) at patient's floor/unit and/or counseling patient: Coding Level of Care Code 70585 INT INP/OBS CARE 2/55MIN Diagnoses Mucus plug in respiratory tract T17.998A
[2023-11-19] MEDS: oxyCODONE/APAP 7.5/325MG TAB PO PRN (08:46)
[2023-11-19] MEDS ORDERED: TUBE FEEDING WATER FLUSH GT SCH (11:45)
[2023-11-19] MEDS: HYDROmorphone INJ 0.5 MG/0.5 ML SYR IV PRN (11:47)
[2023-11-19] MEDS: ATROPINE SULFATE 1% OP SOLN 5 ML BTL PO SCH (12:00)
--- NOTE | 2023-11-19 12:25 | Neurology Consultation ---
Date of Consultation November 19, 2023 Assessment & Plan (1) New onset seizure: Reported new onset seizure possibly secondary to hypoxia from mucus plug in setting of hx of neoplasm Recommend continue levetiracetam 500mg Q12 Continue seizure precautions Utilize benzodiazepines emergently for breakthrough clinical seizure like activity Recommend obtain EEG Recommend obtain MRI brain with contrast to evaluate for metastatic lesions Continue metabolic workup Continue to monitor renal and hepatic function Monitor electrolytes closely and keep euvolemic VTE prophylaxis during hospitalization Telehealth Consultation Telehealth Information Telehealth Information: I performed this visit using a real-time telehealth connection between my location and the patients location ([facility]). After connecting through interactive tele-video, patient was identified by name and date of and/or wristband check.Patient (or authorized healthcare life assurance representative) was informed that this was a telemedicine visit and it was being conducted confidentially over secure lines. My office door was closed and no one else was present in the room with me.Patient (or authorized healthcare life assurance representative) provided consent to proceed with the visit, expressed an understanding of privacy and security of the telemedicine visit, and gave permission to have a hospital life assurance representative in the room in order to assist with the visit and to conduct portions of the visit, as needed. I informed the patient (or authorized healthcare life assurance representative) that I reviewed their record and presented the opportunity for them to ask any questions regarding the visit today. The patient agreed to participate. History of Present Illness Reason for Consultation: Seizure Requesting Physician: Dr. Bradford Attending Physician: Paige Bradford MD History of Present Illness 78yo male presented to the ER due to difficulty breathing but reportedly suffered seizure while in the ER. 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 He was reportedly stabilized while in the ER and was planned for DC. unfortunately became acutely SOB/hypoxic and family at bedside reportedly witness him in acute distress begin to flail extremities and they state his eyes "rolled to back of his head". I have confirmed reportedly witness to have gazed superiorly and without tongue biting or loss of bowels or bladder. No reported stiffness of extremities. He was given levetiracetam. He remains on 500mg Q12 and family at bedside now report he is back to baseline. he is able to shake head yes/no, give me thumbs up and thumbs down. Affect appears apprpriate without evidence of acute distress or discomfort. He is able to move all extremities spontaneously and antigravity without evidence of asymmetry. He has undergone MRI brain without contrast revealing no evidence of acute intracranial abnormality. He is pending pulmonary consultation and continue workup in regard to concern of seizure. Family at bedside- Son and Daughter- helpful as historian; all questions answered. Allergies Allergy/AdvReac Type Severity Reaction Status Date / Time No Known Allergies Allergy Verified 11/04/23 22:31 Home Medications Medication Instructions Recorded Confirmed Type gabapentin 250 mg/5 mL oral 250 mg feeding tube TID 10/21/23 11/18/23 History solution levothyroxine 137 mcg tablet 137 mcg PO QAM 10/21/23 11/18/23 History nystatin 100,000 unit/mL oral 5 ml PO BID 10/21/23 11/18/23 History suspension sodium chloride 0.9 % for 3 ml inhalation DIRECTED 10/21/23 11/18/23 History nebulization atropine 1 % eye drops 2 drp PO BID 11/04/23 11/18/23 History guaifenesin 1,200 mg tablet, 1,200 mg PO BID 11/04/23 11/18/23 History extended release 12 hr (Mucinex) ipratropium 0.5 mg-albuterol 3 mg 3 ml inhalation QID 11/04/23 11/18/23 History (2.5 mg base)/3 mL nebulization soln oxycodone-acetaminophen 7.5 mg-325 1 tab feeding tube Q4H PRN Pain 11/04/23 11/18/23 History mg tablet dexamethasone 4 mg tablet 4 mg PO UD 11/18/23 11/18/23 History olanzapine 2.5 mg tablet 2.5 mg PO UD 11/18/23 11/18/23 History ondansetron 8 mg disintegrating 8 mg PO UD PRN n/v 11/18/23 11/18/23 History tablet prochlorperazine maleate 10 mg 10 mg PO UD 11/18/23 11/18/23 History tablet trazodone 50 mg tablet 50 mg PO UD 11/18/23 11/18/23 History Patient History Medical History (Updated 11/19/23 @ 08:33 by Shant Sexton MD) Aspiration pneumonia 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 Bowers - stage pT3N2c with extranodal extension Status post completion of combined radiation and chemotherapy. Radiation completed 04/21/2017. He received 6600 cGy. Chemotherapy comprised of weekly cisplatin." On 02/01/17 18:09 Gideon Thompson wrote "-Self palpated right neck mass - November 2016 -Ultrasound-guided FNA of right neck mass - 12/10/2016 - positive for squamous cell carcinoma -PET/CT scan - 12/22/2016 -Supraglottic hemilaryngectomy, bilateral neck dissection - 01/05/2017 - Dr. Bowers - stage pT3N2c with extranodal extension" Social History Smoking Status: Former smoker Tobacco Type: Cigarettes Smoking End Date: 1993; Second Hand Exposure: No; Do You Dip or Chew Tobacco: No; Tobacco Cessation Education Requested by Patient: No Hx Alcohol Use: Yes Hx Substance Use: No Preferred Language: Estonian Communication Ability: Effective Return To Factory Clerk Required: No Beliefs That Will Affect Care: None Current Living Situation: Family Current Living Situation Comment: home with daughter Other Information That Helps Us Care for You: No Feels Safe at Home: Yes Safety Concerns: Feels Safe At This Time Assistive Devices: Other Physical Exam Neurological Examination: Mental Status: Awake and alert. Able to communicate shaking head yes no and thumbs up thumbs down Affect appears appropriate. No apparent distress or discomfort CN testing: I: Difficult to reliably assess II:Reports no changes in visual acuity III/IV/: No evidence of gaze preference, hippus, nystagmus or roving eye movements V: Facial sensation is difficult to reliably assess VII: Facial movements appear without evidence of asymmetry VIII: Hearing appears grossly intact to loud voice bilaterally IX/X: Unable to accurately assess XI: Shoulder shrug appears symmetric/ grossly intact bilaterally XII: Tongue protrudes midline without evidence of biting Motor exam: Strength appears grossly intact/symmetric in all extremities Sensory: Difficult to reliably assess Coordination: Deferred Reflexes: Deferred Gait: Deferred Results & Data Vital Signs (Past 12 Hours) Vital Signs Temp Pulse Pulse Resp BP BP Pulse Ox 11/19/23 11:32 36.5 C 76 17 112/67 89 L 11/19/23 07:25 36.1 C L 70 15 115/75 97 11/19/23 03:36 36.4 C L 76 18 110/66 93 11/19/23 01:21 107/66 94 O2 Del Method O2 Flow Rate 11/19/23 11:32 Room Air 11/19/23 07:25 Trach Collar 8 11/19/23 03:36 Trach Collar 6 11/19/23 01:21 Trach Collar 6 Laboratory Results Abnormal lab results 11/18/23 11/19/23 Range/Units 12:32 07:11 RBC 4.26 L 3.99 L (4.70-6.10) M/uL Hgb 12.1 L 11.2 L (14.0-18.0) g/dl Hct 37.2 L 34.8 L (42.0-52.0) % MPV 9.1 L 9.1 L (9.4-12.4) fL Lymph # (Auto) 0.74 L (1.20-3.40) K/uL Callahan # (Auto) 0.87 H (0.11-0.59) K/uL Sodium 131 L 134 L (136-145) mmol/L Chloride 94 L 96 L (98-107) mmol/L BUN 24 H (6-23) mg/dl BUN/Creatinine Ratio 31.2 H 28.9 H (10-20) Glucose 156 H 100 H (70-99(Fasting)) mg/dl Iron 241 H (35-175) mcg/dl Diagnostic Findings Chest X-Ray 11/18/23 12:17 XR chest 1V portable HISTORY: Dyspnea COMPARISON: Chest 11/04/2023. FINDINGS: No pneumothorax. No pleural effusions. The heart is normal in size. There are calcifications within the aortic knob. A tracheostomy tube is in good position. The left lung is clear. There are few linear densities within the right medial lung base. No evidence for pulmonary edema. IMPRESSION: 1. Small linear densities within the right medial lung base. This is nonspecific and could represent subsegmental atelectasis or a pneumonitis. 2. The tracheostomy tube is in good position. ACT 112: Negative or not required by law. Electronically signed by: Charanjit Resendiz M.D. 11/18/2023 1:[address] 11/18/23 15:46 CT SCAN OF THE BRAIN WITHOUT IV CONTRAST CLINICAL HISTORY: Seizure. COMPARISON STUDY: CT of the neck dated 05/28/2020. PET/CT dated 11/09/2023. TECHNIQUE: Unenhanced axial CT scan of the brain is performed from the vertex to the skull base. A dose lowering technique was utilized adhering to the princip les of HORTENSIA. CT DOSE: 625.8 mGy.cm FINDINGS: Brain parenchyma: There is age-related involutional change noting mild subcortical and periventricular microangiopathic disease. There is no hemorr anabel, mass effect, or evidence of acute territorial ischemia by CT criteria. Graff-white matter differentiation is preserved. No extra-axial fluid collection is seen. Ventricles, sulci, cisterns: Hydrocephalus is again noted. Intracranial vasculature: There is atherosclerotic calcification of the cavernous carotid arteries. Calvarium: Sclerotic change in the clivus is again noted. The calvarium appears intact. Sinuses and mastoids: The visualized paranasal sinuses are clear. There is a large left mastoid effusion. The right mastoid air cells are well pneumatized. Orbits: The bony orbits are grossly intact. IMPRESSION: 1. There is no hemorrhage, mass effect, or evidence of acute territorial ischemia by CT criteria. 2. Hydrocephalus is unchanged. ACT 112: Negative or not required by law. Electronically signed by: Maxime Zhang M.D. 11/18/2023 4:37 PM Brain MRI 11/18/23 19:04 Exam(s): MRI HEAD Without Contrast EXAM: MR Head Without Intravenous Contrast CLINICAL HISTORY: Reason for exam: new onset seizure. TECHNIQUE: Magnetic resonance images of the head/brain without intravenous contrast in multiple planes. COMPARISON: Comparison made to prior noncontrast head CT from September 17, 2024. FINDINGS: Brain: Mild nonspecific white matter changes. No mass. No hemorrhage. No acute infarct. Ventricles: Motor function lately. Bones/joints: Unremarkable. No acute fracture. Sinuses: Unremarkable as visualized. No acute sinusitis. Mastoid air cells: Unremarkable as visualized. No mastoid effusion. Orbits: Unremarkable as visualized. IMPRESSION: No evidence of acute intracranial pathology. Electronically signed by: Coni Christine MD 11/19/23 01:08 AM Neck CTA 11/18/23 22:36 Exam(s): CTA NECK With Contrast IV Amt: 116 cc's optiray 320 EXAM: CT Angiography Neck With Intravenous Contrast CLINICAL HISTORY: Reason for exam: bleeding from trach. TECHNIQUE: Routine carotid CT angiography protocol was performed with intravenous contrast. NASCET criteria using the distal ICAs for comparison were used for evaluation of stenoses. CTDI is 13.46 mGy and DLP is 677.1 mGy-cm. Automated exposure control was utilized for the study. A dose lowering technique was utilized adhering to the principles of ALARA. MIP reconstructed images were created and reviewed. CONTRAST: Patient received 116 cc's optiray 320 of IV contrast COMPARISON: CT neck on 05/28/2020 FINDINGS: VASCULATURE: Right common carotid artery: Unremarkable. No occlusion or significant stenosis. No dissection. Right internal carotid artery: Mild atherosclerotic calcification in the right carotid bulb and proximal right ICA. No significant stenosis. Mild atherosclerotic calcifications in the distal right ICA. No dissection. Right external carotid artery: Unremarkable. No occlusion. Right vertebral artery: Unremarkable. No occlusion or significant stenosis. No dissection. Left common carotid artery: Unremarkable. No occlusion or significant stenosis. No dissection. Left internal carotid artery: Atherosclerotic calcifications in the left carotid bulb and proximal left ICA. No significant stenosis. Mild atherosclerotic calcifications in the distal left ICA. No dissection. Left external carotid artery: Unremarkable. No occlusion. Left vertebral artery: Unremarkable. No occlusion or significant stenosis. No dissection. NECK: Bones/joints: Degenerative changes of the spine. Mild reversal of the normal cervical lordosis. No acute fracture. Soft tissues: Unremarkable. Trachea: Secretions in the upper trachea above the thoracic inlet. Prominence of the wall of the trachea is concerning for tracheitis. Lung apices: Clear. Tubes, lines and devices: Tracheostomy tube terminates in the mid thoracic trachea. Other findings: No evidence of active bleeding. Please see accompanying CT chest for further details. CAROTID STENOSIS REFERENCE USING NASCET CRITERIA: % ICA stenosis = (1 - narrowest ICA diameter/diameter of distal cervical ICA) x 100. Mild - <50% stenosis. Moderate - 50-69% stenosis. Severe - 70-94% stenosis. Near occlusion - 95-99% stenosis. Occluded - 100% stenosis. IMPRESSION: 1. Secretions in the upper trachea above the thoracic inlet. Prominence of the wall of the trachea is concerning for tracheitis. 2. No evidence of active bleeding. Electronically signed by: Bijan Denney M.D. 11/19/23 00:52 AM Chest CTA 11/18/23 22:38 Exam(s): CTA CHEST With Contrast IV Amt: 116 cc's optiray 320 EXAM: CT Angiography Chest With Intravenous Contrast CLINICAL HISTORY: Reason for exam: bleeding from trach. TECHNIQUE: Axial computed tomographic angiography images of the chest with intravenous contrast. CTDI is 27.07 mGy and DLP is 677.1 mGy-cm. Automated exposure control was utilized for the study. A dose lowering technique was utilized adhering to the principles of ALARA. MIP reconstructed images were created and reviewed. CONTRAST: Patient received 116 cc's optiray 320 of IV contrast COMPARISON: None FINDINGS: Pulmonary arteries: Unremarkable. No definite pulmonary embolus identified, but evaluation of the distal pulmonary arterial branches is limited by motion artifact. Aorta: Mild atherosclerotic changes of the aorta. No aortic aneurysm or dissection. Lungs: Mucous impactions in some of the lower lobe bronchi. No mass. No consolidation. Pleural space: Unremarkable. No significant effusion. No pneumothorax. Heart: Unremarkable. No cardiomegaly. No significant pericardial effusion. No evidence of RV dysfunction. Mediastinum: Mild prominence of the wall of the esophagus may represent esophagitis. Bones/joints: Mild degenerative changes of the spine. No acute fracture. No dislocation. Soft tissues: Unremarkable. Lymph nodes: Unremarkable. No enlarged lymph nodes. Spleen: Small splenule. Adrenals: Nonspecific mild thickening of the adrenal glands. Tubes, lines and devices: Tracheostomy tube terminates in the mid thoracic trachea. The trachea appears to be mildly thick walled. Question tracheitis. G-tube in place. Other findings: Scattered reticulonodular densities, concerning for infectious/inflammatory process. IMPRESSION: 1. No definite pulmonary embolus identified, but evaluation of the distal pulmonary arterial branches is limited by motion artifact. 2. Tracheostomy tube terminates in the mid thoracic trachea. The trachea appears to be mildly thick walled. Question tracheitis. 3. Mild prominence of the wall of the esophagus may represent esophagitis. 4. Mild atherosclerotic changes of the aorta. No aortic aneurysm or dissection. 5. Scattered reticulonodular densities, concerning for infectious/inflammatory process. Electronically signed by: Bijan Denney M.D. 11/19/23 00:49 AM Medications Administered Home Medications Medication Instructions Recorded Confirmed Last Taken gabapentin 250 mg/5 mL oral 250 mg feeding tube TID 10/21/23 11/18/23 11/04/23 solution levothyroxine 137 mcg tablet 137 mcg PO QAM 10/21/23 11/18/23 11/04/23 nystatin 100,000 unit/mL oral 5 ml PO BID 10/21/23 11/18/23 11/04/23 suspension sodium chloride 0.9 % for 3 ml inhalation DIRECTED 10/21/23 11/18/23 11/04/23 nebulization atropine 1 % eye drops 2 drp PO BID 11/04/23 11/18/23 11/04/23 guaifenesin 1,200 mg tablet, 1,200 mg PO BID 11/04/23 11/18/23 11/04/23 extended release 12 hr (Mucinex) ipratropium 0.5 mg-albuterol 3 mg 3 ml inhalation QID 11/04/23 11/18/23 11/04/23 (2.5 mg base)/3 mL nebulization soln oxycodone-acetaminophen 7.5 mg-325 1 tab feeding tube Q4H PRN Pain 11/04/23 11/18/23 Unknown mg tablet dexamethasone 4 mg tablet 4 mg PO UD 11/18/23 11/18/23 Unknown olanzapine 2.5 mg tablet 2.5 mg PO UD 11/18/23 11/18/23 Unknown ondansetron 8 mg disintegrating 8 mg PO UD PRN n/v 11/18/23 11/18/23 Unknown tablet prochlorperazine maleate 10 mg 10 mg PO UD 11/18/23 11/18/23 Unknown tablet trazodone 50 mg tablet 50 mg PO UD 11/18/23 11/18/23 Unknown Active Medications Generic Name Dose Route Start Last Admin Trade Name Freq PRN Reason Stop Dose Admin Atropine Sulfate 2 drops 11/19/23 10:45 11/19/23 12:00 Atropine Sulfate 1% Op Soln 5 Ml Btl PO 12/19/23 10:44 2 drops BID GURVINDER Administration Enoxaparin Sodium 40 mg 11/18/23 19:30 11/18/23 20:49 Enoxaparin Inj 40 Mg/0.4 Ml Syr SQ 12/18/23 19:29 40 mg Q24H GURVINDER Administration Gabapentin 250 mg 11/18/23 21:00 11/19/23 10:43 Gabapentin 250 Mg/5 Ml 470 Ml Btl GT 12/18/23 20:59 250 mg TID GURVINDER Administration Guaifenesin 200 mg 11/18/23 21:00 11/19/23 08:46 Guaifenesin Sugar Free 200 Mg/10 Ml Udc PO 12/18/23 20:59 200 mg BID GURVINDER Administration Hydromorphone HCl 0.25 mg 11/19/23 11:10 11/19/23 11:47 Hydromorphone Inj 0.5 Mg/0.5 Ml Syr IV 12/03/23 11:09 0.25 mg Q6H PRN Administration Pain Levetiracetam 500 mg 11/19/23 09:00 11/19/23 08:46 Levetiracetam Soln 500 Mg/5 Ml Udp PEG 12/19/23 08:59 500 mg Q12H GURVINDER Administration Levothyroxine Sodium 137 mcg 11/19/23 06:30 11/19/23 05:35 Levothyroxine Sodium 137 Mcg Tablet PO 12/19/23 06:29 137 mcg DAILYBB GURVINDER Administration Nutritional Formula 240 ml 11/18/23 20:00 11/19/23 10:44 Nutren Liqd 2.0 1,000 Ml Bag PEG 12/18/23 19:59 240 ml 0700,1000,1300,1600 GURVINDER Administration Protocol Oxycodone/Acetaminophen 1 tab 11/18/23 20:08 11/19/23 08:46 Oxycodone/Apap 7.5/325mg Tab PO 12/02/23 20:07 1 tab Q4H PRN Administration Pain
[2023-11-19] MEDS: GADOBUTROL 65ML VIAL IV ONE (15:10)
--- NOTE | 2023-11-19 15:33 | Magnetic Resonance Report ---
MR brain wo/w con HISTORY: 78 years-old Male R/O Mets acute headache. Screening study in a patient with possible intra cranial metastasis COMPARISON: Brain MRI November 18, 2023, PET/CT 11/09/2023 TECHNIQUE: Multiplanar multisequence MRI of the brain was obtained both with and without the use of I V contrast. FINDINGS: Midline structures appear unremarkable. Partially empty sella. No restricted diffusion to suggest acu te or subacute infarct. Study is motion degraded. No acute intracranial hemorrhage, midline shift, ac eek extra-axial collection or intra-axial mass. Involutional changes with moderate dilation of the ve ntricles. Moderate scattered T2/FLAIR hyperintense foci throughout the white matter. Unchanged focus which follows CSF signal on all sequences is noted on the left posterior aspect of the falx cerebri o n image 18 series 9 measuring approximately 4.1 x 2.6 x 4.7 cm, possibly an arachnoid cyst. No abnorm al enhancement. The cerebral venous sinuses and major arterial flow voids appear patent. The skull, orbits and soft tissues are unremarkable. Trace right and large left mastoid effusions. Moderate mucosal thickening o f the right maxillary sinus. IMPRESSION: 1. No acute intracranial abnormality. 2. No abnormal enhancement to suggest intracranial metastasis. 3. Additional findings as above. ACT 112: Negative or not required by law. The above report was generated using voice recognition software. It may contain grammatical, syntax o r spelling errors. Electronically signed by: Costa Womack M.D. 11/19/2023 3:30 PM
[2023-11-19] MEDS: ALBUTEROL 0.083% NEBU SOLN 3 ML VIAL NEB PRN (18:30)
[2023-11-19] MEDS: traZODone HCL 50 MG TAB PO SCH (21:09)
--- NOTE | 2023-11-19 21:49 | Electrocardiogram Report ---
Test Reason : Blood Pressure : / mmHG Vent. Rate : 095 BPM Atrial Rate : 095 BPM P-R Int : 130 ms QRS Dur : 072 ms QT Int : 378 ms P-R-T Axes : 088 061 076 degrees QTc Int : 475 ms Sinus rhythm with Premature atrial complexes Otherwise normal ECG When compared with ECG of 05-NOV-2023 03:39, Premature atrial complexes are now Present QT has shortened Confirmed by Roel Cornell ([id number]) on 11/19/2023 9:48:38 PM Referred By: Confirmed By:Roel Cornell
[2023-11-20] MEDS: ALBUT/IPRATROP 3MG/0.5MG NEB 3 ML VIAL INH SCH (11:28)
--- NOTE | 2023-11-20 12:51 | Hospitalist Progress Note ---
Date of Service November 20, 2023 Assessment & Plan (1) S/P percutaneous endoscopic gastrostomy (PEG) tube placement: (2) Complication of tracheostomy: (3) New onset seizure: (4) Laryngeal cancer: (5) Cancer of supraglottis: Plan Pt is a 78yoM with PMHx significant for history of laryngeal cancer s/p tracheostomy placement, s/p PEG tube placement, diastolic dysfunction, history of hypertension, depression who presented for difficulty breathing at home in the setting of a recently adjusted trach. Pt was admitted after having a new onset seizure in the ED as he was about to be discharged home. Seizure New onset, occurring in the ED Received Keppra 2000mg IV load in the ED Continue with Keppra 500mg BID via PEG Head CT unremarkable, no noted metastatic lesions as a possible cause MRI of the brain with and without contrast-did not show any abnormality EEG-pending Neurology consult- appreciate recs If EEG is negative we will take off Keppra Hx of laryngeal cancer s/p trach placement, follows with ENT in [place], Dr Bowers per daughter Trach collar recently adjusted/changed, concern for bleeding supraglottic mass Daughter usually suctions as she has experience with trachs Per daughter, pt with extreme anxiety about the trach and not being able to breathe at times Feels like he might have had a panic attack before the seizure while she was suctioning him in the ED Due to start chemotherapy next week Daughter states he is not happy with quality of life, no longer finding pleasure in interests Family agreeable to Palliative Care consult, consult placed, appreciate recs Discussed with his ENT physician in [place]-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 If the condition is worse and needed to be urgent ENT care he can be transferred to [facility] Will asked Dr. Parrish tomorrow for the recommendation of chemotherapy which is supposed to be on Tuesday Will get nocturnal pulse oximetry and also 2 steps prior to discharge from the hospital this time Continue other home meds as ordered Diet: Pt with PEG tube, takes TwoCal at home. Was on Nutren 2.0 QID, 240ml run over 1 hour during last admission. Will continue. CODE STATUS: DNR/DNI DVT prophylaxis: Lovenox SQ Dispo: PCU/tele Admission and Anticipated Discharge Date Admission Date: November 18, 2023 Subjective 11/20/2023 The patient was seen and examined in telemetry unit in presence of the son He has been stable without any shortness of breath at rest Does not have any cough as well His neck pain is reasonably controlled with current medications Physical Exam Physical Exam: Lying in bed comfortably Constitutional: + ill appearing and average body habitus Eyes: PERRL, conjunctivae normal, anicteric sclerae Neck: Has tracheostomy tube in site to. No evidence of bleeding. Pain is controlled with medications Respiratory: no respiratory distress Auscultation: + diminished lung sounds and + crackles (Minimal crackles at the bases) Cardiovascular: Rate/Rhythm: regular rate, regular rhythm and + tachycardic Heart Sounds: normal S1 and normal S2; no murmur Extremities: no edema Gastrointestinal (Abdomen): Inspection/Auscultation: normal bowel sounds; abdomen not distended Percussion/Palpation: abdomen soft; abdomen nontender Musculoskeletal: No acute arthritis involving any of the joint Neurologic: Alert, awake and oriented x 3 Lymphatic: no cervical or axillary lymphadenopathy Results & Data Results & Data Vital Signs (Past 12 Hours) Vital Signs Temp Pulse Pulse Resp BP BP Pulse Ox 11/20/23 11:53 36.8 C 112 H 132/87 95 11/20/23 11:34 94 H 18 91 11/20/23 08:32 37 C 97 H 123/73 90 11/20/23 03:39 36.5 C 66 16 145/81 H 98 11/20/23 02:07 65 14 94 O2 Del Method O2 Flow Rate FiO2 11/20/23 11:53 Room Air 11/20/23 11:34 Room Air 11/20/23 08:32 Room Air 11/20/23 03:39 Trach Collar 6 11/20/23 02:07 Trach Collar 6 35 Medications Administered Current Inpatient Medications Albuterol (Albut/Ipratrop 3mg/0.5mg Neb 3 Ml Vial) 3 ml INH QIDR [facility]; Protocol Stop: 12/20/23 10:59 Last Admin: 11/20/23 11:28 Dose: 3 ml Atropine Sulfate (Atropine Sulfate 1% Op Soln 5 Ml Btl) 2 drops PO BID [facility] Stop: 12/19/23 10:44 Last Admin: 11/19/23 21:08 Dose: 2 drops Enoxaparin Sodium (Enoxaparin Inj 40 Mg/0.4 Ml Syr) 40 mg SQ Q24H [facility] Stop: 12/18/23 19:29 Last Admin: 11/19/23 22:38 Dose: 40 mg Gabapentin (Gabapentin 250 Mg/5 Ml 470 Ml Btl) 250 mg GT TID [facility] Stop: 12/18/23 20:59 Last Admin: 11/20/23 09:05 Dose: 250 mg Guaifenesin (Guaifenesin Sugar Free 200 Mg/10 Ml Udc) 200 mg PO BID [facility] Stop: 12/18/23 20:59 Last Admin: 11/20/23 09:05 Dose: 200 mg Hydromorphone HCl (Hydromorphone Inj 0.5 Mg/0.5 Ml Syr) 0.25 mg IV Q6H PRN PRN Reason: Pain Stop: 12/03/23 11:09 Last Admin: 11/20/23 09:02 Dose: 0.25 mg Prochlorperazine 10 mg/ (Syringe) 10 mls @ 5 mls/min IV Q6H PRN PRN Reason: Nausea And Vomiting Stop: 12/18/23 20:11 Levetiracetam (Levetiracetam Soln 500 Mg/5 Ml Udp) 500 mg PEG Q12H [facility] Stop: 12/19/23 08:59 Last Admin: 11/20/23 09:05 Dose: 500 mg Levothyroxine Sodium (Levothyroxine Sodium 137 Mcg Tablet) 137 mcg PO DAILYBB [facility] Stop: 12/19/23 06:29 Last Admin: 11/20/23 09:05 Dose: 137 mcg Lorazepam (Lorazepam 2 Mg/1 Ml Vial) 4 mg IV PRN PRN PRN Reason: seizure Stop: 12/18/23 20:01 Nutritional Formula (Nutren Liqd 2.0 1,000 Ml Bag) 240 ml PEG 0700,1000,1300,1600 [facility]; Protocol Stop: 12/18/23 19:59 Last Admin: 11/20/23 13:00 Dose: 240 ml Oxycodone/Acetaminophen (Oxycodone/Apap 7.5/325mg Tab) 1 tab PO Q4H PRN PRN Reason: Pain Stop: 12/02/23 20:07 Last Admin: 11/19/23 20:14 Dose: 1 tab Sterile Water (Tube Feeding Water Flush) 0 ml GT UD [facility] Stop: 12/19/23 11:44 Trazodone HCl (Trazodone Hcl 50 Mg Tab) 37.5 mg PO HS [facility] Stop: 12/19/23 20:59 Last Admin: 11/19/23 21:09 Dose: 37.5 mg
--- NOTE | 2023-11-20 13:15 | Hospitalist Progress Note ---
Date of Service November 19, 2023 Assessment & Plan (1) S/P percutaneous endoscopic gastrostomy (PEG) tube placement: (2) Complication of tracheostomy: (3) New onset seizure: (4) Laryngeal cancer: (5) Cancer of supraglottis: Plan Pt is a 78yoM with PMHx significant for history of laryngeal cancer s/p tracheostomy placement, s/p PEG tube placement, diastolic dysfunction, history of hypertension, depression who presented for difficulty breathing at home in the setting of a recently adjusted trach. Pt was admitted after having a new onset seizure in the ED as he was about to be discharged home. Seizure New onset, occurring in the ED Received Keppra 2000mg IV load in the ED Continue with Keppra 500mg BID via PEG Head CT unremarkable, no noted metastatic lesions as a possible cause MRI of the brain-unremarkable EEG-pending Neurology consult- appreciate recs Hx of laryngeal cancer s/p trach placement, follows with ENT in [place], Dr Bowers per daughter Trach collar recently adjusted/changed, concern for bleeding supraglottic mass Daughter usually suctions as she has experience with trachs Per daughter, pt with extreme anxiety about the trach and not being able to breathe at times Feels like he might have had a panic attack before the seizure while she was suctioning him in the ED Due to start chemotherapy next week Daughter states he is not happy with quality of life, no longer finding pleasure in interests Family agreeable to Palliative Care consult, consult placed, appreciate recs Remains stable Will discuss with his ENT physician in [place] Continue other home meds as ordered Diet: Pt with PEG tube, takes TwoCal at home. Was on Nutren 2.0 QID, 240ml run over 1 hour during last admission. Will continue. CODE STATUS: DNR/DNI DVT prophylaxis: Lovenox SQ Dispo: PCU/tele Discussed with the family members Admission and Anticipated Discharge Date Admission Date: November 18, 2023 Subjective 11/20/2023 This is a delayed progress note for 11/19/2023 The patient was seen and examined in telemetry unit in presence of the daughter and the son He was admitted with increasing shortness of breath due to obstruction of the inner tracheostomy tube which was cleaned subsequently He has been feeling little better today Physical Exam Physical Exam: Lying in bed comfortably Constitutional: + ill appearing and average body habitus Eyes: PERRL, conjunctivae normal, anicteric sclerae ENMT: external ear and nose normal, oropharynx normal Neck: Has tracheostomy tube in situ. Some pain in the neck Respiratory: no respiratory distress Auscultation: + diminished lung sounds and + crackles (Minimal crackles at the bases) Cardiovascular: Rate/Rhythm: regular rate, regular rhythm and + tachycardic Heart Sounds: normal S1 and normal S2; no murmur Extremities: no edema Gastrointestinal (Abdomen): Inspection/Auscultation: normal bowel sounds; abdomen not distended Percussion/Palpation: abdomen soft; abdomen nontender Musculoskeletal: No acute arthritis involving any of the joint Neurologic: Alert, awake and oriented Lymphatic: no cervical or axillary lymphadenopathy Results & Data Results & Data Vital Signs (Past 12 Hours) Vital Signs Temp Pulse Pulse Resp BP BP Pulse Ox 11/20/23 11:53 36.8 C 112 H 132/87 95 11/20/23 11:34 94 H 18 91 11/20/23 08:32 37 C 97 H 123/73 90 11/20/23 03:39 36.5 C 66 16 145/81 H 98 11/20/23 02:07 65 14 94 O2 Del Method O2 Flow Rate FiO2 11/20/23 11:53 Room Air 11/20/23 11:34 Room Air 11/20/23 08:32 Room Air 11/20/23 03:39 Trach Collar 6 11/20/23 02:07 Trach Collar 6 35
--- NOTE | 2023-11-21 11:07 | Palliative Care Consultation ---
Date of Consultation November 21, 2023 Assessment & Plan (1) Cancer related pain: He has been given IV Dilaudid this admission with relief but not using oral oxy from home regimen we spoke about moving back to oral oxy to find best dose has pain generally most of the time averging 8/10 offered option of scheduled dose + btp and he was agreeable, also spoke about TDF trial for longer acting relief though he wanted to hold off on this option for now therefore begin: Oxy IR 5mg crushed or liquid via PEG QID on schedule and then use Oxy IR 2.5 to 5mg crushed or liquid via PEG q4h prn BTP or air hunger/HOLD for somnolence or resp rate below 14/min Bowel regimen at home RTC with me OP within 2-3 weeks of dc (2) Dyspnea and respiratory abnormalities: see above (3) Weakness generalized: VNS referral, encouraged to engage HOme PT (4) Tachypnea: (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 he misses his and his freedom. he is worried about dying from his cancer without being able to have a chance to get better. knows chemo is not a guarantee but also aware it is best chance vs less intense option such a immunetherapy. tells me he is keeping his fingers crossed for a cure admits to signif pain and suffering, anxiety d/t dyspnea and suffocation fears with thick secretions we spoke about ways to keep secretions thinner, add cool mist humidity to his rooms at home, extra hydration via peg with meds and flushes, swish and spit oral liquids for pleasure and moistening MM dtr overwhelmed - her home is 2 story with beds and bath upstairs which has now become problem for pt frustrated by lack of support, asking why a visiting nurse was never offered after OSH admission. i reviewed plan for VNS referral today and ongoing med mgt and clinical oversight doreen with plans for chemo start this week (planned for 11/23/23) he does not want to on machines he is worried about tolerating tx, we spoke about those concerns and he was reassured the decision to continue, stop or modify always lies with him, our obligation as medical teams is to assure we deliver care that aligns with his wishes, desires and preferences for himself. we spoke about why these ongoing ACP discussions are vital to assuring that proper care is given each step of the way,. (7) Palliative care by specialist: Met with pt/family. Provided overview of Palliative Medicine, a subspecialty that provides specialized medical care for people living with a serious illness by offering a focus on quality of life. Palliative Medicine is often conflated with hospice: I advised patient/family that Palliative and hospice can be partners but we are not the same. It is important to understand the difference so that we may be informed, and not afraid. Palliative Medicine works to improve QOL through reduction of symptom burden/more control over their illness, for both the patient and family. Palliative medicine clinicians are board certified, specially-trained and another member of the patient's medical care team. We often provide an extra layer of support because our care is based on the needs of the patient, not the prognosis; as such, it's appropriate at any age/advancing stage of a serious illness and can be provided along with curative treatment. Palliative Medicine clinicians are also trained in advanced communication methodologies, to facilitate complex discussions about advanced illness planning, which are needed to help assure that the treatment choices match the patient's goals, aka delivering Goal Concordant care. Finally, we di scussed that hospice is a visiting nurse service that focuses on care delivered at the very end of life for patients with terminal illness, with life expectancy less than 6 month. (8) Non-ST elevation CA (NSTEMI): (9) Cancer of supraglottis: Plan * Overwhelmed by cancer pain, weakness and prognosis. Med changes as noted above * Hoping pain improvement will lift mood. We spoke about options for mood mgt, prn anxiolytic but for now he wants focus on pain * He misses his , her dementia is worsening and he cannot visit her like he used to. Feels he is losing her and also letting her down. extensive support provided.encouraged to consider tech based support with iPad video visits coordinated with SNF teams * FU with me in OP clinic - my team has already scheduled this appt for pt and his daughter is aware/in agreement * caregiver support for dtr reinforced, encouraged her to connect with navigator in clinic during his chemo appt for more resource support * VNS referral ordered by primary team - i encouraged them to ask for home PT * improve free water flushes for hydration, swish and spit for oral mucosal relief, chair based exercises and stretching daily encouraged Thank you for allowing us to participate in the ongoing care of this patient. Please don't hesitate to call or page with any additional concerns. Dr. Goldie Rojas DNP Director, Palliative Care History of Present Illness Reason for Consultation: pt and fam concerned about quality of life Attending Physician: Paige Bradford MD History of Present Illness oropharyngeal ca: laryngeal cancer s/p tracheostomy placement, s/p PEG tube placement; follows with ENT in [place], Dr Bowers PMH: diastolic dysfunction, history of hypertension, depression starting chemo this week trach in place large tumor burden, these are bleeding, trach care with bloody secretions +PEG pt seen bedside with dtr he is non verbal d/t trach but can speak /relies on mouth reading or will answer yes/no with a thumbs up or down he is awake and alert dtr at bedside he admits to cancer related pain in neck/throat/upper mid chest oif 8/ feels oxyIR helps but does not last tells me he takes 2-4 doses of the 5mg tabs OxyIR daily, dtr states is more like 4 tabs a day for total 20mg oral oxycodone daily denies n/v/d bloody secretions by trach dtr is managing they do not have home health nursing support, she states this was never offered while at [facility]. she has spoken with CM here and will be dc likely today with chemo appt Weds, seeing Dr Parrish. has plans for dose reduced chemo, aware this may not curative but may help buy years dtr shares pt recently moved in with her early last fall, after he had to place [facility]. He was until recent dx very IADLS, visiting daily, driving etc Has now become very weak, anhedonic, frustrated with limited communications but does not like to write things out and did not tolerate a tech interface such as cell phone or tablet. she tells me he spends >90% of all days in motorized recliner. cannot take stairs to upper level of home where bedrooms and bath is located without signif distress and dyspnea so now bathes once a week Allergies Allergy/AdvReac Type Severity Reaction Status Date / Time No Known Allergies Allergy Verified 11/04/23 22:31 Home Medications Medication Instructions Recorded Confirmed Type gabapentin 250 mg/5 mL oral 250 mg feeding tube TID 10/21/23 11/18/23 History solution levothyroxine 137 mcg tablet 137 mcg PO QAM 10/21/23 11/18/23 History nystatin 100,000 unit/mL oral 5 ml PO BID 10/21/23 11/18/23 History suspension sodium chloride 0.9 % for 3 ml inhalation DIRECTED 10/21/23 11/18/23 History nebulization atropine 1 % eye drops 2 drp PO BID 11/04/23 11/18/23 History guaifenesin 1,200 mg tablet, 1,200 mg PO BID 11/04/23 11/18/23 History extended release 12 hr (Mucinex) ipratropium 0.5 mg-albuterol 3 mg 3 ml inhalation QID 11/04/23 11/18/23 History (2.5 mg base)/3 mL nebulization soln oxycodone-acetaminophen 7.5 mg-325 1 tab feeding tube Q4H PRN Pain 11/04/23 11/18/23 History mg tablet dexamethasone 4 mg tablet 4 mg PO UD 11/18/23 11/18/23 History olanzapine 2.5 mg tablet 2.5 mg PO UD 11/18/23 11/18/23 History ondansetron 8 mg disintegrating 8 mg PO UD PRN n/v 11/18/23 11/18/23 History tablet prochlorperazine maleate 10 mg 10 mg PO UD 11/18/23 11/18/23 History tablet trazodone 50 mg tablet 50 mg PO UD 11/18/23 11/18/23 History Patient History Medical History (Updated 11/21/23 @ 23:31 by Goldie Rojas DNP) Palliative care by specialist Advanced care planning/counseling discussion Depression due to physical illness Weakness generalized Dyspnea and respiratory abnormalities Cancer related pain Aspiration pneumonia 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 Bowers - stage pT3N2c with extranodal extension Status post completion of combined radiation and chemotherapy. Radiation completed 04/21/2017. He received 6600 cGy. Chemotherapy comprised of weekly cisplatin." On 02/01/17 18:09 Gideon Thompson wrote "-Self palpated right neck mass - November 2016 -Ultrasound-guided FNA of right neck mass - 12/10/2016 - positive for squamous cell carcinoma -PET/CT scan - 12/22/2016 -Supraglottic hemilaryngectomy, bilateral neck dissection - 01/05/2017 - Dr. Bowers - stage pT3N2c with extranodal extension" Social History Smoking Status: Former smoker Tobacco Type: Cigarettes Second Hand Exposure: No; Do You Dip or Chew Tobacco: No; Hx Alcohol Use: Yes Hx Substance Use: No Preferred Language: Martiniquais Communication Ability: Effective Joint Cutter Required: No Beliefs That Will Affect Care: None Current Living Situation: Family Current Living Situation Comment: home with daughter Feels Safe at Home: Yes Assistive Devices: Other Review of Systems Review of Systems: All systems reviewed & are unremarkable except as noted in Subjective Physical Exam Physical Exam: elderly male lying in bed semi reclined AAOx3 trach in place, + dark red bloody secretions/thick at times occ cough/wet sounding bimtep wasting, perrla+, eomi's + anterior chest wall TTP subdued mood color pale,slightly ashen to me, cool to touch, no gross clubbing abd softly distended, +peg, BS+ CAAL weakly Results & Data Vital Signs (Past 12 Hours) Vital Signs Temp Pulse Pulse Pulse Resp BP Pulse Ox 11/21/23 07:19 80 16 96 11/21/23 07:18 36.6 C 81 16 116/76 96 11/21/23 05:14 64 11/21/23 03:05 36.8 C 79 18 128/71 94 11/21/23 02:34 64 11/20/23 23:56 78 Pulse Ox O2 Del Method O2 Del Method 11/21/23 07:19 Room Air 11/21/23 07:18 Room Air 11/21/23 05:14 95 Room Air 11/21/23 03:05 Trach Collar 11/21/23 02:34 95 Room Air 11/20/23 23:56 Laboratory Results data reviewed Diagnostic Findings data reviewed PG Care Time/CCT Total # of Minutes Spent Total Time Spent: 95 Total Time Spent with Patient: Total time spent is greater than 50% in coordination of care (as documented) at patient's floor/unit and/or counseling patient: I spent 95 minutes overall addressing this case: 15 min in medical data review/discussion with referring provider(s) and/or preparation for the visit 20 min in direct interaction with the patient/exam 30 min in Advance Care Planning/Goals of Care discussions as detailed above in note (must be >16min) 15 min in subsequent review and synthesis of assessment and plan 15 min communicating with other providers regarding the patient's case: Advanced Care Planning 95625 Advanced Care Planning 30 [place] [address] IN/OBS CONSULT LVL 4,60M Patient Type New History Comprehensive Exam Comprehensive Medical Decision Making High Complexity Diagnoses Cancer related pain G89.3 Dyspnea and respiratory abnormalities R06.00; R06.89 Weakness generalized R53.1 Tachypnea R06.82 Depression due to physical illness F06.31 Advanced care planning/counseling discussion Z71.89 Palliative care by specialist Z51.5 Non-ST elevation CA (NSTEMI) I21.4 Cancer of supraglottis C32.1 Additional Codes Advanced Care Planning - 21120 Advanced Care Planning 30 Min: 57417 Advanced Care Planning 30 Min ([id number])
--- NOTE | 2023-11-21 13:42 | Hospitalist Progress Note ---
Date of Service November 21, 2023 Assessment & Plan (1) S/P percutaneous endoscopic gastrostomy (PEG) tube placement: (2) Complication of tracheostomy: (3) New onset seizure: (4) Laryngeal cancer: (5) Cancer of supraglottis: Plan Pt is a 78yoM with PMHx significant for history of laryngeal cancer s/p tracheostomy placement, s/p PEG tube placement, diastolic dysfunction, history of hypertension, depression who presented for difficulty breathing at home in the setting of a recently adjusted trach. Pt was admitted after having a new onset seizure in the ED as he was about to be discharged home. Seizure New onset, occurring in the ED Received Keppra 2000mg IV load in the ED Continue with Keppra 500mg BID via PEG Head CT unremarkable, no noted metastatic lesions as a possible cause MRI of the brain-unremarkable EEG-pending Neurology consult- appreciate recs If EEG is negative we can discontinue antiseizure medications Hx of laryngeal cancer s/p trach placement, follows with ENT in [place], Dr Bowers per daughter Trach collar recently adjusted/changed, concern for bleeding supraglottic mass Daughter usually suctions as she has experience with trachs Per daughter, pt with extreme anxiety about the trach and not being able to breathe at times Feels like he might have had a panic attack before the seizure while she was suctioning him in the ED Due to start chemotherapy next week Daughter states he is not happy with quality of life, no longer finding pleasure in interests Family agreeable to Palliative Care consult, consult placed, appreciate recs Remains stable Will discuss with his ENT physician in [place] Appreciate palliative care input and recommendation Discussed with the oncologist-will have cancer therapy education today and chemotherapy starting Tuesday morning as an outpatient His nocturnal pulse oximetry did not show any requirement of oxygen 2 steps O2 saturation test documented to have 4 L of 28% oxygen via trach collar to maintain saturation Will be discharged home this afternoon Continue other home meds as ordered Diet: Pt with PEG tube, takes TwoCal at home. Was on Nutren 2.0 QID, 240ml run over 1 hour during last admission. Will continue. CODE STATUS: DNR/DNI DVT prophylaxis: Lovenox SQ Dispo: PCU/tele Discussed with the family members Admission and Anticipated Discharge Date Admission Date: November 18, 2023 Subjective 11/20/2023 This is a delayed progress note for 11/19/2023 The patient was seen and examined in telemetry unit in presence of the daughter and the son He was admitted with increasing shortness of breath due to obstruction of the inner tracheostomy tube which was cleaned subsequently He has been feeling little better today 11/21/2023 The patient was seen and examined in telemetry unit in presence of the daughter He has been stable Denies any significant symptoms at rest Review of Systems Review of Systems: All systems reviewed and are unremarkable except as noted below Ear, Nose, Mouth, Throat: Status post tracheostomy tube placement Physical Exam Physical Exam: Lying in bed comfortably Constitutional: + ill appearing and average body habitus Eyes: PERRL, conjunctivae normal, anicteric sclerae ENMT: external ear and nose normal, oropharynx normal Respiratory: no respiratory distress Auscultation: + diminished lung sounds and + crackles (Minimal crackles at the bases) Cardiovascular: Rate/Rhythm: regular rate, regular rhythm and + tachycardic Heart Sounds: normal S1 and normal S2; no murmur Extremities: no edema Gastrointestinal (Abdomen): Inspection/Auscultation: normal bowel sounds; abdomen not distended Percussion/Palpation: abdomen soft; abdomen nontender Musculoskeletal: No acute arthritis involving any of the joint Neurologic: Alert, awake and oriented x 3. Generally weak Lymphatic: no cervical or axillary lymphadenopathy Results & Data Results & Data Vital Signs (Past 12 Hours) Vital Signs Temp Pulse Pulse Pulse Pulse Resp Resp 11/21/23 11:56 110 H 20 11/21/23 11:47 122 H 128 H 118 H 20 11/21/23 11:15 36.6 C 85 18 11/21/23 11:10 11/21/23 07:19 80 16 11/21/23 07:18 36.6 C 81 16 11/21/23 05:14 64 11/21/23 03:05 36.8 C 79 18 11/21/23 02:34 64 Resp Resp BP Pulse Ox Pulse Ox Pulse Ox Pulse Ox 11/21/23 11:56 96 11/21/23 11:47 24 20 92 88 L 11/21/23 11:15 122/76 96 11/21/23 11:10 94 11/21/23 07:19 96 11/21/23 07:18 116/76 96 11/21/23 05:14 11/21/23 03:05 128/71 94 11/21/23 02:34 Pulse Ox Pulse Ox O2 Del Method O2 Del Method O2 Flow Rate 11/21/23 11:56 Room Air 11/21/23 11:47 95 4 11/21/23 11:15 Room Air 11/21/23 11:10 88 L 11/21/23 07:19 Room Air 11/21/23 07:18 Room Air 11/21/23 05:14 95 Room Air 11/21/23 03:05 Trach Collar 11/21/23 02:34 95 Room Air Medications Administered Current Inpatient Medications Albuterol (Albut/Ipratrop 3mg/0.5mg Neb 3 Ml Vial) [address] [facility]; Protocol Stop: 12/20/23 10:59 Last Admin: 11/21/23 11:55 Dose: 3 ml Atropine Sulfate (Atropine Sulfate 1% Op Soln 5 Ml Btl) [address] [facility] Stop: 12/19/23 10:44 Last Admin: 11/21/23 07:19 Dose: 2 drops Enoxaparin Sodium (Enoxaparin Inj 40 Mg/0.4 Ml Syr) 40 mg SQ Q24H [facility] Stop: 12/18/23 19:29 Last Admin: 11/20/23 21:34 Dose: 40 mg Gabapentin (Gabapentin 250 Mg/5 Ml 470 Ml Btl) 250 mg GT TID [facility]NID[facility] Stop: 12/18/23 20:59 Last Admin: 11/21/23 10:16 Dose: 250 mg Guaifenesin (Guaifenesin Sugar Free 200 Mg/10 Ml Udc) 200 mg PO BID [facility] Stop: 12/18/23 20:59 Last Admin: 11/21/23 10:20 Dose: 200 mg Prochlorperazine 10 mg/ (Syringe) 10 mls @ 5 mls/min IV Q6H PRN PRN Reason: Nausea And Vomiting Stop: 12/18/23 20:11 Levetiracetam (Levetiracetam Soln 500 Mg/5 Ml Udp) 500 mg PEG Q12H [facility] Stop: 12/19/23 08:59 Last Admin: 11/21/23 10:22 Dose: 500 mg Levothyroxine Sodium (Levothyroxine Sodium 137 Mcg Tablet) [address] [facility] Stop: 12/19/23 06:29 Last Admin: 11/21/23 06:36 Dose: 137 mcg Lorazepam (Lorazepam 2 Mg/1 Ml Vial) 4 mg IV PRN PRN PRN Reason: seizure Stop: 12/18/23 20:01 Nutritional Formula (Nutren Liqd 2.0 1,000 Ml Bag) 240 ml PEG 0700,1000,1300,1600 [facility]; Protocol Stop: 12/18/23 19:59 Last Admin: 11/21/23 10:25 Dose: 240 ml Oxycodone HCl (Oxycodone Hcl Ir 5 Mg Tab (Immediate Release)) [address] [facility] Stop: 12/05/23 12:59 Oxycodone/Acetaminophen (Oxycodone/Apap 7.5/325mg Tab) 1 tab PO Q4H PRN PRN Reason: Pain Stop: 12/02/23 20:07 Last Admin: 11/20/23 13:30 Dose: 1 tab Sterile Water (Tube Feeding Water Flush) [address] [facility] Stop: 12/19/23 11:44
[2023-11-21] MEDS: oxyCODONE HCL IR 5 MG TAB (IMMEDIATE RELEASE) PO SCH (13:48)
--- NOTE | 2023-11-21 17:38 | Electroencephalogram ---
EEG Procedure Note Date of Service November 21, 2023 Start / End Times Start Time: 06:17 End Time: 06:37 Referring Physician Tanisha Hankins MD History A 78 year old male with new onset seizure. EEG performed for evaluation of epileptiform activity. Home Medication List Medication Instructions Recorded Confirmed Type gabapentin 250 mg/5 mL oral 250 mg feeding tube TID 10/21/23 11/18/23 History solution levothyroxine 137 mcg tablet 137 mcg PO QAM 10/21/23 11/18/23 History nystatin 100,000 unit/mL oral 5 ml PO BID 10/21/23 11/18/23 History suspension sodium chloride 0.9 % for 3 ml inhalation DIRECTED 10/21/23 11/18/23 History nebulization atropine 1 % eye drops 2 drp PO BID 11/04/23 11/18/23 History guaifenesin 1,200 mg tablet, 1,200 mg PO BID 11/04/23 11/18/23 History extended release 12 hr (Mucinex) ipratropium 0.5 mg-albuterol 3 mg 3 ml inhalation QID 11/04/23 11/18/23 History (2.5 mg base)/3 mL nebulization soln oxycodone-acetaminophen 7.5 mg-325 1 tab feeding tube Q4H PRN Pain 11/04/23 11/18/23 History mg tablet dexamethasone 4 mg tablet 4 mg PO UD 11/18/23 11/18/23 History olanzapine 2.5 mg tablet 2.5 mg PO UD 11/18/23 11/18/23 History ondansetron 8 mg disintegrating 8 mg PO UD PRN n/v 11/18/23 11/18/23 History tablet prochlorperazine maleate 10 mg 10 mg PO UD 11/18/23 11/18/23 History tablet trazodone 50 mg tablet 50 mg PO UD 11/18/23 11/18/23 History Inpatient Medication List Albuterol (Albut/Ipratrop 3mg/0.5mg Neb 3 Ml Vial) 3 ml INH QIDR [facility]; Protocol Stop: 12/20/23 10:59 Last Admin: 11/21/23 14:18 Dose: 3 ml Documented By: Admin: 11/21/23 11:55 Dose: 3 ml Documented By: Admin: 11/21/23 07:19 Dose: 3 ml Documented By: Admin: 11/20/23 19:21 Dose: 3 ml Documented By: Admin: 11/20/23 15:22 Dose: 3 ml Documented By: Admin: 11/20/23 11:28 Dose: 3 ml Documented By: TAYLOR Atropine Sulfate (Atropine Sulfate 1% Op Soln 5 Ml Btl) 2 drops PO BID [facility] Stop: 12/19/23 10:44 Last Admin: 11/21/23 07:19 Dose: 2 drops Documented By: Admin: 11/20/23 19:20 Dose: 2 drops Documented By: Admin: 11/20/23 15:27 Dose: Not Given Documented By: Admin: 11/19/23 21:08 Dose: 2 drops Documented By: Admin: 11/19/23 12:00 Dose: 2 drops Documented By: DTT Enoxaparin Sodium (Enoxaparin Inj 40 Mg/0.4 Ml Syr) 40 mg SQ Q24H [facility] Stop: 12/18/23 19:29 Last Admin: 11/20/23 21:34 Dose: 40 mg Documented By: Admin: 11/19/23 22:38 Dose: 40 mg Documented By: Admin: 11/18/23 20:49 Dose: 40 mg Documented By: CHEN Gabapentin (Gabapentin 250 Mg/5 Ml 470 Ml Btl) 250 mg GT TID [facility] Stop: 12/18/23 20:59 Last Admin: 11/21/23 13:58 Dose: 250 mg Documented By: Admin: 11/21/23 10:16 Dose: 250 mg Documented By: Admin: 11/20/23 21:53 Dose: 250 mg Documented By: Admin: 11/20/23 13:30 Dose: 250 mg Documented By: Admin: 11/20/23 09:05 Dose: 250 mg Documented By: Admin: 11/19/23 21:09 Dose: 250 mg Documented By: Admin: 11/19/23 15:30 Dose: 250 mg Documented By: Admin: 11/19/23 10:43 Dose: 250 mg Documented By: Admin: 11/18/23 20:50 Dose: 250 mg Documented By: CHEN Guaifenesin (Guaifenesin Sugar Free 200 Mg/10 Ml Udc) 200 mg PO BID [facility] Stop: 12/18/23 20:59 Last Admin: 11/21/23 10:20 Dose: 200 mg Documented By: Admin: 11/20/23 21:35 Dose: 200 mg Documented By: Admin: 11/20/23 09:05 Dose: 200 mg Documented By: Admin: 11/19/23 21:08 Dose: 200 mg Documented By: Admin: 11/19/23 08:46 Dose: 200 mg Documented By: Admin: 11/18/23 20:49 Dose: 200 mg Documented By: CHEN Levetiracetam (Levetiracetam Soln 500 Mg/5 Ml Udp) 500 mg PEG Q12H [facility] Stop: 12/19/23 08:59 Last Admin: 11/21/23 10:22 Dose: 500 mg Documented By: Admin: 11/20/23 21:35 Dose: 500 mg Documented By: Admin: 11/20/23 09:05 Dose: 500 mg Documented By: Admin: 11/19/23 21:08 Dose: 500 mg Documented By: Admin: 11/19/23 08:46 Dose: 500 mg Documented By: DTT Levothyroxine Sodium (Levothyroxine Sodium 137 Mcg Tablet) 137 mcg PO DAILYBB [facility] Stop: 12/19/23 06:29 Last Admin: 11/21/23 06:36 Dose: 137 mcg Documented By: Admin: 11/20/23 09:05 Dose: 137 mcg Documented By: Admin: 11/19/23 05:35 Dose: 137 mcg Documented By: CHEN Nutritional Formula (Nutren Liqd 2.0 1,000 Ml Bag) 240 ml PEG 0700,1 000,1300,1600 [facility]; Protocol Stop: 12/18/23 19:59 Last Admin: 11/21/23 17:12 Dose: 240 ml Documented By: Admin: 11/21/23 13:46 Dose: 240 ml Documented By: Admin: 11/21/23 10:25 Dose: 240 ml Documented By: Admin: 11/21/23 06:37 Dose: 240 ml Documented By: Admin: 11/20/23 16:32 Dose: 240 ml Documented By: Admin: 11/20/23 13:00 Dose: 240 ml Documented By: Admin: 11/20/23 10:07 Dose: 240 ml Documented By: Admin: 11/20/23 06:21 Dose: 240 ml Documented By: Admin: 11/19/23 15:31 Dose: 240 ml Documented By: Admin: 11/19/23 14:10 Dose: 240 ml Documented By: Admin: 11/19/23 10:44 Dose: 240 ml Documented By: Admin: 11/19/23 06:49 Dose: 240 ml Documented By: Admin: 11/18/23 20:49 Dose: 240 ml Documented By: CHEN Oxycodone HCl (Oxycodone Hcl Ir 5 Mg Tab (Immediate Release)) 5 mg PO QID [facility] Stop: 12/05/23 12:59 Last Admin: 11/21/23 13:48 Dose: 5 mg Documented By: NADEEM Oxycodone/Acetaminophen (Oxycodone/Apap 7.5/325mg Tab) 1 tab PO Q4H PRN PRN Reason: Pain Stop: 12/02/23 20:07 Last Admin: 11/20/23 13:30 Dose: 1 tab Documented By: Admin: 11/19/23 20:14 Dose: 1 tab Documented By: Admin: 11/19/23 08:46 Dose: 1 tab Documented By: ALEJANDRINA Discontinued Medications Albuterol (Albuterol 0.083% Nebu Soln 3 Ml Vial) 2.5 mg NEB Q6H PRN; Protocol PRN Reason: Shortness Of Breath Or Wheezing Stop: 12/19/23 18:09 Last Admin: 11/20/23 02:07 Dose: 2.5 mg Documented By: Admin: 11/19/23 18:30 Dose: 2.5 mg Documented By: TAYLOR Dexamethasone (Dexamethasone Sod Inj 4 Mg/Ml Vial) 10 mg IV NOW STA Stop: 11/18/23 13:43 Last Admin: 11/18/23 14:10 Dose: 10 mg Documented By: STEPHEN Gadobutrol (Gadobutrol 65ml Vial) 6.4 ml IV ONCE ONE Stop: 11/19/23 15:11 Last Admin: 11/19/23 15:10 Dose: 6.4 ml Documented By: ROLAND Hydromorphone HCl (Hydromorphone Inj 0.5 Mg/0.5 Ml Syr) 0.25 mg IV Q6H PRN PRN Reason: Pain Stop: 12/03/23 11:09 Last Admin: 11/21/23 08:30 Dose: 0.25 mg Documented By: Admin: 11/20/23 19:00 Dose: 0.25 mg Documented By: Admin: 11/20/23 09:02 Dose: 0.25 mg Documented By: Admin: 11/19/23 11:47 Dose: 0.25 mg Documented By: ALEJANDRINA Iron Sucrose 200 mg/ Sodium (Chloride) 110 mls @ 220 mls/hr IV TODAY@2029 ONE Stop: 11/18/23 20:59 Last Infusion: 11/18/23 21:20 Dose: Infused Documented By: Admin: 11/18/23 20:50 Dose: 220 mls/hr Documented By: CHEN Ioversol (Optiray 320 125ml) 116 ml IV ONCE ONE Stop: 11/18/23 23:07 Last Admin: 11/18/23 23:07 Dose: 116 ml Documented By: JUDITH Levetiracetam (Levetiracetam 500 Mg/5 Ml Vial) 2,000 mg IV NOW STA Stop: 11/18/23 15:47 Last Admin: 11/18/23 15:54 Dose: 2,000 mg Documented By: QASIM Lorazepam (Lorazepam 1 Mg/1 Ml Syr Ed Inj Use) 1 mg IV ONE STA Stop: 11/18/23 15:47 Last Admin: 11/18/23 16:05 Dose: 1 mg Documented By: QASIM Tranexamic Acid (Txa 10% Non-Iv Routes 100 Mg/Ml Vial) 250 mg NEB ONE ONE Stop: 11/18/23 12:22 Last Admin: 11/18/23 12:24 Dose: 250 mg Documented By: STEPHEN Tranexamic Acid (Txa 10% Non-Iv Routes 100 Mg/Ml Vial) Confirm Administered Dose 1,000 mg .ROUTE .STK-MED ONE Stop: 11/18/23 12:23 Last Admin: 11/18/23 12:24 Dose: Not Given Documented By: STEPHEN Trazodone HCl (Trazodone Hcl 50 Mg Tab) 37.5 mg PO HS [facility] Stop: 12/19/23 20:59 Last Admin: 11/20/23 21:35 Dose: 37.5 mg Documented By: Admin: 11/19/23 21:09 Dose: 37.5 mg Documented By: CHEN Description This is a 21 electrode EEG with a single channel dedicated to limited EKG. The electrodes were placed in accordance with the International 10-20 system. REPORT: At the onset of the EEG the patient is asleep. The background is disorganized with loss of the normal anterior to posterior gradient. The background consist polymorphic theta delta activity. No stage II sleep transients were seen. Interpretation This is an abnormal routine EEG due to generalized background activity slowing suggestive of a non specific encephalopathy. No epileptiform activity is seen.
--- NOTE | 2023-11-22 08:22 | Discharge Summary ---
Date of Service November 21, 2023 Admission HPI Per Admitting Provider Pt is a 78yoM with PMHx significant for history of laryngeal cancer s/p tracheostomy placement, s/p PEG tube placement, diastolic dysfunction, history of hypertension, depression who presented for difficulty breathing at home in the setting of a recently adjusted trach. Pt was admitted after having a new onset seizure in the ED as he was about to be discharged home. Hx obtained from son and daughter present in the in the room. Daughter states that he had a new trach placed on Tuesday. States that he was switched to a cuff trach to prevent blood from his tumor leaking or going down and needing to be suctioned. States that she had a son who also had a tracheostomy so she does the suctioning for her dad. States that she is one of the few that he trusts to do it. She states that since the new trach collar was placed, it seems like he can't catch his breath at home, sometimes with "belly breathing" and he asked to come in to be evaluated today. States that he follows with ENT in [place], Dr Bowers per daughter. States that after evaluation in the ED, he was about to be discharged and the daughter noted that he needed suctioning once more. States that she suctioned, notes it was not as deep and it appears that he panicked and had a seizure. A code blue was called at that time but per ED provider, pt had a seizure and was loaded with IV Keppra. Pt was difficult to arouse after medication but was able to nod yes or no to questions with significant verbal stimulation or sternal rub. Per daughter pt takes all meds via PEG and is on TwoCal for nutrition at home, she notes he takes about 6 of them a day and the amount can vary. Admission Exam Per Admitting Provider General: Drowsy, no acute distress at the time of exam Skin: No noted rashes or bruises Psych: mood and affect could not be determined Neuro: No gross deficits while laying sleeping in bed HEENT: NC/AT, trach in place CV: RRR Resp: Breath sounds clear bilaterally, no increased effort of breathing. Abdomen: Soft Extremities: No edema in lower extremities bilaterally. Principal Diagnosis Seizures likely secondary to hypoxia due to blockage of the tracheostomy tube, laryngeal cancer status post tracheostomy Discharge Exam Lying in bed comfortably Constitutional + ill appearing and average body habitus Eyes PERRL, conjunctivae normal, anicteric sclerae ENMT external ear and nose normal, oropharynx normal Respiratory no respiratory distress Auscultation: + diminished lung sounds and + crackles (Minimal crackles at the bases) Cardiovascular Rate/Rhythm: regular rate, regular rhythm and + tachycardic Heart Sounds: normal S1 and normal S2; no murmur Extremities: no edema Gastrointestinal (Abdomen) Inspection/Auscultation: normal bowel sounds; abdomen not distended Percussion/Palpation: abdomen soft; abdomen nontender Lymphatic no cervical or axillary lymphadenopathy Discharge Data Allergies Allergy/AdvReac Type Severity Reaction Status Date / Time No Known Allergies Allergy Verified 11/04/23 22:31 Consultations 11/18/23 17:24 Consult Palliative Care Routine 11/18/23 17:28 Consult Neurology Routine 11/19/23 07:41 Consult Pulmonology Routine Ordered Studies 11/18/23 15:46 CT head/brain wo con Stat 11/18/23 19:04 MR brain wo con Urgent 11/18/23 22:36 CTA neck with con [CT angio neck with con] Stat 11/18/23 22:38 CTA chest w con [CT angio chest w con] Stat 11/19/23 13:24 MR brain wo/w con Routine Hospital Course (1) S/P percutaneous endoscopic gastrostomy (PEG) tube placement: (2) Complication of tracheostomy: (3) New onset seizure: (4) Laryngeal cancer: (5) Cancer of supraglottis: Plan Pt is a 78yoM with PMHx significant for history of laryngeal cancer s/p tracheostomy placement, s/p PEG tube placement, diastolic dysfunction, history of hypertension, depression who presented for difficulty breathing at home in the setting of a recently adjusted trach. Pt was admitted after having a new onset seizure in the ED as he was about to be discharged home. Seizure New onset, occurring in the ED Received Keppra 2000mg IV load in the ED Continue with Keppra 500mg BID via PEG Head CT unremarkable, no noted metastatic lesions as a possible cause MRI of the brain-unremarkable EEG-pending Neurology consult- appreciate recs If EEG is negative we can discontinue antiseizure medications Hx of laryngeal cancer s/p trach placement, [place] daughter Trach collar recently adjusted/changed, concern for bleeding supraglottic mass Daughter usually suctions as she has experience with trachs Per daughter, pt with extreme anxiety about the trach and not being able to breathe at times Feels like he might have had a panic attack before the seizure while she was suctioning him in the ED Due to start chemotherapy next week Daughter states he is not happy with quality of life, no longer finding pleasure in interests Family agreeable to Palliative Care consult, consult placed, appreciate recs Remains stable Will discuss with his ENT physician in [place] Appreciate palliative care input and recommendation Discussed with the oncologist-will have cancer therapy education today and chemotherapy starting Tuesday morning as an outpatient His nocturnal pulse oximetry did not show any requirement of oxygen 2 steps O2 saturation test documented to have 4 L of 28% oxygen via trach collar to maintain saturation Will be discharged home this afternoon Continue other home meds as ordered Diet: Pt with PEG tube, takes TwoCal at home. Was on Nutren 2.0 QID, 240ml run over 1 hour during last admission. Will continue. CODE STATUS: DNR/DNI DVT prophylaxis: Lovenox SQ Dispo: PCU/tele Discussed with the family members Total Time Total Time Spent Total Time Spent (In Minutes): 35 minutes Discharge Plan Discharge Items Patient Disposition: Home - Home Health Services Reason For Visit: NEW ONSET SEIZURE Discharge Diagnosis: Seizures likely secondary to hypoxia due to blockage of the tracheostomy tube, laryngeal cancer status post tracheostomy Activity: Resume your previous activity Non-emergency contact: Primary Care Provider Call non-emergency contact if: you have any medication questions and your symptoms worsen Follow-up/Referrals: Tyron Keita MD [Primary Care Provider] - (Date & Time 11/25/2023 11:00 AM Provider Kaity Kendall MD Department General Internal Medicine [facility] ) Diet Comment: Continue with PEG tube Addtl Attending Provider Instructions: Please take precautions to avoid fall You do not need to take any seizure medications Continue to use oxygen advised Please keep your medications as advised and keep appointments with your healthcare provider Pending Studies at Discharge: No Stand-Alone Forms: My [employer], Smoking Cessation Medications and DC Order Prescriptions: Continued levothyroxine 137 mcg tablet 137 mcg PO QAM nystatin 100,000 unit/mL suspension 5 ml PO BID Rx Instructions: last filled in february gabapentin 250 mg/5 mL solution 250 mg feeding tube TID Rx Instructions: unable to verify with pharmacy 11/18/23 sodium chloride 0.9 % solution for nebulization 3 ml INHALATION DIRECTED Rx Instructions: unable to verify with pharmacy 11/18/23 ipratropium-albuterol 0.5 mg-3 mg(2.5 mg base)/3 mL solution for nebulization 3 ml INHALATION QID oxycodone-acetaminophen 7.5-325 mg tablet 1 tab feeding tube Q4H PRN (Reason: Pain) atropine 1 % drops 2 drp PO BID guaifenesin [Mucinex] 1,200 mg Tablet Extended Release 12hr 1,200 mg PO BID Rx Instructions: unable to verify with pharmacy 11/18/23 trazodone 50 mg tablet 50 mg PO UD Rx Instructions: 3 quarters of tablet prochlorperazine maleate 10 mg tablet 10 mg PO UD olanzapine 2.5 mg tablet 2.5 mg PO UD Rx Instructions: as directed ondansetron 8 mg tablet,disintegrating 8 mg PO UD PRN (Reason: n/v) dexamethasone 4 mg tablet 4 mg PO UD Discharge Orders: Discharge Order (Routine); Ordered 11/21/23 Ordered By: Paige Bradford Admission Data Admit Date/Time: 11/18/23 16:22 Attending Provider: Paige Bradford Admit Provider: Tanisha Hankins Primary Care Provider: Tyron Keita Other Providers: Goldie Rojas; Jose Enrique Benitez; Tanisha Hankins; Shant Sexton; [facility] Other Interventions: Discharge Summary Assessment (RN) Last Done: 11/21/23 18:40
== END 2023-11-21 20:48 | disposition home health service (06) | DRG 101 ==
LOC: ED 12:00 → SUATTDRO 16:22 → INTOOBSV 16:22 → 2S 16:22